=== PATIENT | female | born 1955 ===

== ENCOUNTER 2019-12-26 11:03 | Outpatient (REF) | payer MEDICARE, MEDICAID, SELFPAY ==
[2019-12-26 12:00] LABS: MANUAL DIFF FLAG NO
[2019-12-26 12:04] LABS: Basophils Percent Auto 0.6 % (0-2); Eosinophils Absolute Auto 0.2 X10*3/uL (0.0-0.4); Eosinophils Percent Auto 5.4 % (0-4); Hematocrit 38.1 % (37-47); Hemoglobin 12.1 g/dl (12.0-16.0); Lymphocytes Absolute Auto 1.4 X10*3/uL (1.2-4.9); Lymphocytes Percent Auto 43.2 % (20-40); Mean Corpuscular HGB Conc 31.8 g/dl (31.0-35.0); Mean Corpuscular Hemoglobin 30.9 pg (27.0-33.0); Mean Corpuscular Volume 97.4 fL (80-98); Mean Platelet Volume 9.9 fL (9.4-12.3); Monocytes Absolute Auto 0.2 X10*3/uL (0.1-1.2); Monocytes Percent Auto 7.6 % (2-11); Neutrophils Absolute Auto 1.4 X10*3/uL (2.0-8.3); Neutrophils Percent Auto 43.2 % (45-73); Platelet Count 207 X10*3/uL (160-400); Red Blood Count 3.91 X10*6/uL (4.20-5.50); Red Cell Distribution Width 14.7 % (11.0-16.0); White Blood Count 3.2 X10*3/uL (4.8-10.8)
[2019-12-26 12:38] LABS: Alanine Aminotransferase 24 U/L (0-31); Albumin Level 4.2 g/dL (3.5-5.0); Alkaline Phosphatase 143 U/L (39-117); Aspartate Amino Transferase 23 U/L (5-31); Bilirubin Direct 0.2 mg/dL (0.0-0.5); Bilirubin Total 0.3 mg/dL (0.0-1.0); Total Protein 7.1 g/dL (6.5-8.0)
[2019-12-26 12:44] LABS: Phenytoin Dilantin 12.4 ug/mL (10.0-20.0)
== END 2019-12-26 11:04 | disposition home or self-care (01) ==
LOC: HO.LAB 11:03
PROVIDERS: PCP Family Medicine; Visit Provider Psychiatry & Neurology Neurology
DX: G40.802 Other epilepsy, not intractable, without status epilepticus (principal)
CPT/HCPCS: 36415; 80076; 80185; 85025

== ENCOUNTER 2020-02-26 14:39 | Outpatient (REF) | payer MEDICARE, MEDICAID, SELFPAY ==
--- NOTE | 2020-02-26 14:49 | MM_ITS ---
EXAMINATION: MM SCREENING DIGITAL BREAST TOMOSYNTHESIS, BILATERAL CLINICAL INFORMATION: Screening. Asymptomatic. The lifetime risk of breast cancer based on the Tyrer-Cuzick Model is 5%. COMPARISON: Mammography: 08/31/2018, 08/14/2017, 10/21/2010 TECHNIQUE: Digital breast tomosynthesis is performed in both the craniocaudal and mediolateral oblique views along with computer-aided detection (CAD). Synthesized 2D images are generated from the tomosynthesis. FINDINGS: There are scattered areas of fibroglandular density (ACR BI-RADS breast composition Category b). There are no significant masses, abnormal calcifications, or other abnormalities. No significant changes from prior exams. There is a pacemaker generator partially overlying the posterior upper left breast again seen. MM/MM tomosynthesis screening BI IMPRESSION: No mammographic evidence of malignancy. ASSESSMENT: BI-RADS 1: Negative RECOMMENDATION: Routine annual mammography screening. This patient's information was entered into a reminder system with a target due date for their next mammogram.
== END 2020-02-26 14:40 | disposition home or self-care (01) ==
LOC: HO.MAMMO 14:39
PROVIDERS: PCP Family Medicine; Visit Provider Family Medicine
DX: Z12.31 Encounter for screening mammogram for malignant neoplasm of breast (principal)
CPT/HCPCS: 77063; 77067

== ENCOUNTER → 2020-04-15 13:28 | Outpatient (BNVA) | payer MEDICARE, MEDICAID, SELFPAY | PROVIDERS: PCP Family Medicine; Visit Provider Internal Medicine Cardiovascular Disease | DX: I10 Essential (primary) hypertension (principal) | CPT/HCPCS: 93005; 99212 ==

== ENCOUNTER 2020-09-21 12:02 | Outpatient (REF) | payer MEDICARE, MEDICAID, SELFPAY ==
[2020-09-21 14:02] LABS: MANUAL DIFF FLAG NO
[2020-09-21 14:05] LABS: Basophils Percent Auto 0.6 % (0-2); Eosinophils Absolute Auto 0.1 X10*3/uL (0.0-0.4); Hematocrit 37.3 % (37-47); Hemoglobin 11.9 g/dl (12.0-16.0); Lymphocytes Absolute Auto 1.6 X10*3/uL (1.2-4.9); Lymphocytes Percent Auto 47.2 % (20-40); Mean Corpuscular HGB Conc 31.9 g/dl (31.0-35.0); Mean Corpuscular Hemoglobin 30.7 pg (27.0-33.0); Mean Corpuscular Volume 96.4 fL (80-98); Mean Platelet Volume 10.4 fL (9.4-12.3); Monocytes Absolute Auto 0.3 X10*3/uL (0.1-1.2); Neutrophils Absolute Auto 1.4 X10*3/uL (2.0-8.3); Neutrophils Percent Auto 41.2 % (45-73); Platelet Count 250 X10*3/uL (160-400); Red Blood Count 3.87 X10*6/uL (4.20-5.50); Red Cell Distribution Width 14.4 % (11.0-16.0); White Blood Count 3.4 X10*3/uL (4.8-10.8)
[2020-09-21 14:37] LABS: Alanine Aminotransferase 17 U/L (0-31); Albumin Level 4.3 g/dL (3.5-5.0); Alkaline Phosphatase 144 U/L (39-117); Aspartate Amino Transferase 22 U/L (5-31); Total Protein 7.3 g/dL (6.5-8.0)
[2020-09-21 14:49] LABS: Bilirubin Direct 0.2 mg/dL (0.0-0.5); Bilirubin Total 0.4 mg/dL (0.0-1.0)
== END 2020-09-21 12:03 | disposition home or self-care (01) ==
LOC: HO.LAB 12:02
PROVIDERS: PCP Family Medicine; Visit Provider Psychiatry & Neurology Neurology
DX: G40.209 Localization-related (focal) (partial) symptomatic epilepsy and epileptic syndromes with complex partial seizures, not intractable, without status epilepticus (principal)
CPT/HCPCS: 36415; 80076; 85025

== ENCOUNTER 2021-03-03 10:05 | Outpatient (REF) | payer MEDICARE, MEDICAID, SELFPAY ==
--- NOTE | ~2021-03-03 | MM_ITS ---
EXAMINATION: MM SCREENING DIGITAL BREAST TOMOSYNTHESIS, BILATERAL CLINICAL INFORMATION: Screening. Asymptomatic. The lifetime risk of breast cancer based on the Tyrer-Cuzick Model is 4.5%. COMPARISON: Mammography: 02/26/2020 and studies dating back to 10/21/2010. TECHNIQUE: Digital breast tomosynthesis is performed in both the craniocaudal and mediolateral oblique views along with computer-aided detection (CAD). Synthesized 2-D images are generated from the tomosynthesis. FINDINGS: There are scattered areas of fibroglandular density (ACR BI-RADS breast composition Category b). There is a stable parenchymal pattern within the left breast with no new abnormal dominant mass or suspicious grouping of microcalcifications. Within the superior anterior aspect of the right breast approximately 4 cm from nipple, there is a 5 mm poorly marginated density with question of a few calcifications within it not definitely seen previously. I do not see corresponding density on craniocaudal view and this may represent superimposition of fibroglandular tissue, however, tomosynthesis views do not demonstrate this. MM/MM tomosynthesis screening BI IMPRESSION: Right breast density for further evaluation with spot magnification views anteriorly. ASSESSMENT: BI-RADS 0: Incomplete - Need Additional Imaging Evaluation. RECOMMENDATION: 1. Additional views of the right breast. 2. Targeted ultrasound if warranted after review of the additional views. 3. Radiology department staff will contact the patient for additional imaging. This patient's information was entered into a reminder system with a target due date for their next mammogram.
== END 2021-03-03 10:06 | disposition home or self-care (01) ==
LOC: HO.MAMMO 10:05
PROVIDERS: PCP Internal Medicine; Visit Provider Family Medicine
DX: Z12.31 Encounter for screening mammogram for malignant neoplasm of breast (principal)
CPT/HCPCS: 77063; 77067

== ENCOUNTER 2021-03-11 09:52 | Outpatient (REF) | payer MEDICARE, MEDICAID, SELFPAY ==
--- NOTE | ~2021-03-11 | MM_ITS ---
EXAMINATION: MM DIAGNOSTIC DIGITAL MAMMOGRAPHY, RIGHT CLINICAL INFORMATION: Recall from screening for question of asymmetric density on MLO view with some punctate calcifications. No CC correlate. TC score 5%. COMPARISON: Mammography: 03/03/2021, 02/26/2020, 08/31/2018 TECHNIQUE: Digital mammography is performed in the following views: Magnification CC x2, magnification ML FINDINGS: There are scattered areas of fibroglandular density (ACR BI-RADS breast composition Category b). Additional views show no persistent asymmetric density and no grouped calcifications. No developing density. No significant changes from prior studies. Results are discussed with the patient at time of visit, using an international recruiter. MM/MM added views RT IMPRESSION: Additional views show no persistent asymmetric density or calcifications. ASSESSMENT: BI-RADS 1: Negative RECOMMENDATION: Routine annual mammography screening. This patient's information was entered into a reminder system with a target due date for their next mammogram.
== END 2021-03-11 09:53 | disposition home or self-care (01) ==
LOC: HO.MAMMO 09:52
PROVIDERS: PCP Family Medicine; Visit Provider Family Medicine
DX: R92.2 Inconclusive mammogram (principal)
CPT/HCPCS: 77065

== ENCOUNTER 2021-04-09 10:56 | Emergency (ER) | payer MEDICARE, MEDICAID, SELFPAY ==
--- NOTE | ~2021-04-09 | XR_ITS ---
EXAMINATION: XR ANKLE, LEFT CLINICAL INFORMATION: Seizure and pain. COMPARISON: None TECHNIQUE: AP, lateral, and mortise views of the left ankle. FINDINGS: The ankle mortise and subtalar joints are normal. There is moderate size calcaneal heel spur. No visible acute fracture, dislocation. No lytic process. XR/XR ankle LT 2V IMPRESSION: Mild medial malleolar soft tissue swelling. No visible acute fracture, dislocation or subluxation seen.
[2021-04-09 11:17] VITALS: BP 110/60; BP 172/85; PULSE 81; PULSE 92; RESP 18; TEMP 37.2; O2SAT 97; O2SAT 99; BMI 30.9
--- NOTE | 2021-04-09 12:18 | ED_ITS ---
HPI - Seizure General Chief Complaint: Seizure Stated Complaint: seizure Time Seen by Provider: 04/09/21 11:51 Source: EMS and business banking officer Mode of arrival: EMS Limitations: no limitations and language barrier History of Present Illness HPI Narrative: 66-year-old female with a history of hypertension, hyperlipidemia, seizure disorder on multiple antiepileptics, TIA, Takotsubo cardiomyopathy with an EF of 20% here after witnessed seizure. Per EMS report the patient had 2 witnessed tonic clonic seizures approximately 2-3 minutes in length which were witnessed by a IMPLEMENTATION SPECIALIST and stops spontaneously. The IMPLEMENTATION SPECIALIST is not available to speak to in the patient has no memory of the event. The patient does tell me that she seems to have seizures monthly around the time of her menses. This is not abnormal for her. She denies any recent illnesses or any symptoms of cough or cold or fever. She tells me that she is feeling well with the exception of some left ankle pain which she believe she may have injured during the seizure. Patient is on multiple antiepileptics including Vimpat, Dilantin, fycompa, phenobarbital, clonazepam and is managed by Dr. Reilly from Neurology. She denies missing any doses of her seizure medication. No recent changes in her medication dosages Seizure History: Yes Place: Home Related Data Home Medications Medication Instructions Recorded Confirmed bisacodyl 5 mg tablet,delayed 5 mg PO BEDTIME 04/15/20 04/15/20 release (Dulcolax (bisacodyl)) clonazepam 2 mg tablet 2 mg PO BEDTIME 04/15/20 04/15/20 folic acid 1 mg tablet 1 mg PO DAILY 04/15/20 04/15/20 lacosamide 150 mg tablet (Vimpat) 150 mg PO BID 04/15/20 04/15/20 perampanel 4 mg tablet 4 mg PO BEDTIME 04/15/20 04/15/20 phenobarbital 32.4 mg tablet 32.4 mg PO BID 04/15/20 04/15/20 phenytoin sodium extended 100 mg 200 mg PO BID 04/15/20 04/15/20 capsule Previous Rx's Medication Instructions Recorded aspirin 81 mg tablet,delayed 81 mg PO DAILY #90 tab 08/07/20 release carvedilol 3.125 mg tablet 3.125 mg PO BID #180 tab 08/07/20 lisinopril 10 mg tablet 10 mg PO DAILY #90 tab 08/07/20 atorvastatin 40 mg tablet 40 mg PO DAILY #90 tab 03/08/21 Allergies Allergy/AdvReac Type Severity Reaction Status Date / Time No Known Allergies Allergy Unverified 12/12/19 14:38 [No Known Allergies*] N.K.D.A. Allergy Unknown Uncoded 10/17/19 00:00 Review of Systems Review of Systems: Yes all other systems are reviewed and are negative Constitutional: Constitutional: Reports no additional constitutional complaints, Denies body ache(s), Denies chills, Denies fever(s), Denies headach e(s) and Denies weakness Eyes: Eyes: Reports no additional eye complaints and Denies change in vision ENT: Reports system reviewed and no additional complaints, except as documented, Denies dizziness, Denies headache(s), Denies nasal congestion, Denies nasal discharge and Denies neck pain Cardiovascular: Cardiovascular: Reports no additional cardiovascular com plaints, Denies chest pain, Denies leg edema and Denies dyspnea Respiratory: Respiratory: Reports no additional respiratory complaints, Denies cough and Denies dyspnea Gastrointestinal: Gastrointestinal: Reports no additional gastrointestinal complaints, Denies abdominal pain, Denies diarrhea, Denies nausea and Denies vomiting Genitourinary: Genitourinary: Reports no additional female genitourinary complaints and Denies urinary incontinence Musculoskeletal: Musculoskeletal: Reports no additional musculoskeletal complaints, Denies back pain, Reports arthralgias, Denies joint swelling, Denies neck pain, Denies numbness and Denies tingling Integumentary/Breasts: Skin/Breast: Reports system reviewed and no additional complaints, except as docu and Denies rash Neurologic: Reports system reviewed and no additional complaints, except as documented, Denies Abnormal speech present, Denies dizziness, Denies headache(s), Denies numbness, Reports seizure-like activity, Denies tingling and Denies weakness [facility] Past Medical History Attestation statement: The following information was validated with the patient. Source: old records reviewed and nursing notes reviewed Medical History Hyperlipemia Hypertension Takotsubo cardiomyopathy Surgical History History of cholecystectomy Family History Family History Mother No problems noted. Father No problems noted. Social History Social History Advance Directives: Yes Advance Directives Information Provided: Yes Advance Directives on File: No Patient : No Physical Exam Vital Signs: Vital Signs: Last Vital Signs Temp 99 F 04/09/21 11:17 Pulse 81 04/09/21 11:17 Resp 18 04/09/21 11:17 BP 172/85 H 04/09/21 11:17 Pulse Ox 97 04/09/21 11:17 BMI result Body Mass Index 30.9 Const: General: cooperative, healthy appearing, comfortable and no acute distress Orientation/consciousness: patient oriented x3 Limitations: no limitations HENMT: Head: Yes normal to inspection Ears: hearing grossly normal bilaterally and TM's normal bilaterally General nose exam: Normal external nose present Face and sinus: Yes normal facial exam Mouth: Normal oral and palatal mucosa present Throat: Yes posterior oropharynx normal, Yes tonsils normal and Yes uvula midline Eyes: General: appearance normal, both eyes and all related structures Pupils: Equal, round and reactive pupils present Neck: Neck: Yes normal visual inspection, Yes full ROM, Yes no lymphadenopathy and Yes no meningeal signs Chest: Chest palpation & inspection: normal inspection of the chest Resp: Effort & Inspection: normal respiratory effort Auscultation: clear to auscultation bilaterally Cardio: Rate: regular rate Rhythm: regular rhythm Peripheral pulses: Peripheral pulses 2+ throughout GI: Inspection: Yes normal to inspection Palpation (GI): Soft to palpation and nontender Auscultation: normal bowel sounds Back/Spine/Pelvis: Thoracic/Lumbar Spine: thoracic and lumbar spine normal to inspection Skin: General skin exam: no rashes or lesions noted Neuro: General: patient oriented x3, no meningeal signs, no focal motor deficits and normal sensation to monofilament Cranial nerves: Yes CN's II-XII intact bilaterally, Yes Equal, round and reactive pupils present, Yes Bilaterally intact EOM present, Yes Nystagmus not present, Yes Normal facial strength present and Yes Midline tongue present Cognition (Neuro): normal cognition Speech: No Abnormal speech present Motor exam (neuro): 5/5 motor strength present throughout Sensory Exam: Normal double simultaneous stimulation for sensation Coordination: [id number] test normal Extrem: Other: Mild tenderness and swelling to the medial left ankle.FROM General: Yes normal to inspection Course Course Course Narrative: 66-year-old female with a history of epilepsy on multiple antiepileptic with breakthrough seizures here with reports of 2 witnessed seizures which occurred this morning at home. No missed dosages or change in dosage of seizure medications. No recent illness. On arrival the patient is alert oriented with a normal neurological exam. Will place patient on seizure precautions. She is complaining of left ankle pain which may be secondary to an injury so will check x-rays, labs and POC 1350-blood sugars normal. Labs are unremarkable. X-ray shows no acute bony abnormality. Patient was monitored in the emergency department for 3 hours with no additional seizure episodes. She is alert and oriented and neurologically intact. I called and spoke to her brother who is her caregiver. He tells me that the patient has been complaining of ankle pain for several days and reports that she had an injury to it about a week ago. I reassured him that her x-ray show no bony abnormality and it is likely a sprain. Recommend that she continue her seizure medications and follow-up outpatient with her neurologist. Reviewed worrisome signs and symptoms of when to return to the emergency department. Comfortable discharge home. MDM - Seizure Medical Records Attestation: I reviewed the patient's medical records. Lab Data Attestation: I reviewed the patient's lab results. Result diagrams: 04/09/21 12:48 04/09/21 12:48 Labs: Lab Results 04/09/21 04/09/21 04/09/21 Range/Units 12:24 12:48 12:48 WBC 6.0 (4.8-10.8) X10*3/uL RBC 4.33 (4.20-5.50) X10*6/uL Hgb 13.1 (12.0-16.0) g/dl Hct 40.2 (37.0-47.0) % MCV 92.8 (80.0-98.0) fL MCH 30.3 (27.0-33.0) pg MCHC 32.6 (31.0-35.0) g/dl RDW 14.2 (11.0-16.0) % Plt Count 254 (160-400) X10*3/uL MPV 9.9 (9.4-12.3) fL Immature Gran % (Auto) 0.2 (0.0-0.4) % Neut % (Auto) 76.0 H (45-73) % Lymph % (Auto) 15.3 L (20-40) % [place] % (Auto) 7.2 (2-11) % Eos % (Auto) 1.0 (0-4) % Baso % (Auto) 0.3 (0-2) % Lymph # (Auto) 0.9 L (1.2-4.9) X10*3/uL [place] # (Auto) 0.4 (0.1-1.2) X10*3/uL Eos # (Auto) 0.1 (0.0-0.4) X10*3/uL Baso # (Auto) 0.0 (0.0-0.2) X10*3/uL Abs Immat Gran (auto) 0.01 (0.00-0.03) X10*3/uL Absolute Neuts (auto) 4.5 (2.0-8.3) x10*3/uL Absolute Nucleated RBC 0.000 (0.0-0.012) X10*3/uL Nucleated RBC % (auto) 0.0 (0.0-0.2) /100WBC Sodium 139 (135-145) mmol/L Potassium 4.0 (3.3-5.1) mmol/L Chloride 107 (96-108) mmol/L Carbon Dioxide 24 (22-29) mmol/L Anion Gap 12 (12-20) BUN 8 L (9-16) mg/dL Creatinine 0.66 (0.5-1.4) mg/dL Estim Creat Clear Calc 89.0 Estimated GFR > 60 POC Glucose 118 H (60-115) mg/dL Random Glucose 118 H (60-115) mg/dL Lactic Acid (0.5-2.0) mmol/L Calcium 9.2 (8.4-10.2) mg/dL Total Bilirubin 0.4 (0.0-1.0) mg/dL Direct Bilirubin 0.2 (0.0-0.5) mg/dL AST 18 (5-31) U/L ALT 20 (0-31) U/L Alkaline Phosphatase 147 H (39-117) U/L Total Protein 7.8 (6.5-8.0) g/dL Albumin 4.1 (3.5-5.0) g/dL 04/09/21 Range/Units 12:48 WBC (4.8-10.8) X10*3/uL RBC (4.20-5.50) X10*6/uL Hgb (12.0-16.0) g/dl Hct (37.0-47.0) % MCV (80.0-98.0) fL MCH (27.0-33.0) pg MCHC (31.0-35.0) g/dl RDW (11.0-16.0) % Plt Count (160-400) X10*3/uL MPV (9.4-12.3) fL Immature Gran % (Auto) (0.0-0.4) % Neut % (Auto) (45-73) % Lymph % (Auto) (20-40) % [place] % (Auto) (2-11) % Eos % (Auto) (0-4) % Baso % (Auto) (0-2) % Lymph # (Auto) (1.2-4.9) X10*3/uL [place] # (Auto) (0.1-1.2) X10*3/uL Eos # (Auto) (0.0-0.4) X10*3/uL Baso # (Auto) (0.0-0.2) X10*3/uL Abs Immat Gran (auto) (0.00-0.03) X10*3/uL Absolute Neuts (auto) (2.0-8.3) x10*3/uL Absolute Nucleated RBC (0.0-0.012) X10*3/uL Nucleated RBC % (auto) (0.0-0.2) /100WBC Sodium (135-145) mmol/L Potassium (3.3-5.1) mmol/L Chloride (96-108) mmol/L Carbon Dioxide (22-29) mmol/L Anion Gap (12-20) BUN (9-16) mg/dL Creatinine (0.5-1.4) mg/dL Estim Creat Clear Calc Estimated GFR POC Glucose (60-115) mg/dL Random Glucose (60-115) mg/dL Lactic Acid 1.0 (0.5-2.0) mmol/L Calcium (8.4-10.2) mg/dL Total Bilirubin (0.0-1.0) mg/dL Direct Bilirubin (0.0-0.5) mg/dL AST (5-31) U/L ALT (0-31) U/L Alkaline Phosphatase (39-117) U/L Total Protein (6.5-8.0) g/dL Albumin (3.5-5.0) g/dL Imaging Data ankle x-ray left: Attestation: I personally reviewed and interpreted this imaging study as follows: Radiologist's impression: EXAMINATION: XR ANKLE, LEFT CLINICAL INFORMATION: Seizure and pain.? COMPARISON: None? TECHNIQUE: AP, lateral, and mortise views of the left ankle. FINDINGS: The ankle mortise and subtalar joints are normal. There is moderate size calcaneal heel spur. No visible acute fracture, dislocation. No lytic process. XR/XR ankle LT 2V IMPRESSION: Mild medial malleolar soft tissue swelling. No visible acute fracture, dislocation or subluxation seen. Discharge Plan Discharge Clinical Impression: Epileptic seizure, Sprain and strain of left ankle Patient Disposition: Home, Self-Care Instructions: Ankle Sprain (ED), Recurrent Seizures in Adults (ED) Additional Instructions: Tus radiograf?as no muestran fractura. Contin?e tomando chemo medicamentos anticonvulsivos. Seguimiento con ortiz neur?logo seg?n lo programado. Prescriptions: No Action aspirin 81 mg tablet,delayed release (DR/EC) 81 mg PO DAILY Qty: 90 RF: 3 lisinopril 10 mg tablet 10 mg PO DAILY Qty: 90 RF: 2 carvedilol 3.125 mg tablet 3.125 mg PO BID Qty: 180 RF: 3 atorvastatin 40 mg tablet 40 mg PO DAILY Qty: 90 RF: 3 folic acid 1 mg tablet 1 mg PO DAILY RF: 0 phenobarbital 32.4 mg tablet 32.4 mg PO BID RF: 0 clonazepam 2 mg tablet 2 mg PO BEDTIME RF: 0 Fycompa 4 mg tablet 4 mg PO BEDTIME RF: 0 phenytoin sodium extended 100 mg capsule 200 mg PO BID RF: 0 bisacodyl [Dulcolax (bisacodyl)] 5 mg tablet,delayed release (DR/EC) 5 mg PO BEDTIME RF: 0 Vimpat 150 mg tablet 150 mg PO BID RF: 0 Referrals: Physician,Unknown J [Primary Care Provider] - 2 days Interventions: ED Discharge Assessment Last Done: 04/09/21 14:12 Discharge Date/Time: 04/09/21 14:12 Print Language: Tajik
[2021-04-09 12:29] LABS: Glucose, Whole Blood 118 mg/dL (60-115)
[2021-04-09 12:52] LABS: MANUAL DIFF FLAG NO
[2021-04-09 12:54] LABS: Basophils Percent Auto 0.3 % (0-2); Eosinophils Absolute Auto 0.1 X10*3/uL (0.0-0.4); Hematocrit 40.2 % (37.0-47.0); Hemoglobin 13.1 g/dl (12.0-16.0); Imm Gran Abs Auto 0.01 X10*3/uL (0.00-0.03); Imm Gran Pct Auto 0.2 % (0.0-0.4); Lymphocytes Absolute Auto 0.9 X10*3/uL (1.2-4.9); Lymphocytes Percent Auto 15.3 % (20-40); Mean Corpuscular HGB Conc 32.6 g/dl (31.0-35.0); Mean Corpuscular Hemoglobin 30.3 pg (27.0-33.0); Mean Corpuscular Volume 92.8 fL (80.0-98.0); Mean Platelet Volume 9.9 fL (9.4-12.3); Monocytes Absolute Auto 0.4 X10*3/uL (0.1-1.2); Monocytes Percent Auto 7.2 % (2-11); Neutrophils Absolute Auto 4.5 x10*3/uL (2.0-8.3); Platelet Count 254 X10*3/uL (160-400); Red Blood Count 4.33 X10*6/uL (4.20-5.50); Red Cell Distribution Width 14.2 % (11.0-16.0)
[2021-04-09 13:13] LABS: Alanine Aminotransferase 20 U/L (0-31); Albumin Level 4.1 g/dL (3.5-5.0); Alkaline Phosphatase 147 U/L (39-117); Anion Gap 12 (12-20); Aspartate Amino Transferase 18 U/L (5-31); Bilirubin Direct 0.2 mg/dL (0.0-0.5); Bilirubin Total 0.4 mg/dL (0.0-1.0); Blood Urea Nitrogen 8 mg/dL (9-16); Calcium 9.2 mg/dL (8.4-10.2); Carbon Dioxide 24 mmol/L (22-29); Chloride 107 mmol/L (96-108); Estimated Glomerular Filt Rate > 60; Glucose Random 118 mg/dL (60-115); Sodium 139 mmol/L (135-145); Total Protein 7.8 g/dL (6.5-8.0)
== END 2021-04-09 14:12 | disposition home or self-care (01) ==
PROVIDERS: Nurse Practitioner Family; Emergency Provider Emergency Medicine
DX: S93.402A Sprain of unspecified ligament of left ankle, initial encounter (principal); R56.9 Unspecified convulsions; X58.XXXA Exposure to other specified factors, initial encounter; Y93.9 Activity, unspecified; Y92.9 Unspecified place or not applicable; Y99.9 Unspecified external cause status; Z79.899 Other long term (current) drug therapy
CPT/HCPCS: 36415; 73600; 80048; 80076; 82947; 83605; 85025; 99283; 99284

== ENCOUNTER 2021-08-24 11:44 | Emergency (ER) | payer MEDICARE, MEDICAID, SELFPAY ==
--- NOTE | ~2021-08-24 | XR_ITS ---
EXAMINATION: XR ANKLE, RIGHT CLINICAL INFORMATION: Fall with right ankle injury COMPARISON: None TECHNIQUE: AP, lateral, and mortise views of the right ankle. FINDINGS: The malleolus structures appear to be intact. Dome of talus unremarkable. Posterior distal tibia appears to be within normal limits. No osteochondral lesions. Minimal spurring in the foot and plantar calcaneus. XR/XR ankle RT 2V IMPRESSION: No evidence for acute process.
[2021-08-24 11:50] VITALS: BP 135/111; BP 138/82; PULSE 66; PULSE 76; RESP 18; TEMP 36.5; O2SAT 96; O2SAT 98; BMI 33.3
--- NOTE | 2021-08-24 12:15 | ED_ITS ---
HPI - General Adult General Chief complaint: Fall Stated complaint: R & L ANKLE PAIN S/P FALL MONDAY Time Seen by Provider: 08/24/21 12:14 Source: patient, EMS and per diem interpreter Mode of arrival: EMS Limitations: no limitations History of Present Illness HPI narrative: 66 years old female came in for evaluation of right ankle pain. Patient fell by twisting her right ankle 2 days ago, complaining of right ankle pain with ambulation. Patient declined any head injury, no LOC, no other injuries. Related Data Home Medications Medication Instructions Recorded Confirmed bisacodyl 5 mg tablet,delayed 5 mg PO BEDTIME 04/15/20 04/15/20 release (Dulcolax (bisacodyl)) clonazepam 2 mg tablet 2 mg PO BEDTIME 04/15/20 04/15/20 folic acid 1 mg tablet 1 mg PO DAILY 04/15/20 04/15/20 lacosamide 150 mg tablet (Vimpat) 150 mg PO BID 04/15/20 04/15/20 perampanel 4 mg tablet 4 mg PO BEDTIME 04/15/20 04/15/20 phenobarbital 32.4 mg tablet 32.4 mg PO BID 04/15/20 04/15/20 phenytoin sodium extended 100 mg 200 mg PO BID 04/15/20 04/15/20 capsule Previous Rx's Medication Instructions Recorded aspirin 81 mg tablet,delayed 81 mg PO DAILY #90 tab 08/07/20 release carvedilol 3.125 mg tablet 3.125 mg PO BID #180 tab 08/07/20 lisinopril 10 mg tablet 10 mg PO DAILY #90 tab 08/07/20 atorvastatin 40 mg tablet 40 mg PO DAILY #90 tab 03/08/21 Allergies Allergy/AdvReac Type Severity Reaction Status Date / Time No Known Allergies Allergy Unverified 12/12/19 14:38 [No Known Allergies*] N.K.D.A. Allergy Unknown Uncoded 10/17/19 00:00 Review of Systems Review of Systems: All other systems are reviewed and are negative Constitutional: Reports as per HPI and Reports no additional constitutional complaints Eyes: Reports as per HPI and Reports no additional eye complaints Reports system reviewed and no additional complaints, except as documented Cardiovascular: Reports as per HPI and Reports no additional cardiovascular complaints Respiratory: Reports as per HPI and Reports no additional respiratory complaints Gastrointestinal: Reports as per HPI and Reports no additional gastrointestinal complaints Genitourinary: Reports no additional female genitourinary complaints Musculoskeletal: Reports no additional musculoskeletal complaints Skin/Breast: Reports system reviewed and no additional complaints, except as docu Psychiatric: Reports no additional psychiatric complaints Endocrine: Reports no additional endocrine complaints Hematologic/Lymphatic: Reports no additional hematologic/lymphatic complaints Allergic/Immunologic: Reports no additional allergic/immunologic complaints Reports system reviewed and no additional complaints, except as documented and Reports Abnormal speech present [facility] Past Medical History Medical History Hyperlipemia Hypertension Takotsubo cardiomyopathy Surgical History History of cholecystectomy Family History Family History Mother No problems noted. Father No problems noted. Social History Social History Patient Tobacco Use Status: Current someday Tobacco user Smoked in Last 30 Days: Yes Use of substances other than those prescribed or required for medical reasons: No Advance Directives: No Advance Directives Information Provided: No Physical Exam ED Vital Signs: Vital Signs - 24 hr 08/24/21 11:50 Temperature 97.7 F Pulse Rate 66 Respiratory Rate 18 Blood Pressure 135/111 H Pulse Oximetry 96 BMI result Body Mass Index 33.3 Vital signs have been reviewed as appeared to be correct. Blood pressure elevated. Heart rate normal. Respiration rate normal. Temperature normal. Oxygen saturation normal. Appearance: Alert. Oriented X3. No acute distress. Head: Normal external exam. Normocephalic. Atraumatic. No Matias signs noted. No raccoon eyes noted Eyes: PERRLA. EOMI. Conjunctiva and sclera normal. Eyelids normal. ENT: TM's Normal. Pharynx normal. Uvula midline. Moist mucous membranes. No trismus noted. No drooling noted. No muffled voice noted. Neck: Normal inspection. Neck supple. FROM. No adenopathy. Thyroid Normal. No meningeal signs. No neck mass noted. CVS: Normal heart rate and rhythm. Heart sound normal. No murmurs noted. Pulses normal throughout. Respiratory: No respiratory distress. Painless inspiration. Breath sounds normal. No wheezes/rales/rhonchi noted. Chest nontender. No accessory muscle usage noted or decreased air movement noted. Abdomen: Soft and nontender. Bowel sounds normal in all 4 quadrants. No distention noted. No organomegaly noted. No visible injury noted. Back: No CVA tenderness. Full range of motion noted. Skin: Skin warm and dry. Normal skin color. Normal skin turgor. No rashes/lesions/lacerations noted. Extremities: No lower extremity edema. Right ankle tenderness more on the medial malleolus, no deformity, no swelling. Neuro: Oriented X 3. Cranial nerve exam: II-XII are grossly intact No motor deficit. No sensory deficit. Reflexes normal. Course Course Course Narrative: Fall and right ankle pain. With no fracture or dislocation. Able to ambulate, instructed to apply ice and use NSAIDs if needed for pain. Instructed to follow-up with PCP for managing blood pressure. Medical Decision Making Imaging Data Right ankle x-ray: Attestation: I personally reviewed and interpreted this imaging study as follows: Radiologist's impression: No acute fracture dislocation. Discharge Plan Discharge Clinical Impression: Contusion of ankle, right, Hypertension Patient Disposition: Home, Self-Care Instructions: Contusion in Adults (ED) Prescriptions: No Action aspirin 81 mg tablet,delayed release (DR/EC) 81 mg PO DAILY Qty: 90 3RF lisinopril 10 mg tablet 10 mg PO DAILY Qty: 90 2RF carvedilol 3.125 mg tablet 3.125 mg PO BID Qty: 180 3RF atorvastatin 40 mg tablet 40 mg PO DAILY Qty: 90 3RF folic acid 1 mg tablet 1 mg PO DAILY 0RF phenobarbital 32.4 mg tablet 32.4 mg PO BID 0RF clonazepam 2 mg tablet 2 mg PO BEDTIME 0RF Fycompa 4 mg tablet 4 mg PO BEDTIME 0RF phenytoin sodium extended 100 mg capsule 200 mg PO BID 0RF bisacodyl [Dulcolax (bisacodyl)] 5 mg tablet,delayed release (DR/EC) 5 mg PO BEDTIME 0RF Vimpat 150 mg tablet 150 mg PO BID 0RF Referrals: Physician,None [Primary Care Provider] -
[2021-08-24] MEDS: Ibuprofen 600 MG TABLET PO (12:20)
== END 2021-08-24 14:04 | disposition home or self-care (01) ==
PROVIDERS: Emergency Provider Emergency Medicine
DX: S90.01XA Contusion of right ankle, initial encounter (principal); X50.1XXA Overexertion from prolonged static or awkward postures, initial encounter; I10 Essential (primary) hypertension; E78.5 Hyperlipidemia, unspecified; F17.200 Nicotine dependence, unspecified, uncomplicated; Z79.82 Long term (current) use of aspirin; Z79.02 Long term (current) use of antithrombotics/antiplatelets; Z79.899 Other long term (current) drug therapy; Y93.9 Activity, unspecified; Y92.9 Unspecified place or not applicable; Y99.9 Unspecified external cause status
CPT/HCPCS: 73600; 99283

== ENCOUNTER 2021-09-07 09:51 | Inpatient (IN) | payer MEDICARE, MEDICAID, SELFPAY ==
[2021-09-07] VITALS (11 sets, daily range): BP systolic 124–167; BP diastolic 67–103; PULSE 79–113; RESP 14–20; TEMP 37–37.7; O2SAT 96–100; BMI 27.9; BMI 27.8
--- NOTE | ~2021-09-07 | CT_ITS ---
EXAMINATION: CT LEFT FOOT CLINICAL INFORMATION: Ankle fracture. COMPARISON: None TECHNIQUE: 2 mm thin axial and reformatted 2 mm thin sagittal and coronal images of left ankle and left foot were obtained without contrast. DLP: 181 mGy-cm. FINDINGS: There is a comminuted fracture involving posterior malleolar, which is displaced posteriorly and ankle dislocated. Also visualized, is a fracture involving the anteromedial malleolus distal tibia and lateral malleolus distal fibula. The ankle mortise is dislocated. The subtalar joint is normal. A small calcaneal heel enthesophyte is seen. There is normal alignment of the talonavicular talocalcaneal and intertarsal joint space. There is a small calcaneal heel enthesophyte. There is moderate soft tissue edema seen throughout the entire left ankle, most prominent along the lateral ankle. CT/CT foot LT wo con IMPRESSION: Trimalleolar fracture with anterior dislocation of the ankle joint. There is moderate ankle edema most prominent along the lateral ankle. No additional fracture seen.
--- NOTE | ~2021-09-07 | XR_ITS ---
EXAMINATION: XR ANKLE, LEFT CLINICAL INFORMATION: Post reduction trimalleolar fracture with dislocation. COMPARISON: Radiographs left ankle 09/07/2021 1242 hours. TECHNIQUE: Single crosstable lateral view of the left ankle is performed at 1359 hours. Preliminary interpretation provided at time of exam during PACS downtime. XR/XR ankle LT min 3V FINDINGS/IMPRESSION: There is known trimalleolar fracture. The posterior talar dislocation is without change. Posterior malleoli fracture fragment is displaced posteriorly along with the talus similar to prior exam.
--- NOTE | ~2021-09-07 | XR_ITS ---
EXAMINATION: XR ANKLE, LEFT CLINICAL INFORMATION: Trimalleolar fracture with posterior dislocation. Follow-up. COMPARISON: Lateral left ankle radiograph 09/07/2021 1359 hours, radiographs left ankle 1242 hours. TECHNIQUE: 6 views of the left ankle are obtained between 1454 and 1516 hours. Preliminary interpretation provided at time of exam during PACS downtime. XR/XR ankle LT min 3V FINDINGS/IMPRESSION: There is known trimalleolar fracture with posterior dislocation talus. The medial and lateral malleoli are displaced laterally along with the talar dome. The final lateral radiograph shows improved displacement posterior malleolus and decreased dislocation of the talus.
--- NOTE | ~2021-09-07 | XR_ITS ---
EXAMINATION: XR ANKLE, LEFT CLINICAL INFORMATION: Injury. Pain. COMPARISON: None TECHNIQUE: 3 views of the left ankle. FINDINGS: There is a trimalleolar fracture involving the left ankle. Moderate bimalleolar soft tissue swelling slightly greater on the left. There is anterior dislocation of distal tibia and fibula. There is a small calcaneal spur.. XR/XR ankle LT min 3V IMPRESSION: Trimalleolar fracture with anterior dislocation of the ankle joint. There is moderate bimalleolar soft tissue swelling slightly greater on the lateral side. Small calcaneal heel enthesophyte.
--- NOTE | ~2021-09-07 | FL_ITS ---
EXAMINATION: XR FLUOROSCOPY WITH IMAGES CLINICAL INFORMATION: Closed reduction left ankle COMPARISON: Previous x-rays of the left ankle and CT of the left foot from yesterday TECHNIQUE: Fluoroscopy performed by Dr. Edinson Matthews. Fluoroscopy time: 15 seconds DAP: 0.04 mGycm2 Images: 2 FINDINGS: There is normal ankle mortise alignment. Known trimalleolar fractures are not well visualized. FL/FL guidance in OR IMPRESSION: Fluoroscopy guidance for reduction of left ankle.
--- NOTE | 2021-09-07 10:01 | ED.GENADULT ---
HPI - General Adult General Chief complaint: Extremity Injury, Lower Stated complaint: L FOOT PAIN/DEFORMITY S/P FALL LAST NIGHT PER EMS Time Seen by Provider: 09/07/21 10:00 Source: patient and full time staff interpreter Mode of arrival: EMS Limitations: language barrier History of Present Illness HPI narrative: Patient is a 66 year old female presenting to the emergency department today with a left ankle injury. Patient states that she has a seizure disorder and sometimes has breakthrough seizures. Patient states that she had a seizure, woke up, and noticed that her left ankle looked like this and hurt to stand on. Patient states that she gets home help with nursing and someone to clean her house. Patient states that she does not ambulate well normally and is supposed to be using a wheelchair. Patient denies any dizziness, lightheadedness, abdominal pain, nausea, vomiting, fever, chills, blurry vision, double vision, loss of vision, chest pain, difficulty breathing, shortness of breath, back pain, night sweats, pain with urination, increased urinary frequency, increased urinary urgency, blood in her urine or stool, syncope or a near syncopal episode, bowel incontinence, bladder incontinence, bowel retention, bladder retention, or any other complaints at this time. Onset (ago): hour(s) Location: left and lower extremity Radiation: non-radiation Severity: moderate Severity scale (1-10): 4 Quality: aching and dull Pain Consistency: constant Relieving factors: none Exacerbating factors: movement Associated symptoms: denies other symptoms Related Data Home Medications Medication Instructions Recorded Confirmed bisacodyl 5 mg tablet,delayed 5 mg PO BEDTIME 04/15/20 04/15/20 release (Dulcolax (bisacodyl)) clonazepam 2 mg tablet 2 mg PO BEDTIME 04/15/20 04/15/20 folic acid 1 mg tablet 1 mg PO DAILY 04/15/20 04/15/20 lacosamide 150 mg tablet (Vimpat) 150 mg PO BID 04/15/20 04/15/20 perampanel 4 mg tablet 4 mg PO BEDTIME 04/15/20 04/15/20 phenobarbital 32.4 mg tablet 32.4 mg PO BID 04/15/20 04/15/20 phenytoin sodium extended 100 mg 200 mg PO BID 04/15/20 04/15/20 capsule Previous Rx's Medication Instructions Recorded aspirin 81 mg tablet,delayed 81 mg PO DAILY #90 tabs 08/07/20 release carvedilol 3.125 mg tablet 3.125 mg PO BID #180 tabs 08/07/20 lisinopril 10 mg tablet 10 mg PO DAILY #90 tabs 08/07/20 atorvastatin 40 mg tablet 40 mg PO DAILY #90 tabs 03/08/21 Allergies Allergy/AdvReac Type Severity Reaction Status Date / Time No Known Allergies Allergy Verified 09/07/21 10:03 [No Known Allergies*] Review of Systems Constitutional: Constitutional: Reports no additional constitutional complaints, Denies chills, Denies fever(s) and Denies night sweats Eyes: Eyes: Reports no additional eye complaints, Denies blurry vision, Denies change in vision, Denies diplopia, Denies eye discharge, Denies loss of vision and Denies eye pain ENT: Denies dizziness Cardiovascular: Cardiovascular: Reports no additional cardiovascular complaints, Denies chest pain, Denies lightheadedness, Denies Loss of Consciousness and Denies dyspnea Respiratory: Respiratory: Reports no additional respiratory complaints and Denies dyspnea Gastrointestinal: Gastrointestinal: Reports no additional gastrointestinal complaints, Denies abdominal pain, Denies melena, Denies hematochezia, Denies change in bowel habits and Denies change in stool character Genitourinary: Genitourinary: Denies hematuria, Denies urinary frequency, Denies dysuria, Denies urinary incontinence, Denies urinary hesitancy and Denies urinary urgency Musculoskeletal: Musculoskeletal: Reports no additional musculoskeletal complaints, Denies numbness and Denies tingling Comments: left ankle pain, left ankle swelling Neurologic: Denies dizziness, Denies loss of vision, Denies numbness and Denies tingling Psychiatric: Psychiatric: Reports no additional psychiatric complaints Endocrine: Endocrine: Reports no additional endocrine complaints Hematologic/Lymphatic: Hematologic/Lymphatic: Reports no additional hematologic/lymphatic complaints Allergic/Immunologic: Allergic/Immunologic: Reports no additional allergic/immunologic complaints PMFSH Past Medical History Attestation statement: The following information was validated with the patient. Source: old records reviewed Medical History Takotsubo cardiomyopathy Surgical History History of cholecystectomy Family History Family History Mother No problems noted. Father No problems noted. Social History Social History Patient Tobacco Use Status: Current someday Tobacco user Advance Directives Date on File: 09/07/21 Physical Exam ED Vital Signs: Vital Signs - 24 hr 09/07/21 09:59 09/07/21 10:32 09/07/21 14:11 Temperature 99.9 F Pulse Rate 88 79 79 Respiratory Rate 18 18 15 Blood Pressure 152/78 H 147/80 H 150/88 H Pulse Oximetry 97 97 96 Oxygen Delivery Method Room Air 09/07/21 14:20 09/07/21 14:27 09/07/21 14:29 Temperature Pulse Rate 89 113 H 110 H Respiratory Rate 14 20 16 Blood Pressure 124/93 H 156/69 H 167/103 H Pulse Oximetry 100 99 Oxygen Delivery Method Room Air 09/07/21 14:32 09/07/21 14:47 Temperature Pulse Rate 104 H 89 Respiratory Rate 20 19 Blood Pressure 166/92 H 154/78 H Pulse Oximetry 96 96 Oxygen Delivery Method Room Air BMI result Body Mass Index 27.9 Const General: cooperative, no acute distress, alert and awake Nutritional Appearance: well nourished Orientation/consciousness: patient oriented x3 Limitations: no limitations HENMT Head: Yes normal to inspection and Yes atraumatic Ears: hearing grossly normal bilaterally and external ears normal General nose exam: Normal external nose present, no nasal discharge noted and no epistaxis Face and sinus: Yes normal facial exam, No abrasion and No laceration Mouth: Normal oral and palatal mucosa present, no drooling and no muffled voice Eyes General: appearance normal, both eyes and all related structures Periorbital: periorbital findings normal Eyelids: Yes eyelids normal Conjunctivae: conjunctivae normal Pupils: Equal, round and reactive pupils present EOM: EOMs intact bilaterally Neck Neck: Yes normal visual inspection, Yes full ROM and Yes no lymphadenopathy Chest Chest palpation & inspection: normal inspection of the chest Resp Effort & Inspection: normal respiratory effort and able to speak in complete sentences Auscultation: clear to auscultation bilaterally Cardio Rate: regular rate Rhythm: regular rhythm GI Inspection: Yes normal to inspection Neuro General: patient oriented x3 and moves all extremities Cranial nerves: Yes Equal, round and reactive pupils present Cognition (Neuro): normal cognition Motor exam (neuro): 5/5 motor strength present throughout Sensory Exam: Normal double simultaneous stimulation for sensation Coordination: [id number] test normal Extrem Other: General: Yes capillary refill normal Psych Appearance: grossly normal Mental Status: mental status grossly normal Affect: normal affect Attitude: cooperative Thought process: Normal thought process present Thought content: Normal thought content present Insight: Good insight present (Psych) Procedures Orthopedic Joint Reduction Joint #1: Time Out Performed: Yes Side: left Joint Reduction Location: ankle Analgesia: procedural sedation Technique used: traction/counter-traction and direct manipulation Post-reduction neuro exam: intact Post-reduction vascular: intact Post Reduction X-Ray Obtained: Yes Post Reduction X-Ray Results: not reduced Splint Applied: Yes Patient Tolerated Procedure: well Orthopedic Splinting/Casting Injury #1: Side: left Lower Extremity Injury Location: ankle Lower Extremity Immobilizer: posterior splint Procedural Sedation Indication: fracture/dislocation reduction ASA Class: II Mallampati Class: II Time of Last PO Intake: 00:00 Preparation: manager cardiac cath applied, pulse oximeter, suction/airway equipment at bedside and IV secured Patient Tolerated Procedure: well Complications: none Medical Decision Making MDM Narrative Medical decision making narrative: Patient is a 66 year old female presenting to the emergency department today with a left ankle injury. Patient's physical exam was as written earlier in this chart. Patient's blood work was unremarkable. Patient's left ankle x-ray showed a tri malleolar fracture with posterior talar dislocation. Patient's left leg CT showed posterior tibial fracture. I explained my physical exam findings as well as all test results to the patient. I answered all questions asked by the patient. Initially, Dr. Pierce and I attempted to reduce the patient's ankle and were unsuccessful. Dr. Matthews, the orthopedist, then came down and attempted to reduce the ankle. Patient's ankle remained not reduced on post-reduction films. Dr. Matthews recommended the patient be admitted for surgical procedure tomorrow. Patient verbalized agreement and understanding with this treatment plan and admission. Medicine declined admission and stated ortho should be the admitting service. Patient admitted to orthopedics. Differential Diagnosis Differential Diagnosis: unstable ankle fracture, ankle dislocation Medical Records Medical records reviewed: Yes I reviewed the patient's medical records. Lab Data Lab results reviewed: Yes I reviewed the patient's lab results. Result diagrams: 06/14/22 11:39 09/07/21 11:39 Labs: Lab Results 09/07/21 09/07/21 09/07/21 Range/Units 11:39 11:39 11:39 WBC 5.9 (4.8-10.8) X10*3/uL RBC 3.88 L (4.20-5.50) X10*6/uL Hgb 11.3 L (12.0-16.0) g/dl Hct 34.5 L (37.0-47.0) % MCV 88.9 (80.0-98.0) fL MCH 29.1 (27.0-33.0) pg MCHC 32.8 (31.0-35.0) g/dl RDW 13.3 (11.0-16.0) % Plt Count 268 (160-400) X10*3/uL MPV 10.1 (9.4-12.3) fL Immature Gran % (Auto) 0.3 (0.0-0.4) % Neut % (Auto) 73.2 H (45-73) % Lymph % (Auto) 14.3 L (20-40) % [place] % (Auto) 11.8 H (2-11) % Eos % (Auto) 0.2 (0-4) % Baso % (Auto) 0.2 (0-2) % Lymph # (Auto) 0.8 L (1.2-4.9) X10*3/uL [place] # (Auto) 0.7 (0.1-1.2) X10*3/uL Eos # (Auto) 0.0 (0.0-0.4) X10*3/uL Baso # (Auto) 0.0 (0.0-0.2) X10*3/uL Abs Immat Gran (auto) 0.02 (0.00-0.03) X10*3/uL Absolute Neuts (auto) 4.3 (2.0-8.3) x10*3/uL Absolute Nucleated RBC 0.000 (0.0-0.012) X10*3/uL Nucleated RBC % (auto) 0.0 (0.0-0.2) /100WBC ESR (0-20) MM/HR Sodium 138 (135-145) mmol/L Potassium 3.8 (3.3-5.1) mmol/L Chloride 103 (96-108) mmol/L Carbon Dioxide 24 (22-29) mmol/L Anion Gap 15 (12-20) BUN 13 D (9-16) mg/dL Creatinine 0.67 (0.5-1.4) mg/dL Estim Creat Clear Calc 102.3 Estimated GFR > 60 Random Glucose 115 (60-115) mg/dL Lactic Acid (0.5-2.0) mmol/L Calcium 8.9 (8.4-10.2) mg/dL Total Bilirubin 0.7 (0.0-1.0) mg/dL AST 23 (5-31) U/L ALT 22 (0-31) U/L Alkaline Phosphatase 155 H (39-117) U/L C-Reactive Protein 4.12 H (< or = 0.50) mg/dL B-Natriuretic Peptide 58 (<100) pg/mL Total Protein 7.5 (6.5-8.0) g/dL Albumin 4.3 (3.5-5.0) g/dL Influenza Type A (PCR) (Negative) Influenza Type B (PCR) (Negative) RSV RNA Qual (PCR) (Negative) SARS-CoV-2 RNA (RT-PCR) (Negative) 09/07/21 09/07/21 09/07/21 Range/Units 12:20 12:20 12:27 WBC (4.8-10.8) X10*3/uL RBC (4.20-5.50) X10*6/uL Hgb (12.0-16.0) g/dl Hct (37.0-47.0) % MCV (80.0-98.0) fL MCH (27.0-33.0) pg MCHC (31.0-35.0) g/dl RDW (11.0-16.0) % Plt Count (160-400) X10*3/uL MPV (9.4-12.3) fL Immature Gran % (Auto) (0.0-0.4) % Neut % (Auto) (45-73) % Lymph % (Auto) (20-40) % [place] % (Auto) (2-11) % Eos % (Auto) (0-4) % Baso % (Auto) (0-2) % Lymph # (Auto) (1.2-4.9) X10*3/uL [place] # (Auto) (0.1-1.2) X10*3/uL Eos # (Auto) (0.0-0.4) X10*3/uL Baso # (Auto) (0.0-0.2) X10*3/uL Abs Immat Gran (auto) (0.00-0.03) X10*3/uL Absolute Neuts (auto) (2.0-8.3) x10*3/uL Absolute Nucleated RBC (0.0-0.012) X10*3/uL Nucleated RBC % (auto) (0.0-0.2) /100WBC ESR 44 H (0-20) MM/HR Sodium (135-145) mmol/L Potassium (3.3-5.1) mmol/L Chloride (96-108) mmol/L Carbon Dioxide (22-29) mmol/L Anion Gap (12-20) BUN (9-16) mg/dL Creatinine (0.5-1.4) mg/dL Estim Creat Clear Calc Estimated GFR Random Glucose (60-115) mg/dL Lactic Acid 1.8 (0.5-2.0) mmol/L Calcium (8.4-10.2) mg/dL Total Bilirubin (0.0-1.0) mg/dL AST (5-31) U/L ALT (0-31) U/L Alkaline Phosphatase (39-117) U/L C-Reactive Protein (< or = 0.50) mg/dL B-Natriuretic Peptide (<100) pg/mL Total Protein (6.5-8.0) g/dL Albumin (3.5-5.0) g/dL Influenza Type A (PCR) NEGATIVE (Negative) Influenza Type B (PCR) NEGATIVE (Negative) RSV RNA Qual (PCR) NEGATIVE (Negative) SARS-CoV-2 RNA (RT-PCR) NEGATIVE (Negative) Imaging Data Left leg CT: Attestation: I personally reviewed and interpreted this imaging study as follows: My impression: Posterior tibia fracture and distal fibula fractures Radiologist's impression: This imaging was obtained during [facility] down time. Hand written report reads tibia posterior malliolar and distal fibular fractures with mod soft tissue edema. Left ankle X-ray: Attestation: I personally reviewed and interpreted this imaging study as follows: My impression: Tri malleolar fracture Radiologist's impression: This imaging was performed during [facility] down time. The hand written report reads Trimalleolar fracture, STS with anterior displacement Left ankle x-ray (post reduction): Attestation: I personally reviewed and interpreted this imaging study as follows: My impression: Talar dislocation and trimalleloar fracture Left ankle x-ray (post second reduction): Attestation: I personally reviewed and interpreted this imaging study as follows: My impression: posterior talar dislocation with trimmalor fracture Critical Care Time Critical Care Time Critical Care Time: Yes Total Critical Care Time: 45 Attestation: I spent 45 minutes of Critical Care Time with this patient. This does not include time spent on separately reported billable procedures. Discharge Plan Discharge Clinical Impression: Trimalleolar fracture, Dislocation of left talus, Seizure disorder Patient Disposition: Admitted As Inpatient Print Language: Hungarian
[2021-09-07] MEDS: PHENobarbitaL 30 MG TABLET PO ×2 (10:32→23:24)
[2021-09-07 11:47] LABS: MANUAL DIFF FLAG NO
[2021-09-07 11:48] LABS: Basophils Percent Auto 0.2 % (0-2); Eosinophils Percent Auto 0.2 % (0-4); Hematocrit 34.5 % (37.0-47.0); Hemoglobin 11.3 g/dl (12.0-16.0); Imm Gran Abs Auto 0.02 X10*3/uL (0.00-0.03); Imm Gran Pct Auto 0.3 % (0.0-0.4); Lymphocytes Absolute Auto 0.8 X10*3/uL (1.2-4.9); Lymphocytes Percent Auto 14.3 % (20-40); Mean Corpuscular HGB Conc 32.8 g/dl (31.0-35.0); Mean Corpuscular Hemoglobin 29.1 pg (27.0-33.0); Mean Corpuscular Volume 88.9 fL (80.0-98.0); Mean Platelet Volume 10.1 fL (9.4-12.3); Monocytes Absolute Auto 0.7 X10*3/uL (0.1-1.2); Monocytes Percent Auto 11.8 % (2-11); Neutrophils Absolute Auto 4.3 x10*3/uL (2.0-8.3); Neutrophils Percent Auto 73.2 % (45-73); Platelet Count 268 X10*3/uL (160-400); Red Blood Count 3.88 X10*6/uL (4.20-5.50); Red Cell Distribution Width 13.3 % (11.0-16.0); White Blood Count 5.9 X10*3/uL (4.8-10.8)
[2021-09-07 12:19] LABS: B Type Natriuretic Peptide 58 pg/mL (<100)
[2021-09-07 12:34] LABS: Alanine Aminotransferase 22 U/L (0-31); Albumin Level 4.3 g/dL (3.5-5.0); Alkaline Phosphatase 155 U/L (39-117); Anion Gap 15 (12-20); Aspartate Amino Transferase 23 U/L (5-31); Bilirubin Total 0.7 mg/dL (0.0-1.0); Blood Urea Nitrogen 13 mg/dL (9-16); C Reactive Protein 4.12 mg/dL (< or = 0.50); Calcium 8.9 mg/dL (8.4-10.2); Carbon Dioxide 24 mmol/L (22-29); Chloride 103 mmol/L (96-108); Creatinine Clr Calc Pharmacy 102.3; Estimated Glomerular Filt Rate > 60; Glucose Random 115 mg/dL (60-115); Potassium 3.8 mmol/L (3.3-5.1); Sodium 138 mmol/L (135-145); Total Protein 7.5 g/dL (6.5-8.0)
[2021-09-07 12:54] LABS: Lactic Acid 1.8 mmol/L (0.5-2.0)
[2021-09-07 13:14] LABS: Erythrocyte Sedimentation Rate 44 MM/HR (0-20)
[2021-09-07 13:14] LABS: Influenza A PCR NEGATIVE (Negative); Influenza B PCR NEGATIVE (Negative); Resp Syncy Virus RNA Qual PCR NEGATIVE (Negative); SARS COV2 PCR INHOUSE NEGATIVE (Negative)
[2021-09-07] MEDS: ondansetron HCL 4 MG/2 ML VIAL IVPUSH (13:41)
[2021-09-07] MEDS: HYDROmorphone HCl 1 MG/ML SYRINGE IVPUSH (13:42)
[2021-09-07] MEDS: propofoL 200 MG/20 ML VIAL 100 MG IVPUSH (14:32)
--- NOTE | 2021-09-07 14:35 | MHC.CM.ED ---
Received case management consult from [facility]. Patient is from home with [facility]. Patient has a history of breakthrough seizures. Patient's RN, Cali, comes to patient's home every 2 weeks to fill her medi-kath. He was scheduled to come to patient's home today. Patient currently has a left ankle fracture that the provider is trying to reduce. PT eval is pending. Copy of HCP verified to be on file. Copy of home med list obtained from [facility]. Patient received [employer] vaccines on 08/31/20, 09/21/20 and 04/15/21. Will attempt to meet with patient. Continue to monitor for d/c needs.
--- NOTE | 2021-09-07 17:08 | PM.IMCN ---
History of Present Illness Data of Consult Service Date: 09/07/21 Primary Care Provider: Timmy Manuel MD HPI Reason for consult: history of seizure, cardiomyoipathy, htn 66F presented with left ankle pain. 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 she is unsure, but believes she had a breakthrough seizure on day prior to presentation due to not having her antiepileptics. she had severe left ankle pain, unable to bear weight, in ED found to have trimalleor fracture, was unable to be reduced in ED. patient denies fever, chills, chest pain, sob. Review of Systems Review of Systems: Constitutional: Denies fever, denies Chills Eyes: denies blurry vision ENT: denies sore throat CVS: denies chest pain Respiratory: Denies dyspnea GI: no abdominal pain : denies dysuria MSK: denies neck pain Skin: denies rash Neuro: denies specific motor weakness Psych: denies suicidal ideation Endocrine: denies heat/cold intolerance Hematologic: denies easy bleeding Allergy: denies hives [facility] Medical History Takotsubo cardiomyopathy Family History Mother No problems noted. Father No problems noted. Surgical History History of cholecystectomy S/P placement of nerve stimulator Social History Patient Tobacco Use Status: Current someday Tobacco user Advance Directives Date on File: 09/07/21 Meds Allergies Allergy/AdvReac Type Severity Reaction Status Date / Time No Known Allergies Allergy Verified 09/07/21 10:03 [No Known Allergies*] Active Medications: Current Medications Pharmacy Consult (Consult Rx Perform Med Rec) 1 each MISCELLANE ONCE PRN PRN Reason: Consult order Home Medications Medication Instructions Recorded Confirmed Last Taken Type bisacodyl 5 mg tablet,delayed 5 mg PO BEDTIME 04/15/20 04/15/20 Unknown History release (Dulcolax (bisacodyl)) clonazepam 2 mg tablet 2 mg PO BEDTIME 04/15/20 04/15/20 Unknown History folic acid 1 mg tablet 1 mg PO DAILY 04/15/20 04/15/20 Unknown History lacosamide 150 mg tablet (Vimpat) 150 mg PO BID 04/15/20 04/15/20 Unknown History perampanel 4 mg tablet 4 mg PO BEDTIME 04/15/20 04/15/20 Unknown History phenobarbital 32.4 mg tablet 32.4 mg PO BID 04/15/20 04/15/20 Unknown History phenytoin sodium extended 100 mg 200 mg PO BID 04/15/20 04/15/20 Unknown History capsule Physical Exam Vital Signs and Narrative: Vital Signs: Last Vital Signs Temp 99.9 F 09/07/21 09:59 Pulse 89 09/07/21 14:47 Resp 19 09/07/21 14:47 BP 154/78 H 09/07/21 14:47 Pulse Ox 96 09/07/21 14:47 O2 Del Method 09/07/21 14:47 Oxygen Flow Rate 99 09/07/21 14:27 BMI result Body Mass Index 27.9 General: no acute distress HEENT: atraumatic Neck: normal to visual inspection CVS: S1, S2, RRR Resp: CTA bilateral Chest: non tender GI: soft, non tender, non distended : no CVA tenderness Skin: no rashes Extremities: left ankle swelling, blistered Neuro: Oriented X3, grossly intact Psych: cooperative Results Labs CBC and Chem 7: 09/07/21 11:39 09/07/21 11:39 Labs: Laboratory Results - last 24 hr 09/07/21 09/07/21 09/07/21 11:39 11:39 11:39 MCV 88.9 MCH 29.1 MCHC 32.8 RDW 13.3 Plt Count 268 MPV 10.1 Immature Gran % (Auto) 0.3 Neut % (Auto) 73.2 H Lymph % (Auto) 14.3 L [place] % (Auto) 11.8 H Eos % (Auto) 0.2 Baso % (Auto) 0.2 Lymph # (Auto) 0.8 L [place] # (Auto) 0.7 Eos # (Auto) 0.0 Baso # (Auto) 0.0 Abs Immat Gran (auto) 0.02 Absolute Neuts (auto) 4.3 Absolute Nucleated RBC 0.000 Nucleated RBC % (auto) 0.0 ESR Anion Gap 15 Estim Creat Clear Calc 102.3 Estimated GFR > 60 Random Glucose 115 Lactic Acid Calcium 8.9 Total Bilirubin 0.7 AST 23 ALT 22 Alkaline Phosphatase 155 H C-Reactive Protein 4.12 H B-Natriuretic Peptide 58 Total Protein 7.5 Albumin 4.3 Influenza Type A (PCR) Influenza Type B (PCR) RSV RNA Qual (PCR) SARS-CoV-2 RNA (RT-PCR) 09/07/21 09/07/21 09/07/21 12:20 12:20 12:27 MCV MCH MCHC RDW Plt Count MPV Immature Gran % (Auto) Neut % (Auto) Lymph % (Auto) [place] % (Auto) Eos % (Auto) Baso % (Auto) Lymph # (Auto) [place] # (Auto) Eos # (Auto) Baso # (Auto) Abs Immat Gran (auto) Absolute Neuts (auto) Absolute Nucleated RBC Nucleated RBC % (auto) ESR 44 H Anion Gap Estim Creat Clear Calc Estimated GFR Random Glucose Lactic Acid 1.8 Calcium Total Bilirubin AST ALT Alkaline Phosphatase C-Reactive Protein B-Natriuretic Peptide Total Protein Albumin Influenza Type A (PCR) NEGATIVE Influenza Type B (PCR) NEGATIVE RSV RNA Qual (PCR) NEGATIVE SARS-CoV-2 RNA (RT-PCR) NEGATIVE Assessment and Plan (1) Seizure disorder: Status: Acute (2) Trimalleolar fracture: Status: Acute Plan 66F presented with left ankle pain left trimalleolar fracture management per orthopedics, patient moderate risk for moderate risk procedure, benefits outweigh risks. history of temporal epilepsy with frequent breakthrough seizures restart home AEDs history of takatzubo cardiomyopathy repeat echo had recovered EF, cardiac cath was negative continue neurohormonals htn continue coreg, lisinopril
--- NOTE | 2021-09-07 17:42 | PHA.MEDREC ---
Pharmacy Consult ? Medication Reconciliation Pharmacy has completed the medication reconciliation. [employer] services used
[2021-09-07] MEDS: Dextrose 5 % and 0.45 % NaCl 1,000 ML 80 ML IVCONT (17:57)
[2021-09-07] MEDS: HYDROmorphone HCl 0.5 MG/0.5 ML SYRINGE 0.25 MG IVPUSH (18:22)
--- NOTE | 2021-09-07 19:46 | PC.NURSE ---
Med that is flagging from 1743 is pre op medication as patient is having surgery in the morning.
[2021-09-07] MEDS: clonazePAM 1 MG TABLET 2 MG PO (23:24)
[2021-09-07] MEDS: carvediloL 3.125 MG TABLET PO (23:24)
[2021-09-07] MEDS: Docusate Sodium 100 MG CAPSULE PO (23:24)
[2021-09-07] MEDS: Phenytoin Sodium Extended 100 MG CAPSULE 200 MG PO (23:24)
[2021-09-07] MEDS: oxyCODONE HCl Immed Release 5 MG TABLET PO (23:30)
[2021-09-08] VITALS (13 sets, daily range): BP systolic 97–132; BP diastolic 51–92; PULSE 64–103; RESP 16–20; TEMP 36.1–37.2; O2SAT 98–100
[2021-09-08] MEDS: Dextrose 5 % and 0.45 % NaCl 1,000 ML 80 ML IVCONT ×2 (05:04→19:27)
[2021-09-08 06:28] LABS: Anion Gap 10 (12-20); Blood Urea Nitrogen 9 mg/dL (9-16); Calcium 8.5 mg/dL (8.4-10.2); Carbon Dioxide 25 mmol/L (22-29); Chloride 105 mmol/L (96-108); Creatinine Clr Calc Pharmacy 122.2; Estimated Glomerular Filt Rate > 60; Glucose Fasting 120 mg/dL (60-99); Potassium 3.5 mmol/L (3.3-5.1); Sodium 136 mmol/L (135-145)
[2021-09-08] MEDS: oxyCODONE HCl Immed Release 5 MG TABLET PO ×2 (08:41→14:43)
[2021-09-08] MEDS: lisinopriL 10 MG TABLET PO (08:41)
[2021-09-08] MEDS: Phenytoin Sodium Extended 100 MG CAPSULE 200 MG PO ×2 (08:42→19:26)
[2021-09-08] MEDS: carvediloL 3.125 MG TABLET PO ×2 (08:42→19:26)
[2021-09-08] MEDS: PHENobarbitaL 30 MG TABLET PO ×2 (08:43→19:26)
--- NOTE | 2021-09-08 12:32 | P.CONAN_ITS ---
HPI - Anesthesia Eval Consult details Narrative: 66 F for closed reduction of Left ankle fracture PMFSH Active Problems Active Problems: All Active Problems (Updated 09/07/21 @ 16:38 by CHUCK Perdomo) Trimalleolar fracture (Acute) Dislocation of left talus (Acute) Seizure disorder (Acute) Hypertension (Acute) Hyperlipemia (Acute) Past Medical History Medical History Takotsubo cardiomyopathy Family History Family History Mother No problems noted. Father No problems noted. Family history of problems with anesthesia: No Surgical History Surgical History History of cholecystectomy S/P placement of nerve stimulator History of Problems with Anesthesia: No Social History Social History Household Members: Family Housing: Apartment Do you presently have visiting nurse or other home services: No Patient Tobacco Use Status: Former Tobacco user Quit Date: 2020 Smoked in Last 30 Days: No Use of substances other than those prescribed or required for medical reasons: No Currently Displaying Signs/Symptoms of Drug Intoxication Withdrawal: No Have you been hit, kicked, punched, or otherwise hurt by someone within the past year? If so, by whom?: No Do you feel safe in your current relationship?: No Is there a partner from a previous relationship who is making you feel unsafe now?: No Are you made to feel afraid or neglected: No Are you DNR?: No Advance Directives: Yes Advance Directives on File: Yes Advance Directives Date on File: 09/07/21 Do you have thoughts of harming others: None Do you have a plan to hurt others: No Plan Recently lost weight without trying: No Eating poorly because of decreased appetite: No Nutrition Risks: No Nutritional Risk Meds Allergies Allergy/AdvReac Type Severity Reaction Status Date / Time No Known Allergies Allergy Verified 09/07/21 10:03 [No Known Allergies*] Active Medications: Current Medications Acetaminophen (Acetaminophen 325 Mg Tablet) 650 mg PO Q6H PRN PRN Reason: Pain, Mild (Pain Scale 1-3) Atorvastatin Calcium (Atorvastatin Calcium 40 Mg Tablet) 40 mg PO DAILY ANA Last Admin: 09/08/21 08:42 Dose: Not Given Carvedilol (Carvedilol 3.125 Mg Tablet) 3.125 mg PO BID [facility]; Protocol Last Admin: 09/08/21 08:42 Dose: 3.125 mg Clonazepam (Clonazepam 1 Mg Tablet) 2 mg PO BEDTIME [facility] Last Admin: 09/07/21 23:24 Dose: 2 mg Docusate Sodium (Docusate Sodium 100 Mg Capsule) 100 mg PO BID [facility] Last Admin: 09/08/21 08:42 Dose: Not Given Folic Acid (Folic Acid 1 Mg Tablet) 1 mg PO DAILY [facility] Last Admin: 09/08/21 08:43 Dose: Not Given Hydromorphone HCl (Hydromorphone Hcl 0.5 Mg/0.5 Ml Syringe) 0.25 mg IVPUSH Q4H PRN; Protocol PRN Reason: Pain, Severe (Pain Scale 7-10) Last Admin: 09/07/21 18:22 Dose: 0.25 mg Dextrose/Sodium Chloride (D51/2ns) 1,000 mls @ 80 mls/hr IVCONT .[id number] [facility] Last Admin: 09/08/21 05:04 Dose: 80 mls/hr Lacosamide (Lacosamide 100 Mg Tablet) 150 mg PO BID [facility] Lisinopril (Lisinopril 10 Mg Tablet) 10 mg PO DAILY [facility]; Protocol Last Admin: 09/08/21 08:41 Dose: 10 mg Naloxone HCl (Naloxone Hcl 0.4 Mg/Ml Vial) 0.2 mg IVPUSH Q2M PRN PRN Reason: Excessive sedation or RR < 8 Non-Formulary Medication (Perampanel [Fycompa]) 1 tab PO BEDTIME [facility] Ondansetron HCl (Ondansetron Hcl 4 Mg/2 Ml Vial) 4 mg IVPUSH Q8H PRN PRN Reason: Nausea Oxycodone HCl (Oxycodone Hcl Immed Release 5 Mg Tablet) 5 mg PO Q4H PRN PRN Reason: Pain, Moderate (Pain Scale 4-6 Last Admin: 09/08/21 08:41 Dose: 5 mg Oxycodone HCl (Oxycodone Hcl Er 10 Mg Tab.Er.12h) 10 mg PO BID PRN PRN Reason: Pain, Severe (Pain Scale 7-10) Pharmacy Consult (Consult Rx Perform Med Rec) 1 each MISCELLANE ONCE PRN PRN Reason: Consult order Phenobarbital (Phenobarbital 30 Mg Tablet) 30 mg PO BID [facility] Last Admin: 09/08/21 08:43 Dose: 30 mg Phenytoin Sodium (Phenytoin Sodium Extended 100 Mg Capsule) 200 mg PO BID [facility] Last Admin: 09/08/21 08:42 Dose: 200 mg Sodium Chloride (0.9 % Sodium Chloride Flush 3 Ml Syringe) 3 ml IVFLUSH QSHIFT [facility] Last Admin: 09/08/21 08:42 Dose: Not Given Home Medications Medication Instructions Recorded Confirmed Last Taken Type clonazepam 2 mg tablet 2 mg PO BEDTIME 04/15/20 09/07/21 08/30/21 History folic acid 1 mg tablet 1 mg PO DAILY 04/15/20 09/07/21 09/07/21 History lacosamide 150 mg tablet (Vimpat) 150 mg PO BID 04/15/20 09/07/21 09/07/21 History phenobarbital 32.4 mg tablet 32.4 mg PO BID 04/15/20 09/07/21 09/06/21 History phenytoin sodium extended 100 mg 200 mg PO BID 04/15/20 09/07/21 09/06/21 History capsule perampanel 6 mg tablet (Fycompa) 1 tab PO BEDTIME 09/07/21 09/07/21 09/06/21 History Exam Exam Date and Time: September 08, 2021 1232 Height,Weight and Vital Signs: Height 5 ft 10 in Weight 88.1 kg Last Vital Signs Temp 98.9 F 09/08/21 11:46 Pulse 65 09/08/21 11:46 Resp 18 09/08/21 11:46 BP 97/54 L 09/08/21 11:46 Pulse Ox 99 09/08/21 11:46 O2 Del Method 09/08/21 11:46 Oxygen Flow Rate 99 09/07/21 14:27 Pertinent Lab Results Pertinent Lab Results: Laboratory Tests 09/07/21 09/07/21 09/07/21 11:39 11:39 11:39 WBC 5.9 RBC 3.88 L Hgb 11.3 L Hct 34.5 L MCV 88.9 MCH 29.1 MCHC 32.8 RDW 13.3 Plt Count 268 MPV 10.1 Immature Gran % (Auto) 0.3 Neut % (Auto) 73.2 H Lymph % (Auto) 14.3 L Dixon % (Auto) 11.8 H Eos % (Auto) 0.2 Baso % (Auto) 0.2 Lymph # (Auto) 0.8 L Dixon # (Auto) 0.7 Eos # (Auto) 0.0 Baso # (Auto) 0.0 Abs Immat Gran (auto) 0.02 Absolute Neuts (auto) 4.3 Absolute Nucleated RBC 0.000 Nucleated RBC % (auto) 0.0 ESR Sodium 138 Potassium 3.8 Chloride 103 Carbon Dioxide 24 Anion Gap 15 BUN 13 D Creatinine 0.67 Estim Creat Clear Calc 102.3 Estimated GFR > 60 Random Glucose 115 Fasting Glucose Lactic Acid Calcium 8.9 Total Bilirubin 0.7 AST 23 ALT 22 Alkaline Phosphatase 155 H C-Reactive Protein 4.12 H B-Natriuretic Peptide 58 Total Protein 7.5 Albumin 4.3 Influenza Type A (PCR) Influenza Type B (PCR) RSV RNA Qual (PCR) SARS-CoV-2 RNA (RT-PCR) 09/07/21 09/07/21 09/07/21 12:20 12:20 12:27 WBC RBC Hgb Hct MCV MCH MCHC RDW Plt Count MPV Immature Gran % (Auto) Neut % (Auto) Lymph % (Auto) Dixon % (Auto) Eos % (Auto) Baso % (Auto) Lymph # (Auto) Dixon # (Auto) Eos # (Auto) Baso # (Auto) Abs Immat Gran (auto) Absolute Neuts (auto) Absolute Nucleated RBC Nucleated RBC % (auto) ESR 44 H Sodium Potassium Chloride Carbon Dioxide Anion Gap BUN Creatinine Estim Creat Clear Calc Estimated GFR Random Glucose Fasting Glucose Lactic Acid 1.8 Calcium Total Bilirubin AST ALT Alkaline Phosphatase C-Reactive Protein B-Natriuretic Peptide Total Protein Albumin Influenza Type A (PCR) NEGATIVE Influenza Type B (PCR) NEGATIVE RSV RNA Qual (PCR) NEGATIVE SARS-CoV-2 RNA (RT-PCR) NEGATIVE 09/08/21 05:51 WBC RBC Hgb Hct MCV MCH MCHC RDW Plt Count MPV Immature Gran % (Auto) Neut % (Auto) Lymph % (Auto) Dixon % (Auto) Eos % (Auto) Baso % (Auto) Lymph # (Auto) Dixon # (Auto) Eos # (Auto) Baso # (Auto) Abs Immat Gran (auto) Absolute Neuts (auto) Absolute Nucleated RBC Nucleated RBC % (auto) ESR Sodium 136 Potassium 3.5 Chloride 105 Carbon Dioxide 25 Anion Gap 10 L BUN 9 Creatinine 0.56 Estim Creat Clear Calc 122.2 Estimated GFR > 60 Random Glucose Fasting Glucose 120 H Lactic Acid Calcium 8.5 Total Bilirubin AST ALT Alkaline Phosphatase C-Reactive Protein B-Natriuretic Peptide Total Protein Albumin Influenza Type A (PCR) Influenza Type B (PCR) RSV RNA Qual (PCR) SARS-CoV-2 RNA (RT-PCR) Airway Mallampati Class: III TM Dist: >3cm Neck ROM: Full Loose/Missing/Broken Teeth: Yes Heart: S1 , S2 Lungs: b/l breath sounds Assessment and Plan Assessment Anesthesia Assessment: Anesthesia Plan Discussed and Chart Reviewed Final Anesthetic Review Family History of Problems with Anesthesia: No History of Problems with Anesthesia: No NPO: Yes ASA Class: III (urgent ) Final Preanesthetic Review: Meds/Allgs Chart Reviewed, Consent Obtained/Reviewed and Anes Risks/Benef Reviewed Patient Risk: High Procedure Risk: Intermediate Anesthetic Plan Anesthetic Plan: MAC: Disposition: Inp. Admit - Standard Bed
--- NOTE | 2021-09-08 13:10 | PM.HPOR ---
History of Present Illness History of Present Illness Date of Service: 09/08/21 <Tiera Hearn PA-C - Last Filed: 09/08/21 13:15> 09/09/21 <Edinson Matthews MD - Last Filed: 09/09/21 07:19> Chief complaint: ankle fx dislocation <Tiera Hearn PA-C - Last Filed: 09/08/21 13:15> Narrative: Justino Craft is a 66 year old female who presented to the ED with left ankle pain. 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 She reports use of wheelchair to prevent injury with breakthrough seizures and her nuropathy which has lead to decreased sensation bilateral lower extremities. She believes that she sustained a seizure on day prior to presentation due to not having her antiepileptics which lead to the mechanical fall causing her left ankle injury. She had severe left ankle pain, unable to bear weight, in ED found to have trimalleor fracture, was unable to be reduced in ED by the ED providers and Dr. Matthews. She was admitted to the orthopedic service for further evaluation and treatment. <Tiera Hearn PA-C - Last Filed: 09/08/21 13:15> Review of Systems Review of Systems: Yes all other systems are reviewed and are negative <Tiera Hearn PA-C - Last Filed: 09/08/21 13:15> [facility] Past Medical History Medical History: Medical History Takotsubo cardiomyopathy <Tiera Hearn PA-C - Last Filed: 09/08/21 13:15> Family History Family History: Family History Mother No problems noted. Father No problems noted. <Tiera Hearn PA-C - Last Filed: 09/08/21 13:15> Surgical History Surgical History: Surgical History History of cholecystectomy S/P placement of nerve stimulator <Tiera Hearn PA-C - Last Filed: 09/08/21 13:15> Social History Social History: Social History Household Members: Family Housing: Apartment Do you presently have visiting nurse or other home services: No Patient Tobacco Use Status: Former Tobacco user Quit Date: 2020 Smoked in Last 30 Days: No Use of substances other than those prescribed or required for medical reasons: No Currently Displaying Signs/Symptoms of Drug Intoxication Withdrawal: No Have you been hit, kicked, punched, or otherwise hurt by someone within the past year? If so, by whom?: No Do you feel safe in your current relationship?: No Is there a partner from a previous relationship who is making you feel unsafe now?: No Are you made to feel afraid or neglected: No Are you DNR?: No Advance Directives: Yes Advance Directives on File: Yes Advance Directives Date on File: 09/07/21 Do you have thoughts of harming others: None Do you have a plan to hurt others: No Plan Recently lost weight without trying: No Eating poorly because of decreased appetite: No Nutrition Risks: No Nutritional Risk <Tiera Hearn PA-C - Last Filed: 09/08/21 13:15> Meds Allergies/Adverse reactions: Allergies Allergy/AdvReac Type Severity Reaction Status Date / Time No Known Allergies Allergy Verified 09/07/21 10:03 [No Known Allergies*] <Tiera Hearn PA-C - Last Filed: 09/08/21 13:15> Active Medications: Current Medications Acetaminophen (Acetaminophen 325 Mg Tablet) 650 mg PO Q6H PRN PRN Reason: Pain, Mild (Pain Scale 1-3) Atorvastatin Calcium (Atorvastatin Calcium 40 Mg Tablet) 40 mg PO DAILY [facility] Last Admin: 09/08/21 08:42 Dose: Not Given Carvedilol (Carvedilol 3.125 Mg Tablet) 3.125 mg PO BID [facility]; Protocol Last Admin: 09/08/21 08:42 Dose: 3.125 mg Clonazepam (Clonazepam 1 Mg Tablet) 2 mg PO BEDTIME [facility] Last Admin: 09/07/21 23:24 Dose: 2 mg Docusate Sodium (Docusate Sodium 100 Mg Capsule) 100 mg PO BID [facility] Last Admin: 06/15/22 08:42 Dose: Not Given Folic Acid (Folic Acid 1 Mg Tablet) 1 mg PO DAILY [facility] Last Admin: 09/08/21 08:43 Dose: Not Given Hydromorphone HCl (Hydromorphone Hcl 0.5 Mg/0.5 Ml Syringe) 0.25 mg IVPUSH Q4H PRN; Protocol PRN Reason: Pain, Severe (Pain Scale 7-10) Last Admin: 09/07/21 18:22 Dose: 0.25 mg Dextrose/Sodium Chloride (D51/2ns) 1,000 mls @ 80 mls/hr IVCONT .[id number] [facility] Last Admin: 09/08/21 05:04 Dose: 80 mls/hr Lacosamide (Lacosamide 100 Mg Tablet) 150 mg PO BID [facility] Lisinopril (Lisinopril 10 Mg Tablet) 10 mg PO DAILY [facility]; Protocol Last Admin: 09/08/21 08:41 Dose: 10 mg Naloxone HCl (Naloxone Hcl 0.4 Mg/Ml Vial) 0.2 mg IVPUSH Q2M PRN PRN Reason: Excessive sedation or RR < 8 Non-Formulary Medication (Perampanel [Fycompa]) 1 tab PO BEDTIME [facility] Ondansetron HCl (Ondansetron Hcl 4 Mg/2 Ml Vial) 4 mg IVPUSH Q8H PRN PRN Reason: Nausea Oxycodone HCl (Oxycodone Hcl Immed Release 5 Mg Tablet) 5 mg PO Q4H PRN PRN Reason: Pain, Moderate (Pain Scale 4-6 Last Admin: 09/08/21 08:41 Dose: 5 mg Oxycodone HCl (Oxycodone Hcl Er 10 Mg Tab.Er.12h) 10 mg PO BID PRN PRN Reason: Pain, Severe (Pain Scale 7-10) Pharmacy Consult (Consult Rx Perform Med Rec) 1 each MISCELLANE ONCE PRN PRN Reason: Consult order Phenobarbital (Phenobarbital 30 Mg Tablet) 30 mg PO BID [facility] Last Admin: 09/08/21 08:43 Dose: 30 mg Phenytoin Sodium (Phenytoin Sodium Extended 100 Mg Capsule) 200 mg PO BID [facility] Last Admin: 09/08/21 08:42 Dose: 200 mg Sodium Chloride (0.9 % Sodium Chloride Flush 3 Ml Syringe) [address] [facility] Last Admin: 09/08/21 08:42 Dose: Not Given <Tiera Hearn PA-C - Last Filed: 09/08/21 13:15> Home medications: Home Medications Medication Instructions Recorded Confirmed Last Taken Type clonazepam 2 mg tablet 2 mg PO BEDTIME 04/15/20 09/07/21 08/30/21 History folic acid 1 mg tablet 1 mg PO DAILY 04/15/20 09/07/21 09/07/21 History lacosamide 150 mg tablet (Vimpat) 150 mg PO BID 04/15/20 09/07/21 09/07/21 History phenobarbital 32.4 mg tablet 32.4 mg PO BID 04/15/20 09/07/21 09/06/21 History phenytoin sodium extended 100 mg 200 mg PO BID 04/15/20 09/07/21 09/06/21 History capsule perampanel 6 mg tablet (Fycompa) 1 tab PO BEDTIME 09/07/21 09/07/21 09/06/21 History <Tiera Hearn PA-C - Last Filed: 09/08/21 13:15> Physical Exam Vital Signs: Vital Signs: Last Vital Signs Temp 97.5 F 09/08/21 12:33 Pulse 65 09/08/21 11:46 Resp 18 09/08/21 11:46 BP 97/54 L 09/08/21 11:46 Pulse Ox 99 09/08/21 11:46 O2 Del Method 09/08/21 11:46 Oxygen Flow Rate 99 09/07/21 14:27 BMI result Body Mass Index 27.8 <Tiera Hearn PA-C - Last Filed: 09/08/21 13:15> Const: General: cooperative, healthy appearing, comfortable, no acute distress, well developed, alert and awake <DAGO Zhao Last Filed: 09/08/21 13:15> Orientation/consciousness: patient oriented x3 <Tiera Hearn PA-C - Last Filed: 09/08/21 13:15> HEENT: Head: Yes normal to inspection, Yes normocephalic and Yes atraumatic <Tiera Hearn PA-C - Last Filed: 09/08/21 13:15> Eyes: General: appearance normal, both eyes and all related structures <Tiera Hearn MELONIEC - Last Filed: 09/08/21 13:15> Neck: Neck: Yes normal visual inspection and Yes no lymphadenopathy <Tiera Hearn CHUCK-C - Last Filed: 09/08/21 13:15> Resp: Effort & Inspection: normal respiratory effort and able to speak in complete sentences <Tiera Bowlingtimo MELONIEC - Last Filed: 09/08/21 13:15> Cardio: Rate: regular rate <Tiera Hearn CHUCK-C - Last Filed: 09/08/21 13:15> Peripheral pulses: Peripheral pulses 2+ throughout <Tiera Hearn CHUCK-C - Last Filed: 09/08/21 13:15> GI: Inspection: Yes normal to inspection <Tiera Hearn MELONIEC - Last Filed: 09/08/21 13:15> Palpation (GI): Soft to palpation <Tiera Hearn MELONIEC - Last Filed: 09/08/21 13:15> Skin: General skin exam: no rashes or lesions noted <Tiera Marrerocollin MELONIEC - Last Filed: 09/08/21 13:15> Neuro: General: patient oriented x3 <Tiera Marrerocollin MELONIEC - Last Filed: 09/08/21 13:15> Extrem: Other: left ankle fracture blisters present. Sensation decreased bilateral lower extremities at baseline due to neuropathy. Able to move toes. Pedal pulse intact. <Tiera Marrerocollin MELONIEC - Last Filed: 09/08/21 13:15> Psych: Mental Status: mental status grossly normal <Tiera Marrerocollin MELONIEC - Last Filed: 09/08/21 13:15> Results Labs Result Diagrams: : 09/07/21 11:39 09/09/21 06:05 <Tiera Marrerocollin CHUCK-C - Last Filed: 09/08/21 13:15> Labs: Abnormal lab results 09/07/21 09/08/21 Range/Units 12:20 05:51 ESR 44 H (0-20) MM/HR Anion Gap 10 L (12-20) Fasting Glucose 120 H (60-99) mg/dL H & H 09/07/21 Range/Units 11:39 Hgb 11.3 L (12.0-16.0) g/dl Hct 34.5 L (37.0-47.0) % All other labs normal. <Tiera Hearn PA-C - Last Filed: 09/08/21 13:15> Assessment and Plan (1) Trimalleolar fracture: Status: Acute <CHUCK Zhao-C - Last Filed: 09/08/21 13:15> Plan is to bring the patient to the operating room today for closed reduction of the left ankle. I discussed the case with Dr. Matthews and explained the extent of the injury to the patient and options available which include surgical intervention. I explained the procedure in detail along with the length of recovery and rehab course. I explained the risk, benefits and alternatives. The patient will remain NPO for closed reduction under anesthesia. <MELONIE ZhaoC - Last Filed: 09/08/21 13:15> (2) Dislocation of left talus: Status: Acute <MELONIE ZhaoC - Last Filed: 09/08/21 13:15> (3) Seizure disorder: Status: Acute <CHUCK Zhao-C - Last Filed: 09/08/21 13:15> (4) Hypertension: Status: Acute <MELONIE ZhaoC - Last Filed: 09/08/21 13:15> (5) Hyperlipemia: Status: Acute <CHUCK Zhao-C - Last Filed: 09/08/21 13:15> Quality Stroke Does the patient have a stroke diagnosis?: No <CHUCK Zhao-C - Last Filed: 09/08/21 13:15> VTE Prior VTE?: No <CHUCK Zhao-C - Last Filed: 09/08/21 13:15> VTE Risk Level:: Medical - moderate - high <Tiera Hearn PA-C - Last Filed: 09/08/21 13:15> VTE Device Contraindication: N/A - Device Ordered <Tiera Hearn PA-C - Last Filed: 09/08/21 13:15> VTE Drug Contraindication: N/A - Med Ordered <Tiera Hearn PA-C - Last Filed: 09/08/21 13:15> Procedures Date of Service Date of Service: 09/08/21 <Tiera Hearn PA-C - Last Filed: 09/08/21 13:15>
[2021-09-08] MEDS: Docusate Sodium 100 MG CAPSULE PO (19:26)
[2021-09-08] MEDS: clonazePAM 1 MG TABLET 2 MG PO (19:26)
[2021-09-08] MEDS: 0.9 % Sodium Chloride Flush 3 ML SYRINGE IVFLUSH (19:26)
[2021-09-08] MEDS: oxyCODONE HCl ER 10 MG TAB.ER.12H PO (19:30)
[2021-09-09] VITALS (7 sets, daily range): BP systolic 93–125; BP diastolic 50–60; PULSE 71–82; RESP 16–20; TEMP 36.6–37; O2SAT 94–99
[2021-09-09] MEDS: Dextrose 5 % and 0.45 % NaCl 1,000 ML 80 ML IVCONT (05:45)
[2021-09-09 07:05] LABS: Anion Gap 12 (12-20); Blood Urea Nitrogen 10 mg/dL (9-16); Calcium 8.2 mg/dL (8.4-10.2); Carbon Dioxide 24 mmol/L (22-29); Chloride 106 mmol/L (96-108); Creatinine Clr Calc Pharmacy 124.5; Estimated Glomerular Filt Rate > 60; Glucose Fasting 104 mg/dL (60-99); Potassium 3.8 mmol/L (3.3-5.1); Sodium 138 mmol/L (135-145)
--- NOTE | 2021-09-09 07:24 | PM.OP ---
Brief Operative Note Date of Service: 09/08/21 Pre-op diagnosis: left ankle trimalleolar fracture Post-op diagnosis: same Procedure: Closed reduction left ankle Surgeon: Edinson Matthews MD Anesthesia: MAC Was an Typewriter Mechanic used for this Procedure?: Yes Typewriter Mechanic: Tiera Hearn Estimated blood loss (mL): 0 IV fluids (mL): 300 Pathology: none sent Condition: stable Disposition: PACU
--- NOTE | 2021-09-09 07:55 | PM.PNORT ---
Subjective Subjective Date of Service: 09/09/21 Interval history: s/p closed reduction in the operative room of the left ankle yesterday. Patient is resting in bed comfortably. No overnight events. Pain is managed. No additional complaints. Physical Exam Vital Signs: Vital Signs: Last Vital Signs Temp 97.8 F 09/09/21 03:27 Pulse 76 09/09/21 03:27 Resp 18 09/09/21 03:27 BP 93/50 L 09/09/21 03:27 Pulse Ox 99 09/09/21 03:27 O2 Del Method 09/09/21 03:27 Oxygen Flow Rate 99 09/07/21 14:27 BMI result Body Mass Index 27.8 Const: General: cooperative, healthy appearing and no acute distress Resp: Effort & Inspection: normal respiratory effort and able to speak in complete sentences Cardio: Rate: regular rate Peripheral pulses: Peripheral pulses 2+ throughout GI: Palpation (GI): Soft to palpation Skin: Lesions: no lesions Rashes: no rashes Extrem: Other: Left ankle splint is clean, dry, and intact. Able to move all digits. Procedures Date of Service Date of Service: 09/09/21 Progress Note: A&P Assessment and plan (1) Trimalleolar fracture: Status: Acute (2) Dislocation of left talus: Status: Acute (3) Seizure disorder: Status: Acute (4) Hypertension: Status: Acute (5) Hyperlipemia: Status: Acute Plan Continue pain mgmnt begin PT for lt ankle s/p closed reduction - NWB Dispo planning-Pending PT eval, pain mangeent, recommend STR and will reach out to case management Time Spent With Patient Time: Total time spent is greater than 50% in coordination of care (as documented) at patient's floor/unit and/or counseling patient: Quality Stroke Does the patient have a stroke diagnosis?: No VTE Prior VTE?: No VTE Risk Level:: Medical - moderate - high VTE Device Contraindication: N/A - Device Ordered VTE Drug Contraindication: N/A - Med Ordered
--- NOTE | 2021-09-09 08:09 | HO.POSTANES ---
Post Anesthesia Evaluation Post Anesthesia Evaluation Vital Signs: Vital Signs Temp Pulse Resp BP Pulse Ox O2 Del Method 09/09/21 08:00 98.6 F 71 16 111/57 L 94 Room Air 09/09/21 03:27 97.8 F 76 18 93/50 L 99 Room Air 09/08/21 23:20 96.9 F 83 18 111/51 L 98 Room Air Anesthesia: Monitored Mental Status: Sedated (Asleep) Nausea/Vomiting: None Hydration: Adequate Anesthesia-Related Issues: No Anes. Related Issues
[2021-09-09] MEDS: oxyCODONE HCl Immed Release 5 MG TABLET PO ×3 (09:02→20:12)
[2021-09-09] MEDS: Atorvastatin Calcium 40 MG TABLET PO (09:03)
[2021-09-09] MEDS: Aspirin Enteric Coated 81 MG TABLET.DR PO (09:03)
[2021-09-09] MEDS: Phenytoin Sodium Extended 100 MG CAPSULE 200 MG PO ×2 (09:03→20:10)
[2021-09-09] MEDS: Folic Acid 1 MG TABLET PO (09:03)
[2021-09-09] MEDS: carvediloL 3.125 MG TABLET PO ×2 (09:03→20:10)
[2021-09-09] MEDS: PHENobarbitaL 30 MG TABLET PO ×2 (09:03→20:10)
[2021-09-09] MEDS: Docusate Sodium 100 MG CAPSULE PO ×2 (09:03→20:10)
--- NOTE | 2021-09-09 12:27 | HO.PM.IMPN ---
Subjective Subjective Date of Service: 09/09/21 Interval History: the patient was seen and evaluated this morning Laying in bed, feels comfortable Denies any fever, chills or shortness of breath No reported other overnight events. Systemic review: No fever, chills or weakness No chest pain, palpitation No shortness of breath or coughing No abdominal pain, nausea or vomiting No urinary symptoms No any rash or wounds Physical Exam Vital Signs: Vital Signs: Last Vital Signs Temp 98.0 F 09/09/21 12:00 Pulse 74 09/09/21 12:00 Resp 18 09/09/21 12:00 BP 113/58 L 09/09/21 12:00 Pulse Ox 98 09/09/21 12:00 O2 Del Method 09/09/21 12:00 Oxygen Flow Rate 99 09/07/21 14:27 BMI result Body Mass Index 27.8 Const: Other: Constitutional : Alert, oriented, not in distress Neck : Normal inspection, Supple Cardiovascular : RRR, no JVP, no lower extremity edema Respiratory : fair bilateral air entry, no crackles, wheezes or rhonchi Gastrointestinal: soft, lax, Normal bowel sounds, Non tender Skin : Warm, Dry Neurological : Alert & oriented x3, No focal deficit , CN 2-12 within normal Objective Data Active Medications Acetaminophen (Acetaminophen 325 Mg Tablet) 650 mg PO Q6H PRN PRN Reason: Pain, Mild (Pain Scale 1-3) Aspirin (Aspirin Enteric Coated 81 Mg Tablet.) 81 mg PO DAILY [facility] Last Admin: 09/09/21 09:03 Dose: 81 mg Documented By: PRAVEEN Atorvastatin Calcium (Atorvastatin Calcium 40 Mg Tablet) 40 mg PO DAILY [facility] Last Admin: 09/09/21 09:03 Dose: 40 mg Documented By: PRAVEEN Carvedilol (Carvedilol 3.125 Mg Tablet) 3.125 mg PO BID [facility]; Protocol Last Admin: 09/09/21 09:03 Dose: 3.125 mg Documented By: PRAVEEN Clonazepam (Clonazepam 1 Mg Tablet) 2 mg PO BEDTIME [facility] Last Admin: 09/08/21 19:26 Dose: 2 mg Documented By: DONTAE Docusate Sodium (Docusate Sodium 100 Mg Capsule) 100 mg PO BID [facility] Last Admin: 09/09/21 09:03 Dose: 100 mg Documented By: PRAVEEN Folic Acid (Folic Acid 1 Mg Tablet) 1 mg PO DAILY [facility] Last Admin: 09/09/21 09:03 Dose: 1 mg Documented By: PRAVEEN Hydromorphone HCl (Hydromorphone Hcl 0.5 Mg/0.5 Ml Syringe) 0.25 mg IVPUSH Q4H PRN; Protocol PRN Reason: Pain, Severe (Pain Scale 7-10) Last Admin: 09/07/21 18:22 Dose: 0.25 mg Documented By: ANITHA Dextrose/Sodium Chloride (D51/2ns) 1,000 mls @ 80 mls/hr IVCONT .[id number] [facility] Last Admin: 09/09/21 05:45 Dose: 80 mls/hr Documented By: DONTAE Lisinopril (Lisinopril 10 Mg Tablet) 10 mg PO DAILY [facility]; Protocol Last Admin: 09/08/21 08:41 Dose: 10 mg Documented By: PRAVEEN Naloxone HCl (Naloxone Hcl 0.4 Mg/Ml Vial) 0.2 mg IVPUSH Q2M PRN PRN Reason: Excessive sedation or RR < 8 Pt Own (Perampanel [ Fycompa] 4 Mg Tablet ) 1.5 tab PO BEDTIME [facility] Last Admin: 09/09/21 11:16 Dose: Not Given Documented By: PRAVEEN Non-Admin Reason: med was unavailable Pt Own (Lacosamide (150 Mg Tablet)) 150 mg PO BID [facility] Ondansetron HCl (Ondansetron Hcl 4 Mg/2 Ml Vial) 4 mg IVPUSH Q8H PRN PRN Reason: Nausea Oxycodone HCl (Oxycodone Hcl Immed Release 5 Mg Tablet) 5 mg PO Q4H PRN PRN Reason: Pain, Moderate (Pain Scale 4-6 Last Admin: 09/09/21 09:02 Dose: 5 mg Documented By: PRAVEEN Oxycodone HCl (Oxycodone Hcl Er 10 Mg Tab.Er.12h) 10 mg PO BID PRN PRN Reason: Pain, Severe (Pain Scale 7-10) Last Admin: 09/08/21 19:30 Dose: 10 mg Documented By: DONTAE Pharmacy Consult (Consult Rx Perform Med Rec) 1 each MISCELLANE ONCE PRN PRN Reason: Consult order Phenobarbital (Phenobarbital 30 Mg Tablet) 30 mg PO BID [facility] Last Admin: 09/09/21 09:03 Dose: 30 mg Documented By: PRAVEEN Phenytoin Sodium (Phenytoin Sodium Extended 100 Mg Capsule) 200 mg PO BID [facility] Last Admin: 09/09/21 09:03 Dose: 200 mg Documented By: PRAVEEN Sodium Chloride (0.9 % Sodium Chloride Flush 3 Ml Syringe) 3 ml IVFLUSH QSHIFT [facility] Last Admin: 09/09/21 09:03 Dose: Not Given Documented By: PRAVEEN Non-Admin Reason: IV Running Labs CBC & Chem 7: 09/07/21 11:39 09/09/21 06:05 Labs: Laboratory Results - last 24 hr 09/08/21 09/09/21 13:11 06:05 Anion Gap 12 Estim Creat Clear Calc 124.5 Estimated GFR > 60 Fasting Glucose 104 H Calcium 8.2 L Blood Type Cancelled Rho(D) Type Cancelled Antibody Screen Cancelled Microbiology Microbiology Results: Microbiology 09/07/21 12:20 Blood Culture - Preliminary Blood - Venous No growth after 24 hours. 09/07/21 11:39 Blood Culture - Preliminary Blood - Venous No growth after 24 hours. Assessment and Plan (1) Trimalleolar fracture: Status: Acute (2) Hypertension: Status: Acute Plan 66F presented with left ankle pain left trimalleolar fracture D2 POD management per orthopedics started PT Hypotension Asymptomatic Hold Lisnipril, continue coreg history of temporal epilepsy with frequent breakthrough seizures restart home AEDs history of takatzubo cardiomyopathy repeat echo had recovered EF, cardiac cath was negative continue neurohormonals Thanks for the consult will continue to monitor with you. Quality Stroke Does the patient have a stroke diagnosis?: No VTE Prior VTE?: No VTE Risk Level:: Medical - moderate - high VTE Device Contraindication: N/A - Device Ordered VTE Drug Contraindication: N/A - Med Ordered
[2021-09-09] MEDS: clonazePAM 1 MG TABLET 2 MG PO (20:10)
[2021-09-09] MEDS: 0.9 % Sodium Chloride Flush 3 ML SYRINGE IVFLUSH (20:14)
[2021-09-10] VITALS: BP 104/60; PULSE 80; RESP 18; TEMP 36.8; O2SAT 98
[2021-09-10 04:00] VITALS: BP 100/58; PULSE 76; RESP 18; TEMP 36.8; O2SAT 98
[2021-09-10 06:41] LABS: Hematocrit 26.2 % (37.0-47.0); Hemoglobin 8.4 g/dl (12.0-16.0); Mean Corpuscular HGB Conc 32.1 g/dl (31.0-35.0); Mean Corpuscular Hemoglobin 29.1 pg (27.0-33.0); Mean Corpuscular Volume 90.7 fL (80.0-98.0); Mean Platelet Volume 10.9 fL (9.4-12.3); Platelet Count 192 X10*3/uL (160-400); Red Blood Count 2.89 X10*6/uL (4.20-5.50); Red Cell Distribution Width 13.6 % (11.0-16.0); White Blood Count 5.4 X10*3/uL (4.8-10.8)
[2021-09-10 07:08] LABS: Anion Gap 11 (12-20); Blood Urea Nitrogen 8 mg/dL (9-16); Calcium 7.9 mg/dL (8.4-10.2); Carbon Dioxide 26 mmol/L (22-29); Chloride 105 mmol/L (96-108); Creatinine Clr Calc Pharmacy 131.7; Estimated Glomerular Filt Rate > 60; Glucose Fasting 112 mg/dL (60-99); Potassium 3.5 mmol/L (3.3-5.1); Sodium 138 mmol/L (135-145)
[2021-09-10 07:36] VITALS: BP 114/57; PULSE 73; RESP 16; TEMP 36.1; O2SAT 97
--- NOTE | 2021-09-10 08:26 | MHC.CM.PN ---
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 D/C PLAN: STR SNF TBD W/ACTION FOR BLS TRANSPORT.
[2021-09-10 08:56] VITALS: BP 114/57; PULSE 73; O2SAT 97
[2021-09-10] MEDS: Phenytoin Sodium Extended 100 MG CAPSULE 200 MG PO (09:07)
[2021-09-10] MEDS: Docusate Sodium 100 MG CAPSULE PO (09:07)
[2021-09-10] MEDS: PHENobarbitaL 30 MG TABLET PO (09:07)
[2021-09-10] MEDS: oxyCODONE HCl Immed Release 5 MG TABLET PO (09:07)
[2021-09-10] MEDS: Aspirin Enteric Coated 81 MG TABLET.DR PO (09:07)
[2021-09-10] MEDS: Folic Acid 1 MG TABLET PO (09:08)
[2021-09-10] MEDS: 0.9 % Sodium Chloride Flush 3 ML SYRINGE IVFLUSH (09:08)
[2021-09-10] MEDS: carvediloL 3.125 MG TABLET PO (09:08)
[2021-09-10] MEDS: Atorvastatin Calcium 40 MG TABLET PO (09:08)
--- NOTE | 2021-09-10 11:38 | MHC.CM.PN ---
Addendum entered by Elysia Hernandez RN 09/10/21 15:22: CM CONTACTED PT'S HCP [facility] [phone] AND [facility] IS AGREEABLE OF PLAN AND AHS BEEN PROVIDED W/[facility] CONTACT NUMBER AND ADDRESS. Original Note: PT MEDICALLY CLEARED FOR D/C TO [facility] FOR STR, ACTION FOR BLS TRANSPORT.
--- NOTE | 2021-09-10 11:56 | P.PNIM_ITS ---
Subjective Subjective Date of Service: 09/10/21 Interval History: the patient was seen and evaluated this morning Laying in bed, feels comfortable Hemoglobin dropped to 8.4, no active bleeding noticed Denies any fever, chills or shortness of breath No reported other overnight events. Systemic review: No fever, chills or weakness No chest pain, palpitation No shortness of breath or coughing No abdominal pain, nausea or vomiting No urinary symptoms No any rash or wounds Physical Exam Vital Signs: Vital Signs: Last Vital Signs Temp 97.0 F 09/10/21 07:36 Pulse 73 09/10/21 08:56 Resp 16 09/10/21 07:36 BP 114/57 L 09/10/21 08:56 Pulse Ox 97 09/10/21 08:56 O2 Del Method 09/10/21 07:36 Oxygen Flow Rate 99 09/07/21 14:27 BMI result Body Mass Index 27.8 Const: Other: Constitutional : Alert, oriented, not in distress Neck : Normal inspection, Supple Cardiovascular : RRR, no JVP, no lower extremity edema Respiratory : fair bilateral air entry, no crackles, wheezes or rhonchi Gastrointestinal: soft, lax, Normal bowel sounds, Non tender Skin : Warm, Dry Neurological : Alert & oriented x3, No focal deficit , CN 2-12 within normal Objective Data Active Medications Acetaminophen (Acetaminophen 325 Mg Tablet) 650 mg PO Q6H PRN PRN Reason: Pain, Mild (Pain Scale 1-3) Aspirin (Aspirin Enteric Coated 81 Mg Tablet.) 81 mg PO DAILY [facility] Last Admin: 09/10/21 09:07 Dose: 81 mg Documented By: PRAVEEN Atorvastatin Calcium (Atorvastatin Calcium 40 Mg Tablet) 40 mg PO DAILY [facility] Last Admin: 09/10/21 09:08 Dose: 40 mg Documented By: PRAVEEN Carvedilol (Carvedilol 3.125 Mg Tablet) 3.125 mg PO BID [facility]; Protocol Last Admin: 09/10/21 09:08 Dose: 3.125 mg Documented By: PRAVEEN Clonazepam (Clonazepam 1 Mg Tablet) 2 mg PO BEDTIME [facility] Last Admin: 09/09/21 20:10 Dose: 2 mg Documented By: MARKY Docusate Sodium (Docusate Sodium 100 Mg Capsule) 100 mg PO BID [facility] Last Admin: 09/10/21 09:07 Dose: 100 mg Documented By: PRAVEEN Folic Acid (Folic Acid 1 Mg Tablet) 1 mg PO DAILY [facility] Last Admin: 09/10/21 09:08 Dose: 1 mg Documented By: PRAVEEN Hydromorphone HCl (Hydromorphone Hcl 0.5 Mg/0.5 Ml Syringe) 0.25 mg IVPUSH Q4H PRN; Protocol PRN Reason: Pain, Severe (Pain Scale 7-10) Last Admin: 09/07/21 18:22 Dose: 0.25 mg Documented By: ANITHA Lisinopril (Lisinopril 10 Mg Tablet) 10 mg PO DAILY [facility]; Protocol Last Admin: 09/08/21 08:41 Dose: 10 mg Documented By: PRAVEEN Naloxone HCl (Naloxone Hcl 0.4 Mg/Ml Vial) 0.2 mg IVPUSH Q2M PRN PRN Reason: Excessive sedation or RR < 8 Pt Own (Perampanel [ Fycompa] 4 Mg Tablet ) 1.5 tab PO BEDTIME [facility] Last Admin: 09/09/21 20:10 Dose: 1.5 tab Documented By: MARKY Pt Own (Lacosamide (150 Mg Tablet)) 150 mg PO BID [facility] Last Admin: 09/10/21 09:08 Dose: Not Given Documented By: PRAVEEN Non-Admin Reason: not available Ondansetron HCl (Ondansetron Hcl 4 Mg/2 Ml Vial) 4 mg IVPUSH Q8H PRN PRN Reason: Nausea Oxycodone HCl (Oxycodone Hcl Immed Release 5 Mg Tablet) 5 mg PO Q4H PRN PRN Reason: Pain, Moderate (Pain Scale 4-6 Last Admin: 09/10/21 09:07 Dose: 5 mg Documented By: PRAVEEN Oxycodone HCl (Oxycodone Hcl Er 10 Mg Tab.Er.12h) 10 mg PO BID PRN PRN Reason: Pain, Severe (Pain Scale 7-10) Last Admin: 09/08/21 19:30 Dose: 10 mg Documented By: DONTAE Pharmacy Consult (Consult Rx Perform Med Rec) 1 each MISCELLANE ONCE PRN PRN Reason: Consult order Phenobarbital (Phenobarbital 30 Mg Tablet) 30 mg PO BID [facility] Last Admin: 09/10/21 09:07 Dose: 30 mg Documented By: PRAVEEN Phenytoin Sodium (Phenytoin Sodium Extended 100 Mg Capsule) 200 mg PO BID [facility] Last Admin: 09/10/21 09:07 Dose: 200 mg Documented By: PRAVEEN Sodium Chloride (0.9 % Sodium Chloride Flush 3 Ml Syringe) 3 ml IVFLUSH QSHIFT [facility] Last Admin: 09/10/21 09:08 Dose: 3 ml Documented By: PRAVEEN Labs CBC & Chem 7: 09/10/21 06:01 09/10/21 06:01 Labs: Laboratory Results - last 24 hr 09/10/21 09/10/21 09/10/21 06:01 06:01 06:01 MCV 90.7 MCH 29.1 MCHC 32.1 RDW 13.6 Plt Count 192 D MPV 10.9 Absolute Nucleated RBC 0.000 Nucleated RBC % (auto) 0.0 Anion Gap 11 L Cancelled Estim Creat Clear Calc 131.7 Cancelled Estimated GFR > 60 Cancelled Random Glucose Cancelled Fasting Glucose 112 H Calcium 7.9 L Cancelled Microbiology Microbiology Results: Microbiology 09/07/21 12:20 Blood Culture - Preliminary Blood - Venous No growth after 48 hours. 09/07/21 11:39 Blood Culture - Preliminary Blood - Venous No growth after 48 hours. Assessment and Plan (1) Hypertension: Status: Acute Plan 66F presented with left ankle pain Anemia No clear source of bleeding, asymptomatic Could be secondary to dilution from IV fluids, GIB Check occult blood Discussed with primary orthopedic team Monitor CBC left trimalleolar fracture D3 POD management per orthopedics started PT Hypotension Resolved Continue to Hold Lisnipril, continue coreg history of temporal epilepsy with frequent breakthrough seizures restart home AEDs history of takatzubo cardiomyopathy repeat echo had recovered EF, cardiac cath was negative continue neurohormonals Thanks for the consult will continue to monitor with you. Quality Stroke Does the patient have a stroke diagnosis?: No VTE Prior VTE?: No VTE Risk Level:: Medical - moderate - high VTE Device Contraindication: N/A - Device Ordered VTE Drug Contraindication: N/A - Med Ordered
[2021-09-10 12:00] VITALS: BP 128/66; PULSE 83; RESP 18; TEMP 36.5; O2SAT 98
[2021-09-10 12:09] LABS: COVID-19 Test Negative (Negative); IDNOW Serial# 9DB6401D
--- NOTE | 2021-09-10 14:00 | PM.DS ---
DS: Providers Provider Date of Service: 09/10/21 Date of admission: 09/07/21 17:12 Primary care physician: Timmy Manuel MD Consults: 09/07/21 17:44 Consult to Hospitalist Routine Consulting Provider: Hospitalist Reason For Exam: PMH: Seizures andTIA DS: Diagnosis Discharge Diagnosis (1) Trimalleolar fracture: Status: Acute DS: Summary Hospital Course Hospital Course: The patient underwent a successful cold reduction under anesthesia. She was transferred to PACU and then to the floor to recover. During their stay, their vitals were stable afebrile at 97.7. Labs were unremarkable, H/H 8.4/26.2 . POD 1, she did have a PT eval, NWB and was recommened d/c to STR. Time Spent with Patient Time attestation: Total time spent providing and/or coordinating discharge services: Discharge coordination time: Less than 30 minutes Quality: Safe Use of Opioids Does Pt have an Active Cancer Diagnosis on the Problem List?: No Quality: Stroke Does the patient have a stroke diagnosis?: No Physical Exam Vital Signs: Vital Signs: Last Vital Signs Temp 97.7 F 09/10/21 12:00 Pulse 83 09/10/21 12:00 Resp 18 09/10/21 12:00 BP 128/66 09/10/21 12:00 Pulse Ox 98 09/10/21 12:00 O2 Del Method 09/10/21 12:00 Oxygen Flow Rate 99 09/07/21 14:27 BMI result Body Mass Index 27.8 Const: General: cooperative, healthy appearing and no acute distress Resp: Effort & Inspection: normal respiratory effort and able to speak in complete sentences Cardio: Rate: regular rate Peripheral pulses: Peripheral pulses 2+ throughout GI: Palpation (GI): Soft to palpation Skin: Lesions: no lesions Rashes: no rashes Extrem: Other: Left ankle splint is clean, dry, and intact. Able to move all digits. DS: Data Data Completed and Pending Labs on day of discharge: Laboratory Results - last 24 hr 09/10/21 09/10/21 09/10/21 06:01 06:01 06:01 WBC 5.4 RBC 2.89 L D Hgb 8.4 L D Hct 26.2 L D MCV 90.7 MCH 29.1 MCHC 32.1 RDW 13.6 Plt Count 192 D MPV 10.9 Absolute Nucleated RBC 0.000 Nucleated RBC % (auto) 0.0 Sodium 138 Cancelled Potassium 3.5 Cancelled Chloride 105 Cancelled Carbon Dioxide 26 Cancelled Anion Gap 11 L Cancelled BUN 8 L Cancelled Creatinine 0.52 Cancelled Estim Creat Clear Calc 131.7 Cancelled Estimated GFR > 60 Cancelled Random Glucose Cancelled Fasting Glucose 112 H Calcium 7.9 L Cancelled COVID-19 ([facility]) COVID-19 Clin Com 09/10/21 11:41 WBC RBC Hgb Hct MCV MCH MCHC RDW Plt Count MPV Absolute Nucleated RBC Nucleated RBC % (auto) Sodium Potassium Chloride Carbon Dioxide Anion Gap BUN Creatinine Estim Creat Clear Calc Estimated GFR Random Glucose Fasting Glucose Calcium COVID-19 ([facility]) Negative COVID-19 Clin Com See Note Preliminary micro results at discharge 09/07/21 12:20 Blood Culture - Preliminary Blood - Venous No growth after 48 hours. 09/07/21 11:39 Blood Culture - Preliminary Blood - Venous No growth after 48 hours. Discharge Plan Discharge Patient Disposition: [facility] Discharge Diagnosis: Left ankle fracture Referrals: Mary Galvan [Outside] - 1 Day (SHORT TERM REHAB) Michael Remy PA-C [Physician Retention Representative] - 1 Week Discharge Medications: New acetaminophen 325 mg Tablet 650 mg PO Q6H PRN (Reason: Pain, Mild (Pain Scale 1-3)) 30 Days Qty: 240 0RF oxycodone 5 mg Tablet 5 mg PO Q4H PRN (Reason: Pain, Moderate (Pain Scale 4-6) 7 Days Qty: 42 0RF Rx Instructions: Partial Fill upon patient request. Continued aspirin 81 mg tablet,delayed release (DR/EC) 81 mg PO DAILY Qty: 90 3RF lisinopril 10 mg tablet 10 mg PO DAILY Qty: 90 2RF carvedilol 3.125 mg tablet 3.125 mg PO BID Qty: 180 3RF atorvastatin 40 mg tablet 40 mg PO DAILY Qty: 90 3RF Fycompa 6 mg tablet 1 tab PO BEDTIME lacosamide 150 mg tablet 150 mg PO BID folic acid 1 mg tablet 1 mg PO DAILY phenobarbital 32.4 mg tablet 32.4 mg PO BID clonazepam 2 mg tablet 2 mg PO BEDTIME phenytoin sodium extended 100 mg capsule 200 mg PO BID Discharge Orders: Discharge Order (Routine); Ordered 09/10/21 Ordered By: Michael Remy Diet: regular diet Activity on Discharge: Use cane or walker Stand Alone Forms: Patient Portal Discharge page Print Language: [place] Care Plan Goals: Restore function of joint Health Concerns: none Plan of Treatment: Nonweightbearing left lower extremity Keep splint clean dry and intact Elevated on 3 pillows above heart level Assessment: As above
--- NOTE | 2021-10-25 16:08 | W.PM.OPN ---
Operative Note Operative Note Date of Service: 10/25/21 Narrative: Date of Service: 09/08/21 Pre-op diagnosis: left ankle trimalleolar fracture Post-op diagnosis: same Procedure: Closed reduction left ankle Surgeon: Edinson Matthews MD Anesthesia: MAC Was an Director Of Database Marketing used for this Procedure?: Yes Director Of Database Marketing: Tiera Hearn Estimated blood loss (mL): 0 IV fluids (mL): 300 Pathology: none sent Condition: stable Disposition: PACU Procedure in detail: Patient was brought to the operating room placed supine on the operative table and prepped and draped in standard fashion. A time-out was called to identify proper site proper procedure and proper surgeon. I began by examining her soft tissues. She had tenting and eschar over the medial malleolus that was the obvious contraindication to a large incision. The ankle was unstable and dislocated therefore I gently reduced the ankle so that the talus was underneath to tibia and splinted her with a well-padded splint. Biplanar fluoroscopy was used to confirm the reduction. I was satisfied with the reduction. The injured skin was covered with Xeroform prior to placement of the splint and the splint was extremely well padded. Patient was brought to the recovery room in stable condition. There were no known complications. Breast [place] Node Biopsy Substrate(s) used for sentinel node biopsy in the non-neoadjuvant setting: Dye, Radiotracer, Clips, Dye and Radiotracer, Dye and Clips, Radiotracer and Clips, Dye, Radiotracer, & Clips, None and N/A General Surg. - Synoptic Notes Breast [place] Node Biopsy Substrate(s) used for sentinel node biopsy in the non-neoadjuvant setting: Dye, Radiotracer, Clips, Dye and Radiotracer, Dye and Clips, Radiotracer and Clips, Dye, Radiotracer, & Clips, None and N/A
== END 2021-09-10 16:09 | disposition skilled nursing facility (03) | DRG 563 ==
LOC: HO.ED 16:38 → HO.EDOVER 17:43 → HO.S3 18:53
PROVIDERS: Physician Assistant; Physician Assistant Medical; Student in an Organized Health Care Education/Training Program; Admitting Provider Orthopaedic Surgery; Emergency Provider Emergency Medicine; PCP Family Medicine; Visit Provider Orthopaedic Surgery
PROC: 0QSHXZZ Reposition Left Tibia, External Approach (ICD-10-PCS; CPT 27816; principal; 2021-09-08 13:40)
DX: S82.852A Displaced trimalleolar fracture of left lower leg, initial encounter for closed fracture (principal); W19.XXXA Unspecified fall, initial encounter; G40.909 Epilepsy, unspecified, not intractable, without status epilepticus; Z20.822 Contact with and (suspected) exposure to COVID-19; E78.5 Hyperlipidemia, unspecified; I10 Essential (primary) hypertension; Z91.19 Patient's noncompliance with other medical treatment and regimen; Z96.82 Presence of neurostimulator; Z79.899 Other long term (current) drug therapy
CPT/HCPCS: 27816; 0241U; 36415; 73610; 73700; 80048; 80053; 83605; 83880; 85025; 85027; 85652; 86140; 87040; 87635; 96361; 96374; 97110; 97162; 97166; 97530; 99285; J0690; J1170; J2250; J2405

== ENCOUNTER 2021-09-17 14:23 | Outpatient (REF) | payer MEDICARE, MEDICAID, SELFPAY ==
--- NOTE | ~2021-09-17 | XR_ITS ---
EXAMINATION: XR ANKLE, LEFT CLINICAL INFORMATION: Pain in unspecified ankle and joints of unspecified foot. COMPARISON: 09/07/2021 TECHNIQUE: AP, lateral, and mortise views of the left ankle. FINDINGS: Trimalleolar ankle fracture again seen. There is improved alignment of the tibial plafond with respect to the ankle mortise although the mortise remains laterally displaced by approximately 1 cm. There is improved/decreased displacement of the medial malleolar fracture. Oblique distal fibular fracture is similar in appearance. Significantly improved displacement of the posterior malleolar fracture. XR/XR ankle LT min 3V IMPRESSION: Trimalleolar ankle fracture again seen, with generally improved displacement as described above.
== END 2021-09-17 14:24 | disposition home or self-care (01) ==
LOC: HO.HOSX 14:23
PROVIDERS: Visit Provider Physician Assistant
DX: M25.572 Pain in left ankle and joints of left foot (principal)
CPT/HCPCS: 73610

== ENCOUNTER 2021-09-20 15:59 | Inpatient (IN) | payer MEDICARE, MEDICAID, SELFPAY ==
--- NOTE | ~2021-09-20 | FL_ITS ---
EXAMINATION: XR FL WITH IMAGES CLINICAL INFORMATION: Ankle fracture. COMPARISON: 09/22/2021 TECHNIQUE: Fluoroscopy performed by Dr. Edinson Matthews. Fluoroscopy Time: 0.7 minutes. DAP: 0.0554 mGycm2. Images: 2. FINDINGS: Spot films and fluoroscopy were provided during open reduction internal fixation of trimalleolar ankle fracture. FL/FL guidance in OR IMPRESSION: Fluoroscopy and spot films provided as described above. Please see Dr. Edinson Matthews's procedure note for full details.
--- NOTE | ~2021-09-20 | XR_ITS ---
EXAMINATION: XR ANKLE, LEFT CLINICAL INFORMATION: Pain. COMPARISON: 09/17/2021 and 09/07/2021 TECHNIQUE: AP, lateral, and mortise views of the left ankle. FINDINGS: Compared to previous study of 09/17/2021, there has been no significant change. There remains approximately 1 cm lateral displacement of the distal fibular fracture. There remains approximately 1 cm of displacement of the talar dome laterally by 1 cm in relationship to the tibial plafond. There remains approximately 8 mm of distraction of the medial malleolar fracture fragment. There is no change in appearance of the posterior malleolar fracture. There remains approximately 20-degree angulation at the tibial talar joint. Soft tissue swelling is evident. XR/XR ankle LT min 3V IMPRESSION: Stable appearance of left ankle trimalleolar fractures.
[2021-09-20] MEDS: oxyCODONE HCl Immed Release 5 MG TABLET PO (16:52)
[2021-09-20 17:12] LABS: COVID-19 Test Negative (Negative)
[2021-09-20 17:19] VITALS: BP 99/58; PULSE 63; RESP 18; TEMP 36.4; O2SAT 100
[2021-09-20] MEDS: 0.9 % Sodium Chloride Flush 3 ML SYRINGE IVFLUSH (18:32)
[2021-09-20] MEDS: Lactated Ringers 1,000 ML 100 ML IVCONT (18:32)
[2021-09-20 20:00] VITALS: BP 120/58; PULSE 58; RESP 18; TEMP 36.6; O2SAT 99
[2021-09-20] MEDS: Docusate Sodium 100 MG CAPSULE PO (20:19)
[2021-09-20] MEDS: Celecoxib 200 MG CAPSULE PO (20:19)
[2021-09-20] MEDS: Acetaminophen 325 MG TABLET 650 MG PO (20:19)
[2021-09-20 23:38] VITALS: BP 106/57; PULSE 57; RESP 18; TEMP 36.2; O2SAT 98
[2021-09-21] VITALS (7 sets, daily range): BP systolic 105–158; BP diastolic 51–74; PULSE 55–75; RESP 18–20; TEMP 35.9–36.6; O2SAT 93–100
[2021-09-21] MEDS: Lactated Ringers 1,000 ML 100 ML IVCONT (03:46)
[2021-09-21 07:03] LABS: MANUAL DIFF FLAG NO
[2021-09-21 07:10] LABS: Basophils Percent Auto 0.3 % (0-2); Eosinophils Absolute Auto 0.1 X10*3/uL (0.0-0.4); Eosinophils Percent Auto 3.8 % (0-4); Hematocrit 31.4 % (37.0-47.0); Hemoglobin 9.8 g/dl (12.0-16.0); Imm Gran Abs Auto 0.01 X10*3/uL (0.00-0.03); Imm Gran Pct Auto 0.3 % (0.0-0.4); Lymphocytes Percent Auto 31.7 % (20-40); Mean Corpuscular HGB Conc 31.2 g/dl (31.0-35.0); Mean Corpuscular Hemoglobin 28.7 pg (27.0-33.0); Mean Corpuscular Volume 92.1 fL (80.0-98.0); Mean Platelet Volume 9.5 fL (9.4-12.3); Monocytes Absolute Auto 0.3 X10*3/uL (0.1-1.2); Neutrophils Absolute Auto 1.7 x10*3/uL (2.0-8.3); Neutrophils Percent Auto 54.9 % (45-73); Platelet Count 353 X10*3/uL (160-400); Red Blood Count 3.41 X10*6/uL (4.20-5.50); Red Cell Distribution Width 14.2 % (11.0-16.0); White Blood Count 3.1 X10*3/uL (4.8-10.8)
[2021-09-21 07:18] LABS: Anion Gap 14 (12-20); Blood Urea Nitrogen 8 mg/dL (9-16); Calcium 8.7 mg/dL (8.4-10.2); Carbon Dioxide 25 mmol/L (22-29); Chloride 105 mmol/L (96-108); Estimated Glomerular Filt Rate > 60; Glucose Fasting 88 mg/dL (60-99); Potassium 4.8 mmol/L (3.3-5.1); Sodium 139 mmol/L (135-145)
--- NOTE | 2021-09-21 08:38 | HO.PM.IMCN ---
History of Present Illness Data of Consult Service Date: 09/21/21 HPI Reason for consult: routine medical mgmt This is a 66 yo F with a PMH as outlined below who is admitted under the orthopedic services. Medical consult requested for routine medical management. Patient is seen and examined in her room. She denies any ankle pain. No chest pain, sob, cough. It appears that the patient presented to [facility] ED on 09/07 with ankle pain and was diagnosed with trimalleolar fracture which was reduced in the OR. She is now admitted under ortho for surgical repair. Review of Systems Review of Systems: negative except HPI [facility] Medical History Dislocation of left talus Hyperlipemia Hypertension Seizure disorder Takotsubo cardiomyopathy Family History Mother No problems noted. Father No problems noted. Surgical History History of cholecystectomy S/P placement of nerve stimulator Social History Household Members: Family Housing: Apartment Do you presently have visiting nurse or other home services: Yes Patient Tobacco Use Status: Former Tobacco user Quit Date: 2020 Use of substances other than those prescribed or required for medical reasons: No Currently Displaying Signs/Symptoms of Drug Intoxication Withdrawal: No Have you been hit, kicked, punched, or otherwise hurt by someone within the past year? If so, by whom?: No Do you feel safe in your current relationship?: No Current Relationship Is there a partner from a previous relationship who is making you feel unsafe now?: No Are you made to feel afraid or neglected: No Judaism Healthcare Practices: Jain Advance Directives Date on File: 09/07/21 Do you have thoughts of harming others: None Do you have a plan to hurt others: No Plan Recently lost weight without trying: No Patient : No : No Poor oral hygiene: No Meds Allergies Allergy/AdvReac Type Severity Reaction Status Date / Time No Known Allergies Allergy Verified 09/07/21 10:03 [No Known Allergies*] Active Medications: Current Medications Acetaminophen (Acetaminophen 325 Mg Tablet) 650 mg PO Q6H PRN PRN Reason: Pain, Mild (Pain Scale 1-3) Last Admin: 09/20/21 20:19 Dose: 650 mg Celecoxib (Celecoxib 200 Mg Capsule) 200 mg PO BID [facility] Last Admin: 09/20/21 20:19 Dose: 200 mg Docusate Sodium (Docusate Sodium 100 Mg Capsule) 100 mg PO BID [facility] Last Admin: 09/20/21 20:19 Dose: 100 mg Lactated Ringer's (Lr) 1,000 mls @ 100 mls/hr IVCONT .Q10H [facility] Last Admin: 09/21/21 03:46 Dose: 100 mls/hr Cefazolin Sodium/Dextrose (Ancef) 2 gm in 50 mls @ 100 mls/hr IV PREOP@0900 [facility] Stop: 09/22/21 09:29 Ondansetron HCl (Ondansetron Hcl 4 Mg/2 Ml Vial) 4 mg IVPUSH Q8H PRN PRN Reason: Nausea and Vomiting Oxycodone HCl (Oxycodone Hcl Immed Release 5 Mg Tablet) 5 mg PO Q4H PRN PRN Reason: Pain, Moderate (Pain Scale 4-6 Last Admin: 09/20/21 16:52 Dose: 5 mg Pharmacy Consult (Consult Rx Perform Med Rec) 1 each MISCELLANE ONCE PRN PRN Reason: Consult order Sodium Chloride (0.9 % Sodium Chloride Flush 3 Ml Syringe) 3 ml IVFLUSH QSHIFT [facility] Last Admin: 09/21/21 00:02 Dose: Not Given Home Medications Medication Instructions Recorded Confirmed Last Taken Type clonazepam 2 mg tablet 2 mg PO BEDTIME 04/15/20 09/21/21 08/30/21 History folic acid 1 mg tablet 1 mg PO DAILY 04/15/20 09/21/21 09/07/21 History phenobarbital 32.4 mg tablet 32.4 mg PO BID 04/15/20 09/21/21 09/06/21 History phenytoin sodium extended 100 mg 200 mg PO BID 04/15/20 09/21/21 09/06/21 History capsule perampanel 6 mg tablet (Fycompa) 1 tab PO BEDTIME 09/07/21 09/21/21 09/06/21 History lacosamide 150 mg tablet 150 mg PO BID 09/09/21 09/21/21 09/07/21 History Physical Exam Vital Signs and Narrative: Vital Signs: Last Vital Signs Temp 97.5 F 09/21/21 07:14 Pulse 62 09/21/21 07:14 Resp 18 09/21/21 07:14 BP 111/59 L 09/21/21 07:14 Pulse Ox 97 09/21/21 07:14 O2 Del Method 09/21/21 07:14 Const: Other: General - no acute distress, appears comfortable Cardiovascular - regular rate and rhythm, S1-S2 Lungs - normal respiratory effort, clear to auscultation bilaterally, no wheezing Abdomen - soft, nontender, no rebound or guarding Extremities - L ankle in brace Neuro - awake and alert, no focal deficits Results Labs CBC and Chem 7: 09/21/21 06:52 09/21/21 06:52 Labs: Laboratory Results - last 24 hr 09/20/21 09/20/21 09/21/21 16:45 17:29 06:52 MCV 92.1 MCH 28.7 MCHC 31.2 RDW 14.2 Plt Count 353 D MPV 9.5 Immature Gran % (Auto) 0.3 Neut % (Auto) 54.9 Lymph % (Auto) 31.7 [place] % (Auto) 9.0 Eos % (Auto) 3.8 Baso % (Auto) 0.3 Lymph # (Auto) 1.0 L [place] # (Auto) 0.3 Eos # (Auto) 0.1 Baso # (Auto) 0.0 Abs Immat Gran (auto) 0.01 Absolute Neuts (auto) 1.7 L Absolute Nucleated RBC 0.000 Nucleated RBC % (auto) 0.0 Anion Gap Estim Creat Clear Calc Estimated GFR Fasting Glucose Calcium COVID-19 ([facility]) Negative COVID-19 Clin Com See Note Blood Type B Positive Antibody Screen NEGATIVE 09/21/21 06:52 MCV MCH MCHC RDW Plt Count MPV Immature Gran % (Auto) Neut % (Auto) Lymph % (Auto) [place] % (Auto) Eos % (Auto) Baso % (Auto) Lymph # (Auto) [place] # (Auto) Eos # (Auto) Baso # (Auto) Abs Immat Gran (auto) Absolute Neuts (auto) Absolute Nucleated RBC Nucleated RBC % (auto) Anion Gap 14 Estim Creat Clear Calc TNP Estimated GFR > 60 Fasting Glucose 88 Calcium 8.7 D COVID-19 ([facility]) COVID-19 Clin Com Blood Type Antibody Screen Assessment and Plan (1) Trimalleolar fracture: Status: Acute Plan 66 yo F with history of CMP, seizures on multiple meds who sustained a L ankle fracture requiring reduction in the OR. She now is admitted for operative repair. Medical services consulted for mgmt. 1. temporal epilepsy with frequent breakthrough seizures restart home AEDs (vimpat / fyncompa will need to be brought in as they are NF -- pt to be informed by case mgmt) 2. takatzubo cmp continue neurohormonals 3. htn continue baseline meds 4. tri-malleolar fx mgmt per ortho Will sign off. Please reconsult as needed
[2021-09-21] MEDS: 0.9 % Sodium Chloride Flush 3 ML SYRINGE IVFLUSH (09:03)
[2021-09-21] MEDS: Docusate Sodium 100 MG CAPSULE PO ×2 (09:03→19:48)
[2021-09-21] MEDS: Atorvastatin Calcium 40 MG TABLET PO (09:03)
[2021-09-21] MEDS: oxyCODONE HCl Immed Release 5 MG TABLET PO (09:03)
[2021-09-21] MEDS: Celecoxib 200 MG CAPSULE PO ×2 (09:03→19:47)
[2021-09-21] MEDS: Acetaminophen 325 MG TABLET 650 MG PO (09:03)
[2021-09-21] MEDS: carvediloL 3.125 MG TABLET PO ×2 (09:03→19:49)
--- NOTE | 2021-09-21 10:29 | PHA.MEDREC ---
Pharmacy Consult ? Medication Reconciliation Pharmacy has completed the medication reconciliation. Used an dispatcher maintenance to communicate. Patient had a bag of all her meds, I confirmed my list using her bottles. Only one missing was the patients Vimpat, she has a recent history of picking it up, however, it was not in the bag. Patient was not very well at recalling her medications or last time taken. She admits to taking Ibuprofen 800mg as needed for pain that belongs to her sister.
--- NOTE | 2021-09-21 13:43 | MHC.CM.PN ---
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 . I WENT BACK AND SPOEK TO HER ABBOUT THIS AND SHE SAID SHE WAS NOT SURE IF SHE NEEDED TO GO [facility] AND IF SHE COULD SHE WANTED TO GO HOME, MEDICARE IMM REVIEWED ' I CALLED TO [facility] AND [facility] CONFIRMED THAT SHE WAS A PATIENT THERE AND YETERDAY WENT TO THE PHYSICIANS OFFICE AND THEN HER BROTHER CALLED THE FACILITY TO TELL THEM SHE WAS BACK IN THE HOSPITLA , I REUESTED THEY SEND ME PAPERWORK , HCP AND MOLAT IF DOEN WELL COVID VACINATION RECORD WHICH THEY DID BUT NO COVID DISCHARGE PLAN RETURN BACK TOT HE [facility]FA[facility] VS RETURN HOME WITH COMPASIONATE VNA FOR NSG QD FOR MEDICATION MANAGEMEN 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
--- NOTE | 2021-09-21 13:59 | P.HPOP_ITS ---
History of Present Illness History of Present Illness Date of Service: 09/21/21 Chief complaint: ankle fx Narrative: Justino Craft is a 66 year old female who sustained a left ankle fracture dislocation on 09/07/21. The patient underwent a closed reduction on 09/08/21. She was residing at [facility] and was seen in the outpatient office yesterday. She had continued poor skin with breakdown and therefor was directly admitted to the hospital for further evaluation and treatment. X-rays obtained in the outpatient clinic revealed worsening displacement of the fracture. the wounds were dressed and she was placed in a posterior splint and admitted to the orthopedic service. Review of Systems Review of Systems: Yes all other systems are reviewed and are negative PMFSH Past Medical History Medical History Dislocation of left talus Hyperlipemia Hypertension Seizure disorder Takotsubo cardiomyopathy Family History Family History Mother No problems noted. Father No problems noted. Surgical History Surgical History History of cholecystectomy S/P placement of nerve stimulator Social History Social History Household Members: Family Housing: Apartment Do you presently have visiting nurse or other home services: Yes Patient Tobacco Use Status: Former Tobacco user Quit Date: 2020 Use of substances other than those prescribed or required for medical reasons: No Currently Displaying Signs/Symptoms of Drug Intoxication Withdrawal: No Have you been hit, kicked, punched, or otherwise hurt by someone within the past year? If so, by whom?: No Do you feel safe in your current relationship?: No Current Relationship Is there a partner from a previous relationship who is making you feel unsafe now?: No Are you made to feel afraid or neglected: No Nondenominational Healthcare Practices: Worship Advance Directives Date on File: 09/07/21 Do you have thoughts of harming others: None Do you have a plan to hurt others: No Plan Recently lost weight without trying: No Patient : No : No Poor oral hygiene: No service: No Current occupational status: disabled Meds Allergies Allergy/AdvReac Type Severity Reaction Status Date / Time No Known Allergies Allergy Verified 09/07/21 10:03 [No Known Allergies*] Active Medications: Current Medications Acetaminophen (Acetaminophen 325 Mg Tablet) 650 mg PO Q6H PRN PRN Reason: Pain, Mild (Pain Scale 1-3) Last Admin: 09/21/21 09:03 Dose: 650 mg Atorvastatin Calcium (Atorvastatin Calcium 40 Mg Tablet) 40 mg PO DAILY [facility] Last Admin: 09/21/21 09:03 Dose: 40 mg Carvedilol (Carvedilol 3.125 Mg Tablet) 3.125 mg PO BID [facility]; Protocol Last Admin: 09/21/21 09:03 Dose: 3.125 mg Celecoxib (Celecoxib 200 Mg Capsule) 200 mg PO BID [facility] Last Admin: 09/21/21 09:03 Dose: 200 mg Clonazepam (Clonazepam 1 Mg Tablet) 2 mg PO BEDTIME [facility] Docusate Sodium (Docusate Sodium 100 Mg Capsule) 100 mg PO BID [facility] Last Admin: 09/21/21 09:03 Dose: 100 mg Folic Acid (Folic Acid 1 Mg Tablet) 1 mg PO DAILY [facility] Last Admin: 09/21/21 13:56 Dose: Not Given Lactated Ringer's (Lr) 1,000 mls @ 100 mls/hr IVCONT .Q10H [facility] Last Admin: 09/21/21 03:46 Dose: 100 mls/hr Cefazolin Sodium/Dextrose (Ancef) 2 gm in 50 mls @ 100 mls/hr IV PREOP@0900 [facility] Stop: 09/22/21 09:29 Pt Own (Perampanel [ Fycompa] 6 Mg Tablet ) 1 tab PO BEDTIME [facility] Pt Own (Lacosamide (150 Mg Tablet)) 150 mg PO BID [facility] Ondansetron HCl (Ondansetron Hcl 4 Mg/2 Ml Vial) 4 mg IVPUSH Q8H PRN PRN Reason: Nausea and Vomiting Oxycodone HCl (Oxycodone Hcl Immed Release 5 Mg Tablet) 5 mg PO Q4H PRN PRN Reason: Pain, Moderate (Pain Scale 4-6 Last Admin: 09/21/21 09:03 Dose: 5 mg Pharmacy Consult (Consult Rx Perform Med Rec) 1 each MISCELLANE ONCE PRN PRN Reason: Consult order Phenobarbital (Phenobarbital 30 Mg Tablet) 30 mg PO BID [facility] Phenytoin Sodium (Phenytoin Sodium Extended 100 Mg Capsule) 200 mg PO BID [facility] Last Admin: 09/21/21 13:56 Dose: Not Given Sodium Chloride (0.9 % Sodium Chloride Flush 3 Ml Syringe) 3 ml IVFLUSH BEATA [facility] Last Admin: 09/21/21 09:03 Dose: 3 ml Home Medications Medication Instructions Recorded Confirmed Last Taken Type clonazepam 2 mg tablet 2 mg PO BEDTIME 04/15/20 09/21/21 08/30/21 History folic acid 1 mg tablet 1 mg PO DAILY 04/15/20 09/21/21 09/07/21 History phenobarbital 32.4 mg tablet 32.4 mg PO BID 04/15/20 09/21/21 09/06/21 History phenytoin sodium extended 100 mg 200 mg PO BID 04/15/20 09/21/21 09/06/21 History capsule perampanel 6 mg tablet (Fycompa) 1 tab PO BEDTIME 09/07/21 09/21/21 09/06/21 History lacosamide 150 mg tablet 150 mg PO BID 09/09/21 09/21/21 09/07/21 History ibuprofen 800 mg tablet 800 mg PO TID 09/21/21 09/21/21 Unknown History Physical Exam Vital Signs: Vital Signs: Last Vital Signs Temp 96.8 F 09/21/21 11:49 Pulse 55 09/21/21 11:49 Resp 18 09/21/21 11:49 BP 116/72 09/21/21 11:49 Pulse Ox 100 09/21/21 11:49 O2 Del Method 09/21/21 11:49 Const: General: cooperative, healthy appearing and no acute distress Resp: Effort & Inspection: normal respiratory effort and able to speak in complete sentences Cardio: Rate: regular rate Peripheral pulses: Peripheral pulses 2+ throughout GI: Palpation (GI): Soft to palpation Skin: Lesions: no lesions Rashes: no rashes Extrem: Other: Left ankle anterior and anteriomedial ankle has two areas with quarter sized near full thickness ulcers with granulation tissue from prior fracture blisters. Skin is poor. Patient is unable to verbalize if she has pain but winces to palpation over all anatomical landmarks. Pedal pulse intact. Results Labs Result Diagrams: 09/21/21 06:52 09/21/21 06:52 Labs: Abnormal lab results 09/21/21 09/21/21 Range/Units 06:52 06:52 WBC 3.1 L (4.8-10.8) X10*3/uL RBC 3.41 L (4.20-5.50) X10*6/uL Hgb 9.8 L (12.0-16.0) g/dl Hct 31.4 L (37.0-47.0) % Lymph # (Auto) 1.0 L (1.2-4.9) X10*3/uL Absolute Neuts (auto) 1.7 L (2.0-8.3) x10*3/uL BUN 8 L (9-16) mg/dL H & H 09/21/21 Range/Units 06:52 Hgb 9.8 L (12.0-16.0) g/dl Hct 31.4 L (37.0-47.0) % All other labs normal. Assessment and Plan (1) Trimalleolar fracture: Status: Acute Plan I discussed the case with Dr. Matthews and explained the extent of the injury to the patient and options available which include surgical intervention. I explained the procedure in detail along with the length of recovery and rehab course. I explained the risk, benefits and alternatives. Risk including, but not limited to infection, blood clots, bleeding, non union or malunion and nerve/tissue damage to surrounding areas. I answered all their questions and with their understanding they have consented to move forward with Operative Fixation of the left ankle. The patient will be T&S, med clearance obtained and she has remained NPO. Plan to bring her to the OR later today. Quality Stroke Does the patient have a stroke diagnosis?: No VTE Prior VTE?: No VTE Risk Level:: Medical - moderate - high VTE Device Contraindication: N/A - Device Ordered VTE Drug Contraindication: N/A - Med Ordered Procedures Date of Service Date of Service: 09/21/21
--- NOTE | 2021-09-21 18:13 | PC.NURSE ---
[id number] patient noted to have change in mentation, agitated pulling at mask and wires. blank stare. patient safety secured. anam quintero called to bedside. patient not answering questions or responsive. eyes open blank stare 172/75, 87, 20, 96% room air. managing secretions. [address] lee and dr. chandra anesthesia at bedside to evaluate patient. m.d. both made aware patient missing anti-seizure medications on the inpatient unit. Surgical executive vice president of sales made aware patient seizure disorder and missed medications.
[2021-09-21] MEDS: PERAMPANEL 6 MG 1 EACH PO (19:43)
[2021-09-21] MEDS: Phenytoin Sodium Extended 100 MG CAPSULE 200 MG PO (19:47)
[2021-09-21] MEDS: PHENobarbitaL 30 MG TABLET PO (19:48)
[2021-09-21] MEDS: clonazePAM 1 MG TABLET 2 MG PO (19:48)
--- NOTE | 2021-09-21 21:34 | PC.NURSE ---
Found 2 bottles of medication at pt's bedside, acetaminophen and phenytoin. Put meds in an envelope and they are in pt specific bin in the pyxis.
--- NOTE | 2021-09-21 22:45 | PC.NURSE ---
[id number] PT had an active seizure, seizure precautions maintained, PT unable to respond, at 1956 PT able to respond with family support specialist and RN. PT took all medication without issues.
[2021-09-22] VITALS (12 sets, daily range): BP systolic 128–159; BP diastolic 63–80; PULSE 62–83; RESP 15–18; TEMP 36.1–37.1; O2SAT 96–100
[2021-09-22] MEDS: Lactated Ringers 1,000 ML 100 ML IVCONT (02:10)
[2021-09-22 06:30] LABS: Basophils Percent Auto 0.2 % (0-2); Eosinophils Absolute Auto 0.1 X10*3/uL (0.0-0.4); Hematocrit 32.8 % (37.0-47.0); Hemoglobin 10.8 g/dl (12.0-16.0); Imm Gran Abs Auto 0.01 X10*3/uL (0.00-0.03); Imm Gran Pct Auto 0.2 % (0.0-0.4); Lymphocytes Absolute Auto 1.5 X10*3/uL (1.2-4.9); Lymphocytes Percent Auto 34.9 % (20-40); Mean Corpuscular HGB Conc 32.9 g/dl (31.0-35.0); Mean Corpuscular Hemoglobin 29.8 pg (27.0-33.0); Mean Corpuscular Volume 90.4 fL (80.0-98.0); Mean Platelet Volume 10.7 fL (9.4-12.3); Monocytes Absolute Auto 0.3 X10*3/uL (0.1-1.2); Monocytes Percent Auto 6.8 % (2-11); Neutrophils Absolute Auto 2.5 x10*3/uL (2.0-8.3); Neutrophils Percent Auto 55.9 % (45-73); Red Blood Count 3.63 X10*6/uL (4.20-5.50); Red Cell Distribution Width 14.2 % (11.0-16.0)
[2021-09-22 06:31] LABS: White Blood Count 4.4 X10*3/uL (4.8-10.8)
[2021-09-22 06:32] LABS: Platelet Count 308 X10*3/uL (160-400)
[2021-09-22 07:06] LABS: Anion Gap 14 (12-20); Blood Urea Nitrogen 8 mg/dL (9-16); Calcium 9.3 mg/dL (8.4-10.2); Carbon Dioxide 26 mmol/L (22-29); Chloride 104 mmol/L (96-108); Estimated Glomerular Filt Rate > 60; Glucose Fasting 77 mg/dL (60-99); Potassium 4.8 mmol/L (3.3-5.1); Sodium 139 mmol/L (135-145)
[2021-09-22] MEDS: carvediloL 3.125 MG TABLET PO ×2 (08:12→19:17)
[2021-09-22] MEDS: PHENobarbitaL 30 MG TABLET PO ×2 (08:12→19:17)
[2021-09-22] MEDS: Phenytoin Sodium Extended 100 MG CAPSULE 200 MG PO ×2 (08:12→19:17)
--- NOTE | 2021-09-22 10:55 | HO.ANESPROP2 ---
HPI - Anesthesia Eval Consult details Narrative: 66 F for ankle ORIF Patient with h/o seizures . Case discussed with the surgeon . [facility] Active Problems Active Problems: All Active Problems (Updated 09/18/21 @ 00:04 by Dayana Gilliland) Trimalleolar fracture (Acute) Past Medical History Medical History Dislocation of left talus Hyperlipemia Hypertension Seizure disorder Takotsubo cardiomyopathy Family History Family History Mother No problems noted. Father No problems noted. Family history of problems with anesthesia: No Surgical History Surgical History History of cholecystectomy S/P placement of nerve stimulator History of Problems with Anesthesia: No Social History Social History Household Members: Family Housing: Apartment Do you presently have visiting nurse or other home services: Yes Patient Tobacco Use Status: Former Tobacco user Quit Date: 1 year ago Tobacco use type: Cigarette Use of substances other than those prescribed or required for medical reasons: No Currently Displaying Signs/Symptoms of Drug Intoxication Withdrawal: No Have you been hit, kicked, punched, or otherwise hurt by someone within the past year? If so, by whom?: No Do you feel safe in your current relationship?: No Current Relationship Is there a partner from a previous relationship who is making you feel unsafe now?: No Are you made to feel afraid or neglected: No Christianity Healthcare Practices: Faith Are you DNR?: No Advance Directives: Yes Advance Directives on File: Yes Advance Directives Date on File: 09/07/21 Do you have thoughts of harming others: None Do you have a plan to hurt others: No Plan Recently lost weight without trying: No Patient : No : No Poor oral hygiene: No service: No Current occupational status: disabled Meds Allergies Allergy/AdvReac Type Severity Reaction Status Date / Time No Known Allergies Allergy Verified 09/07/21 10:03 [No Known Allergies*] Active Medications: Current Medications Acetaminophen (Acetaminophen 325 Mg Tablet) 650 mg PO Q6H PRN PRN Reason: Pain, Mild (Pain Scale 1-3) Last Admin: 09/21/21 09:03 Dose: 650 mg Atorvastatin Calcium (Atorvastatin Calcium 40 Mg Tablet) 40 mg PO DAILY [facility] Last Admin: 09/22/21 08:13 Dose: Not Given Carvedilol (Carvedilol 3.125 Mg Tablet) 3.125 mg PO BID [facility]; Protocol Last Admin: 09/22/21 08:12 Dose: 3.125 mg Celecoxib (Celecoxib 200 Mg Capsule) 200 mg PO BID [facility] Last Admin: 09/22/21 08:13 Dose: Not Given Clonazepam (Clonazepam 1 Mg Tablet) 2 mg PO BEDTIME [facility] Last Admin: 09/21/21 19:48 Dose: 2 mg Docusate Sodium (Docusate Sodium 100 Mg Capsule) 100 mg PO BID [facility] Last Admin: 09/22/21 08:13 Dose: Not Given Folic Acid (Folic Acid 1 Mg Tablet) 1 mg PO DAILY [facility] Last Admin: 09/22/21 08:13 Dose: Not Given Lactated Ringer's (Lr) 1,000 mls @ 100 mls/hr IVCONT .Q10H [facility] Last Admin: 09/22/21 08:13 Dose: Not Given Pt Own (Perampanel [ Fycompa] 6 Mg Tablet ) 1 tab PO BEDTIME [facility] Last Admin: 09/21/21 19:43 Dose: 1 tab Pt Own (Lacosamide (150 Mg Tablet)) 150 mg PO BID [facility] Last Admin: 09/22/21 08:12 Dose: 150 mg Ondansetron HCl (Ondansetron Hcl 4 Mg/2 Ml Vial) 4 mg IVPUSH Q8H PRN PRN Reason: Nausea and Vomiting Oxycodone HCl (Oxycodone Hcl Immed Release 5 Mg Tablet) 5 mg PO Q4H PRN PRN Reason: Pain, Moderate (Pain Scale 4-6 Last Admin: 09/21/21 09:03 Dose: 5 mg Pharmacy Consult (Consult Rx Perform Med Rec) 1 each MISCELLANE ONCE PRN PRN Reason: Consult order Phenobarbital (Phenobarbital 30 Mg Tablet) 30 mg PO BID [facility] Last Admin: 09/22/21 08:12 Dose: 30 mg Phenytoin Sodium (Phenytoin Sodium Extended 100 Mg Capsule) 200 mg PO BID [facility] Last Admin: 09/22/21 08:12 Dose: 200 mg Sodium Chloride (0.9 % Sodium Chloride Flush 3 Ml Syringe) 3 ml IVFLUSH QSHIFT [facility] Last Admin: 09/22/21 08:13 Dose: Not Given Home Medications Medication Instructions Recorded Confirmed Last Taken Type clonazepam 2 mg tablet 2 mg PO BEDTIME 04/15/20 09/21/21 08/30/21 History folic acid 1 mg tablet 1 mg PO DAILY 04/15/20 09/21/21 09/07/21 History phenobarbital 32.4 mg tablet 32.4 mg PO BID 04/15/20 09/21/21 09/06/21 History phenytoin sodium extended 100 mg 200 mg PO BID 04/15/20 09/21/21 09/06/21 History capsule perampanel 6 mg tablet (Fycompa) 1 tab PO BEDTIME 09/07/21 09/21/21 09/06/21 History lacosamide 150 mg tablet 150 mg PO BID 09/09/21 09/21/21 09/07/21 History ibuprofen 800 mg tablet 800 mg PO TID 09/21/21 09/21/21 Unknown History Exam Exam Date and Time: September 22, 2021 1055 Height,Weight and Vital Signs: Weight 87.77 kg Last Vital Signs Temp 97.0 F 09/22/21 08:00 Pulse 75 09/22/21 08:00 Resp 18 09/22/21 08:00 BP 129/70 09/22/21 08:00 Pulse Ox 100 09/22/21 08:00 O2 Del Method 09/22/21 08:00 Pertinent Lab Results Pertinent Lab Results: Laboratory Tests 09/20/21 09/20/21 09/21/21 16:45 17:29 06:52 WBC 3.1 L RBC 3.41 L Hgb 9.8 L Hct 31.4 L MCV 92.1 MCH 28.7 MCHC 31.2 RDW 14.2 Plt Count 353 D MPV 9.5 Immature Gran % (Auto) 0.3 Neut % (Auto) 54.9 Lymph % (Auto) 31.7 [place] % (Auto) 9.0 Eos % (Auto) 3.8 Baso % (Auto) 0.3 Lymph # (Auto) 1.0 L [place] # (Auto) 0.3 Eos # (Auto) 0.1 Baso # (Auto) 0.0 Abs Immat Gran (auto) 0.01 Absolute Neuts (auto) 1.7 L Absolute Nucleated RBC 0.000 Nucleated RBC % (auto) 0.0 Sodium Potassium Chloride Carbon Dioxide Anion Gap BUN Creatinine Estim Creat Clear Calc Estimated GFR Fasting Glucose Calcium COVID-19 ([facility]) Negative COVID-19 [facility] Com See Note Blood Type B Positive Antibody Screen NEGATIVE 09/21/21 09/22/21 09/22/21 06:52 05:17 05:17 WBC 4.4 L RBC 3.63 L Hgb 10.8 L Hct 32.8 L MCV 90.4 MCH 29.8 MCHC 32.9 RDW 14.2 Plt Count 308 MPV 10.7 Immature Gran % (Auto) 0.2 Neut % (Auto) 55.9 Lymph % (Auto) 34.9 [place] % (Auto) 6.8 Eos % (Auto) 2.0 Baso % (Auto) 0.2 Lymph # (Auto) 1.5 [place] # (Auto) 0.3 Eos # (Auto) 0.1 Baso # (Auto) 0.0 Abs Immat Gran (auto) 0.01 Absolute Neuts (auto) 2.5 Absolute Nucleated RBC 0.000 Nucleated RBC % (auto) 0.0 Sodium 139 139 Potassium 4.8 D 4.8 Chloride 105 104 Carbon Dioxide 25 26 Anion Gap 14 14 BUN 8 L 8 L Creatinine 0.54 0.58 Estim Creat Clear Calc TNP TNP Estimated GFR > 60 > 60 Fasting Glucose 88 77 Calcium 8.7 D 9.3 D COVID-19 ([facility]) COVID-19 [facility] Com Blood Type Antibody Screen Airway Mallampati Class: III TM Dist: >3cm Neck ROM: Full Loose/Missing/Broken Teeth: Yes Heart: S1,S2 Lungs: b/l breath sounds Assessment and Plan Assessment Anesthesia Assessment: Anesthesia Plan Discussed and Chart Reviewed Final Anesthetic Review Family History of Problems with Anesthesia: No History of Problems with Anesthesia: No NPO: Yes ASA Class: III and Emergency Final Preanesthetic Review: Meds/Allgs Chart Reviewed, Consent Obtained/Reviewed and Anes Risks/Benef Reviewed Patient Risk: High Procedure Risk: Intermediate Anesthetic Plan Anesthetic Plan: GA Disposition: Standard PACU
--- NOTE | 2021-09-22 17:39 | P.BOP_ITS ---
Brief Operative Note Date of Service: 09/22/21 Pre-op diagnosis: Left ankle bimalleolar fracture/dislocation Post-op diagnosis: same Procedure: ORIF left ankle Implants: [place] Surgeon: Edinson Matthews MD Anesthesia: GLMA and local Was an Administrative Services Director used for this Procedure?: Yes Administrative Services Director: Tiera Hearn Estimated blood loss (mL): 20 IV fluids (mL): 1,100 Pathology: none sent Condition: stable Disposition: PACU
[2021-09-22] MEDS: clonazePAM 1 MG TABLET 2 MG PO (19:17)
[2021-09-22] MEDS: Docusate Sodium 100 MG CAPSULE PO (19:17)
[2021-09-22] MEDS: Celecoxib 200 MG CAPSULE PO (19:18)
[2021-09-22] MEDS: 0.9 % Sodium Chloride Flush 3 ML SYRINGE IVFLUSH (19:18)
[2021-09-22] MEDS: PERAMPANEL 6 MG 1 EACH PO (19:18)
[2021-09-23 03:46] VITALS: BP 121/58; PULSE 85; RESP 18; TEMP 36.7; O2SAT 98
[2021-09-23] MEDS: oxyCODONE HCl Immed Release 5 MG TABLET PO ×2 (05:24→19:28)
[2021-09-23 06:19] LABS: MANUAL DIFF FLAG NO
[2021-09-23 06:26] LABS: Basophils Percent Auto 0.1 % (0-2); Eosinophils Absolute Auto 0.1 X10*3/uL (0.0-0.4); Eosinophils Percent Auto 0.9 % (0-4); Hemoglobin 9.7 g/dl (12.0-16.0); Imm Gran Abs Auto 0.02 X10*3/uL (0.00-0.03); Imm Gran Pct Auto 0.3 % (0.0-0.4); Lymphocytes Absolute Auto 1.1 X10*3/uL (1.2-4.9); Lymphocytes Percent Auto 14.2 % (20-40); Mean Corpuscular HGB Conc 32.3 g/dl (31.0-35.0); Mean Corpuscular Hemoglobin 28.9 pg (27.0-33.0); Mean Corpuscular Volume 89.3 fL (80.0-98.0); Mean Platelet Volume 9.7 fL (9.4-12.3); Monocytes Absolute Auto 0.6 X10*3/uL (0.1-1.2); Monocytes Percent Auto 8.2 % (2-11); Neutrophils Absolute Auto 5.9 x10*3/uL (2.0-8.3); Neutrophils Percent Auto 76.3 % (45-73); Platelet Count 374 X10*3/uL (160-400); Red Blood Count 3.36 X10*6/uL (4.20-5.50); Red Cell Distribution Width 14.3 % (11.0-16.0); White Blood Count 7.8 X10*3/uL (4.8-10.8)
[2021-09-23 07:25] LABS: Blood Urea Nitrogen 10 mg/dL (9-16); Creatinine Clr Calc Pharmacy 101.9; Estimated Glomerular Filt Rate > 60; Glucose Fasting 122 mg/dL (60-99)
[2021-09-23 07:39] LABS: Anion Gap 12 (12-20); Calcium 8.7 mg/dL (8.4-10.2); Carbon Dioxide 26 mmol/L (22-29); Chloride 102 mmol/L (96-108); Potassium 3.7 mmol/L (3.3-5.1); Sodium 136 mmol/L (135-145)
[2021-09-23 08:00] VITALS: BP 131/77; PULSE 87; RESP 18; TEMP 36.3; O2SAT 98
--- NOTE | 2021-09-23 08:19 | PM.PNORT ---
Subjective Subjective Date of Service: 09/23/21 Interval history: POD1 status post left ankle ORIF. Pain is resting in bed comfortably. No overnight events. Pain appears to be well managed. Allowed to sleep. Physical Exam Vital Signs: Vital Signs: Last Vital Signs Temp 97.3 F 09/23/21 08:00 Pulse 87 09/23/21 08:00 Resp 18 09/23/21 08:00 BP 131/77 09/23/21 08:00 Pulse Ox 98 09/23/21 08:00 O2 Del Method 09/23/21 08:00 Const: General: cooperative, healthy appearing and no acute distress Resp: Effort & Inspection: normal respiratory effort and able to speak in complete sentences Cardio: Rate: regular rate Peripheral pulses: Peripheral pulses 2+ throughout GI: Palpation (GI): Soft to palpation Skin: Lesions: no lesions Rashes: no rashes Extrem: Other: Left ankle splint is clean dry and intact. Prevena intact. Procedures Date of Service Date of Service: 09/23/21 Progress Note: A&P Assessment and plan (1) Trimalleolar fracture: Status: Acute Plan Continue pain mgmnt begin PT for left ankle ORIF - nonweightbearing left lower extremity Keep splint clean dry and intact Prevena intact Dispo planning-Pending PT eval, pain mgmnt Time Spent With Patient Time: Total time spent is greater than 50% in coordination of care (as documented) at patient's floor/unit and/or counseling patient: Quality Stroke Does the patient have a stroke diagnosis?: No VTE Prior VTE?: No VTE Risk Level:: Medical - moderate - high VTE Device Contraindication: N/A - Device Ordered VTE Drug Contraindication: N/A - Med Ordered
[2021-09-23] MEDS: Atorvastatin Calcium 40 MG TABLET PO (08:23)
[2021-09-23] MEDS: PHENobarbitaL 30 MG TABLET PO ×2 (08:23→20:15)
[2021-09-23] MEDS: Docusate Sodium 100 MG CAPSULE PO ×2 (08:23→20:15)
[2021-09-23] MEDS: Celecoxib 200 MG CAPSULE PO ×2 (08:23→20:15)
[2021-09-23] MEDS: carvediloL 3.125 MG TABLET PO ×2 (08:23→20:15)
[2021-09-23] MEDS: Folic Acid 1 MG TABLET PO (08:23)
[2021-09-23] MEDS: 0.9 % Sodium Chloride Flush 3 ML SYRINGE IVFLUSH (08:23)
[2021-09-23] MEDS: Phenytoin Sodium Extended 100 MG CAPSULE 200 MG PO ×2 (08:23→20:15)
--- NOTE | 2021-09-23 10:59 | P.PNIM_ITS ---
Subjective Subjective Date of Service: 09/23/21 Interval History: the patient was seen and evaluated this morning POD1. feels comfortable with some pain in her ankle Laying in bed, feels comfortable No reported other overnight events. Systemic review: No fever, chills or weakness No chest pain, palpitation No shortness of breath or coughing No abdominal pain, nausea or vomiting No urinary symptoms No any rash or wounds Physical Exam Vital Signs: Vital Signs: Last Vital Signs Temp 97.3 F 09/23/21 08:00 Pulse 87 09/23/21 08:00 Resp 18 09/23/21 08:00 BP 131/77 09/23/21 08:00 Pulse Ox 98 09/23/21 08:00 O2 Del Method 09/23/21 08:00 Const: Other: Constitutional : Alert, oriented, not in distress Neck : Normal inspection, Supple Cardiovascular : RRR, no JVP, no lower extremity edema Respiratory : fair bilateral air entry, no crackles, wheezes or rhonchi Gastrointestinal: soft, lax, Normal bowel sounds, Non tender Skin : Warm, Dry [place]: LLE in cast, no bleeding or drainage noted Neurological : Alert & oriented x3, No focal deficit , CN 2-12 within normal Objective Data Active Medications Acetaminophen (Acetaminophen 325 Mg Tablet) 650 mg PO Q6H PRN PRN Reason: Pain, Mild (Pain Scale 1-3) Last Admin: 09/21/21 09:03 Dose: 650 mg Documented By: RAMIREZ Atorvastatin Calcium (Atorvastatin Calcium 40 Mg Tablet) 40 mg PO DAILY [facility] Last Admin: 09/23/21 08:23 Dose: 40 mg Documented By: DIONISIO Carvedilol (Carvedilol 3.125 Mg Tablet) 3.125 mg PO BID [facility]; Protocol Last Admin: 09/23/21 08:23 Dose: 3.125 mg Documented By: DIONISIO Celecoxib (Celecoxib 200 Mg Capsule) 200 mg PO BID [facility] Last Admin: 09/23/21 08:23 Dose: 200 mg Documented By: DIONISIO Clonazepam (Clonazepam 1 Mg Tablet) 2 mg PO BEDTIME [facility] Last Admin: 09/22/21 19:17 Dose: 2 mg Documented By: IRIS Docusate Sodium (Docusate Sodium 100 Mg Capsule) 100 mg PO BID [facility] Last Admin: 09/23/21 08:23 Dose: 100 mg Documented By: DIONISIO Fentanyl (Fentanyl Citrate/Pf 100 Mcg/2 Ml Vial) 25 mcg IVPUSH Q5M PRN; Protocol PRN Reason: Pain, Moderate (Pain Scale 4-6 Fentanyl (Fentanyl Citrate/Pf 100 Mcg/2 Ml Vial) 50 mcg IVPUSH Q5M PRN; Protocol PRN Reason: Pain, Severe (Pain Scale 7-10) Folic Acid (Folic Acid 1 Mg Tablet) 1 mg PO DAILY [facility] Last Admin: 09/23/21 08:23 Dose: 1 mg Documented By: DIONISIO Hydromorphone HCl (Hydromorphone Hcl 0.5 Mg/0.5 Ml Syringe) 0.25 mg IVPUSH Q5M PRN; Protocol PRN Reason: Pain, Severe (Pain Scale 7-10) Hydromorphone HCl (Hydromorphone Hcl 0.5 Mg/0.5 Ml Syringe) 0.5 mg IVPUSH Q5M PRN; Protocol PRN Reason: Pain, Severe (Pain Scale 7-10) Promethazine HCl 12.5 mg/ (Sodium Chloride) 50.5 mls @ 202 mls/hr IV ONCE PRN PRN Reason: Nausea and Vomiting Pt Own (Perampanel [ Fycompa] 6 Mg Tablet ) 1 tab PO BEDTIME [facility] Last Admin: 09/22/21 19:18 Dose: 1 tab Documented By: IRIS Pt Own (Lacosamide (150 Mg Tablet)) 150 mg PO BID [facility] Last Admin: 09/23/21 08:24 Dose: 150 mg Documented By: DIONISIO Ondansetron HCl (Ondansetron Hcl 4 Mg/2 Ml Vial) 4 mg IVPUSH Q8H PRN PRN Reason: Nausea and Vomiting Oxycodone HCl (Oxycodone Hcl Immed Release 5 Mg Tablet) 5 mg PO Q4H PRN PRN Reason: Pain, Moderate (Pain Scale 4-6 Last Admin: 09/23/21 05:24 Dose: 5 mg Documented By: IRIS Pharmacy Consult (Consult Rx Perform Med Rec) 1 each MISCELLANE ONCE PRN PRN Reason: Consult order Phenobarbital (Phenobarbital 30 Mg Tablet) 30 mg PO BID [facility] Last Admin: 09/23/21 08:23 Dose: 30 mg Documented By: DIONISIO Phenytoin Sodium (Phenytoin Sodium Extended 100 Mg Capsule) 200 mg PO BID [facility] Last Admin: 09/23/21 08:23 Dose: 200 mg Documented By: DIONISIO Sodium Chloride (0.9 % Sodium Chloride Flush 3 Ml Syringe) 3 ml IVFLUSH QSHIFT [facility] Last Admin: 09/23/21 08:23 Dose: 3 ml Documented By: DIONISIO Labs CBC & Chem 7: 09/23/21 05:19 09/23/21 05:19 Labs: Laboratory Results - last 24 hr 09/23/21 09/23/21 05:19 05:19 MCV 89.3 MCH 28.9 MCHC 32.3 RDW 14.3 Plt Count 374 MPV 9.7 Immature Gran % (Auto) 0.3 Neut % (Auto) 76.3 H Lymph % (Auto) 14.2 L [place] % (Auto) 8.2 Eos % (Auto) 0.9 Baso % (Auto) 0.1 Lymph # (Auto) 1.1 L [place] # (Auto) 0.6 Eos # (Auto) 0.1 Baso # (Auto) 0.0 Abs Immat Gran (auto) 0.02 Absolute Neuts (auto) 5.9 Absolute Nucleated RBC 0.000 Nucleated RBC % (auto) 0.0 Anion Gap 12 Estim Creat Clear Calc 101.9 Estimated GFR > 60 Fasting Glucose 122 H Calcium 8.7 D Assessment and Plan (1) Trimalleolar fracture: Status: Acute (2) Seizure disorder: Status: Acute Plan 66 yo F with history of CMP, seizures on multiple meds who sustained a L ankle fracture requiring reduction in the OR. She now is admitted for operative repair. Medical services consulted for mgmt. temporal epilepsy with frequent breakthrough seizures no recurrence of seizure Continue vimpat / fyncompa and Phenobarbitol tak[place]ubo cmp continue neurohormonals htn continue baseline meds tri-malleolar fx mgmt per ortho Will sign off. Please reconsult as needed Quality Stroke Does the patient have a stroke diagnosis?: No VTE Prior VTE?: No VTE Risk Level:: Medical - moderate - high VTE Device Contraindication: N/A - Device Ordered VTE Drug Contraindication: N/A - Med Ordered
--- NOTE | 2021-09-23 11:08 | HO.POSTANES ---
Post Anesthesia Evaluation Post Anesthesia Evaluation Vital Signs: Vital Signs Temp Pulse Resp BP Pulse Ox O2 Del Method 09/23/21 08:00 97.3 F 87 18 131/77 98 Room Air 09/23/21 03:46 98.1 F 85 18 121/58 L 98 Room Air 09/22/21 23:36 97.5 F 83 18 128/63 96 Room Air Anesthesia: General Mental Status: Awake Pain Control: Satisfactory Nausea/Vomiting: None Hydration: Adequate Anesthesia-Related Issues: No Anes. Related Issues
[2021-09-23 11:20] VITALS: BP 133/68; PULSE 90; RESP 18; TEMP 36.6; O2SAT 98
--- NOTE | 2021-09-23 12:14 | P.F2F_ITS ---
Service Date Service Date: 09/23/21 Encounter Date of encounter: 09/23/21 Reasons for Services Signs and symptoms assessed: Pt. is considered homebound due to recent surgery. Unable to drive, poor balance, poor gait mechanics. Reason for correction: medication management Homebound: Leaving the home is medically contraindicated at this time without the asist of a device and/or another person due th the listed conditions above and below. Reason homebound: unsteady gait / fall risk, leg weakness, pain with ambulation, poor balance / fall risk and unable to drive Homebound supporting statement: Pt. is considered homebound due to recent surgery. Unable to drive, poor balance, poor gait mechanics. Certification: Based on the above findings, I certify that this patient is confined to the home and needs intermittent correction care, physical therapy and/or speech therapy, or continues to need occupational therapy. The patient is under my care, and I have initiated the establishment of the plan of care. The patient will be followed by a physician who will periodically review the plan of care.
--- NOTE | 2021-09-23 12:15 | P.DS_ITS ---
DS: Providers Provider Date of Service: 09/23/21 Date of admission: 09/20/21 15:59 Primary care physician: Timmy Manuel MD Consults: 09/20/21 15:29 Consult to Hospitalist Routine Consulting Provider: Hospitalist Reason For Exam: routine medical managment DS: Diagnosis Discharge Diagnosis (1) Trimalleolar fracture: Status: Acute (2) Seizure disorder: Status: Acute DS: Summary Hospital Course Hospital Course: The patient underwent a successful left ankle ORIF, they were transferred to PACU and then to the floor to recover. During their stay, their vitals were stable, afebrile at 97.7. Labs were unremarkable, H/H 9.7/30.0. Prior to discharge, the patient was switched over to the home unit on the Prevena woud vac, incision and splint was clean dry and intact, The plan was to be discharged home with VNA services for medication management that she had prior to presenting to the hospital. Her family did not want her to return to the nursing facility in which she was at prior to admission. Time Spent with Patient Time attestation: Total time spent providing and/or coordinating discharge services: Discharge coordination time: Less than 30 minutes Quality: Safe Use of Opioids Does Pt have an Active Cancer Diagnosis on the Problem List?: No Quality: Stroke Does the patient have a stroke diagnosis?: No Physical Exam Vital Signs: Vital Signs: Last Vital Signs Temp 97.8 F 09/23/21 11:20 Pulse 90 09/23/21 11:20 Resp 18 09/23/21 11:20 BP 133/68 09/23/21 11:20 Pulse Ox 98 09/23/21 11:20 O2 Del Method 09/23/21 11:20 Const: General: cooperative, healthy appearing and no acute distress Resp: Effort & Inspection: normal respiratory effort and able to speak in complete sentences Cardio: Rate: regular rate Peripheral pulses: Peripheral pulses 2+ throughout GI: Palpation (GI): Soft to palpation Skin: Lesions: no lesions Rashes: no rashes Extrem: Other: Left ankle splint is clean dry and intact. Prevena intact. Sensation reportedly intact. Able to move all digits. Pedal pulse intact. DS: Data Data Completed and Pending Labs on day of discharge: Laboratory Results - last 24 hr 09/23/21 09/23/21 05:19 05:19 WBC 7.8 RBC 3.36 L Hgb 9.7 L Hct 30.0 L MCV 89.3 MCH 28.9 MCHC 32.3 RDW 14.3 Plt Count 374 MPV 9.7 Immature Gran % (Auto) 0.3 Neut % (Auto) 76.3 H Lymph % (Auto) 14.2 L [place] % (Auto) 8.2 Eos % (Auto) 0.9 Baso % (Auto) 0.1 Lymph # (Auto) 1.1 L [place] # (Auto) 0.6 Eos # (Auto) 0.1 Baso # (Auto) 0.0 Abs Immat Gran (auto) 0.02 Absolute Neuts (auto) 5.9 Absolute Nucleated RBC 0.000 Nucleated RBC % (auto) 0.0 Sodium 136 Potassium 3.7 D Chloride 102 Carbon Dioxide 26 Anion Gap 12 BUN 10 Creatinine 0.61 Estim Creat Clear Calc 101.9 Estimated GFR > 60 Fasting Glucose 122 H Calcium 8.7 D Discharge Plan Discharge Patient Disposition: Home Health Service Discharge Diagnosis: s/p left ankle fractrue islocation s/p ORIF Referrals: compassionat care vna [Other] - 3-5 Days (RSUMPTION OF YOUR COMPASSIONATE VNA FOR NRUSING FOR MEDICATION MANAGEMENT diagnosis sigh symptom manaement , and supervision of her various exceptionalities teacher [facility] [place] PATIENT INSTRUCTED TO CALL FOR POST HOSPITLA DISCHAGRE APPOINTMNET ORTHOPEDIC SURGICAL FOLLOW UP INDICATED MEDICARE IMM 09/21/21) Timmy Manuel MD [Primary Care Provider] - 1 Week Discharge Medications: New celecoxib 200 mg Capsule 200 mg PO BID 30 Days Qty: 60 0RF docusate sodium 100 mg Capsule 100 mg PO BID 30 Days Qty: 60 0RF oxycodone 5 mg tablet 5 mg PO Q4H PRN (Reason: pain (scale score 4-6)) 7 Days Qty: 42 0RF Rx Instructions: Partial Fill upon patient request. Continued aspirin 81 mg tablet,delayed release (DR/EC) 81 mg PO DAILY Qty: 90 3RF lisinopril 10 mg tablet 10 mg PO DAILY Qty: 90 2RF carvedilol 3.125 mg tablet 3.125 mg PO BID Qty: 180 3RF atorvastatin 40 mg tablet 40 mg PO DAILY Qty: 90 3RF Fycompa 6 mg tablet 1 tab PO BEDTIME lacosamide 150 mg tablet 150 mg PO BID acetaminophen 325 mg Tablet 650 mg PO Q6H PRN (Reason: Pain, Mild (Pain Scale 1-3)) 30 Days Qty: 240 0RF folic acid 1 mg tablet 1 mg PO DAILY phenobarbital 32.4 mg tablet 32.4 mg PO BID clonazepam 2 mg tablet 2 mg PO BEDTIME phenytoin sodium extended 100 mg capsule 200 mg PO BID (DME) Wheelchair with foot rest See Rx Instructions .ROUTE .MEDSUPPLY Qty: 1 0RF Rx Instructions: As directed Discontinued ibuprofen 800 mg Tablet 800 mg PO TID Discharge Orders: Discharge Order (Routine); Ordered 09/23/21 Ordered By: Tiera Hearn Diet: Regular diet Activity on Discharge: Use cane or walker Stand Alone Forms: Patient Portal Discharge page Care Plan Goals: restor fxn to left ankle Health Concerns: none Plan of Treatment: NWB left ankle x 6 weeks Keep splint clean dry and ntact oxycodone 5mg po q4hrs prn pain followup with orthopedics in 1 week Assessment: stable for discharge Discharge Date/Time: 09/23/21 20:28
--- NOTE | 2021-09-23 12:44 | MHC.CM.PN ---
Addendum entered by Soila Munoz 09/23/21 15:23: behavioral health case manager coworker spoke with orthopedic pa and the would vac has not yet been appliced she will come and apply thios before patient is discharged it will be th epro vena wound vac and patient nor the vna will have to do anything with it/ transportation action bls transport but not available until 6pm lydia romano nurse reported talking with patients brother and he has the keys for patients apartement and all her belomgings from the previous str she was in Addendum entered by Soila Munoz 09/23/21 13:25: patient is ready for discharge and noted she has wound vac in place, nothing noted in discharge summRY, INSTRUCTIONS OR FACE TO fce, called to [place]opedic [place] i spoke with orthopeid c nurse cnavigator and she will be in touch with orthopedic surcial pa, before patient is discharged question provena or [facility] woulnd vac Original Note: nurse behavioral health case manager ntoe electronic medical record reviewed along with case discussed with hsoptilaist staff nruse and patient , discharge plan home today per orthopedic surgeo n with re starting her compassionate care vna for nrusing for medication management and meddddddddication reconcilation and disgnosis sign symptom management and overseeing her pccas, pcp dr velasquez transportation family
[2021-09-23 15:49] VITALS: BP 119/70; PULSE 83; RESP 17; TEMP 36.5; O2SAT 98
[2021-09-23] MEDS: clonazePAM 1 MG TABLET 2 MG PO (20:15)
--- NOTE | 2021-09-28 14:17 | P.OP_ITS ---
Operative Note Operative Note Date of Service: 09/22/21 Narrative: Date of Service: 09/22/21 Pre-op diagnosis: Left ankle bimalleolar fracture/dislocation Post-op diagnosis: same Procedure: ORIF left ankle Implants: [place] Surgeon: Edinson Matthews MD Anesthesia: GLMA and local Was an Conduit Worker used for this Procedure?: Yes Conduit Worker: Tiera Hearn Estimated blood loss (mL): 20 IV fluids (mL): 1,100 Pathology: none sent Condition: stable Disposition: PACU Procedure in detail: Patient was brought to the operating room and placed supine on the surgical table. She was prepped and draped in standard sterile fashion and a time out was called to identify proper site, proper procedure and IV antibiotics per weight were administered. I began by making a lateral incision over the fibula. full-thickness flaps were developed. Her skin was intact at this level. Her bone quality Was very poor. I placed the fibular locking plate and using biplanar fluoroscopy and standard a of technique applied this to the lateral fibula. The reduction was difficult given the extreme poor quality of her bone but he did allow for maintenance of the reduction. There was still talar tilt but the ankle was reduced. I irrigated copiously and turned to the medial side. The skin at the level of the medial malleolus was in poor condition. Using percutaneous technique I placed 2 partially-threaded cancellous screws over K- wires from distal to proximal traversing the medial malleolar fracture. Again biplanar fluoroscopy was used to confirm hardware position and fracture reduction. There remained to be some talar tilt and her skin would not tolerate a syndesmosis button nor would her bone. I irrigated the wounds and closed them copiously with a absorbable suture and hernandez. The patient was then placed into a well-padded posterior splint and awakened from anesthesia brought to r ecovery room in stable condition. This is a woman who is minimally ambulatory because of a severe seizure disorder. Her bone quality is very poor and her skin was very poor. Her ankle was unstable however and limited internal fixation allowed for stabilization of the ankle. There remained some talar tilt but the quality of her bone did not allow for an anatomic reduction and I felt that attempts at correcting the talar tilt would lead to further compromise of the soft tissues. She will remain nonweightbearing and will follow accordingly.
== END 2021-09-23 20:28 | disposition home health service (06) | DRG 493 ==
LOC: HO.EDOVER 16:01 → HO.S3 16:24
PROVIDERS: Orthopaedic Surgery; Admitting Provider Physician Assistant; PCP Family Medicine; Visit Provider Physician Assistant
PROC: 0QSK04Z Reposition Left Fibula with Internal Fixation Device, Open Approach (ICD-10-PCS; principal; 2021-09-22 14:20)
DX: S82.852A Displaced trimalleolar fracture of left lower leg, initial encounter for closed fracture (principal); I51.81 Takotsubo syndrome; X58.XXXA Exposure to other specified factors, initial encounter; E78.5 Hyperlipidemia, unspecified; I10 Essential (primary) hypertension; G40.909 Epilepsy, unspecified, not intractable, without status epilepticus; Z20.822 Contact with and (suspected) exposure to COVID-19; Z96.82 Presence of neurostimulator; Z87.891 Personal history of nicotine dependence; Z79.899 Other long term (current) drug therapy
CPT/HCPCS: 36415; 73610; 80048; 85025; 86850; 86900; 86901; 87635; 99212; C1713; J0131; J0690; J1100; J1170; J1885; J2250; J2405; J3010

== ENCOUNTER 2021-10-14 08:57 | Outpatient (RCR) | payer MEDICARE, MEDICAID, SELFPAY | END 2021-11-08 14:11 | disposition home or self-care (01) | LOC: HO.WCC 08:57 | PROVIDERS: PCP Family Medicine; Visit Provider Physician Assistant | DX: S91.002A Unspecified open wound, left ankle, initial encounter (principal); T81.31XA Disruption of external operation (surgical) wound, not elsewhere classified, initial encounter | CPT/HCPCS: 11042; 99213 ==

== ENCOUNTER 2021-10-21 08:46 | Outpatient (REF) | payer MEDICARE, MEDICAID, SELFPAY | END 2021-10-21 08:47 | disposition home or self-care (01) | LOC: HO.HOSX 08:46 | PROVIDERS: Visit Provider Physician Assistant | DX: Z13.89 Encounter for screening for other disorder (principal) ==

== ENCOUNTER 2021-10-22 08:46 | Outpatient (REF) | payer MEDICARE, MEDICAID, SELFPAY | END 2021-10-22 08:47 | disposition home or self-care (01) | LOC: HO.HOSX 08:46 | PROVIDERS: Visit Provider Physician Assistant | DX: Z13.89 Encounter for screening for other disorder (principal) ==

== ENCOUNTER 2021-10-28 05:48 | Outpatient (REF) | payer MEDICARE, MEDICAID, SELFPAY ==
--- NOTE | ~2021-10-28 | XR_ITS ---
EXAMINATION: XR ANKLE, LEFT CLINICAL INFORMATION: Trimalleolar fracture, post reduction. COMPARISON: Fluoroscopic spot views 09/22/2021, radiographs left ankle 09/20/2021 TECHNIQUE: AP, lateral, and mortise views of the left ankle. FINDINGS: Distal fibular fracture is reduced with lateral plate and multiple screws. The medial malleoli fracture is reduced with 2 screws. Hardware is intact. There are overlying skin hernandez lateral side. No destructive process. The medial malleoli fracture fragment is slightly distracted and slightly position laterally. There is lateral translocation of the talar dome. The lateral aspect of the talar dome articulates with the intraosseous area. There is callus formation suggested along the posterior malleoli fracture. XR/XR ankle LT min 3V IMPRESSION: -Status post reduction internal fixation. Hardware intact. -Mild lateral translocation talar dome.
== END 2021-10-28 05:49 | disposition home or self-care (01) ==
LOC: HO.HOSX 05:48
PROVIDERS: Visit Provider Physician Assistant
DX: M25.572 Pain in left ankle and joints of left foot (principal)
CPT/HCPCS: 73610

== ENCOUNTER 2021-11-25 10:03 | Outpatient (REF) | payer MEDICARE, MEDICAID, SELFPAY ==
--- NOTE | ~2021-11-25 | XR_ITS ---
EXAMINATION: XR ANKLE, LEFT CLINICAL INFORMATION: Fracture COMPARISON: Previous x-rays most recent October 2021 TECHNIQUE: AP, lateral, and mortise views of the left ankle. FINDINGS: There is ORIF of medial malleolar and distal fibular shaft fractures. Orthopedic hardware appears unchanged. Alignment is unchanged. There is a transverse medial malleolar fracture that is inferiorly displaced/distracted and fracture line still seen. No bony callus formation at the fracture site is seen. There is a callus formation seen at the distal fibular shaft fracture and the fracture appears more indistinct suggestive of evidence of healing. There is increasing bony callus formation adjacent to the posterior malleolar fracture. There is abnormal alignment of the ankle mortise with lateral translocation of the talar dome. This appears unchanged from 10/28/2021 exam. There is surrounding soft tissue swelling. The bones appear osteopenic. There is a plantar calcaneal spur. XR/XR ankle LT min 3V IMPRESSION: Stable appearance to the left ankle from 10/28/2021 exam. Fractures, alignment and hardware is unchanged.
== END 2021-11-25 10:04 | disposition home or self-care (01) ==
LOC: HO.HOSX 10:03
PROVIDERS: Visit Provider Physician Assistant
DX: S82.852D Displaced trimalleolar fracture of left lower leg, subsequent encounter for closed fracture with routine healing (principal); Z99.3 Dependence on wheelchair; Z79.899 Other long term (current) drug therapy; X58.XXXD Exposure to other specified factors, subsequent encounter
CPT/HCPCS: 73610; 99212

== ENCOUNTER 2022-01-20 08:27 | Outpatient (REF) | payer MEDICARE, MEDICAID, SELFPAY ==
--- NOTE | ~2022-01-20 | XR_ITS ---
EXAMINATION: XR ankle LT min 3V CLINICAL INFORMATION: Reason for Exam M25.572 - Pain in left ankle and joints of left foot COMPARISON: 11/25/2021 TECHNIQUE: Three views of the left ankle XR/XR ankle LT min 3V FINDINGS/IMPRESSION: * No acute fracture or dislocation. * Diffuse osteopenia. 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 Status post ORIF without evidence of hardware complication. * No soft tissue abnormality.
== END 2022-01-20 08:28 | disposition home or self-care (01) ==
LOC: HO.HOSX 08:27
PROVIDERS: Visit Provider Physician Assistant
DX: S82.852D Displaced trimalleolar fracture of left lower leg, subsequent encounter for closed fracture with routine healing (principal); X58.XXXD Exposure to other specified factors, subsequent encounter
CPT/HCPCS: 73610; 99212

== ENCOUNTER 2022-02-14 17:45 | Emergency (ER) | payer MEDICARE, MEDICAID, SELFPAY ==
--- NOTE | ~2022-02-14 | CT_ITS ---
EXAMINATION: CT head/brain wo IV con CLINICAL INFORMATION: Reason for Exam headache COMPARISON: CT head without contrast 03/08/2019 TECHNIQUE: Contiguous axial imaging was performed from the skull base to vertex without intravenous contrast. Sagittal and coronal reformatted images were obtained. This CT examination was performed using dose optimization techniques as appropriate, variously including the following: * Automated exposure control * Adjustment of mA and/or kV according to patient size (this includes techniques or standardized protocols for targeted exams where dose is matched to indication/reason for exam; i.e. extremities or head) Use of iterative reconstruction technique DLP: 634 mGy-cm FINDINGS: No acute osseous or soft tissue abnormality. Chronic subcutaneous stranding in the right parietal scalp. The mastoids are clear. Right posterior ethmoid sinus mucosal thickening. There is no evidence of acute intracranial hemorrhage or territorial infarction. No abnormal mass effect or midline shift is seen. Jett to white matter differentiation is well preserved. No extra-axial fluid collections are identified. No hydrocephalus. No significant volume loss. There is no abnormal attenuation within the brain parenchyma. CT/CT head/brain wo IV con IMPRESSION: No acute intracranial abnormality including hemorrhage, mass effect, hydrocephalus, or acute territorial edematous infarction.
[2022-02-14 17:58] VITALS: BP 152/70; PULSE 130; O2SAT 99
[2022-02-14 18:02] VITALS: BP 182/75; PULSE 84; RESP 18; TEMP 36.9; O2SAT 98; BMI 34.2
--- OUTSIDE RECORDS SUMMARY | 2022-02-14 18:07 | XMS_ITS | Continuity of Care Document ---
:1955 Author Organization [address], [address] [place] [address]- Care Team Providers Name Role Phone Lisha CARRASQUILLO, Huma Zarate Primary Care Physician Encounter [facility] Date(s): 03/06/19 - 03/13/[address], [address] [place] [address]- [facility] Attending Physician: Ann BARRIGA, Jake Fallon Allergies, Adverse Reactions, Alerts No Known Medication Allergies Immunizations Not Given Vaccine Date Status Refusal Reason influenza virus vaccine, inactivated 02/10/18 Not Given Patient Refuses Medications atorvastatin 40 mg oral tablet 1 tablet = 40 mg, By Mouth, Daily, # 30 tablet, 0 Refills, Maintenance, Tablet, Route to Pharmacy Electronically, [id number], [facility]/pharmacy #[id number] Start Date: 02/16/18 Status: OrderedclonazePAM 1 mg oral tablet 1 tablet = 1 mg, By Mouth, Daily at bedtime, 0 Refills, Maintenance, 01/08/15 9:19:52 Start Date: 01/08/15 Status: OrderedCoreg 3.125 mg oral tablet 3.125 mg, 1, tablet, By Mouth, 2 times a day, # 60 tablet, Refills 0, Tot. Refills 0, Maintenance, 02/16/18 10:18:24 EST, Route to Pharmacy Electronically, [id number], [facility]/pharmacy #[id number] Start Date: 02/16/18 Stop Date: 03/18/18 Status: Orderedfolic acid 1 mg oral tablet 1 tablet = 1 mg, By Mouth, Daily, 0 Refills, Maintenance, 01/08/15 9:21:20 Start Date: 01/08/15 Status: OrderedhydrOXYzine hydrochloride 25 mg oral tablet TAKE 1 TAB BY MOUTH NIGHTLY AT BEDTIME NEEDED FOR SLEEP Start Date: 02/08/18 Status: Orderedlacosamide 150 mg oral tablet 1 tablet = 150 mg, By Mouth, 2 times a day, # 180 tablet, 0 Refills, Maintenance, 02/08/18 22:52:11 EST, Tablet Start Date: 02/08/18 Status: Orderedlisinopril 2.5 mg oral tablet 2.5 mg, 1, tablet, By Mouth, Daily, take @ 2pm, # 30 tablet, Refills 0, Tot. Refills 0, Maintenance,02/16/18 10:18:40 EST, Route to Pharmacy Electronically, [id number], [facility]/pharmacy #[id number] Start Date: 02/16/18 Stop Date: 03/18/18 Status: OrderedPHENobarbital 32.4 mg oral tablet 1 tablet = 32.4 mg, By Mouth, 2 times a day, 0 Refills, Maintenance, 02/16/18 11:50:08 EST, Tablet Start Date: 02/16/18 Status: Orderedphenytoin 100 mg oral capsule, extended release 2 capsule = 200 mg, By Mouth, 2 times a day, 0 Refills, Maintenance, 01/08/15 9:20:41 Start Date: 01/08/15 Status: Ordered Problem List Condition Effective Dates Status Health Status Informant Epileptic seizure(Confirmed) Active Encounter for screening Active colonoscopy(Confirmed) Vital Signs Most recent to oldest [Reference Range]: 1 Height 162.56 cm (03/06/19 9:39 AM) Weight 62.1 kg (03/06/19 9:39 AM) Body Mass Index [18.5-24.99] 23.5 (03/06/19 9:39 AM) Social History Social History Type Response Smoking Status Current every day smoker entered on: 09/21/15 Sex
--- OUTSIDE RECORDS SUMMARY | 2022-02-14 18:07 | XMS_ITS | Continuity of Care Document ---
:1955 Author Organization [address], [address] [place] [address]- Care Team Providers Name Role Phone Lisha CARRASQUILLO, Huma Zarate Primary Care Physician Encounter [facility] Date(s): 05/21/19 - 06/21/[address], [address] [place] [address]- [facility] Attending Physician: Ann BARRIGA, Jake Fallon Referring Physician: Cl Avalos Allergies, Adverse Reactions, Alerts No Known Medication Allergies Immunizations Not Given Vaccine Date Status Refusal Reason influenza virus vaccine, inactivated 02/10/18 Not Given Patient Refuses Medications atorvastatin 40 mg oral tablet 1 tablet = 40 mg, By Mouth, Daily, # 30 tablet, 0 Refills, Maintenance, Tablet, Route to Pharmacy Electronically, [id number], [facility]/pharmacy #[id number] Start Date: 02/16/18 Status: OrderedclonazePAM 1 mg oral tablet 1 tablet = 1 mg, By Mouth, Daily at bedtime, 0 Refills, Maintenance, 01/08/15 9:19:52 Start Date: 01/08/15 Status: OrderedCoreg 3.125 mg oral tablet 3.125 mg, 1, tablet, By Mouth, 2 times a day, # 60 tablet, Refills 0, Tot. Refills 0, Maintenance, 02/16/18 10:18:24 EST, Route to Pharmacy Electronically, [id number], [facility]/pharmacy #[id number] Start Date: 02/16/18 Stop Date: 03/18/18 [...] Maintenance,02/16/18 10:18:40 EST, Route to Pharmacy Electronically, [id number], [facility]/pharmacy #[id number] Start Date: 02/16/18 Stop Date: 03/18/18 Status: [...] oldest [Reference Range]: 1 Height 162.56 cm (05/22/19 8:52 AM) Weight 62.1 kg (05/22/19 8:52 AM) Body Mass Index [18.5-24.99] 23.5 (05/22/19 8:52 AM) Social History Social History Type Response Smoking Status Current every day smoker entered on: 09/21/15 Sex
--- OUTSIDE RECORDS SUMMARY | 2022-02-14 18:07 | XMS_ITS | Continuity of Care Document ---
:1955 Author Organization [address], [address] [place] [address]- Care Team Providers Name Role Phone Lisha CARRASQUILLO, Huma Zarate Primary Care Physician [place] [facility] [place]/06[place] - 03/16/[address], [address] [place] [address]- [facility] Attending Physician: Steven Harris Admitting Physician: Steven Harris Referring Physician: AdmtrSteven Allergies, Adverse Reactions, Alerts No Known Medication Allergies Immunizations Not Given Vaccine Date Status Refusal Reason influenza virus vaccine, inactivated 02/10/18 Not Given Patient Refuses Medications atorvastatin 40 mg oral tablet 1 tablet = 40 mg, By Mouth, Daily, # 30 tablet, 0 Refills, Maintenance, Tablet, Route to Pharmacy Electronically, [id number], [facility]/pharmacy #[id number] Start Date: 02/16/18 Status: OrderedclonazePAM 1 mg oral tablet 1 tablet = 1 mg, By Mouth, Daily at bedtime, 0 Refills, Maintenance, 01/08/15 9:19:52 Start Date: 01/08/15 Status: OrderedCoreg 3.125 mg oral tablet 3.125 mg, 1, tablet, By Mouth, 2 times a day, # 60 tablet, Refills 0, Tot. Refills 0, Maintenance, 02/16/18 10:18:24 EST, Route to Pharmacy Electronically, [id number], [facility]/pharmacy #[id number] Start Date: 02/16/18 Stop Date: [...] Maintenance,02/16/18 10:18:40 EST, Route to Pharmacy Electronically, [id number], [facility]/pharmacy #[id number] Start Date: 02/16/18 Stop Date: 03/18/18 Status: [...] seizure(Confirmed) Active Encounter for screening Active colonoscopy(Confirmed) Social History Social History Type Response Smoking Status Current every day smoker entered on: 09/21/15 Sex
[2022-02-14 18:50] VITALS: BP 161/72; PULSE 85; TEMP 36.9; O2SAT 100
--- NOTE | 2022-02-14 18:57 | ECG_ITS ---
Test Reason : abdominal pain Blood Pressure : / mmHG Vent. Rate : 075 BPM Atrial Rate : 075 BPM P-R Int : 146 ms QRS Dur : 082 ms QT Int : 404 ms P-R-T Axes : 033 037 022 degrees QTc Int : 451 ms Normal sinus rhythm Normal ECG When compared with ECG of 08-FEB-2018 18:18, Criteria for Septal infarct are no longer Present Criteria for Lateral infarct are no longer Present Criteria for Inferior infarct are no longer Present ST no longer elevated in Anterolateral leads Nonspecific T wave abnormality no longer evident in Lateral leads Referred By: Yinka Garcia Electronically Signed By:THI LR MD
--- NOTE | 2022-02-14 19:34 | ED_ITS ---
HPI - General Adult General Chief complaint: Headache Stated complaint: headache Time Seen by Provider: 02/14/22 18:12 Source: patient Mode of arrival: ambulatory Limitations: no limitations History of Present Illness HPI narrative: 67 yold female with pmh of seizure and chronic pain presents to the ED for headache and epigastric nausea for one week. patient states for one week she has new neighbors who live above her and every night they make noise all night. patient states due to this she has not been able to have proper rest. Patient states not able to sleep due to the noise. Patient denies any recent trauma, neck stiffness, fever, chills, dysuria, hematuria, photophobia, chest pain, shortness of breath, slurred speech, facial droop, paralysis of extremities, or loss of vision. Related Data Home Medications Medication Instructions Recorded Confirmed clonazepam 2 mg tablet 2 mg PO BEDTIME 04/15/20 11/25/21 folic acid 1 mg tablet 1 mg PO DAILY 04/15/20 11/25/21 phenobarbital 32.4 mg tablet 32.4 mg PO BID 04/15/20 11/25/21 phenytoin sodium extended 100 mg 200 mg PO BID 04/15/20 11/25/21 capsule perampanel 6 mg tablet (Fycompa) 1 tab PO BEDTIME 09/07/21 11/25/21 lacosamide 150 mg tablet 150 mg PO BID 09/09/21 11/25/21 perampanel 4 mg tablet (Fycompa) 4 mg PO BEDTIME 09/30/21 11/25/21 Previous Rx's Medication Instructions Recorded aspirin 81 mg tablet,delayed 81 mg PO DAILY #90 tabs 08/07/20 release lisinopril 10 mg tablet 10 mg PO DAILY #90 tabs 08/07/20 Wheelchair with foot rest #1 ea 09/17/21 oxycodone 5 mg tablet 5 mg PO Q4H PRN pain (scale score 09/23/21 4-6) 7 days #42 tabs carvedilol 3.125 mg tablet 3.125 mg PO BID #180 tabs 10/04/21 walker #1 ea 10/26/21 docusate sodium 100 mg capsule 100 mg PO BID #60 caps 11/15/21 celecoxib 200 mg capsule 200 mg PO BID #60 caps 12/23/21 acetaminophen 325 mg tablet 650 mg PO Q6H PRN for pain 30 days 12/24/21 #240 tabs atorvastatin 40 mg tablet 40 mg PO DAILY #90 tabs 01/04/22 Allergies Allergy/AdvReac Type Severity Reaction Status Date / Time No Known Allergies Allergy Verified 01/20/22 09:56 [No Known Allergies*] Review of Systems Review of Systems: headache, and nausea Yes all other systems are reviewed and are negative [facility] Past Medical History Medical History Dislocation of left talus Hyperlipemia Hypertension Seizure disorder Takotsubo cardiomyopathy Surgical History History of cholecystectomy S/P placement of nerve stimulator Family History Family History Mother No problems noted. Father No problems noted. Social History Social History Household Members: Family Housing: Apartment Do you presently have visiting nurse or other home services: Yes Patient Tobacco Use Status: Former Tobacco user Quit Date: 1 year ago Tobacco use type: Cigarette Advance Directives: Yes Advance Directives on File: Yes Advance Directives Date on File: 09/07/21 service: No Current occupational status: disabled Physical Exam ED Vital Signs: Vital Signs - 24 hr 02/14/22 18:02 02/14/22 18:50 02/14/22 23:10 Temperature 98.4 F 98.5 F 98.1 F Pulse Rate 84 85 66 Respiratory Rate 18 17 Blood Pressure 182/75 H 161/72 H 153/67 H Pulse Oximetry 98 100 100 Oxygen Delivery Method Room Air Room Air Room Air BMI result Body Mass Index 34.2 Const General: cooperative, healthy appearing, comfortable, no acute distress, well developed, alert, awake and Physically active Orientation/consciousness: oriented to time and patient oriented x3 HENMT Head: Yes normal to inspection, Yes No palpable skull fracture present, Yes normocephalic, Yes atraumatic and Yes abrasion Eyes General: appearance normal, both eyes and all related structures Neck Neck: Yes normal visual inspection, Yes full ROM, Yes no lymphadenopathy, Yes no meningeal signs, Yes trachea midline, Yes supple, No anterior neck swelling and No tender Chest Chest palpation & inspection: normal inspection of the chest and normal palpation of entire chest wall Resp Effort & Inspection: normal respiratory effort and able to speak in complete sentences Auscultation: clear to auscultation bilaterally Cardio Jugular venous distension: no JVD Heart sounds: S1 normal heart sound present and S2 normal heart sound present GI Inspection: Yes normal to inspection and No abdominal wall ecchymosis Palpation (GI): Soft to palpation, not firm, nontender, no guarding and not rigid General: No CVA tenderness and Yes no CVA tenderness Back/Spine/Pelvis Back: no CVA tenderness, No CVA tenderness and No back tenderness Skin General skin exam: no rashes or lesions noted and elasticity normal Neuro General: oriented to time, patient oriented x3, gait normal, no meningeal signs and CN's II-XI intact bilaterally Cranial nerves: Yes CN's II-XII intact bilaterally Extrem General: Yes normal to inspection and Yes full ROM Psych Appearance: grossly normal, well kempt and not disheveled Course Course Course Narrative: Patient well-appearing. patient not in distress. Headache and epigastric nausea for a week but likely due to stress-induced from not sleeping and new neighbors. Due to age will do medical workup. Reevaluation(s) Reevaluation #1: EKG negative. Two troponins negative. Head CT scan negative. Headache resolved after receiving Tylenol. No longer nauseous. Patient to be discharged. Patient already has Tylenol and celocib at home. Time: 00:16 Medications Administered Discontinued Medications Generic Name Dose Route Start Last Admin Trade Name Freq PRN Reason Stop Dose Admin Acetaminophen 975 mg 02/14/22 18:54 02/14/22 19:50 Acetaminophen 325 Mg Tablet PO 02/14/22 18:55 975 mg ONCE ONE Administration Medical Decision Making [facility] Narrative Medical decision making narrative: headache Lab Data Result diagrams: 02/14/22 19:49 02/14/22 19:49 Labs: Lab Results 02/14/22 02/14/22 02/14/22 Range/Units 19:49 19:49 19:49 WBC 4.7 L (4.8-10.8) X10*3/uL RBC 4.16 L D (4.20-5.50) X10*6/uL Hgb 12.4 D (12.0-16.0) g/dl Hct 37.6 D (37.0-47.0) % MCV 90.4 (80.0-98.0) fL MCH 29.8 (27.0-33.0) pg MCHC 33.0 (31.0-35.0) g/dl RDW 14.4 (11.0-16.0) % Plt Count 308 (160-400) X10*3/uL MPV 9.8 (9.4-12.3) fL Immature Gran % (Auto) 0.2 (0.0-0.4) % Neut % (Auto) 56.9 (45-73) % Lymph % (Auto) 31.7 (20-40) % Nicollet % (Auto) 8.5 (2-11) % Eos % (Auto) 2.3 (0-4) % Baso % (Auto) 0.4 (0-2) % Lymph # (Auto) 1.5 (1.2-4.9) X10*3/uL Nicollet # (Auto) 0.4 (0.1-1.2) X10*3/uL Eos # (Auto) 0.1 (0.0-0.4) X10*3/uL Baso # (Auto) 0.0 (0.0-0.2) X10*3/uL Abs Immat Gran (auto) 0.01 (0.00-0.03) X10*3/uL Absolute Neuts (auto) 2.7 (2.0-8.3) x10*3/uL Absolute Nucleated RBC 0.000 (0.0-0.012) X10*3/uL Nucleated RBC % (auto) 0.0 (0.0-0.2) /100WBC Sodium 142 (135-145) mmol/L Potassium 4.2 (3.3-5.1) mmol/L Chloride 105 (96-108) mmol/L Carbon Dioxide 23 (22-29) mmol/L Anion Gap 18 (12-20) BUN 8 L (9-16) mg/dL Creatinine 0.63 (0.5-1.4) mg/dL Estim Creat Clear Calc 90.0 Estimated GFR > 60 Random Glucose 99 (60-115) mg/dL Calcium 9.5 D (8.4-10.2) mg/dL Total Bilirubin 0.5 (0.0-1.0) mg/dL Direct Bilirubin 0.3 (0.0-0.5) mg/dL AST 20 (5-31) U/L ALT 16 (0-31) U/L Alkaline Phosphatase 156 H (39-117) U/L Troponin I High Sens 12.4 (<3.5-17.0) ng/L Total Protein 7.8 (6.5-8.0) g/dL Albumin 4.7 (3.5-5.0) g/dL Lipase 27 (8-78) U/L // Range/Units 23:37 WBC (4.8-10.8) X10*3/uL RBC (4.20-5.50) X10*6/uL Hgb (12.0-16.0) g/dl Hct (37.0-47.0) % MCV (80.0-98.0) fL MCH (27.0-33.0) pg MCHC (31.0-35.0) g/dl RDW (11.0-16.0) % Plt Count (160-400) X10*3/uL MPV (9.4-12.3) fL Immature Gran % (Auto) (0.0-0.4) % Neut % (Auto) (45-73) % Lymph % (Auto) (20-40) % Nicollet % (Auto) (2-11) % Eos % (Auto) (0-4) % Baso % (Auto) (0-2) % Lymph # (Auto) (1.2-4.9) X10*3/uL Nicollet # (Auto) (0.1-1.2) X10*3/uL Eos # (Auto) (0.0-0.4) X10*3/uL Baso # (Auto) (0.0-0.2) X10*3/uL Abs Immat Gran (auto) (0.00-0.03) X10*3/uL Absolute Neuts (auto) (2.0-8.3) x10*3/uL Absolute Nucleated RBC (0.0-0.012) X10*3/uL Nucleated RBC % (auto) (0.0-0.2) /100WBC Sodium (135-145) mmol/L Potassium (3.3-5.1) mmol/L Chloride (96-108) mmol/L Carbon Dioxide (22-29) mmol/L Anion Gap (12-20) BUN (9-16) mg/dL Creatinine (0.5-1.4) mg/dL Estim Creat Clear Calc Estimated GFR Random Glucose (60-115) mg/dL Calcium (8.4-10.2) mg/dL Total Bilirubin (0.0-1.0) mg/dL Direct Bilirubin (0.0-0.5) mg/dL AST (5-31) U/L ALT (0-31) U/L Alkaline Phosphatase (39-117) U/L Troponin I High Sens 16.1 (<3.5-17.0) ng/L Total Protein (6.5-8.0) g/dL Albumin (3.5-5.0) g/dL Lipase (8-78) U/L ECG Data Interpretation: normal sinus rhythm. Ventricular rate 75. Peer interval 146. QRS 82. QTC 451. Negative STEMI Discharge Plan Discharge Clinical Impression: Headache Patient Disposition: Home, Self-Care Instructions: General Headache (ED) Additional Instructions: ortiz an?lisis de neo, tomograf?a computarizada de la renny y electrocardiograma resultaron negativos para signos de ataque card?aco, accidente cerebrovascular o hemorragia cerebral. Los laboratorios recibidos resultaron normales. Contin?e tomando ortiz medicamento para el dolor/NSAID en casa para el dolor de renny. Tambi?n se puede brian Tylenol de venta parag. Por favor, arlin un seguimiento con el proveedor de atenci?n primaria. Regrese al servicio de urgencias de inmediato por cualquier dolor de Jaime, n?useas, v?mitos, dolor en el costado, fiebre, escalofr?os, dificultad para hablar, p?rdida de la visi?n, par?lisis de las extremidades, ca?da facial, dolor en los ojos, dolor de renny intenso, dolor en el pecho, dificultad para respirar o cualquier otro concerniente a los s?ntomas. Prescriptions: No Action aspirin 81 mg tablet,delayed release (DR/EC) 81 mg PO DAILY Qty: 90 3RF lisinopril 10 mg tablet 10 mg PO DAILY Qty: 90 2RF carvedilol 3.125 mg tablet 3.125 mg PO BID Qty: 180 3RF (DME) walker Misc See Rx Instructions .MEDSUPPLY Qty: 1 0RF Rx Instructions: Folding Front wheeled walker docusate sodium 100 mg capsule 100 mg PO BID Qty: 60 0RF celecoxib 200 mg capsule 200 mg PO BID Qty: 60 0RF acetaminophen 325 mg tablet 650 mg PO Q6H PRN (Reason: for pain) 30 Days Qty: 240 0RF atorvastatin 40 mg tablet 40 mg PO DAILY Qty: 90 0RF Rx Instructions: UNABLE TO FILL FUTURE REFILLS. PLEASE CALL TO SCHEDULE FOLLOW UP; [phone]. Fycompa 6 mg tablet 1 tab PO BEDTIME lacosamide 150 mg tablet 150 mg PO BID oxycodone 5 mg tablet 5 mg PO Q4H PRN (Reason: pain (scale score 4-6)) 7 Days Qty: 42 0RF Rx Instructions: Partial Fill upon patient request. folic acid 1 mg tablet 1 mg PO DAILY phenobarbital 32.4 mg tablet 32.4 mg PO BID clonazepam 2 mg tablet 2 mg PO BEDTIME phenytoin sodium extended 100 mg capsule 200 mg PO BID Fycompa 4 mg tablet 4 mg PO BEDTIME (DME) Wheelchair with foot rest See Rx Instructions .ROUTE .MEDSUPPLY Qty: 1 0RF Rx Instructions: As directed Interventions: ED Discharge Assessment Last Done: 02/15/22 02:54 Discharge Date/Time: 02/15/22 06:57 Print Language: Urdu
[2022-02-14] MEDS: Acetaminophen 325 MG TABLET 975 MG PO (19:50)
[2022-02-14 19:55] LABS: MANUAL DIFF FLAG NO
[2022-02-14 19:57] LABS: Basophils Percent Auto 0.4 % (0-2); Eosinophils Absolute Auto 0.1 X10*3/uL (0.0-0.4); Eosinophils Percent Auto 2.3 % (0-4); Hematocrit 37.6 % (37.0-47.0); Hemoglobin 12.4 g/dl (12.0-16.0); Imm Gran Abs Auto 0.01 X10*3/uL (0.00-0.03); Imm Gran Pct Auto 0.2 % (0.0-0.4); Lymphocytes Absolute Auto 1.5 X10*3/uL (1.2-4.9); Lymphocytes Percent Auto 31.7 % (20-40); Mean Corpuscular Hemoglobin 29.8 pg (27.0-33.0); Mean Corpuscular Volume 90.4 fL (80.0-98.0); Mean Platelet Volume 9.8 fL (9.4-12.3); Monocytes Absolute Auto 0.4 X10*3/uL (0.1-1.2); Monocytes Percent Auto 8.5 % (2-11); Neutrophils Absolute Auto 2.7 x10*3/uL (2.0-8.3); Neutrophils Percent Auto 56.9 % (45-73); Platelet Count 308 X10*3/uL (160-400); Red Blood Count 4.16 X10*6/uL (4.20-5.50); Red Cell Distribution Width 14.4 % (11.0-16.0); White Blood Count 4.7 X10*3/uL (4.8-10.8)
[2022-02-14 20:24] LABS: Alanine Aminotransferase 16 U/L (0-31); Albumin Level 4.7 g/dL (3.5-5.0); Alkaline Phosphatase 156 U/L (39-117); Anion Gap 18 (12-20); Aspartate Amino Transferase 20 U/L (5-31); Bilirubin Direct 0.3 mg/dL (0.0-0.5); Bilirubin Total 0.5 mg/dL (0.0-1.0); Blood Urea Nitrogen 8 mg/dL (9-16); Calcium 9.5 mg/dL (8.4-10.2); Carbon Dioxide 23 mmol/L (22-29); Chloride 105 mmol/L (96-108); Estimated Glomerular Filt Rate > 60; Glucose Random 99 mg/dL (60-115); Lipase 27 U/L (8-78); Potassium 4.2 mmol/L (3.3-5.1); Sodium 142 mmol/L (135-145); Total Protein 7.8 g/dL (6.5-8.0)
[2022-02-14 20:29] LABS: Troponin-I High Sensitivity 12.4 ng/L (<3.5-17.0)
[2022-02-14 23:10] VITALS: BP 153/67; PULSE 66; RESP 17; TEMP 36.7; O2SAT 100
[2022-02-15] LABS: Troponin-I High Sensitivity 16.1 ng/L (<3.5-17.0)
== END 2022-02-15 06:57 | disposition home or self-care (01) ==
PROVIDERS: Physician Assistant; Emergency Provider Internal Medicine
DX: R51.9 Headache, unspecified (principal); I10 Essential (primary) hypertension; E78.5 Hyperlipidemia, unspecified; Z87.891 Personal history of nicotine dependence; Z79.82 Long term (current) use of aspirin; Z79.899 Other long term (current) drug therapy; Z79.02 Long term (current) use of antithrombotics/antiplatelets
CPT/HCPCS: 36415; 70450; 80053; 82248; 83690; 84484; 85025; 93005; 99284

== ENCOUNTER 2022-09-02 10:43 | Emergency (ER) | payer MEDICARE, MEDICAID, SELFPAY ==
--- NOTE | ~2022-09-02 | CT_ITS ---
EXAMINATION: CT HEAD WITHOUT CONTRAST CLINICAL INFORMATION: Dizziness COMPARISON: Previous head CT most recent January 2022 TECHNIQUE: Contiguous axial imaging was performed from the skull base to vertex without intravenous administration of contrast. This CT examination was performed using dose optimization techniques as appropriate, variously including the following: *Automated exposure control *Adjustment of mA and/or kV according to patient size (this includes techniques or standardized protocols for targeted exams where dose is matched to indication/reason for exam; i.e. extremities or head) *Use of iterative reconstruction technique DLP: 692 mGy-cm FINDINGS: There is no evidence of an extra-axial collection. There is no evidence of intra or extra-axial hemorrhage. The ventricles and extra-axial CSF spaces are prominent suggestive of mild generalized atrophy. Jett-white matter differentiation is normal. No mass, mass effect or infarct. No skull fracture. Visualized paranasal sinuses, mastoid air cells and middle ears are clear. CT/CT head/brain wo IV con IMPRESSION: No acute intracranial findings.
--- NOTE | 2022-09-02 10:59 | ED.CHESTPAIN ---
HPI - Chest Pain General Chief Complaint: Chest Pain Stated Complaint: Chest pain x 3 days per EMS Time Seen by Provider: 09/02/22 10:50 Source: patient and EMS Mode of arrival: EMS Limitations: no limitations History of Present Illness HPI narrative: Patient no known coronary artery disease history of hypertension high cholesterol and epilepsy on phenobarb and Dilantin been feeling little off for last 3 days with dizzy feeling also with left chest pain which is sharp comes and goes no shortness of breath no palpitation patient was given 324 mg aspirin by EMS no chest pain on arrival no cough Related Data Home Medications Medication Instructions Recorded Confirmed clonazepam 2 mg tablet 2 mg PO BEDTIME 04/15/20 11/25/21 folic acid 1 mg tablet 1 mg PO DAILY 04/15/20 11/25/21 phenobarbital 32.4 mg tablet 32.4 mg PO BID 04/15/20 11/25/21 phenytoin sodium extended 100 mg 200 mg PO BID 04/15/20 11/25/21 capsule perampanel 6 mg tablet (Fycompa) 1 tab PO BEDTIME 09/07/21 11/25/21 lacosamide 150 mg tablet 150 mg PO BID 09/09/21 11/25/21 perampanel 4 mg tablet (Fycompa) 4 mg PO BEDTIME 09/30/21 11/25/21 Previous Rx's Medication Instructions Recorded aspirin 81 mg tablet,delayed 81 mg PO DAILY #90 tabs 08/07/20 release lisinopril 10 mg tablet 10 mg PO DAILY #90 tabs 08/07/20 Wheelchair with foot rest #1 ea 09/17/21 oxycodone 5 mg tablet 5 mg PO Q4H PRN pain (scale score 09/23/21 4-6) 7 days #42 tabs carvedilol 3.125 mg tablet 3.125 mg PO BID #180 tabs 10/04/21 walker #1 ea 10/26/21 docusate sodium 100 mg capsule 100 mg PO BID #60 caps 11/15/21 acetaminophen 325 mg tablet 650 mg PO Q6H PRN for pain 30 days 12/24/21 #240 tabs celecoxib 200 mg capsule 200 mg PO BID #60 caps 04/28/22 atorvastatin 40 mg tablet 40 mg PO DAILY #90 tabs 08/16/22 Allergies Allergy/AdvReac Type Severity Reaction Status Date / Time No Known Allergies Allergy Verified 01/20/22 09:56 [No Known Allergies*] Review of Systems Review of Systems: Yes all other systems are reviewed and are negative [facility] Past Medical History Medical History Dislocation of left talus Hyperlipemia Hypertension Seizure disorder Takotsubo cardiomyopathy Surgical History History of cholecystectomy S/P placement of nerve stimulator Family History Family History Mother No problems noted. Father No problems noted. Social History Social History Household Members: Family Housing: Apartment Do you presently have visiting nurse or other home services: Yes Patient Tobacco Use Status: Former Tobacco user Quit Date: 1 year ago Tobacco use type: Cigarette Smoked in Last 30 Days: No Use of substances other than those prescribed or required for medical reasons: No Advance Directives: Yes Advance Directives on File: Yes Advance Directives Date on File: 09/07/21 service: No Current occupational status: disabled Physical Exam Vital Signs: Vital Signs: Last Vital Signs Temp 98.2 F 09/02/22 12:58 Pulse 58 09/02/22 14:29 Resp 11 L 09/02/22 14:29 BP 163/52 H 09/02/22 14:29 Pulse Ox 100 09/02/22 14:29 O2 Del Method Room Air 09/02/22 14:29 BMI result Body Mass Index 33.2 Appearance: Alert. Oriented X3. No acute distress. Eyes: PERRLA, No Nystagmus ENT: Pharynx normal. Oral Mucosa moist Neck: Normal inspection. Neck supple. CVS: Normal heart rate and rhythm. Pulses normal. Respiratory: No respiratory distress. Equal air entry bilateral, no wheezing/rales/rhonchi Abdomen: Soft and nontender. Bowel sounds are present, no mass palpable, no CVA tenderness Skin: Skin warm and dry. Normal skin color. Normal skin turgor. Extremities: No lower extremity edema. No calf tenderness Neuro: Oriented X 3. No motor deficit. No sensory deficit.No cerebellar signs , cranial nerves II-XII intact Medical Decision Making Medical Decision Making MDM Narrative: Patient nonspecific symptoms atypical chest pain EKG without any ischemic changes high sensitive troponin negative head CT scan was done because patient was feeling nonspecific dizziness which was also negative labs are stable noticed to have slightly low phenobarb level but patient did not have any seizure patient's vitals are stable will discharge patient home advised to follow with PCP Lab Data MDM Lab Attestation statement: I reviewed the patient's lab results. 09/02/22 12:00 09/02/22 12:01 Labs: Lab Results 09/02/22 09/02/22 09/02/22 Range/Units 12:00 12:01 12:01 WBC 3.8 L (4.8-10.8) X10*3/uL RBC 4.58 (4.20-5.50) X10*6/uL Hgb 13.7 (12.0-16.0) g/dl Hct 42.6 (37.0-47.0) % MCV 93.0 (80.0-98.0) fL MCH 29.9 (27.0-33.0) pg MCHC 32.2 (31.0-35.0) g/dl RDW 13.8 (11.0-16.0) % Plt Count 215 D (160-400) X10*3/uL MPV 10.4 (9.4-12.3) fL Immature Gran % (Auto) 0.3 (0.0-0.4) % Neut % (Auto) 62.2 (45-73) % Lymph % (Auto) 27.0 (20-40) % [place] % (Auto) 7.1 (2-11) % Eos % (Auto) 2.9 (0-4) % Baso % (Auto) 0.5 (0-2) % Lymph # (Auto) 1.0 L (1.2-4.9) X10*3/uL [place] # (Auto) 0.3 (0.1-1.2) X10*3/uL Eos # (Auto) 0.1 (0.0-0.4) X10*3/uL Baso # (Auto) 0.0 (0.0-0.2) X10*3/uL Abs Immat Gran (auto) 0.01 (0.00-0.03) X10*3/uL Absolute Neuts (auto) 2.4 (2.0-8.3) x10*3/uL Absolute Nucleated RBC 0.000 (0.0-0.012) X10*3/uL Nucleated RBC % (auto) 0.0 (0.0-0.2) /100WBC Sodium 141 (135-145) mmol/L Potassium 3.7 (3.3-5.1) mmol/L Chloride 106 (96-108) mmol/L Carbon Dioxide 25 (22-29) mmol/L Anion Gap 14 (12-20) BUN 3 L (9-16) mg/dL Creatinine 0.59 (0.5-1.4) mg/dL Estim Creat Clear Calc 105.7 Estimated GFR > 60 Random Glucose 92 (60-115) mg/dL Calcium 9.3 (8.4-10.2) mg/dL Magnesium 2.2 (1.6-2.6) mg/dL Total Bilirubin 0.5 (0.0-1.0) mg/dL AST 18 (5-31) U/L ALT 15 (0-31) U/L Alkaline Phosphatase 120 H (39-117) U/L Troponin I High Sens 2.9 (<3.5-17.0) ng/L Total Protein 7.3 (6.5-8.0) g/dL Albumin 4.3 (3.5-5.0) g/dL Phenytoin (10.0-20.0) ug/mL Phenobarbital (10.0-40.0) mcg/mL 09/02/22 Range/Units 12:01 WBC (4.8-10.8) X10*3/uL RBC (4.20-5.50) X10*6/uL Hgb (12.0-16.0) g/dl Hct (37.0-47.0) % MCV (80.0-98.0) fL MCH (27.0-33.0) pg MCHC (31.0-35.0) g/dl RDW (11.0-16.0) % Plt Count (160-400) X10*3/uL MPV (9.4-12.3) fL Immature Gran % (Auto) (0.0-0.4) % Neut % (Auto) (45-73) % Lymph % (Auto) (20-40) % [place] % (Auto) (2-11) % Eos % (Auto) (0-4) % Baso % (Auto) (0-2) % Lymph # (Auto) (1.2-4.9) X10*3/uL [place] # (Auto) (0.1-1.2) X10*3/uL Eos # (Auto) (0.0-0.4) X10*3/uL Baso # (Auto) (0.0-0.2) X10*3/uL Abs Immat Gran (auto) (0.00-0.03) X10*3/uL Absolute Neuts (auto) (2.0-8.3) x10*3/uL Absolute Nucleated RBC (0.0-0.012) X10*3/uL Nucleated RBC % (auto) (0.0-0.2) /100WBC Sodium (135-145) mmol/L Potassium (3.3-5.1) mmol/L Chloride (96-108) mmol/L Carbon Dioxide (22-29) mmol/L Anion Gap (12-20) BUN (9-16) mg/dL Creatinine (0.5-1.4) mg/dL Estim Creat Clear Calc Estimated GFR Random Glucose (60-115) mg/dL Calcium (8.4-10.2) mg/dL Magnesium (1.6-2.6) mg/dL Total Bilirubin (0.0-1.0) mg/dL AST (5-31) U/L ALT (0-31) U/L Alkaline Phosphatase (39-117) U/L Troponin I High Sens (<3.5-17.0) ng/L Total Protein (6.5-8.0) g/dL Albumin (3.5-5.0) g/dL Phenytoin 15.8 (10.0-20.0) ug/mL Phenobarbital 8.0 L* (10.0-40.0) mcg/mL Independent Interpretation I performed an independent interpretation of an: EKG Interpretation: Normal sinus rhythm heart rate 62 beats per minute normal interval normal axis no acute ST changes no acute ischemia impression normal EKG Discharge Plan Discharge Clinical Impression: Chest pain Patient Disposition: Home, Self-Care Instructions: Chest Pain (ED) Additional Instructions: Your chest pain is unlikely from the heart follow with PCP for further evaluation management Continue your medications Prescriptions: No Action aspirin 81 mg tablet,delayed release (DR/EC) 81 mg PO DAILY Qty: 90 3RF lisinopril 10 mg tablet 10 mg PO DAILY Qty: 90 2RF carvedilol 3.125 mg tablet 3.125 mg PO BID Qty: 180 3RF (DME) walker Misc See Rx Instructions .MEDSUPPLY Qty: 1 0RF Rx Instructions: Folding Front wheeled walker docusate sodium 100 mg capsule 100 mg PO BID Qty: 60 0RF acetaminophen 325 mg tablet 650 mg PO Q6H PRN (Reason: for pain) 30 Days Qty: 240 0RF celecoxib 200 mg capsule 200 mg PO BID Qty: 60 0RF atorvastatin 40 mg tablet 40 mg PO DAILY Qty: 90 0RF Rx Instructions: OVERDUE FOR APPT. PLEASE CALL [phone] TO SCHEDULE FOLLOW UP FOR 2022 SO WE CAN CONTINUE REFILLING Fycompa 6 mg tablet 1 tab PO BEDTIME lacosamide 150 mg tablet 150 mg PO BID oxycodone 5 mg tablet 5 mg PO Q4H PRN (Reason: pain (scale score 4-6)) 7 Days Qty: 42 0RF Rx Instructions: Partial Fill upon patient request. folic acid 1 mg tablet 1 mg PO DAILY phenobarbital 32.4 mg tablet 32.4 mg PO BID clonazepam 2 mg tablet 2 mg PO BEDTIME phenytoin sodium extended 100 mg capsule 200 mg PO BID Fycompa 4 mg tablet 4 mg PO BEDTIME (DME) Wheelchair with foot rest See Rx Instructions .ROUTE .MEDSUPPLY Qty: 1 0RF Rx Instructions: As directed
--- NOTE | 2022-09-02 11:01 | ECG_ITS ---
Test Reason : cp Blood Pressure : / mmHG Vent. Rate : 062 BPM Atrial Rate : 062 BPM P-R Int : 162 ms QRS Dur : 082 ms QT Int : 430 ms P-R-T Axes : 012 022 027 degrees QTc Int : 436 ms Normal sinus rhythm Normal ECG When compared with ECG of 14-FEB-2022 21:44, No significant change was found Referred By: Richard Carcamo Electronically Signed By:Evens Kelley
[2022-09-02 11:06] VITALS: BP 155/60; BP 156/77; PULSE 68; RESP 16; TEMP 37.3; O2SAT 100; O2SAT 98; BMI 33.2
[2022-09-02 12:05] LABS: MANUAL DIFF FLAG NO
[2022-09-02 12:07] LABS: Basophils Percent Auto 0.5 % (0-2); Eosinophils Absolute Auto 0.1 X10*3/uL (0.0-0.4); Eosinophils Percent Auto 2.9 % (0-4); Hematocrit 42.6 % (37.0-47.0); Hemoglobin 13.7 g/dl (12.0-16.0); Imm Gran Abs Auto 0.01 X10*3/uL (0.00-0.03); Imm Gran Pct Auto 0.3 % (0.0-0.4); Mean Corpuscular HGB Conc 32.2 g/dl (31.0-35.0); Mean Corpuscular Hemoglobin 29.9 pg (27.0-33.0); Mean Platelet Volume 10.4 fL (9.4-12.3); Monocytes Absolute Auto 0.3 X10*3/uL (0.1-1.2); Monocytes Percent Auto 7.1 % (2-11); Neutrophils Absolute Auto 2.4 x10*3/uL (2.0-8.3); Neutrophils Percent Auto 62.2 % (45-73); Platelet Count 215 X10*3/uL (160-400); Red Blood Count 4.58 X10*6/uL (4.20-5.50); Red Cell Distribution Width 13.8 % (11.0-16.0); White Blood Count 3.8 X10*3/uL (4.8-10.8)
[2022-09-02 12:28] LABS: Troponin-I High Sensitivity 2.9 ng/L (<3.5-17.0)
[2022-09-02 12:29] LABS: Alanine Aminotransferase 15 U/L (0-31); Albumin Level 4.3 g/dL (3.5-5.0); Alkaline Phosphatase 120 U/L (39-117); Anion Gap 14 (12-20); Aspartate Amino Transferase 18 U/L (5-31); Bilirubin Total 0.5 mg/dL (0.0-1.0); Blood Urea Nitrogen 3 mg/dL (9-16); Calcium 9.3 mg/dL (8.4-10.2); Carbon Dioxide 25 mmol/L (22-29); Chloride 106 mmol/L (96-108); Creatinine Clr Calc Pharmacy 105.7; Estimated Glomerular Filt Rate > 60; Glucose Random 92 mg/dL (60-115); Magnesium 2.2 mg/dL (1.6-2.6); Potassium 3.7 mmol/L (3.3-5.1); Sodium 141 mmol/L (135-145); Total Protein 7.3 g/dL (6.5-8.0)
[2022-09-02 12:46] LABS: Phenytoin Dilantin 15.8 ug/mL (10.0-20.0)
[2022-09-02 12:58] VITALS: BP 154/58; PULSE 58; RESP 11; TEMP 36.8; O2SAT 99
[2022-09-02 14:29] VITALS: BP 163/52; PULSE 58; RESP 11; O2SAT 100
== END 2022-09-02 16:09 | disposition home or self-care (01) ==
PROVIDERS: Emergency Provider Internal Medicine; PCP Family Medicine
DX: R07.89 Other chest pain (principal); I10 Essential (primary) hypertension; R42 Dizziness and giddiness; Z79.899 Other long term (current) drug therapy; Z87.891 Personal history of nicotine dependence
CPT/HCPCS: 36415; 70450; 80053; 80184; 80185; 83735; 84484; 85025; 93005; 99284; 99285

== ENCOUNTER 2022-09-22 15:56 | Emergency (ER) | payer MEDICARE, MEDICAID, SELFPAY ==
--- NOTE | 2022-09-22 | ECG_ITS ---
Test Reason : ams Blood Pressure : / mmHG Vent. Rate : 080 BPM Atrial Rate : 080 BPM P-R Int : 168 ms QRS Dur : 082 ms QT Int : 392 ms P-R-T Axes : 052 047 051 degrees QTc Int : 452 ms Normal sinus rhythm Normal ECG When compared with ECG of 02-SEP-2022 11:15, No significant change was found Referred By: Linsey Covington Electronically Signed By:Evens Kelley
[2022-09-22 16:04] VITALS: BP 141/103; BP 183/70; PULSE 82; PULSE 90; RESP 27; TEMP 36.9; O2SAT 100; BMI 33.9
[2022-09-22 16:19] LABS: Glucose, Whole Blood 144 mg/dL (60-115)
--- NOTE | 2022-09-22 16:46 | ED_ITS ---
HPI - Seizure General Chief Complaint: Altered Mental Status Stated Complaint: ams, seizure, per ems Time Seen by Provider: 09/22/22 16:09 Source: patient and EMS Mode of arrival: EMS History of Present Illness HPI Narrative: 67-year-old female with a history of seizure worsen his been on medication for over 14 years, is unclear on the details prior to her arrival via EMS, denies any recent medication changes or new medications but collateral information obtained from EMS states that the son came in and found her on the floor. She denies any recent fever, chills and denies any current shortness of breath/chest pain/palpitations/GI or symptoms. She denies any history of alcohol or drug use. Seizure History: Yes Related Data Home Medications Medication Instructions Recorded Confirmed clonazepam 2 mg tablet 2 mg PO BEDTIME 04/15/20 11/25/21 folic acid 1 mg tablet 1 mg PO DAILY 04/15/20 11/25/21 phenobarbital 32.4 mg tablet 32.4 mg PO BID 04/15/20 11/25/21 phenytoin sodium extended 100 mg 200 mg PO BID 04/15/20 11/25/21 capsule perampanel 6 mg tablet (Fycompa) 1 tab PO BEDTIME 09/07/21 11/25/21 lacosamide 150 mg tablet 150 mg PO BID 09/09/21 11/25/21 perampanel 4 mg tablet (Fycompa) 4 mg PO BEDTIME 09/30/21 11/25/21 Previous Rx's Medication Instructions Recorded aspirin 81 mg tablet,delayed 81 mg PO DAILY #90 tabs 08/07/20 release lisinopril 10 mg tablet 10 mg PO DAILY #90 tabs 08/07/20 Wheelchair with foot rest #1 ea 09/17/21 oxycodone 5 mg tablet 5 mg PO Q4H PRN pain (scale score 09/23/21 4-6) 7 days #42 tabs carvedilol 3.125 mg tablet 3.125 mg PO BID #180 tabs 10/04/21 walker #1 ea 10/26/21 docusate sodium 100 mg capsule 100 mg PO BID #60 caps 11/15/21 acetaminophen 325 mg tablet 650 mg PO Q6H PRN for pain 30 days 12/24/21 #240 tabs atorvastatin 40 mg tablet 40 mg PO DAILY #90 tabs 08/16/22 celecoxib 200 mg capsule 200 mg PO BID #60 caps 09/13/22 cefdinir 300 mg capsule 300 mg PO BID 5 days #10 caps 09/22/22 Allergies Allergy/AdvReac Type Severity Reaction Status Date / Time No Known Allergies Allergy Verified 01/20/22 09:56 [No Known Allergies*] Review of Systems Review of Systems: Pertinent positives and negatives as stated in [facility] Past Medical History Source: nursing notes reviewed Medical History Dislocation of left talus Hyperlipemia Hypertension Seizure disorder Takotsubo cardiomyopathy Surgical History History of cholecystectomy S/P placement of nerve stimulator Family History Family History Mother No problems noted. Father No problems noted. Social History Social History Household Members: Family Housing: Apartment Do you presently have visiting nurse or other home services: Yes Patient Tobacco Use Status: Former Tobacco user Quit Date: 1 year ago Tobacco use type: Cigarette Smoked in Last 30 Days: No Use of substances other than those prescribed or required for medical reasons: No Advance Directives: Yes Advance Directives on File: Yes Advance Directives Date on File: 09/07/21 service: No Current occupational status: disabled Physical Exam Vital Signs: Vital Signs: Last Vital Signs Temp 98.4 F 09/22/22 16:04 Pulse 80 09/22/22 17:24 Resp 16 09/22/22 17:24 BP 155/72 H 09/22/22 17:24 Pulse Ox 96 09/22/22 17:24 O2 Del Method Room Air 09/22/22 16:04 BMI result Body Mass Index 33.9 VITAL SIGNS: Reviewed. GENERAL: Does not appear postictal at this time, Well developed, well nourish ed, in no acute distress. HEAD: Normocephalic/atraumatic, EYES: PERRLA, EOMI EARS: Ext canals without abnormality NOSE: Nares patent bilateral OROPHARYNX: no oral lesions noted, posterior pharynx clear NECK: Supple, no adenopathy LUNGS: Normal breath sounds. No adventitious sounds or accessory muscle use. SpO2<100> CARDIOVASCULAR: Regular rate and rhythm without noted murmurs, no JVD or lower extremity edema. ABDOMEN: Soft, non-tender, non-distended with bowel sounds. MUSCULOSKELETAL: No tenderness, deformities, or effusions noted on gross inspection. EXTREMITIES: No cyanosis, clubbing or edema. SKIN: Inspection of the skin reveals no rashes NEUROLOGIC: Alert and oriented x 4. Strength and sensation to light touch were grossly intact x 4, cranial nerves 2-12 are grossly intact.. Medical Decision Making Medical Decision Making MDM Narrative: 67-year-old female with breakthrough seizure, DDX: Poor med compliance, infection, anemia, electrolyte derangements, toxicology. I reviewed all investigations and my interpretation is that patient is anti seizure medication levels are within normal limits and she has obvious UTI which is likely contributed to her breakthrough seizure. She will be treated with antibiotics and discharged home with remaining course. There are no jhon angements on the hematologic studies and chemistries are grossly within normal limits. Differential Diagnosis Please see the discussion above Lab Data Please see the discussion above 09/22/22 16:51 09/22/22 16:51 Labs: Lab Results 09/22/22 09/22/22 09/22/22 Range/Units 16:07 16:51 16:51 WBC 5.0 (4.8-10.8) X10*3/uL RBC 4.40 (4.20-5.50) X10*6/uL Hgb 13.1 (12.0-16.0) g/dl Hct 41.3 (37.0-47.0) % MCV 93.9 (80.0-98.0) fL MCH 29.8 (27.0-33.0) pg MCHC 31.7 (31.0-35.0) g/dl RDW 13.4 (11.0-16.0) % Plt Count 199 (160-400) X10*3/uL MPV 10.4 (9.4-12.3) fL Immature Gran % (Auto) 0.0 (0.0-0.4) % Neut % (Auto) 66.9 (45-73) % Lymph % (Auto) 22.2 (20-40) % [place] % (Auto) 7.1 (2-11) % Eos % (Auto) 3.4 (0-4) % Baso % (Auto) 0.4 (0-2) % Lymph # (Auto) 1.1 L (1.2-4.9) X10*3/uL [place] # (Auto) 0.4 (0.1-1.2) X10*3/uL Eos # (Auto) 0.2 (0.0-0.4) X10*3/uL Baso # (Auto) 0.0 (0.0-0.2) X10*3/uL Abs Immat Gran (auto) 0.00 (0.00-0.03) X10*3/uL Absolute Neuts (auto) 3.3 (2.0-8.3) x10*3/uL Absolute Nucleated RBC 0.000 (0.0-0.012) X10*3/uL Nucleated RBC % (auto) 0.0 (0.0-0.2) /100WBC Sodium 136 (135-145) mmol/L Potassium 4.3 (3.3-5.1) mmol/L Chloride 105 (96-108) mmol/L Carbon Dioxide 21 L (22-29) mmol/L Anion Gap 14 (12-20) BUN 8 L (9-16) mg/dL Creatinine 0.58 (0.5-1.4) mg/dL Estim Creat Clear Calc 104.8 Estimated GFR > 60 POC Glucose 144 H (60-115) mg/dL Random Glucose 101 (60-115) mg/dL Calcium 9.4 (8.4-10.2) mg/dL Urine Color Urine Appearance Urine pH (5.0-9.0) Ur Specific [place] (1.005-1.025) Urine Protein (Neg-Trace) mg/dL Urine Glucose (UA) (Negative) mg/dL Urine Ketones (Negative) mg/dL Urine Blood (Negative) Urine Nitrite (Negative) Ur Leukocyte Esterase (Negative) Urine RBC (0-2) /HPF Urine WBC (0-5) /HPF Ur Squamous Epith Cells (0-2) /HPF Urine Bacteria (None Seen) Hyaline Casts (0-2) /LPF Phenytoin (10.0-20.0) ug/mL Phenobarbital (10.0-40.0) mcg/mL 09/22/22 09/22/22 09/22/22 Range/Units 16:51 16:51 17:57 WBC (4.8-10.8) X10*3/uL RBC (4.20-5.50) X10*6/uL Hgb (12.0-16.0) g/dl Hct (37.0-47.0) % MCV (80.0-98.0) fL MCH (27.0-33.0) pg MCHC (31.0-35.0) g/dl RDW (11.0-16.0) % Plt Count (160-400) X10*3/uL MPV (9.4-12.3) fL Immature Gran % (Auto) (0.0-0.4) % Neut % (Auto) (45-73) % Lymph % (Auto) (20-40) % [place] % (Auto) (2-11) % Eos % (Auto) (0-4) % Baso % (Auto) (0-2) % Lymph # (Auto) (1.2-4.9) X10*3/uL [place] # (Auto) (0.1-1.2) X10*3/uL Eos # (Auto) (0.0-0.4) X10*3/uL Baso # (Auto) (0.0-0.2) X10*3/uL Abs Immat Gran (auto) (0.00-0.03) X10*3/uL Absolute Neuts (auto) (2.0-8.3) x10*3/uL Absolute Nucleated RBC (0.0-0.012) X10*3/uL Nucleated RBC % (auto) (0.0-0.2) /100WBC Sodium (135-145) mmol/L Potassium (3.3-5.1) mmol/L Chloride (96-108) mmol/L Carbon Dioxide (22-29) mmol/L Anion Gap (12-20) BUN (9-16) mg/dL Creatinine (0.5-1.4) mg/dL Estim Creat Clear Calc Estimated GFR POC Glucose (60-115) mg/dL Random Glucose (60-115) mg/dL Calcium (8.4-10.2) mg/dL Urine Color Yellow Urine Appearance Cloudy Urine pH 7.0 (5.0-9.0) Ur Specific [place] <= 1.005 (1.005-1.025) Urine Protein Negative (Neg-Trace) mg/dL Urine Glucose (UA) Negative (Negative) mg/dL Urine Ketones Negative (Negative) mg/dL Urine Blood Trace H (Negative) Urine Nitrite Negative (Negative) Ur Leukocyte Esterase Large (3+) H (Negative) Urine RBC 0-2 (0-2) /HPF Urine WBC >50 H (0-5) /HPF Ur Squamous Epith Cells 6-10 (0-2) /HPF Urine Bacteria 3+ (None Seen) Hyaline Casts 0-2 (0-2) /LPF Phenytoin 13.0 (10.0-20.0) ug/mL Phenobarbital 12.7 (10.0-40.0) mcg/mL Independent Interpretation I performed an independent interpretation of an: EKG Interpretation: NSR, HR-80, no STEMI, AR/QRS/QTc is wnl External Record Review External record reviewed: Prior outpatient labs Chronic Conditions Patient?s care impacted by: Hypertension Discharge Plan Discharge Clinical Impression: Breakthrough seizure, Acute UTI Patient Disposition: Home, Self-Care Instructions: Urinary Tract Infection in Women (DC) Additional Instructions: 1. Reanudar todos los medicamentos caseros seg?n lo prescrito. 2. Complete todo el curso de antibi?ticos seg?n lo indicado para ortiz infecci?n del tracto urinario. 3. Sharad un seguimiento con ortiz proveedor de atenci?n primaria en los pr?ximos 1 a 2 d?as. Regrese a la keyur de emergencias si los s?ntomas empeoran. 1. Resume all home medications as prescribed. 2. Complete the entire course of antibiotics as ordered for your urinary tract infection. 3. Follow-up with your primary care provider in the next 1-2 days. Return to the ER for any worsening symptoms. Prescriptions: New cefdinir 300 mg capsule 300 mg PO BID 5 Days Qty: 10 0RF No Action aspirin 81 mg tablet,delayed release (DR/EC) 81 mg PO DAILY Qty: 90 3RF lisinopril 10 mg tablet 10 mg PO DAILY Qty: 90 2RF carvedilol 3.125 mg tablet 3.125 mg PO BID Qty: 180 3RF (DME) walker Misc See Rx Instructions .MEDSUPPLY Qty: 1 0RF Rx Instructions: Folding Front wheeled walker docusate sodium 100 mg capsule 100 mg PO BID Qty: 60 0RF acetaminophen 325 mg tablet 650 mg PO Q6H PRN (Reason: for pain) 30 Days Qty: 240 0RF atorvastatin 40 mg tablet 40 mg PO DAILY Qty: 90 0RF Rx Instructions: OVERDUE FOR APPT. PLEASE CALL [phone] TO SCHEDULE FOLLOW UP FOR 2022 SO WE CAN CONTINUE REFILLING celecoxib 200 mg capsule 200 mg PO BID Qty: 60 0RF Fycompa 6 mg tablet 1 tab PO BEDTIME lacosamide 150 mg tablet 150 mg PO BID oxycodone 5 mg tablet 5 mg PO Q4H PRN (Reason: pain (scale score 4-6)) 7 Days Qty: 42 0RF Rx Instructions: Partial Fill upon patient request. folic acid 1 mg tablet 1 mg PO DAILY phenobarbital 32.4 mg tablet 32.4 mg PO BID clonazepam 2 mg tablet 2 mg PO BEDTIME phenytoin sodium extended 100 mg capsule 200 mg PO BID Fycompa 4 mg tablet 4 mg PO BEDTIME (DME) Wheelchair with foot rest See Rx Instructions .ROUTE .MEDSUPPLY Qty: 1 0RF Rx Instructions: As directed Print Language: [place]
[2022-09-22 16:58] LABS: MANUAL DIFF FLAG NO
[2022-09-22 17:09] LABS: Basophils Percent Auto 0.4 % (0-2); Eosinophils Absolute Auto 0.2 X10*3/uL (0.0-0.4); Eosinophils Percent Auto 3.4 % (0-4); Hematocrit 41.3 % (37.0-47.0); Hemoglobin 13.1 g/dl (12.0-16.0); Lymphocytes Absolute Auto 1.1 X10*3/uL (1.2-4.9); Lymphocytes Percent Auto 22.2 % (20-40); Mean Corpuscular HGB Conc 31.7 g/dl (31.0-35.0); Mean Corpuscular Hemoglobin 29.8 pg (27.0-33.0); Mean Corpuscular Volume 93.9 fL (80.0-98.0); Mean Platelet Volume 10.4 fL (9.4-12.3); Monocytes Absolute Auto 0.4 X10*3/uL (0.1-1.2); Monocytes Percent Auto 7.1 % (2-11); Neutrophils Absolute Auto 3.3 x10*3/uL (2.0-8.3); Neutrophils Percent Auto 66.9 % (45-73); Platelet Count 199 X10*3/uL (160-400); Red Cell Distribution Width 13.4 % (11.0-16.0)
[2022-09-22 17:15] LABS: Anion Gap 14 (12-20); Blood Urea Nitrogen 8 mg/dL (9-16); Calcium 9.4 mg/dL (8.4-10.2); Carbon Dioxide 21 mmol/L (22-29); Chloride 105 mmol/L (96-108); Creatinine Clr Calc Pharmacy 104.8; Estimated Glomerular Filt Rate > 60; Glucose Random 101 mg/dL (60-115); Potassium 4.3 mmol/L (3.3-5.1); Sodium 136 mmol/L (135-145)
[2022-09-22 17:24] VITALS: BP 155/72; PULSE 80; RESP 16; O2SAT 96
[2022-09-22 18:06] LABS: Appearance Urine Cloudy; Color Urine Yellow; Glucose Urine UA Negative (Negative); Leukocyte Esterase Urine Large (3+) (Negative); Nitrite Urine Negative (Negative); Specific Gravity - Urine <= 1.005 (1.005-1.025); UMIC TRIGGER UACC YES; Urine Blood Trace (Negative); Urine Ketones Negative (Negative); Urine Protein Negative (Neg-Trace)
[2022-09-22 18:12] LABS: Bacteria Urine 3+ (None Seen); Hyaline Casts Urine 0-2 /LPF (0-2); RBC Urine 0-2 /HPF (0-2); UACC Culture Trigger YES; WBC Urine >50 /HPF (0-5)
[2022-09-22] MEDS: Amoxicillin/Potassium Clav 875 MG TABLET PO (19:20)
[2022-09-22 19:28] VITALS: BP 140/71; PULSE 84; RESP 16; TEMP 37.3; O2SAT 97
== END 2022-09-22 19:35 | disposition home or self-care (01) ==
PROVIDERS: Emergency Provider Student in an Organized Health Care Education/Training Program
DX: R56.9 Unspecified convulsions (principal); N39.0 Urinary tract infection, site not specified; R41.82 Altered mental status, unspecified; Z79.899 Other long term (current) drug therapy
CPT/HCPCS: 36415; 80048; 80184; 80185; 81001; 82947; 85025; 87086; 93005; 99283; 99284

== ENCOUNTER 2022-10-07 13:46 | Emergency (ER) | payer MEDICARE, MEDICAID, SELFPAY ==
[2022-10-07 13:48] VITALS: BP 140/80; PULSE 85; O2SAT 98
[2022-10-07 14:46] VITALS: BP 170/85; PULSE 85; RESP 16; TEMP 36.6; O2SAT 99; BMI 14.4
--- NOTE | 2022-10-07 14:46 | ED_ITS ---
HPI - Abdominal Pain General Chief Complaint: Nausea/Vomiting/Diarrhea Stated Complaint: n/v/d Time Seen by Provider: 10/07/22 22:39 Source: patient Mode of arrival: ambulatory Limitations: language barrier History of Present Illness HPI narrative: History through subscription agent. Since Monday she has had diarrhea, has not had anything to eat. She drinks water only. No recent hospitalization no antibiotics. Denies fever MD elicited complaint: other (diarrhea) Onset (ago): day(s) (3) Related Data Home Medications Medication Instructions Recorded Confirmed clonazepam 2 mg tablet 2 mg PO BEDTIME 04/15/20 11/25/21 folic acid 1 mg tablet 1 mg PO DAILY 04/15/20 11/25/21 phenobarbital 32.4 mg tablet 32.4 mg PO BID 04/15/20 11/25/21 phenytoin sodium extended 100 mg 200 mg PO BID 04/15/20 11/25/21 capsule perampanel 6 mg tablet (Fycompa) 1 tab PO BEDTIME 09/07/21 11/25/21 lacosamide 150 mg tablet 150 mg PO BID 09/09/21 11/25/21 perampanel 4 mg tablet (Fycompa) 4 mg PO BEDTIME 09/30/21 11/25/21 Previous Rx's Medication Instructions Recorded aspirin 81 mg tablet,delayed 81 mg PO DAILY #90 tabs 08/07/20 release lisinopril 10 mg tablet 10 mg PO DAILY #90 tabs 08/07/20 Wheelchair with foot rest #1 ea 09/17/21 oxycodone 5 mg tablet 5 mg PO Q4H PRN pain (scale score 09/23/21 4-6) 7 days #42 tabs carvedilol 3.125 mg tablet 3.125 mg PO BID #180 tabs 10/04/21 walker #1 ea 10/26/21 docusate sodium 100 mg capsule 100 mg PO BID #60 caps 11/15/21 acetaminophen 325 mg tablet 650 mg PO Q6H PRN for pain 30 days 12/24/21 #240 tabs atorvastatin 40 mg tablet 40 mg PO DAILY #90 tabs 08/16/22 celecoxib 200 mg capsule 200 mg PO BID #60 caps 09/13/22 cefdinir 300 mg capsule 300 mg PO BID 5 days #10 caps 09/22/22 metronidazole 500 mg tablet 500 mg PO TID #30 tabs 10/08/22 Allergies Allergy/AdvReac Type Severity Reaction Status Date / Time No Known Allergies Allergy Verified 01/20/22 09:56 [No Known Allergies*] Review of Systems Review of Systems Yes all other systems are reviewed and are negative Comments: diarrhea PMFSH Past Medical History Medical History Dislocation of left talus Hyperlipemia Hypertension Seizure disorder Takotsubo cardiomyopathy Surgical History History of cholecystectomy S/P placement of nerve stimulator Family History Family History Mother No problems noted. Father No problems noted. Social History Social History Household Members: Family Housing: Apartment Do you presently have visiting nurse or other home services: Yes Patient Tobacco Use Status: Former Tobacco user Quit Date: 1 year ago Tobacco use type: Cigarette Smoked in Last 30 Days: No Advance Directives: Yes Advance Directives on File: Yes Advance Directives Date on File: 09/07/21 service: No Current occupational status: disabled Physical Exam ED Vital Signs: Vital Signs - 24 hr 10/07/22 14:46 10/07/22 22:22 Temperature 98 F 97.8 F Pulse Rate 85 74 Respiratory Rate 16 16 Blood Pressure 170/85 H 138/81 Pulse Oximetry 99 98 Oxygen Delivery Method Room Air Room Air BMI result Body Mass Index 14.4 Const General: healthy appearing Nutritional Appearance: average body habitus Orientation/consciousness: oriented to person and patient oriented x3 Limitations: no limitations HENMT Head: Yes normal to inspection Ears: external ears normal General nose exam: Normal external nose present Mouth: Normal oral and palatal mucosa present and oropharynx normal Throat: Yes posterior oropharynx normal Eyes General: appearance normal, both eyes and all related structures Neck Neck: Yes normal visual inspection Chest Chest palpation & inspection: normal inspection of the chest Resp Auscultation: clear to auscultation bilaterally Cardio Jugular venous distension: no JVD Rate: regular rate Rhythm: regular rhythm Heart sounds: S1 normal heart sound present and S2 normal heart sound present GI Inspection: Yes normal to inspection Palpation (GI): Soft to palpation, nontender and No hepatosplenomegaly present Auscultation: normal bowel sounds General: Yes no CVA tenderness Back/Spine/Pelvis Back: no CVA tenderness Skin General skin exam: no rashes or lesions noted Neuro General: oriented to person and patient oriented x3 Cranial nerves: Yes CN's II-XII intact bilaterally Motor exam (neuro): 5/5 motor strength present throughout Extrem General: Yes normal to inspection Psych Appearance: grossly normal Course Course Course Narrative: RME: 67 yo female w/PMHx UTI, seizures, HDL, HTN, takotsubo cardiomyopathy, c/o nonbloody diarrhea and abdominal pain x3-4d. No fever/ chills, N/V, dysuria. No recent abx, travel. Appears comfortable, vitals stable, holding water bottle. Labs, UA ordered. Full HPI, ROS and PE to be performed by primary ED provider. Reevaluation(s) Reevaluation #1: Cdiff is positive will treat with flagyl Time: 03:02 Medical Decision Making Differential Diagnosis Differential Diagnoses: The differential diagnosis associated with the presentation includes (bacterial diarrhea, cdiff, viral gastroenteritis, dehydration) Admission/Observation Consideration of admission/observation: Escalation of care including admission/observation considered (admission was considered in a 67 yo female with diarrhea and weakness now positive for cdiff) Lab Data MDM Lab Attestation statement: I reviewed the patient's lab results. (No elevation of WBC, no renal failure, stool positive for cdiff will treat) 10/07/22 22:22 10/07/22 22:22 Labs: Lab Results 10/07/22 10/07/22 10/08/22 Range/Units 22:22 22:22 01:01 WBC 7.0 (4.8-10.8) X10*3/uL RBC 4.28 (4.20-5.50) X10*6/uL Hgb 12.6 (12.0-16.0) g/dl Hct 38.0 (37.0-47.0) % MCV 88.8 (80.0-98.0) fL MCH 29.4 (27.0-33.0) pg MCHC 33.2 (31.0-35.0) g/dl RDW 13.5 (11.0-16.0) % Plt Count 265 D (160-400) X10*3/uL MPV 10.0 (9.4-12.3) fL Immature Gran % (Auto) 0.1 (0.0-0.4) % Neut % (Auto) 64.2 (45-73) % Lymph % (Auto) 22.4 (20-40) % [place] % (Auto) 9.1 (2-11) % Eos % (Auto) 3.9 (0-4) % Baso % (Auto) 0.3 (0-2) % Lymph # (Auto) 1.6 (1.2-4.9) X10*3/uL [place] # (Auto) 0.6 (0.1-1.2) X10*3/uL Eos # (Auto) 0.3 (0.0-0.4) X10*3/uL Baso # (Auto) 0.0 (0.0-0.2) X10*3/uL Abs Immat Gran (auto) 0.01 (0.00-0.03) X10*3/uL Absolute Neuts (auto) 4.5 (2.0-8.3) x10*3/uL Absolute Nucleated RBC 0.000 (0.0-0.012) X10*3/uL Nucleated RBC % (auto) 0.0 (0.0-0.2) /100WBC Sodium 137 (135-145) mmol/L Potassium 3.0 L D (3.3-5.1) mmol/L Chloride 100 (96-108) mmol/L Carbon Dioxide 23 (22-29) mmol/L Anion Gap 17 (12-20) BUN 7 L (9-16) mg/dL Creatinine 0.66 (0.5-1.4) mg/dL Estim Creat Clear Calc 51.2 Estimated GFR > 60 Random Glucose 98 (60-115) mg/dL Calcium 9.5 (8.4-10.2) mg/dL Magnesium 2.0 (1.6-2.6) mg/dL Total Bilirubin 0.4 (0.0-1.0) mg/dL Direct Bilirubin 0.2 (0.0-0.5) mg/dL AST 26 (5-31) U/L ALT 19 (0-31) U/L Alkaline Phosphatase 114 (39-117) U/L Total Protein 8.0 (6.5-8.0) g/dL Albumin 4.1 (3.5-5.0) g/dL Lipase 39 (8-78) U/L C. difficile Tox B Gene POSITIVE A* (Negative) C. difficile Toxin A&B Positive A* (Negative) C. difficile Interpret SEE NOTE Tests considered The following testing was considered but not selected: Ct of abdomen was considered but abdomen nontender no fever no elevation of WBC Medications Administered Generic Name Dose Route Start Last Admin Trade Name Freq PRN Reason Stop Dose Admin Sodium Chloride 1,000 mls @ 250 mls/hr 10/07/22 23:15 10/07/22 23:17 Ns IVCONT 10/08/22 03:14 250 mls/hr .Q4H ANA Administration Discharge Plan Discharge Clinical Impression: Clostridium difficile colitis Patient Disposition: Home, Self-Care Instructions: C. Diff (Clostridioides Difficile) Infection (ED) Prescriptions: New metronidazole 500 mg tablet 500 mg PO TID Qty: 30 0RF No Action aspirin 81 mg tablet,delayed release (DR/EC) 81 mg PO DAILY Qty: 90 3RF lisinopril 10 mg tablet 10 mg PO DAILY Qty: 90 2RF carvedilol 3.125 mg tablet 3.125 mg PO BID Qty: 180 3RF (DME) walker [facility] See Rx Instructions .MEDSUPPLY Qty: 1 0RF Rx Instructions: Folding Front wheeled walker docusate sodium 100 mg capsule 100 mg PO BID Qty: 60 0RF acetaminophen 325 mg tablet 650 mg PO Q6H PRN (Reason: for pain) 30 Days Qty: 240 0RF atorvastatin 40 mg tablet 40 mg PO DAILY Qty: 90 0RF Rx Instructions: OVERDUE FOR APPT. PLEASE CALL [phone] TO SCHEDULE FOLLOW UP FOR 2022 SO WE CAN CONTINUE REFILLING celecoxib 200 mg capsule 200 mg PO BID Qty: 60 0RF Fycompa 6 mg tablet 1 tab PO BEDTIME lacosamide 150 mg tablet 150 mg PO BID oxycodone 5 mg tablet 5 mg PO Q4H PRN (Reason: pain (scale score 4-6)) 7 Days Qty: 42 0RF Rx Instructions: Partial Fill upon patient request. cefdinir 300 mg capsule 300 mg PO BID 5 Days Qty: 10 0RF folic acid 1 mg tablet 1 mg PO DAILY phenobarbital 32.4 mg tablet 32.4 mg PO BID clonazepam 2 mg tablet 2 mg PO BEDTIME phenytoin sodium extended 100 mg capsule 200 mg PO BID Fycompa 4 mg tablet 4 mg PO BEDTIME (DME) Wheelchair with foot rest See Rx Instructions .ROUTE .MEDSUPPLY Qty: 1 0RF Rx Instructions: As directed Referrals: Physician,None [Primary Care Provider] - 5 days
[2022-10-07 22:22] VITALS: BP 138/81; PULSE 74; RESP 16; TEMP 36.6; O2SAT 98
--- NOTE | 2022-10-07 22:28 | MHC.EDTECH ---
this pct just assumed care of patient ,vitals sign taken ,rn in room putting in iv and getting labs .
[2022-10-07 22:54] LABS: MANUAL DIFF FLAG NO
--- NOTE | 2022-10-07 22:57 | PC.NURSE ---
Professor Sculpture to room, this rn rocael labs and placed IV, 22 R-wrist. chief c/o abd pain, n/v/d since Monday. No current c/o nausea, reports not eating much food since Monday, pain 8/10 in abdomen. Patient in bed resting, call camarena given, no questions at this time. Awaiting labs and disposition.
[2022-10-07 22:58] LABS: Basophils Percent Auto 0.3 % (0-2); Eosinophils Absolute Auto 0.3 X10*3/uL (0.0-0.4); Eosinophils Percent Auto 3.9 % (0-4); Hemoglobin 12.6 g/dl (12.0-16.0); Imm Gran Abs Auto 0.01 X10*3/uL (0.00-0.03); Imm Gran Pct Auto 0.1 % (0.0-0.4); Lymphocytes Absolute Auto 1.6 X10*3/uL (1.2-4.9); Lymphocytes Percent Auto 22.4 % (20-40); Mean Corpuscular HGB Conc 33.2 g/dl (31.0-35.0); Mean Corpuscular Hemoglobin 29.4 pg (27.0-33.0); Mean Corpuscular Volume 88.8 fL (80.0-98.0); Monocytes Absolute Auto 0.6 X10*3/uL (0.1-1.2); Monocytes Percent Auto 9.1 % (2-11); Neutrophils Absolute Auto 4.5 x10*3/uL (2.0-8.3); Neutrophils Percent Auto 64.2 % (45-73); Platelet Count 265 X10*3/uL (160-400); Red Blood Count 4.28 X10*6/uL (4.20-5.50); Red Cell Distribution Width 13.5 % (11.0-16.0)
--- NOTE | 2022-10-07 23:00 | PC.NURSE ---
Assumed care of this Pt at 2300.
[2022-10-07 23:11] LABS: Alanine Aminotransferase 19 U/L (0-31); Albumin Level 4.1 g/dL (3.5-5.0); Alkaline Phosphatase 114 U/L (39-117); Anion Gap 17 (12-20); Aspartate Amino Transferase 26 U/L (5-31); Bilirubin Direct 0.2 mg/dL (0.0-0.5); Bilirubin Total 0.4 mg/dL (0.0-1.0); Blood Urea Nitrogen 7 mg/dL (9-16); Calcium 9.5 mg/dL (8.4-10.2); Carbon Dioxide 23 mmol/L (22-29); Chloride 100 mmol/L (96-108); Creatinine Clr Calc Pharmacy 51.2; Estimated Glomerular Filt Rate > 60; Glucose Random 98 mg/dL (60-115); Lipase 39 U/L (8-78); Sodium 137 mmol/L (135-145)
[2022-10-07] MEDS: 0.9 % Sodium Chloride 1,000 ML 250 ML IVCONT (23:17)
--- NOTE | 2022-10-08 00:30 | PC.NURSE ---
Pt A&Ox4, Pt reports going to the BR every time she eats or drinks. Pt given crackers and PO fluids. Pt ambulated to the BR with steady gait, stool yellow, foul smelling and watery, sample collected and sent to lab.
[2022-10-08 02:10] LABS: CDiff Gene PCR POSITIVE (Negative)
[2022-10-08 02:55] LABS: CDiff Toxin Positive (Negative)
[2022-10-08 02:56] LABS: CDIFF Internal ctrl Dots and bkg OK (V)
[2022-10-08 03:13] VITALS: BP 134/77; PULSE 83; RESP 16; TEMP 36.6; O2SAT 97
[2022-10-08] MEDS: metroNIDAZOLE 500 MG TABLET PO (03:17)
[2022-10-08 10:49] LABS: Adenovirus F 40/41 Not Detected (Not Detect.); Astrovirus Not Detected (Not Detect.); Campylobacter Not Detected (Not Detect.); Cryptosporidium Not Detected (Not Detect.); Cyclospora cayetanensis Not Detected (Not Detect.); E. coli EAEC Not Detected (Not Detect.); E. coli EPEC Not Detected (Not Detect.); E. coli ETEC Not Detected (Not Detect.); E. coli STEC Not Detected (Not Detect.); Entamoeba histolytica Not Detected (Not Detect.); Giardia lamblia Not Detected (Not Detect.); Norovirus GI/GII Not Detected (Not Detect.); Plesiomonas shigelloides Not Detected (Not Detect.); Rotavirus A Not Detected (Not Detect.); Salmonella Not Detected (Not Detect.); Sapovirus Not Detected (Not Detect.); Shigella sp./EIEC Not Detected (Not Detect.); Vibrio Not Detected (Not Detect.); Vibrio Cholerae Not Detected (Not Detect.); Yersinia enterocolitica Not Detected (Not Detect.)
== END 2022-10-08 03:37 | disposition home or self-care (01) ==
PROVIDERS: Physician Assistant; Emergency Provider Emergency Medicine
DX: A04.72 Enterocolitis due to Clostridium difficile, not specified as recurrent (principal); R19.7 Diarrhea, unspecified; R10.9 Unspecified abdominal pain; E78.5 Hyperlipidemia, unspecified; I10 Essential (primary) hypertension; F17.210 Nicotine dependence, cigarettes, uncomplicated; Z79.899 Other long term (current) drug therapy
CPT/HCPCS: 36415; 80048; 80076; 83690; 83735; 85025; 87324; 87493; 87507; 96360; 96361; 99284

== ENCOUNTER 2022-12-04 20:43 | Emergency (ER) | payer MEDICARE, MEDICAID, SELFPAY ==
--- NOTE | ~2022-12-04 | XR_ITS ---
EXAMINATION: XR KNEE, LEFT CLINICAL INFORMATION: Injury. COMPARISON: None available. TECHNIQUE: Four views of the left knee. FINDINGS: No acute fracture or dislocation. No significant joint space narrowing or marginal osteophytes. No osseous erosion. Trace joint effusion. Atherosclerotic calcifications. XR/XR knee LT 3V IMPRESSION: No acute fracture or dislocation. Trace joint effusion.
[2022-12-04 20:53] VITALS: BP 150/100; BP 157/71; PULSE 104; PULSE 117; RESP 18; TEMP 37; O2SAT 98; BMI 38.1
--- NOTE | 2022-12-04 21:19 | ED.GENADULT ---
HPI - General Adult General Chief complaint: General Medical Stated complaint: L KNEE PAIN AND SWELLING Time Seen by Provider: 12/04/22 21:15 Source: patient Mode of arrival: EMS Limitations: no limitations History of Present Illness HPI narrative: Patient with history of arthritis chronic left ankle pain post ORIF in 09/15 had a seizure earlier today complaining of pain in the left knee does have arthritis in the knees in the past but noted slightly more swelling. No injury to the ankle does have chronic pain Related Data Home Medications Medication Instructions Recorded Confirmed clonazepam 2 mg tablet 2 mg PO BEDTIME 04/15/20 11/25/21 folic acid 1 mg tablet 1 mg PO DAILY 04/15/20 11/25/21 phenobarbital 32.4 mg tablet 32.4 mg PO BID 04/15/20 11/25/21 phenytoin sodium extended 100 mg 200 mg PO BID 04/15/20 11/25/21 capsule perampanel 6 mg tablet (Fycompa) 1 tab PO BEDTIME 09/07/21 11/25/21 lacosamide 150 mg tablet 150 mg PO BID 09/09/21 11/25/21 perampanel 4 mg tablet (Fycompa) 4 mg PO BEDTIME 09/30/21 11/25/21 Previous Rx's Medication Instructions Recorded aspirin 81 mg tablet,delayed 81 mg PO DAILY #90 tabs 08/07/20 release lisinopril 10 mg tablet 10 mg PO DAILY #90 tabs 08/07/20 Wheelchair with foot rest #1 ea 09/17/21 oxycodone 5 mg tablet 5 mg PO Q4H PRN pain (scale score 09/23/21 4-6) 7 days #42 tabs walker #1 ea 10/26/21 docusate sodium 100 mg capsule 100 mg PO BID #60 caps 11/15/21 acetaminophen 325 mg tablet 650 mg (2 x 325 mg) PO Q6H PRN for 12/24/21 pain 30 days #240 tabs atorvastatin 40 mg tablet 40 mg PO DAILY #90 tabs 08/16/22 cefdinir 300 mg capsule 300 mg PO BID 5 days #10 caps 09/22/22 metronidazole 500 mg tablet 500 mg PO TID #30 tabs 10/08/22 carvedilol 3.125 mg tablet 3.125 mg PO BID #180 tabs 11/18/22 celecoxib 200 mg capsule 200 mg PO BID #60 caps 11/23/22 tramadol 50 mg tablet 50 mg PO Q6H PRN pain #20 tabs 12/04/22 Allergies Allergy/AdvReac Type Severity Reaction Status Date / Time No Known Allergies Allergy Verified 01/20/22 09:56 [No Known Allergies*] Review of Systems Review of Systems: Yes all other systems are reviewed and are negative [facility] Past Medical History Medical History Seizure disorder Dislocation of left talus Takotsubo cardiomyopathy Hypertension Hyperlipemia Surgical History S/P placement of nerve stimulator History of cholecystectomy Family History Family History Mother No problems noted. Father No problems noted. Social History Social History Household Members: Family Housing: Apartment Do you presently have visiting nurse or other home services: Yes Patient Tobacco Use Status: Former Tobacco user Quit Date: 1 year ago Tobacco use type: Cigarette Advance Directives: Yes Advance Directives on File: Yes Advance Directives Date on File: 09/07/21 service: No Current occupational status: disabled Physical Exam ED Vital Signs: Vital Signs - 24 hr 12/04/22 20:53 Temperature 98.6 F Pulse Rate 104 H Respiratory Rate 18 Blood Pressure 157/71 H Pulse Oximetry 98 Oxygen Delivery Method Room Air BMI result Body Mass Index 38.1 Appearance: Alert. Oriented X3. No acute distress. Neck: Normal inspection. Neck supple. CVS: Normal heart rate and rhythm. Pulses normal. Respiratory: No respiratory distress. Equal air entry bilateral, Extremities: No lower extremity edema. No calf tenderness left knee diffuse swelling and tenderness good range of movement left ankle no significant swelling no significant tenderness Neuro: Oriented X 3. Medications Administered Discontinued Medications Generic Name Dose Route Start Last Admin Trade Name Freq PRN Reason Stop Dose Admin Tramadol HCl 50 mg 12/04/22 21:43 12/04/22 22:26 Tramadol Hcl 50 Mg Tablet PO 12/04/22 21:44 50 mg ONCE ONE Administration Medical Decision Making Radiology Impression Discussion of test interpretation with radiology: I have reviewed the radiologist's reading. Radiologist Impression: [id number] [place] [address] XRay Report Signed Patient: Justino Craft MR#: [id number] : 1955 Acct:[id number] Age/Sex: 67 / F ADM Date: 12/04/22 Loc: HO.ED Attending Dr: Ordering Physician: Richard Carcamo MD Date of Service: 12/04/22 Procedure(s): XR knee LT 3V Accession Number(s): [id number] cc: Physician,None ; Richard Carcamo MD~ EXAMINATION: XR KNEE, LEFT CLINICAL INFORMATION: Injury. COMPARISON: None available. TECHNIQUE: Four views of the left knee. FINDINGS: No acute fracture or dislocation. No significant joint space narrowing or marginal osteophytes. No osseous erosion. Trace joint effusion. Atherosclerotic calcifications. XR/XR knee LT 3V IMPRESSION: No acute fracture or dislocation. Trace joint effusion. Discharge Plan Discharge Clinical Impression: Osteoarthritis of left knee Patient Disposition: Home, Self-Care Instructions: Osteoarthritis (ED) Additional Instructions: Apply Marcel wrap for support Tramadol for severe pain Prescriptions: New tramadol 50 mg tablet 50 mg PO Q6H PRN (Reason: pain) Qty: 20 0RF No Action aspirin 81 mg tablet,delayed release (DR/EC) 81 mg PO DAILY Qty: 90 3RF lisinopril 10 mg tablet 10 mg PO DAILY Qty: 90 [facility] See Rx Instructions .MEDSUPPLY Qty: 1 0RF Rx Instructions: Folding Front wheeled walker docusate sodium 100 mg capsule 100 mg PO BID Qty: 60 0RF acetaminophen 325 mg tablet 650 mg PO Q6H PRN (Reason: for pain) 30 Days Qty: 240 0RF atorvastatin 40 mg tablet 40 mg PO DAILY Qty: 90 0RF Rx Instructions: OVERDUE FOR APPT. PLEASE CALL [phone] TO SCHEDULE FOLLOW UP FOR 2022 SO WE CAN CONTINUE REFILLING carvedilol 3.125 mg tablet 3.125 mg PO BID Qty: 180 0RF Rx Instructions: must call and schedule cardiology appt for refills celecoxib 200 mg capsule 200 mg PO BID Qty: 60 0RF Fycompa 6 mg tablet 1 tab PO BEDTIME lacosamide 150 mg tablet 150 mg PO BID oxycodone 5 mg tablet 5 mg PO Q4H PRN (Reason: pain (scale score 4-6)) 7 Days Qty: 42 0RF Rx Instructions: Partial Fill upon patient request. metronidazole 500 mg tablet 500 mg PO TID Qty: 30 0RF cefdinir 300 mg capsule 300 mg PO BID 5 Days Qty: 10 0RF folic acid 1 mg tablet 1 mg PO DAILY phenobarbital 32.4 mg tablet 32.4 mg PO BID clonazepam 2 mg tablet 2 mg PO BEDTIME phenytoin sodium extended 100 mg capsule 200 mg PO BID Fycompa 4 mg tablet 4 mg PO BEDTIME (DME) Wheelchair with foot rest See Rx Instructions .ROUTE .MEDSUPPLY Qty: 1 0RF Rx Instructions: As directed
[2022-12-04 22:00] VITALS: BP 154/76; PULSE 96; RESP 16; TEMP 37; O2SAT 94
[2022-12-04] MEDS: traMADoL HCL 50 MG TABLET PO (22:26)
--- NOTE | 2022-12-04 23:09 | PC.NURSE ---
pt attempted to call brother for ride home, pt's brother did not answer, charge nurse attempting to book pt a lyft home, pt moved to the waiting room at this time
--- NOTE | 2022-12-05 05:30 | PC.NURSE ---
This RN and oven equipment repairer assisted pt with calling her brother again from the waiting room, pts brother on his way to corn picker pt, pt denies any other needs at this time
== END 2022-12-05 05:31 | disposition home or self-care (01) ==
PROVIDERS: Emergency Provider Internal Medicine
DX: M17.12 Unilateral primary osteoarthritis, left knee (principal); M25.562 Pain in left knee; R56.9 Unspecified convulsions; Z79.899 Other long term (current) drug therapy; Z87.891 Personal history of nicotine dependence
CPT/HCPCS: 73562; 99283

== ENCOUNTER 2023-05-04 11:44 | Emergency (ER) | payer MEDICARE, MEDICAID, SELFPAY ==
--- NOTE | ~2023-05-04 | CT_ITS ---
EXAMINATION: CT CERVICAL SPINE WITHOUT CONTRAST CLINICAL INFORMATION: Mechanical fall, neck injury and pain COMPARISON: CT scan of cervical spine on 03/08/2019 TECHNIQUE: Multiple 3.0 and 0.6 mm axial images were obtained from base of skull to T1 levels without IV contrast enhancement. Sagittal and coronal 2.0 mm bone window images were reconstructed from axial image data. This CT examination was performed using dose optimization techniques as appropriate, variously including the following: *Automated exposure control *Adjustment of mA and/or kV according to patient size (this includes techniques or standardized protocols for targeted exams where dose is matched to indication/reason for exam; i.e. extremities or head) *Use of iterative reconstruction technique DLP: 1056.32 mGy-cm FINDINGS: C1/C2: Bony structures are intact with normal alignment. Persistent marginal osteophytosis with prominent bony spurs are seen at superior border of anterior C1 arch and tip of odontoid process. There is no spinal stenosis. C2/C3: Bony structures are intact with normal alignment. There is no spinal stenosis. Bilateral C2/C3 neuroforamina are patent. Bilateral apophyseal joints are intact with normal alignment. C3/C4: Bony structures are intact with normal alignment. There is no spinal stenosis. There are marked left and moderate right C3/C4 neuroforamina stenosis. Bilateral apophyseal joints are intact with normal alignment. C4/C5: Bony structures are intact with normal alignment. There is no spinal stenosis. Bilateral C4/C5 neuroforamina are markedly stenosed, more severe on the left side. Bilateral apophyseal joints are intact with normal alignment. C5/C6: Bony structures are intact with normal alignment. There is no spinal stenosis. There is mild asymmetric right C5/C6 neuroforaminal stenosis. Prominent posterior superior C6 syndesmophytes is seen impinging the anterior thecal sac. Bilateral apophyseal joints are intact with normal alignment. C6/C7: Bony structures are intact with normal alignment. There is no spinal stenosis. Bilateral C6/C7 neuroforamina are markedly stenosed. Bilateral apophyseal joints are intact with normal alignment. C7/T1: Bony structures are intact with normal alignment. There is no spinal stenosis. Bilateral C7/T1 neuroforamina are patent. Bilateral apophyseal joints are intact with normal alignment. Multilevel bilateral apophyseal joint and uncovertebral joint osteoarthritis with loss of joint space, sclerosis, facet hypertrophy and osteophytosis are seen. There is interval appearance of a hypodense nodule in anterior medial right thyroid lobe measuring 1.0 cm in size, series 14 image #56. CT/CT cervical spine wo IV con IMPRESSION: 1. There is no acute fracture or subluxation. 2. Unchanged cervical spondylosis with multilevel bilateral neuroforaminal stenosis as described above. 3. Interval appearance of a hypodense nodule in anterior medial right thyroid lobe. Incidental thyroid nodules up to 1.5 cm in diameter in patients 35 years of age or older are statistically overwhelmingly not clinically significant and no followup imaging recommended. Reference: J Am Nyasia Radiol 2015 Feb; 12(2): 143-50.
--- NOTE | ~2023-05-04 | CT_ITS ---
EXAMINATION: CT HEAD WITHOUT CONTRAST CLINICAL INFORMATION: Mechanical fall, Blunt head trauma without loss of consciousness, significant head injury and posttraumatic headache. COMPARISON: CT scan of brain on 09/02/2022 TECHNIQUE: Contiguous axial imaging was performed from the skull base to vertex without intravenous administration of contrast. This CT examination was performed using dose optimization techniques as appropriate, variously including the following: *Automated exposure control *Adjustment of mA and/or kV according to patient size (this includes techniques or standardized protocols for targeted exams where dose is matched to indication/reason for exam; i.e. extremities or head) *Use of iterative reconstruction technique DLP: 1056.32 mGy-cm FINDINGS: Ventricles, sulci and cisterns are mildly dilated. There is no midline shift, no abnormal intra- or extra- axial fluid accumulation. Jett and white matter differentiation is normal. Bone window images show no evidence of skull fracture. Mild circumferential mucosal thickening is seen in the right maxillary sinus. Marked mucosal thickening opacifying posterior right ethmoid air cells is also seen. Right frontal sinus is hypoplastic. CT/CT head/brain wo IV con IMPRESSION: 1. Unchanged mild age related cerebral atrophy. 2. No intracranial hemorrhage or skull fracture is seen. 3. No evidence of space occupying lesion could be found. 4. The current plain CT scan of the brain shows no diagnostic evidence of acute cerebral infarction. 5. Interval increase in posterior right ethmoid mucosal thickening.
[2023-05-04 11:55] VITALS: BP 140/79; PULSE 87; RESP 17; TEMP 36.6; O2SAT 95
[2023-05-04 11:58] VITALS: BP 142/98; PULSE 103; O2SAT 97
--- NOTE | 2023-05-04 12:06 | ECG_ITS ---
Test Reason : headache Blood Pressure : / mmHG Vent. Rate : 084 BPM Atrial Rate : 084 BPM P-R Int : 158 ms QRS Dur : 088 ms QT Int : 364 ms P-R-T Axes : 063 -02 -05 degrees QTc Int : 430 ms Normal sinus rhythm T wave abnormality, consider anterolateral ischemia Abnormal ECG When compared with ECG of 22-SEP-2022 16:07, T wave inversion now evident in Inferior leads T wave inversion now evident in Anterolateral leads Referred By: Oanh Londono Electronically Signed By:VALERIE CARRILLO
[2023-05-04 12:09] VITALS: BMI 30.8
[2023-05-04 13:26] LABS: MANUAL DIFF FLAG NO
[2023-05-04 13:31] LABS: Basophils Percent Auto 0.6 % (0-2); Eosinophils Absolute Auto 0.2 X10*3/uL (0.0-0.4); Eosinophils Percent Auto 3.6 % (0-4); Hematocrit 41.3 % (37.0-47.0); Hemoglobin 14.4 g/dl (12.0-16.0); Imm Gran Abs Auto 0.01 X10*3/uL (0.00-0.03); Imm Gran Pct Auto 0.2 % (0.0-0.4); Lymphocytes Absolute Auto 1.5 X10*3/uL (1.2-4.9); Lymphocytes Percent Auto 30.4 % (20-40); Mean Corpuscular HGB Conc 34.9 g/dl (31.0-35.0); Mean Corpuscular Hemoglobin 30.7 pg (27.0-33.0); Mean Corpuscular Volume 88.1 fL (80.0-98.0); Monocytes Absolute Auto 0.4 X10*3/uL (0.1-1.2); Neutrophils Absolute Auto 2.9 x10*3/uL (2.0-8.3); Neutrophils Percent Auto 57.2 % (45-73); Platelet Count 255 X10*3/uL (160-400); Red Blood Count 4.69 X10*6/uL (4.20-5.50); Red Cell Distribution Width 13.8 % (11.0-16.0)
--- NOTE | 2023-05-04 13:37 | ED_ITS ---
HPI - General Adult General Chief complaint: Headache Stated complaint: SZ W/FALL,DIZZY,NAUSEA,GOODE PER EMS Time Seen by Provider: 05/04/23 13:28 Source: patient, EMS and [facility] was[facility] Mode of arrival: EMS Limitations: language barrier History of Present Illness HPI narrative: Patient is a 68 year old assigned female at with a history of seizures presenting to the emergency department today with a headache. Patient states that 4 days ago she had a seizure and has since had a headache. Patient denies any dizziness, lightheadedness, abdominal pain, nausea, vomiting, fever, chills, blurry vision, double vision, loss of vision, chest pain, difficulty breathing, shortness of breath, back pain, night sweats, pain with urination, increased urinary frequency, increased urinary urgency, blood in her urine or stool, syncope or a near syncopal episode, bowel incontinence, bladder incontinence, bowel retention, bladder retention, or any other complaints at this time. Onset (ago): day(s) (4) Location: head Radiation: non-radiation Severity: mild Severity scale (1-10): 3 Quality: aching and dull Pain Consistency: constant Relieving factors: none Exacerbating factors: none Associated symptoms: denies other symptoms Treatments prior to arrival: none Related Data Home Medications Medication Instructions Recorded Confirmed clonazepam 2 mg tablet 2 mg PO BEDTIME 04/15/20 11/25/21 folic acid 1 mg tablet 1 mg PO DAILY 04/15/20 11/25/21 phenobarbital 32.4 mg tablet 32.4 mg PO BID 04/15/20 11/25/21 phenytoin sodium extended 100 mg 200 mg PO BID 04/15/20 11/25/21 capsule perampanel 6 mg tablet (Fycompa) 1 tab PO BEDTIME 09/07/21 11/25/21 lacosamide 150 mg tablet 150 mg PO BID 09/09/21 11/25/21 perampanel 4 mg tablet (Fycompa) 4 mg PO BEDTIME 09/30/21 11/25/21 Previous Rx's Medication Instructions Recorded aspirin 81 mg tablet,delayed 81 mg PO DAILY #90 tabs 08/07/20 release lisinopril 10 mg tablet 10 mg PO DAILY #90 tabs 08/07/20 Wheelchair with foot rest #1 ea 09/17/21 oxycodone 5 mg tablet 5 mg PO Q4H PRN pain (scale score 09/23/21 4-6) 7 days #42 tabs walker #1 ea 10/26/21 docusate sodium 100 mg capsule 100 mg PO BID #60 caps 11/15/21 acetaminophen 325 mg tablet 650 mg (2 x 325 mg) PO Q6H PRN for 12/24/21 pain 30 days #240 tabs atorvastatin 40 mg tablet 40 mg PO DAILY #90 tabs 08/16/22 cefdinir 300 mg capsule 300 mg PO BID 5 days #10 caps 09/22/22 metronidazole 500 mg tablet 500 mg PO TID #30 tabs 10/08/22 carvedilol 3.125 mg tablet 3.125 mg PO BID #180 tabs 11/18/22 celecoxib 200 mg capsule 200 mg PO BID #60 caps 11/23/22 tramadol 50 mg tablet 50 mg PO Q6H PRN pain #20 tabs 12/04/22 Allergies Allergy/AdvReac Type Severity Reaction Status Date / Time No Known Allergies Allergy Verified 01/20/22 09:56 [No Known Allergies*] Review of Systems 2 Constitutional: Constitutional: Reports no additional constitutional complaints, Denies chills, Denies fever(s), Reports headache(s) and Denies night sweats Eyes: Eyes: Reports no additional eye complaints, Denies blurry vision, Denies change in vision, Denies diplopia, Denies eye discharge, Denies loss of vision and Denies eye pain ENT: Denies dizziness and Reports headache(s) Cardiovascular: Cardiovascular: Reports no additional cardiovascular complaints, Denies chest pain, Denies lightheadedness, Denies Loss of Consciousness and Denies dyspnea Respiratory: Respiratory: Reports no additional respiratory complaints and Denies dyspnea Gastrointestinal: Gastrointestinal: Reports no additional gastrointestinal complaints, Denies abdominal pain, Denies melena, Denies hematochezia, Denies change in bowel habits and Denies change in stool character Genitourinary: Genitourinary: Denies hematuria, Denies urinary frequency, Denies dysuria, Denies urinary incontinence, Denies urinary hesitancy and Denies urinary urgency Musculoskeletal: Musculoskeletal: Reports no additional musculoskeletal complaints, Denies numbness and Denies tingling Neurologic: Denies dizziness, Reports headache(s), Denies loss of vision, Denies numbness and Denies tingling Psychiatric: Psychiatric: Reports no additional psychiatric complaints Endocrine: Endocrine: Reports no additional endocrine complaints Hematologic/Lymphatic: Hematologic/Lymphatic: Reports no additional hematologic/lymphatic complaints Allergic/Immunologic: Allergic/Immunologic: Reports no additional allergic/immunologic complaints PMFSH Past Medical History Attestation statement: The following information was validated with the patient. Source: old records reviewed and nursing notes reviewed Medical History Seizure disorder Dislocation of left talus Takotsubo cardiomyopathy Hypertension Hyperlipemia Surgical History S/P placement of nerve stimulator History of cholecystectomy Family History Family History Mother No problems noted. Father No problems noted. Social History Social History Household Members: Family Housing: Apartment Do you presently have visiting nurse or other home services: Yes Patient Tobacco Use Status: Former Tobacco user Quit Date: 1 year ago Tobacco use type: Cigarette Advance Directives: Yes Advance Directives on File: Yes Advance Directives Date on File: 09/07/21 service: No Current occupational status: disabled Physical Exam ED Vital Signs: Vital Signs - 24 hr 05/04/23 11:55 05/04/23 16:33 Temperature 97.9 F 97.7 F Pulse Rate 87 82 Respiratory Rate 17 16 Blood Pressure 140/79 H 121/81 Pulse Oximetry 95 97 Oxygen Delivery Method Room Air Room Air BMI result Body Mass Index 30.8 Const General: cooperative, no acute distress, alert and awake Nutritional Appearance: well nourished Orientation/consciousness: patient oriented x3 Limitations: no limitations HENMT Head: Yes normal to inspection and Yes atraumatic Ears: hearing grossly normal bilaterally and external ears normal General nose exam: Normal external nose present, no nasal discharge noted and no epistaxis Face and sinus: Yes normal facial exam, No abrasion and No laceration Mouth: Normal oral and palatal mucosa present, no drooling and no muffled voice Eyes General: appearance normal, both eyes and all related structures Periorbital: periorbital findings normal Eyelids: Yes eyelids normal Conjunctivae: conjunctivae normal Pupils: Equal, round and reactive pupils present EOM: EOMs intact bilaterally Neck Neck: Yes normal visual inspection, Yes full ROM and Yes no lymphadenopathy Chest Chest palpation & inspection: normal inspection of the chest Resp Effort & Inspection: normal respiratory effort and able to speak in complete sentences GI Inspection: Yes normal to inspection Neuro General: patient oriented x3 and moves all extremities Cranial nerves: Yes Equal, round and reactive pupils present Cognition (Neuro): normal cognition Motor exam (neuro): 5/5 motor strength present throughout Sensory Exam: Normal double simultaneous stimulation for sensation Coordination: [id number] test normal Extrem General: Yes normal to inspection, Yes full ROM and Yes capillary refill normal Psych Appearance: grossly normal Mental Status: mental status grossly normal Affect: normal affect Attitude: cooperative Thought process: Normal thought process present Thought content: Normal thought content present Insight: Good insight present (Psych) Medications Administered Discontinued Medications Generic Name Dose Route Start Last Admin Trade Name Freq PRN Reason Stop Dose Admin Potassium Chloride 40 meq 05/04/23 13:55 05/04/23 15:06 Potassium Chloride Packet 20 Meq Packet PO 05/04/23 13:56 40 meq ONCE ONE Administration Medical Decision Making Medical Decision Making [facility] Narrative: Patient is a 68 year old assigned female at with a history of seizure disorder presenting to the emergency department today with a headache after a seizure 4 days earlier. Patient's physical exam was unremarkable. Patient's blood work showed hypokalemia of 2.9 but was otherwise unremarkable. Patient's urine showed no acute process. Patient's EKG was unremarkable. Patient's head and c-spine CTs showed no acute process. I explained my physical exam findings as well as all test results to the patient. I answered all questions asked by the patient. Patient received potassium. I stressed the importance of the patient taking her medication as prescribed. I stressed the importance of the patient following up with her primary care provider. I stressed the importance of the patient returning to the emergency department immediately if her symptoms were to worsen or if she were to develop any dizziness, shortness of breath, difficulty breathing, chest pain, blurry vision, loss of vision, nausea, vomiting, abdominal pain, fever, chills, back pain, or any other complaints. Patient verbalized agreement and understanding with this treatment plan and discharge. Differential Diagnosis Differential Diagnoses: The differential diagnosis associated with the presentation includes Headache Seizure Hypokalemia Admission/Observation Consideration of admission/observation: Escalation of care including admission/observation considered Patient would have been admitted to the hospital had her work up had any findings where hospital admission was appropriate and her clinical presentation warranted hospital admission. Lab Data [facility] Lab Attestation statement: I reviewed the patient's lab results. My interpretation of these results are in the MDM Rationale portion of this note. 05/04/23 13:20 05/04/23 13:20 Labs: Lab Results 05/04/23 05/04/23 05/04/23 Range/Units 13:20 13:22 14:02 WBC 5.0 (4.8-10.8) X10*3/uL RBC 4.69 (4.20-5.50) X10*6/uL Hgb 14.4 (12.0-16.0) g/dl Hct 41.3 (37.0-47.0) % MCV 88.1 (80.0-98.0) fL MCH 30.7 (27.0-33.0) pg MCHC 34.9 (31.0-35.0) g/dl RDW 13.8 (11.0-16.0) % Plt Count 255 (160-400) X10*3/uL MPV 10.0 (9.4-12.3) fL Immature Gran % (Auto) 0.2 (0.0-0.4) % Neut % (Auto) 57.2 (45-73) % Lymph % (Auto) 30.4 (20-40) % King % (Auto) 8.0 (2-11) % Eos % (Auto) 3.6 (0-4) % Baso % (Auto) 0.6 (0-2) % Lymph # (Auto) 1.5 (1.2-4.9) X10*3/uL King # (Auto) 0.4 (0.1-1.2) X10*3/uL Eos # (Auto) 0.2 (0.0-0.4) X10*3/uL Baso # (Auto) 0.0 (0.0-0.2) X10*3/uL Abs Immat Gran (auto) 0.01 (0.00-0.03) X10*3/uL Absolute Neuts (auto) 2.9 (2.0-8.3) x10*3/uL Absolute Nucleated RBC 0.000 (0.0-0.012) X10*3/uL Nucleated RBC % (auto) 0.0 (0.0-0.2) /100WBC Sodium 143 (135-145) mmol/L Potassium 2.9 L* (3.3-5.1) mmol/L Chloride 107 (96-108) mmol/L Carbon Dioxide 27 (22-29) mmol/L Anion Gap 12 (12-20) BUN 5 L (9-16) mg/dL Creatinine 0.58 (0.5-1.4) mg/dL Estim Creat Clear Calc 102.0 Estimated GFR > 60 Random Glucose 107 (60-115) mg/dL Calcium 9.2 (8.4-10.2) mg/dL Magnesium 2.0 (1.6-2.6) mg/dL Total Bilirubin 0.5 (0.0-1.0) mg/dL AST 21 (5-31) U/L ALT 32 H (0-31) U/L Alkaline Phosphatase 135 H (39-117) U/L Troponin I High Sens 4.0 (<3.5-17.0) ng/L Total Protein 7.4 (6.5-8.0) g/dL Albumin 4.1 (3.5-5.0) g/dL Urine Color Urine Appearance Urine pH (5.0-9.0) Ur Specific [place] (1.005-1.025) Urine Protein (Neg-Trace) mg/dL Urine Glucose (UA) (Negative) mg/dL Urine Ketones (Negative) mg/dL Urine Blood (Negative) Urine Nitrite (Negative) Ur Leukocyte Esterase (Negative) Urine RBC (0-2) /HPF Urine WBC (0-5) /HPF Ur Squamous Epith Cells (0-2) /HPF Urine Bacteria (None Seen) Hyaline Casts (0-2) /LPF COVID-19 (CARMEN) Negative (Negative) COVID-19 Clin Com See Note Influenza Type A (FOZIA) Negative (Negative) Influenza Type B (FOZIA) Negative (Negative) Influenza A & B Note See Note 05/04/23 Range/Units 15:25 WBC (4.8-10.8) X10*3/uL RBC (4.20-5.50) X10*6/uL Hgb (12.0-16.0) g/dl Hct (37.0-47.0) % MCV (80.0-98.0) fL MCH (27.0-33.0) pg MCHC (31.0-35.0) g/dl RDW (11.0-16.0) % Plt Count (160-400) X10*3/uL MPV (9.4-12.3) fL Immature Gran % (Auto) (0.0-0.4) % Neut % (Auto) (45-73) % Lymph % (Auto) (20-40) % King % (Auto) (2-11) % Eos % (Auto) (0-4) % Baso % (Auto) (0-2) % Lymph # (Auto) (1.2-4.9) X10*3/uL King # (Auto) (0.1-1.2) X10*3/uL Eos # (Auto) (0.0-0.4) X10*3/uL Baso # (Auto) (0.0-0.2) X10*3/uL Abs Immat Gran (auto) (0.00-0.03) X10*3/uL Absolute Neuts (auto) (2.0-8.3) x10*3/uL Absolute Nucleated RBC (0.0-0.012) X10*3/uL Nucleated RBC % (auto) (0.0-0.2) /100WBC Sodium (135-145) mmol/L Potassium (3.3-5.1) mmol/L Chloride (96-108) mmol/L Carbon Dioxide (22-29) mmol/L Anion Gap (12-20) BUN (9-16) mg/dL Creatinine (0.5-1.4) mg/dL Estim Creat Clear Calc Estimated GFR Random Glucose (60-115) mg/dL Calcium (8.4-10.2) mg/dL Magnesium (1.6-2.6) mg/dL Total Bilirubin (0.0-1.0) mg/dL AST (5-31) U/L ALT (0-31) U/L Alkaline Phosphatase (39-117) U/L Troponin I High Sens (<3.5-17.0) ng/L Total Protein (6.5-8.0) g/dL Albumin (3.5-5.0) g/dL Urine Color Dark Yellow Urine Appearance Cloudy Urine pH 5.5 (5.0-9.0) Ur Specific [place] 1.025 (1.005-1.025) Urine Protein 100 (2+) H (Neg-Trace) mg/dL Urine Glucose (UA) 100 H (Negative) mg/dL Urine Ketones Trace (Negative) mg/dL Urine Blood Negative (Negative) Urine Nitrite Negative (Negative) Ur Leukocyte Esterase Trace H (Negative) Urine RBC 0-2 (0-2) /HPF Urine WBC 0-5 (0-5) /HPF Ur Squamous Epith Cells >20 (0-2) /HPF Urine Bacteria 1+ (None Seen) Hyaline Casts 11-20 (0-2) /LPF COVID-19 (CARMEN) (Negative) COVID-19 Clin Com Influenza Type A (FOZIA) (Negative) Influenza Type B (FOZIA) (Negative) Influenza A & B Note Independent Interpretation I performed an independent interpretation of an: EKG and CT Scan Interpretation: My interpretation is in agreement with the radiologist's impression of these imaging studies. - EXAMINATION: CT HEAD WITHOUT CONTRAST CLINICAL INFORMATION: Mechanical fall, Blunt head trauma without loss of consciousness, significant head injury and posttraumatic headache. COMPARISON: CT scan of brain on 09/02/2022 TECHNIQUE: Contiguous axial imaging was performed from the skull base to vertex without intravenous administration of contrast. This CT examination was performed using dose optimization techniques as appropriate, variously including the following: *Automated exposure control *Adjustment of mA and/or kV according to patient size (this includes techniques or standardized protocols for targeted exams where dose is matched to indication/reason for exam; i.e. extremities or head) *Use of iterative reconstruction technique DLP: 1056.32 mGy-cm FINDINGS: Ventricles, sulci and cisterns are mildly dilated. There is no midline shift, no abnormal intra- or extra- axial fluid accumulation. Jett and white matter differentiation is normal. Bone window images show no evidence of skull fracture. Mild circumferential mucosal thickening is seen in the right maxillary sinus. Marked mucosal thickening opacifying posterior right ethmoid air cells is also seen. Right frontal sinus is hypoplastic. CT/CT head/brain wo IV con IMPRESSION: 1. Unchanged mild age related cerebral atrophy. 2. No intracranial hemorrhage or skull fracture is seen. 3. No evidence of space occupying lesion could be found. 4. The current plain CT scan of the brain shows no diagnostic evidence of acute cerebral infarction. 5. Interval increase in posterior right ethmoid mucosal thickening. Dictated By: Dane Gallo Signed By: Electronically signed by Dane Gallo 05/04/23 1317 - EXAMINATION: CT CERVICAL SPINE WITHOUT CONTRAST CLINICAL INFORMATION: Mechanical fall, neck injury and pain COMPARISON: CT scan of cervical spine on 03/08/2019 TECHNIQUE: Multiple 3.0 and 0.6 mm axial images were obtained from base of skull to T1 levels without IV contrast enhancement. Sagittal and coronal 2.0 mm bone window images were reconstructed from axial image data. This CT examination was performed using dose optimization techniques as appropriate, variously including the following: *Automated exposure control *Adjustment of mA and/or kV according to patient size (this includes techniques or standardized protocols for targeted exams where dose is matched to indication/reason for exam; i.e. extremities or head) *Use of iterative reconstruction technique DLP: 1056.32 mGy-cm FINDINGS: C1/C2: Bony structures are intact with normal alignment. Persistent marginal osteophytosis with prominent bony spurs are seen at superior border of anterior C1 arch and tip of odontoid process. There is no spinal stenosis. C2/C3: Bony structures are intact with normal alignment. There is no spinal stenosis. Bilateral C2/C3 neuroforamina are patent. Bilateral apophyseal joints are intact with normal alignment. C3/C4: Bony structures are intact with normal alignment. There is no spinal stenosis. There are marked left and moderate right C3/C4 neuroforamina stenosis. Bilateral apophyseal joints are intact with normal alignment. C4/C5: Bony structures are intact with normal alignment. There is no spinal stenosis. Bilateral C4/C5 neuroforamina are markedly stenosed, more severe on the left side. Bilateral apophyseal joints are intact with normal alignment. C5/C6: Bony structures are intact with normal alignment. There is no spinal stenosis. There is mild asymmetric right C5/C6 neuroforaminal stenosis. Prominent posterior superior C6 syndesmophytes is seen impinging the anterior thecal sac. Bilateral apophyseal joints are intact with normal alignment. C6/C7: Bony structures are intact with normal alignment. There is no spinal stenosis. Bilateral C6/C7 neuroforamina are markedly stenosed. Bilateral apophyseal joints are intact with normal alignment. C7/T1: Bony structures are intact with normal alignment. There is no spinal stenosis. Bilateral C7/T1 neuroforamina are patent. Bilateral apophyseal joints are intact with normal alignment. Multilevel bilateral apophyseal joint and uncovertebral joint osteoarthritis with loss of joint space, sclerosis, facet hypertrophy and osteophytosis are seen. There is interval appearance of a hypodense nodule in anterior medial right thyroid lobe measuring 1.0 cm in size, series 14 image #56. CT/CT cervical spine wo IV con IMPRESSION: 1. There is no acute fracture or subluxation. 2. Unchanged cervical spondylosis with multilevel bilateral neuroforaminal stenosis as described above. 3. Interval appearance of a hypodense nodule in anterior medial right thyroid lobe. Incidental thyroid nodules up to 1.5 cm in diameter in patients 35 years of age or older are statistically overwhelmingly not clinically significant and no followup imaging recommended. Reference: J Am Nyasia Radiol 2015 Feb; 12(2): 143-50. Dictated By: Dane Gallo Signed By: Electronically signed by Dane Gallo 05/04/23 1328 - Vent. Rate: 084 BPM Atrial Rate: 084 BPM P-R Int: 158 ms QRS Dur: 088 ms QT Int: 364 ms P-R-T Axes: 063 -02 -05 degrees QTc Int: 430 ms Normal sinus rhythm T wave abnormality, consider anterolateral ischemia Abnormal ECG When compared with ECG of 22-SEP-2022 16:07, T wave inversion now evident in Inferior leads T wave inversion now evident in Anterolateral leads Electronically Signed By:MARTIN CARRILLO Dictated By: Martin Carrillo MD Signed By: Electronically signed by Martin Carrillo MD 05/05/23 191 Radiology Impression Discussion of test interpretation with radiology: I have reviewed the radiologist's reading. Independent Historian Clinical information obtained from an independent historian. History obtained from or confirmed by: EMS (EMS provided additional history and confirmed the history provided by the patient. ) Discharge Plan Discharge Clinical Impression: Headache, Fall, Acute hypokalemia Patient Disposition: Home, Self-Care Instructions: Fall Prevention for Older Adults (ED), Acute Headache (DC), Hypokalemia (ED), Potassium Content of Foods List (ED) Additional Instructions: Follow up with your primary care provider. Return to the emergency department immediately if your symptoms worsen or if you develop any dizziness, shortness of breath, difficulty breathing, chest pain, blurry vision, loss of vision, nausea, vomiting, abdominal pain, fever, chills, back pain, or any other complaints. Arlin un seguimiento con ortiz proveedor de atenci?n primaria. Regrese al departamento de emergencias inmediatamente si chemo s?ntomas empeoran o si presenta mareos, dificultad para respirar, dificultad para respirar, dolor en el pecho, visi?n borrosa, p?rdida de la visi?n, n?useas, v?mitos, dolor abdominal, fiebre, escalofr?os, dolor de espalda o cualquier otras quejas. Prescriptions: No Action aspirin 81 mg tablet,delayed release (DR/EC) 81 mg PO DAILY Qty: 90 3RF lisinopril 10 mg tablet 10 mg PO DAILY Qty: 90 2RF (DME) walker Misc See Rx Instructions .MEDSUPPLY Qty: 1 0RF Rx Instructions: Folding Front wheeled walker docusate sodium 100 mg capsule 100 mg PO BID Qty: 60 0RF acetaminophen 325 mg tablet 650 mg PO Q6H PRN (Reason: for pain) 30 Days Qty: 240 0RF atorvastatin 40 mg tablet 40 mg PO DAILY Qty: 90 0RF Rx Instructions: OVERDUE FOR APPT. PLEASE CALL [phone] TO SCHEDULE FOLLOW UP FOR 2022 SO WE CAN CONTINUE REFILLING carvedilol 3.125 mg tablet 3.125 mg PO BID Qty: 180 0RF Rx Instructions: must call and schedule cardiology appt for refills celecoxib 200 mg capsule 200 mg PO BID Qty: 60 0RF Fycompa 6 mg tablet 1 tab PO BEDTIME lacosamide 150 mg tablet 150 mg PO BID oxycodone 5 mg tablet 5 mg PO Q4H PRN (Reason: pain (scale score 4-6)) 7 Days Qty: 42 0RF Rx Instructions: Partial Fill upon patient request. metronidazole 500 mg tablet 500 mg PO TID Qty: 30 0RF tramadol 50 mg tablet 50 mg PO Q6H PRN (Reason: pain) Qty: 20 0RF cefdinir 300 mg capsule 300 mg PO BID 5 Days Qty: 10 0RF folic acid 1 mg tablet 1 mg PO DAILY phenobarbital 32.4 mg tablet 32.4 mg PO BID clonazepam 2 mg tablet 2 mg PO BEDTIME phenytoin sodium extended 100 mg capsule 200 mg PO BID Fycompa 4 mg tablet 4 mg PO BEDTIME (DME) Wheelchair with foot rest See Rx Instructions .ROUTE .MEDSUPPLY Qty: 1 0RF Rx Instructions: As directed Referrals: [facility] Family Medicine [Provider Group] (Call to establish and follow up with a primary care provider. If you already have a primary care provider, please follow up with them. Llame para establecer y realizar un seguimiento con un proveedor de atenci?n primaria. Si ya tiene un proveedor de atenci?n primaria, arlin un seguimiento con ?l.) [facility] Primary Care, [facility] [Provider Group] (Call to establish and follow up with a primary care provider. If you already have a primary care provider, please follow up with them. Llame para establecer y realizar un seguimiento con un proveedor de atenci?n primaria. Si ya tiene un proveedor de atenci?n primaria, arlin un seguimiento con ?l.) [facility] [Provider Group] (Call to establish and follow up with a primary care provider. If you already have a primary care provider, please follow up with them. Llame para establecer y realizar un seguimiento con un proveedor de atenci?n primaria. Si ya tiene un proveedor de atenci?n primaria, arlin un seguimiento con ?l.) Interventions: ED Discharge Assessment Last Done: 05/04/23 16:34 Discharge Date/Time: 05/04/23 16:34 Print Language: Ecuadorean
[2023-05-04 13:53] LABS: Alanine Aminotransferase 32 U/L (0-31); Albumin Level 4.1 g/dL (3.5-5.0); Alkaline Phosphatase 135 U/L (39-117); Anion Gap 12 (12-20); Aspartate Amino Transferase 21 U/L (5-31); Bilirubin Total 0.5 mg/dL (0.0-1.0); Blood Urea Nitrogen 5 mg/dL (9-16); Calcium 9.2 mg/dL (8.4-10.2); Carbon Dioxide 27 mmol/L (22-29); Chloride 107 mmol/L (96-108); Estimated Glomerular Filt Rate > 60; Glucose Random 107 mg/dL (60-115); Potassium 2.9 mmol/L (3.3-5.1); Sodium 143 mmol/L (135-145); Total Protein 7.4 g/dL (6.5-8.0)
[2023-05-04 13:56] LABS: COVID-19 Test Negative (Negative); IDNOW Serial# 9DB6401D
[2023-05-04 14:23] LABS: IDNOW Serial# 152EDE1D; Influenza A Negative (Negative); Influenza B2 Negative (Negative)
[2023-05-04] MEDS: Potassium Chloride Packet 20 MEQ PACKET 40 MEQ PO (15:06)
--- NOTE | 2023-05-04 15:12 | PC.NURSE ---
ambulated to bathroom independently with steady gait to provide urine sample. medicated per the MAR
[2023-05-04 15:35] LABS: Appearance Urine Cloudy; Color Urine Dark Yellow; Glucose Urine UA 100 mg/dL (Negative); Leukocyte Esterase Urine Trace (Negative); Nitrite Urine Negative (Negative); PH 5.5 (5.0-9.0); Specific Gravity - Urine 1.025 (1.005-1.025); UMIC TRIGGER UACC YES; Urine Blood Negative (Negative); Urine Ketones Trace mg/dL (Negative); Urine Protein 100 (2+) mg/dL (Neg-Trace)
[2023-05-04 16:03] LABS: Bacteria Urine 1+ (None Seen); RBC Urine 0-2 /HPF (0-2); Squamous Epithelial Cell Urine >20 /HPF (0-2); WBC Urine 0-5 /HPF (0-5)
[2023-05-04 16:33] VITALS: BP 121/81; PULSE 82; RESP 16; TEMP 36.5; O2SAT 97
== END 2023-05-04 16:34 | disposition home or self-care (01) ==
PROVIDERS: Physician Assistant Medical; Emergency Provider Emergency Medicine
DX: R51.9 Headache, unspecified (principal); E87.6 Hypokalemia; Z11.52 Encounter for screening for COVID-19; E78.5 Hyperlipidemia, unspecified; I10 Essential (primary) hypertension; Z79.82 Long term (current) use of aspirin; Z79.02 Long term (current) use of antithrombotics/antiplatelets; Z79.899 Other long term (current) drug therapy
CPT/HCPCS: 70450; 72125; 80053; 81001; 83735; 84484; 85025; 87502; 87635; 93005; 99283; 99284

== ENCOUNTER → 2023-05-04 12:06 | Outpatient (BNV) | payer MEDICARE, MEDICAID, SELFPAY | PROVIDERS: Emergency Provider Emergency Medicine; Visit Provider Internal Medicine | DX: R94.31 Abnormal electrocardiogram [ECG] [EKG] (principal) | CPT/HCPCS: 93010 ==

== ENCOUNTER 2023-05-30 09:13 | Emergency (ER) | payer MEDICARE, MEDICAID, SELFPAY ==
--- NOTE | ~2023-05-30 | XR_ITS ---
EXAMINATION: Left knee. Right hand/wrist. CLINICAL INFORMATION: Pain. COMPARISON: None available. TECHNIQUE: Four views of the left knee. 4 views right hand/wrist. FINDINGS: Left knee: There is a nondisplaced fracture left proximal fibula. The proximal tibia is normal. The tricompartment joint space is normal. There is mild osteopenia. No acute fracture or dislocation seen. There is no loose bodies. There is mild superior joint effusion.. Right hand/wrist: There is an old healed fracture distal fifth metacarpal with mild osteopenia. No acute fracture, dislocation or subluxation seen. Mild loss of PIP and DIP joint space is seen. The soft tissues are normal. XR/XR knee LT 4V IMPRESSION: Nondisplaced fracture left proximal fibula. Mild joint effusion. Mild osteopenia. Mild osteopenia right hand and wrist without any visible acute fracture or dislocation. Suspect mild degenerative changes PIP and DIP joints.
--- NOTE | ~2023-05-30 | XR_ITS ---
EXAMINATION: Left knee. Right hand/wrist. CLINICAL INFORMATION: Pain. COMPARISON: None available. TECHNIQUE: Four views of the left knee. 4 views right hand/wrist. FINDINGS: Left knee: There is a nondisplaced fracture left proximal fibula. The proximal tibia is normal. The tricompartment joint space is normal. There is mild osteopenia. No acute fracture or dislocation seen. There is no loose bodies. There is mild superior joint effusion.. Right hand/wrist: There is an old healed fracture distal fifth metacarpal with mild osteopenia. No acute fracture, dislocation or subluxation seen. Mild loss of PIP and DIP joint space is seen. The soft tissues are normal. XR/XR hand wrist RT IMPRESSION: Nondisplaced fracture left proximal fibula. Mild joint effusion. Mild osteopenia. Mild osteopenia right hand and wrist without any visible acute fracture or dislocation. Suspect mild degenerative changes PIP and DIP joints.
[2023-05-30 09:21] VITALS: BP 166/78; PULSE 75; O2SAT 91
[2023-05-30 09:26] VITALS: BP 125/57; PULSE 72; RESP 16; TEMP 36.6; O2SAT 98; BMI 36.3
--- NOTE | 2023-05-30 10:57 | ED.GENADULT ---
HPI - General Adult General Chief complaint: General Medical Stated complaint: FALL LAST NIGHT,WEAK,HIT HEAD ?LOC,LLE SWELLING Time Seen by Provider: 05/30/23 09:23 Source: patient Mode of arrival: EMS History of Present Illness HPI narrative: 68-year-old female who states that she tripped on her shoe last night and now has left knee pain that she would like to have evaluated and also reports some right wrist pain. Related Data Home Medications Medication Instructions Recorded Confirmed clonazepam 2 mg tablet 2 mg PO BEDTIME 04/15/20 11/25/21 folic acid 1 mg tablet 1 mg PO DAILY 04/15/20 11/25/21 phenobarbital 32.4 mg tablet 32.4 mg PO BID 04/15/20 11/25/21 phenytoin sodium extended 100 mg 200 mg PO BID 04/15/20 11/25/21 capsule perampanel 6 mg tablet (Fycompa) 1 tab PO BEDTIME 09/07/21 11/25/21 lacosamide 150 mg tablet 150 mg PO BID 09/09/21 11/25/21 perampanel 4 mg tablet (Fycompa) 4 mg PO BEDTIME 09/30/21 11/25/21 Previous Rx's Medication Instructions Recorded aspirin 81 mg tablet,delayed 81 mg PO DAILY #90 tabs 08/07/20 release lisinopril 10 mg tablet 10 mg PO DAILY #90 tabs 08/07/20 Wheelchair with foot rest #1 ea 09/17/21 oxycodone 5 mg tablet 5 mg PO Q4H PRN pain (scale score 09/23/21 4-6) 7 days #42 tabs walker #1 ea 10/26/21 docusate sodium 100 mg capsule 100 mg PO BID #60 caps 11/15/21 acetaminophen 325 mg tablet 650 mg (2 x 325 mg) PO Q6H PRN for 12/24/21 pain 30 days #240 tabs atorvastatin 40 mg tablet 40 mg PO DAILY #90 tabs 08/16/22 cefdinir 300 mg capsule 300 mg PO BID 5 days #10 caps 09/22/22 metronidazole 500 mg tablet 500 mg PO TID #30 tabs 10/08/22 carvedilol 3.125 mg tablet 3.125 mg PO BID #180 tabs 11/18/22 celecoxib 200 mg capsule 200 mg PO BID #60 caps 11/23/22 tramadol 50 mg tablet 50 mg PO Q6H PRN pain #20 tabs 12/04/22 Allergies Allergy/AdvReac Type Severity Reaction Status Date / Time No Known Allergies Allergy Verified 05/30/23 09:26 [No Known Allergies*] Review of Systems Review of Systems: Pertinent positives and negatives as stated in [facility] Past Medical History Source: nursing notes reviewed Medical History Seizure disorder Dislocation of left talus Takotsubo cardiomyopathy Hypertension Hyperlipemia Surgical History S/P placement of nerve stimulator History of cholecystectomy Family History Family History Mother No problems noted. Father No problems noted. Social History Social History Household Members: Family Housing: Apartment Do you presently have visiting nurse or other home services: Yes Alcohol intake: never Patient Tobacco Use Status: Former Tobacco user Quit Date: 1 year ago Tobacco use type: Cigarette Smoked in Last 30 Days: Yes Use of substances other than those prescribed or required for medical reasons: No Any prior treatment program specific to substance use: No Advance Directives: Yes Advance Directives on File: Yes Advance Directives Date on File: 09/07/21 service: No Current occupational status: disabled Physical Exam ED Vital Signs: Vital Signs - 24 hr 05/30/23 09:26 05/30/23 11:35 Temperature 98 F 97.7 F Pulse Rate 72 63 Respiratory Rate 16 18 Blood Pressure 125/57 L 108/52 L Pulse Oximetry 98 94 Oxygen Delivery Method Room Air Room Air BMI result Body Mass Index 36.3 VITAL SIGNS: Reviewed. GENERAL: Well developed, well nourished, in no acute distress. HEAD: Normocephalic/atraumatic EYES: PERRLA, EOMI LUNGS: Normal breath sounds. No adventitious sounds or accessory muscle use. SpO2<98> CARDIOVASCULAR: Regular rate and rhythm without noted murmurs, no JVD or lower extremity edema. ABDOMEN: Soft, non-tender, non-distended with bowel sounds. MUSCULOSKELETAL: No tenderness, deformities, or effusions noted on gross inspection. EXTREMITIES: No cyanosis, clubbing or edema. LEFT KNEE: No obvious deformity/erythema/induration, mild tenderness to palpation, patella is mobile and no tenderness to palpation over MCL or LCL RIGHT WRIST: No obvious deformity, no snuffbox tenderness SKIN: Inspection of the skin reveals no rashes NEUROLOGIC: Alert and oriented x 4. Strength and sensation to light touch were grossly intact x 4. Medications Administered Discontinued Medications Generic Name Dose Route Start Last Admin Trade Name Freq PRN Reason Stop Dose Admin Oxycodone HCl 5 mg 05/30/23 11:47 05/30/23 12:01 Oxycodone Hcl Immed Release 5 Mg Tablet PO 05/30/23 11:48 5 mg ONCE ONE Administration Medical Decision Making Medical Decision Making MDM Narrative: 68-year-old female with history and clinical presentation of mechanical fall without loss of consciousness and now reports left knee pain in right wrist pain which I will evaluate with radiographs and otherwise apply Marcel wrap to the left knee. Left knee x-ray demonstrates a proximal nondisplaced left fibular fracture, wrist x-rays are negative for evidence of any acute fracture or dislocation. Due to concerns of frequent falls/use of cane at home, will pursue short-term rehab and have placed a consult for case management and physical therapy. Patient otherwise received an Marcel wrap/walking boot/pain medication. Patient placed in physician observation because the patient needed more time for case management/physical therapy evaluation and placement into short-term rehab. At the time observation was started the patient's vital signs were stable, patient is alert and oriented, neuro: Nonfocal, CV RRR, lungs clear. Differential Diagnosis Differential Diagnoses: The differential diagnosis associated with the presentation includes Please see the discussion above Admission/Observation Consideration of admission/observation: Escalation of care including admission/observation considered Please see the discussion above Consult Healthcare Provider Management of the patient was discussed with: Engine Lathe Set Up Operator Tool Please see the discussion above Lab Data MDM Lab Attestation statement: I reviewed the patient's lab results. Please see the discussion above Radiology Impression Discussion of test interpretation with radiology: I have reviewed the radiologist's reading. Radiologist Impression: Please see the discussion above Chronic Conditions Patient?s care impacted by: Hypertension Seizures Critical Care Time Critical Care Time Critical Care Time: Yes Total Critical Care Time: 45 Attestation: I personally attest to this time spent taking care of the patient. Discharge Plan Discharge Clinical Impression: Frequent falls, Fibula fracture Patient Disposition: Still a Patient Prescriptions: No Action aspirin 81 mg tablet,delayed release (DR/EC) 81 mg PO DAILY Qty: 90 3RF lisinopril 10 mg tablet 10 mg PO DAILY Qty: 90 2RF (DME) walker Misc See Rx Instructions .MEDSUPPLY Qty: 1 0RF Rx Instructions: Folding Front wheeled walker docusate sodium 100 mg capsule 100 mg PO BID Qty: 60 0RF acetaminophen 325 mg tablet 650 mg PO Q6H PRN (Reason: for pain) 30 Days Qty: 240 0RF atorvastatin 40 mg tablet 40 mg PO DAILY Qty: 90 0RF Rx Instructions: OVERDUE FOR APPT. PLEASE CALL [phone] TO SCHEDULE FOLLOW UP FOR 2022 SO WE CAN CONTINUE REFILLING carvedilol 3.125 mg tablet 3.125 mg PO BID Qty: 180 0RF Rx Instructions: must call and schedule cardiology appt for refills celecoxib 200 mg capsule 200 mg PO BID Qty: 60 0RF Fycompa 6 mg tablet 1 tab PO BEDTIME lacosamide 150 mg tablet 150 mg PO BID oxycodone 5 mg tablet 5 mg PO Q4H PRN (Reason: pain (scale score 4-6)) 7 Days Qty: 42 0RF Rx Instructions: Partial Fill upon patient request. metronidazole 500 mg tablet 500 mg PO TID Qty: 30 0RF tramadol 50 mg tablet 50 mg PO Q6H PRN (Reason: pain) Qty: 20 0RF cefdinir 300 mg capsule 300 mg PO BID 5 Days Qty: 10 0RF folic acid 1 mg tablet 1 mg PO DAILY phenobarbital 32.4 mg tablet 32.4 mg PO BID clonazepam 2 mg tablet 2 mg PO BEDTIME phenytoin sodium extended 100 mg capsule 200 mg PO BID Fycompa 4 mg tablet 4 mg PO BEDTIME (DME) Wheelchair with foot rest See Rx Instructions .ROUTE .MEDSUPPLY Qty: 1 0RF Rx Instructions: As directed
[2023-05-30 11:35] VITALS: BP 108/52; PULSE 63; RESP 18; TEMP 36.5; O2SAT 94
--- NOTE | 2023-05-30 11:50 | PC.NURSE ---
Pedal Assembler at bedside,patient states she is here for left leg pain due to a fall yesterday, skin color appropriate for ethnicity, old bruising noted under bilateral eyes and right cheek, patient reports 10/10 pain in left leg, positive pedal pulses present, edema noted in left knee
[2023-05-30] MEDS: oxyCODONE HCl Immed Release 5 MG TABLET PO (12:01)
[2023-05-30 12:19] VITALS: BP 108/52; PULSE 63; O2SAT 94
--- NOTE | 2023-05-30 12:20 | PC.NURSE ---
Patient reports taking morning meds this morning, patient placed in hospital bed, pharmacy called for med rec
--- NOTE | 2023-05-30 12:40 | PC.NURSE ---
report given to kenzie rowan in overflow
[2023-05-30 13:18] VITALS: BP 125/69; PULSE 65; RESP 20; TEMP 36.8; O2SAT 95
[2023-05-30 13:59] LABS: COVID-19 Test Negative (Negative); IDNOW Serial# 152EDE1D
--- NOTE | 2023-05-30 15:39 | MHC.CM.ED ---
Received case management consult from Dr Covington. Patient came to the ER due to a fall. Found to have left fibula fracture. Physical therapy eval completed. Short term rehab is recommended. Met with patient and mast maker in regards to discharge planning. 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 PCP verified. Copy of HCP verified to be on file. Patient received 3 Pfizer vaccines. List of facilities contracted with patient's insurance provided from [employer]. Patient's choices: 1)[facility] [place] [facility] [address] 2) [facility]. [facility] is able to offer a bed and is in the process of obtaining insurance auth. Continue to monitor for d/c needs.
[2023-05-30 19:53] VITALS: BP 116/69; PULSE 70; RESP 18; TEMP 36.6; O2SAT 95
--- NOTE | 2023-05-30 21:08 | PHA.MEDREC ---
Pharmacy Consult ? Medication Reconciliation Pharmacy has completed the medication reconciliation. Patient has not idea what medications see takes at home besides phenobarbital and phenytoin. [employer] claim history for the rest of medicaitons. Merle Morrison, GabyD
[2023-05-30] MEDS: Lacosamide Oral Solution 100 MG/10 ML SOLUTION 150 MG PO (21:50)
[2023-05-30] MEDS: PHENobarbitaL 30 MG TABLET PO (21:50)
[2023-05-30] MEDS: Phenytoin Sodium Extended 100 MG CAPSULE 200 MG PO (21:50)
--- NOTE | 2023-05-30 21:58 | PC.NURSE ---
Pharmacy notified meds needed for pt. Waiting on meds from pharmacy. Plan of care ongoing.
--- NOTE | 2023-05-30 22:20 | PC.NURSE ---
Pt ca&ox4, no signs of distress. Pt repositioned in bed for comfort. Plan of care ongoing.
[2023-05-31 05:38] VITALS: BP 110/64; PULSE 66; RESP 14; TEMP 36.6; O2SAT 95
[2023-05-31] MEDS: Lacosamide Oral Solution 100 MG/10 ML SOLUTION 150 MG PO (09:47)
[2023-05-31] MEDS: Phenytoin Sodium Extended 100 MG CAPSULE 200 MG PO (09:47)
[2023-05-31] MEDS: PHENobarbitaL 30 MG TABLET PO (09:47)
--- NOTE | 2023-05-31 10:25 | PC.NURSE ---
pt alert, transfer 1 assist to commode and cleaned by multi craft maintenance technician, medicated as ordered, walking boot in place, attempted to elle to give RN TO RN report to snf, was sent to voicemail and message left, no call back at this time, pt picked up by ems
== END 2023-05-31 10:00 | disposition skilled nursing facility (03) ==
PROVIDERS: Emergency Provider Student in an Organized Health Care Education/Training Program; PCP Internal Medicine
DX: S82.402A Unspecified fracture of shaft of left fibula, initial encounter for closed fracture (principal); R26.2 Difficulty in walking, not elsewhere classified; M25.531 Pain in right wrist; W01.0XXA Fall on same level from slipping, tripping and stumbling without subsequent striking against object, initial encounter; Y93.9 Activity, unspecified; Y92.9 Unspecified place or not applicable; Y99.8 Other external cause status; Z91.81 History of falling; Z11.52 Encounter for screening for COVID-19; Z79.899 Other long term (current) drug therapy; Z87.891 Personal history of nicotine dependence
CPT/HCPCS: 29515; 73110; 73130; 73564; 87635; 97162; 99284

== ENCOUNTER 2023-06-23 08:18 | Emergency (ER) | payer MEDICARE, MEDICAID, SELFPAY ==
--- NOTE | ~2023-06-23 | XR_ITS ---
EXAMINATION: XR WRIST, RIGHT CLINICAL INFORMATION: Post reduction COMPARISON: Previous x-ray from earlier the same day TECHNIQUE: Two views of the right wrist. FINDINGS: Overlying cast or splint. No appreciable change in the comminuted fracture of the right distal radius. Diffuse soft tissue swelling. XR/XR wrist RT min 3V IMPRESSION: No appreciable change in the comminuted fracture of the right distal radius.
--- NOTE | ~2023-06-23 | XR_ITS ---
EXAMINATION: XR WRIST, RIGHT CLINICAL INFORMATION: Pain and swelling COMPARISON: Previous x-ray May 30, 2023 TECHNIQUE: PA, lateral, and oblique views of the right wrist. FINDINGS: There is a new comminuted intra-articular fracture of the right distal radius involving the distal radial shaft. There is an oblique fracture of the distal radial shaft with slight ulnar and dorsal displacement. There is a transverse component of fracture in the distal radial metaphysis with some impaction. There is a vertical extension into the radiocarpal joint with slight dorsal displacement. Difficult to exclude nondisplaced ulnar styloid fracture. There is overlying soft tissue swelling. XR/XR wrist RT min 3V IMPRESSION: Comminuted displaced fracture of the distal radius.
[2023-06-23 08:34] VITALS: BP 148/88; PULSE 75; O2SAT 98
[2023-06-23 08:37] VITALS: BP 174/78; PULSE 71; RESP 18; TEMP 36.7; O2SAT 96; BMI 34.9
--- NOTE | 2023-06-23 09:26 | ED.FALL ---
HPI - Fall General Chief Complaint: Fall Stated Complaint: mechanical fall, wrist deformity Time Seen by Provider: 06/23/23 09:02 Source: patient, EMS, RN notes reviewed and old records reviewed Mode of arrival: EMS Limitations: no limitations History of Present Illness HPI Narrative: 68 year old Samoan speaking, right hand dominant female with pmhx significant for osteoarthritis, HTN, HDL, and epilepsy on phenobarbital and Dilantin presents to the ED today via EMS for evaluation of right wrist pain s/p mechanical fall occurring [employer]. Patient reports getting out of bed this morning to get her coffee when her leg collapsed under here, causing her to fall forward. Admits to falling onto out stretched right arm. Notes immediate pain and deformity to wrist. Denies head strike or LOC. No thinners. Her son immediately helped her up and called EMS. She presents to the ED with right wrist pain with decreased range of motion of the right wrist. Denies right elbow or shoulder pain. Rates wrist pain 10/10. Pain does not radiate. She did not take any OTC pain medications prior to arrival in ED. Denies numbness/tingling/weakness of the RUE. Denies any other injury/ pain. Of note, she was recently diagnosed with a left fibula fracture on 05/29/22 following a mechanical fall and is currently in a walking boot. States she ambulates independently at home. She currently lives at home alone however her brother comes over to care for her. Related Data Home Medications Medication Instructions Recorded Confirmed clonazepam 2 mg tablet 2 mg PO BEDTIME 04/15/20 05/30/23 folic acid 1 mg tablet 1 mg PO DAILY 04/15/20 05/30/23 phenobarbital 32.4 mg tablet 32.4 mg PO BID 04/15/20 05/30/23 phenytoin sodium extended 100 mg 200 mg PO BID 04/15/20 05/30/23 capsule perampanel 6 mg tablet (Fycompa) 1 tab PO BEDTIME 09/07/21 05/30/23 lacosamide 150 mg tablet 150 mg PO BID 09/09/21 05/30/23 Previous Rx's Medication Instructions Recorded aspirin 81 mg tablet,delayed 81 mg PO DAILY #90 tabs 08/07/20 release Wheelchair with foot rest #1 ea 09/17/21 walker #1 ea 10/26/21 carvedilol 3.125 mg tablet 3.125 mg PO BID #180 tabs 11/18/22 morphine 15 mg immediate release 15 mg PO Q8H PRN pain (scale score 06/23/23 tablet 7-10) #5 tabs Allergies Allergy/AdvReac Type Severity Reaction Status Date / Time No Known Allergies Allergy Verified 06/23/23 08:40 [No Known Allergies*] Review of Systems Review of Systems: Constitutional: No fever, chills, fatigue, night sweats, weight changes ENT/Mouth: No ear pain, hearing loss, nasal congestion, sinus pain, rhinorrhea, sore throat Eyes: No eye pain, swelling, redness, vision changes, discharge Cardio: No chest pain, palpitations, RIOS, orthopnea, peripheral edema Pulm: No SOB, cough, sputum, wheezing, dyspnea, hemoptysis GI: No nausea, vomiting, hematemesis, abdominal pain, diarrhea, constipation, hematochezia, melena : No irregular bleeding, dysuria, frequency, urgency, hesitancy, hematuria, flank pain, urinary flow changes, urinary incontinence or retention MSK: No back pain, neck pain, joint pain, myalgias, +right wrist pain/ deformity Skin: No lesions, rashes Neuro: No weakness, numbness, paresthesias, LOC, dizziness, headache Psych: No anxiety/panic, depression, SI/HI, AH/VH All other systems reviewed and are negative. [facility] Past Medical History Attestation statement: The following information was validated with the patient. Source: old records reviewed and nursing notes reviewed Medical History Seizure disorder Dislocation of left talus Takotsubo cardiomyopathy Hypertension Hyperlipemia Surgical History S/P placement of nerve stimulator History of cholecystectomy Family History Family History Mother No problems noted. Father No problems noted. Social History Social History Household Members: Family Housing: Apartment Do you presently have visiting nurse or other home services: Yes Alcohol intake: never Patient Tobacco Use Status: Former Tobacco user Quit Date: 1 year ago Tobacco use type: Cigarette Advance Directives: Yes Advance Directives on File: Yes Advance Directives Date on File: 09/07/21 service: No Current occupational status: disabled Physical Exam Vital Signs: Vital Signs: Last Vital Signs Temp 98.1 F 06/23/23 08:37 Pulse 63 06/23/23 10:51 Resp 16 06/23/23 10:51 BP 150/70 H 06/23/23 10:51 Pulse Ox 98 06/23/23 10:51 O2 Del Method Room Air 06/23/23 10:51 BMI result Body Mass Index 34.9 Patient hypertensive. Vitals otherwise WNL. Const: General: cooperative, healthy appearing, comfortable and no acute distress Orientation/consciousness: patient oriented x3 Limitations: no limitations HEENT: Head: Yes normal to inspection, Yes No palpable skull fracture present, Yes normocephalic and Yes atraumatic Eyes: General: appearance normal, both eyes and all related structures Conjunctivae: conjunctivae normal Sclerae: sclerae normal Pupils: Equal, round and reactive pupils present Neck: Other: + no cervical midline spinous tenderness or step-off deformity Neck: Yes normal visual inspection and Yes full ROM Chest: Chest palpation & inspection: normal inspection of the chest and normal palpation of entire chest wall Resp: Effort & Inspection: normal respiratory effort and able to speak in complete sentences Auscultation: clear to auscultation bilaterally Cardio: Rate: regular rate Rhythm: regular rhythm GI: Inspection: Yes normal to inspection Palpation (GI): Soft to palpation and nontender Skin: General skin exam: no rashes or lesions noted Neuro: General: patient oriented x3 Cranial nerves: Yes Equal, round and reactive pupils present Extrem: Other: + dinner fork deformity noted to right wrist. Unable to move wrist d/t deformity and pain. Cap refill less than 2 seconds. No palpable radial pulse however radial pulse identified with Doppler. Full ROM to MCPs, PIPs, and DIPs of right hand. Sensation intact. No distal cyanosis or dusky skin General: Yes capillary refill normal Course Course Course Narrative: 1000-- initial radiographs of right wrist showing new comminuted intra-articular fracture of the right distal radius involving the distal radial shaft. There is also an oblique fracture of the distal radial shaft with slight ulnar and dorsal displacement. There is a transverse component of fracture in the distal radial metaphysis with some impaction. There is vertical extension into the radiocarpal joint with slight dorsal displacement. XR findings correlate with physical exam. > these findings were discussed with my attending physician Dr. Covington and after reviewing case, she recommends placing patient in finger traps to help realign radius. Will perform hematoma block, administer p.o. morphine and attempt finger traps prior to splinting. 1259--hematoma block performed using 10ml lido. reduction attempted with finger traps. After 20 minutes, reverse sugar-tong splint placed with assistance from Sherrell LINDSEY. Neurovascularly intact distally after splint placement and patient states splint is comfortable. Repeat xray ordered which does not demonstrate any appreciable change in the comminuted fracture. As reduction was unsuccessful, I reached out to Orthopedic PA Michael Remy regarding further management. After reviewing the case, she does not recommend splint removal and re-reduction. She advises outpatient follow up as patient will likely require surgery. 1420-- Utilized the on air director to discuss all work up results with patient. I informed her that she will have to follow up with ortho this week regarding fracture. she verbalizes understanding that splint needs to stay clean, dry, and intact until follow up. Discussed all worrisome signs/ symptoms along with strict return precautions regarding her splint. She has also been provided with a sling and morphine has been sent to pharmacy for break through pain. At time of discharge, she states splint is comfortable. She is moving all digits on right hand with ease. I am able to fit my fingers in between splint and her extremity. Cap refill is <2 seconds and she has good coloring to hand. Hand is warm to touch. No concern for acute NV compromise or compartment syndrome. I did note concern as patient lives alone, is currently in a left walking boot and now has a fracture to her dominant extremity. I offered patient PT and case management consult however she is currently declining this and states she would like to go home as her brother car assist her. Patient has remained stable throughout ED visit today. Discussed worrisome signs and symptoms and when to return to the ED. All questions answered at this time. Patient is agreeable with disposition and stable for discharge. Her brother, Bartolo, is at bedside to drive her home. All discharge instructions were also discussed with patient's brother. Medications Administered Discontinued Medications Generic Name Dose Route Start Last Admin Trade Name Roscoeq PRN Reason Stop Dose Admin Lidocaine HCl 5 ml 06/23/23 10:06 06/23/23 11:17 Lidocaine Hcl 1 % Mpf 5 Ml Vial INFILTRATI 06/23/23 10:07 5 ml ONCE ONE Administration Lidocaine HCl 5 ml 06/23/23 10:06 06/23/23 11:17 Lidocaine Hcl 1 % Mpf 5 Ml Vial INFILTRATI 06/23/23 10:07 5 ml ONCE ONE Administration Morphine Sulfate 15 mg 06/23/23 11:10 06/23/23 11:17 Morphine Sulfate Immed Release 15 Mg Tablet PO 06/23/23 11:11 15 mg ONCE ONE Administration Procedures Orthopedic Fracture Reduction Fracture #1: Time Out Performed: Yes Side: right Fracture Reduction Location: radius Analgesia: hematoma block Technique: finger traps Post Reduction X-rays Demonstrate: other (no significant change) Post-reduction neuro exam: intact Post-reduction vascular exam: intact Splint Applied: Yes Patient Tolerated Procedure: well Orthopedic Splinting/Casting Injury #1: Side: right Upper Extremity Injury Location: wrist Upper Extremity Immobilizer: sling/shoulder immobilizer and sugar tong splint (reverse) Medical Decision Making Medical Decision Making MDM Narrative: 68 year old Samoan speaking, right hand dominant female with pmhx significant for osteoarthritis, HTN, HDL, and epilepsy on phenobarbital and Dilantin presents to the ED today via EMS for evaluation of right wrist pain s/p mechanical fall occurring [employer]. Patient hypertensive likely secondary to pain. Vitals otherwise WNL. She is nontoxic-appearing and in no acute distress. On exam, dinner fork deformity noted to right wrist. Unable to move wrist d/t deformity and pain. Cap refill < 2 seconds in all digits on right hand. No palpable radial pulse however radial pulse identified with Doppler. Full ROM to MCPs, PIPs, and DIPs of right hand. Sensation intact. No distal cyanosis or dusky skin. Differential diagnosis includes fracture, dislocation, contusion, msk sprain/strain. Unlikely open fracture, osteo, NV compromise, threat to limb, compartment syndrome. Plan for radiographs, pain control, reduction and re-evaluation. Differential Diagnosis Differential Diagnoses: The differential diagnosis associated with the presentation includes as above. Admission/Observation not indicated. Consult Healthcare Provider Management of the patient was discussed with: Peer Tutor (Orthopedic CHUCK Remy) Independent Interpretation I performed an independent interpretation of an: Plain X-Ray Interpretation: I have reviewed both pre-reduction and post-reduction XR results and agree with radiologist's interpretation of distal radial fracture. Radiology Impression Discussion of test interpretation with radiology: I have reviewed the radiologist's reading. Radiologist Impression: EXAMINATION: XR WRIST, RIGHT CLINICAL INFORMATION: Pain and swelling COMPARISON: Previous x-ray May 30, 2023 TECHNIQUE: PA, lateral, and oblique views of the right wrist. FINDINGS: There is a new comminuted intra-articular fracture of the right distal radius involving the distal radial shaft. There is an oblique fracture of the distal radial shaft with slight ulnar and dorsal displacement. There is a transverse component of fracture in the distal radial metaphysis with some impaction. There is a vertical extension into the radiocarpal joint with slight dorsal displacement. Difficult to exclude nondisplaced ulnar styloid fracture. There is overlying soft tissue swelling. XR/XR wrist RT min 3V IMPRESSION: Comminuted displaced fracture of the distal radius. Independent Historian Clinical information obtained from an independent historian. History obtained from or confirmed by: Other (brother) External Record Review External record reviewed: Inpatient record, Office record, Outpatient record, Prior outpatient labs, Prior outpatient radiology, Primary care record and Outside ED record Prescription Management I considered prescription management with: Pain Medication Chronic Conditions Patient?s care impacted by: Hypertension Social Determinants Patient?s care significantly limited by Social Determinants of Health including: Other Social Determinant of Health Critical Care Time Critical Care Time Critical Care Time: Yes Total Critical Care Time: 120 Attestation: Critical care time in the amount of 120 minutes has been provided to the patient in terms of direct patient care, frequent reevaluation, consultation with Orthopedics, review and interpretation of medical data and results, and management of potentially life-threatening conditions. This is all outside of any medical procedures. Discharge Plan Discharge Clinical Impression: Fracture of distal end of radius Qualifiers: Encounter type: initial encounter Fracture type: closed Fracture morphology: Colles' Laterality: right Qualified Code(s): S52.531A - Colles' fracture of right radius, initial encounter for closed fracture Colles' fracture of right radius Qualifiers: Encounter type: initial encounter Fracture type: closed Qualified Code(s): S52.531A - Colles' fracture of right radius, initial encounter for closed fracture Patient Disposition: Home, Self-Care Instructions: Wrist Fracture in Adults (ED), ORIF of an Arm Fracture (DC) Additional Instructions: You were evaluated in the ED today for right wrist pain after falling. You were noted to have a fracture of your distal radius (right wrist) on imaging. We tried to reduce the fracture today and a splint was placed. You state that the splint is comfortable. As discussed, please keep splint clean dry and intact until you follow-up with orthopedics. Take tylenol and ibuprofen at home for pain. discomfort. Morphine has been sent to your pharmacy for you to take for break through pain. Do not drink, drive or operate heavy machinery while taking this pain medication. You have been provided with a referral to our orthopedic doctor. CALL THEM TO MAKE AN APPOINTMENT FOR THIS WEEK. THEY WILL NOT CALL YOU. As discussed, return to the ED if you begin to have worsening right wrist pain, see your fingers changing colors, or if you are unable to move your fingers as these are all worrisome signs that the splint has to be removed. In the case of an emergency call 911. Prescriptions: New morphine 15 mg tablet 15 mg PO Q8H PRN (Reason: pain (scale score 7-10)) Qty: 5 0RF Rx Instructions: Partial Fill upon patient request. No Action aspirin 81 mg tablet,delayed release (DR/EC) 81 mg PO DAILY Qty: 90 3RF (DME) walker [facility] [place] See Rx Instructions .MEDSUPPLY Qty: 1 0RF Rx Instructions: Folding Front wheeled walker carvedilol 3.125 mg tablet 3.125 mg PO BID Qty: 180 0RF Rx Instructions: must call and schedule cardiology appt for refills Fycompa 6 mg tablet 1 tab PO BEDTIME lacosamide 150 mg tablet 150 mg PO BID folic acid 1 mg tablet 1 mg PO DAILY phenobarbital 32.4 mg tablet 32.4 mg PO BID clonazepam 2 mg tablet 2 mg PO BEDTIME phenytoin sodium extended 100 mg capsule 200 mg PO BID (DME) Wheelchair with foot rest See Rx Instructions .ROUTE .MEDSUPPLY Qty: 1 0RF Rx Instructions: As directed Referrals: [facility] [Provider Group] (There is a new comminuted intra-articular fracture of the right distal radius involving the distal radial shaft. There is an oblique fracture of the distal radial shaft with slight ulnar and dorsal displacement. There is a transverse component of fracture in the distal radial metaphysis with some impaction. There is a vertical extension into the radiocarpal joint with slight dorsal displacement. Difficult to exclude nondisplaced ulnar styloid fracture. There is overlying soft tissue swelling. ) Discharge Date/Time: 06/23/23 14:24 Print Language: Samoan
[2023-06-23 10:51] VITALS: BP 150/70; PULSE 63; RESP 16; O2SAT 98
[2023-06-23] MEDS: Lidocaine HCl 1 % MPF 5 ML VIAL INFILTRATI ×2 (11:17)
[2023-06-23] MEDS: Morphine Sulfate Immed Release 15 MG TABLET PO (11:17)
[2023-06-23 14:24] VITALS: BP 150/70; BP 161/90; PULSE 63; PULSE 70; RESP 16; TEMP 36.6; TEMP 36.7; O2SAT 98; O2SAT 99
== END 2023-06-23 14:24 | disposition home or self-care (01) ==
PROVIDERS: Emergency Provider Student in an Organized Health Care Education/Training Program; PCP Internal Medicine
DX: S52.531A Colles' fracture of right radius, initial encounter for closed fracture (principal); W18.30XA Fall on same level, unspecified, initial encounter; Y93.89 Activity, other specified; Y92.092 Bedroom in other non-institutional residence as the place of occurrence of the external cause; Y99.9 Unspecified external cause status; M25.531 Pain in right wrist; I10 Essential (primary) hypertension; E78.5 Hyperlipidemia, unspecified; G40.909 Epilepsy, unspecified, not intractable, without status epilepticus; Z79.899 Other long term (current) drug therapy
CPT/HCPCS: 25600; 29125; 73110; 99283; 99284

== ENCOUNTER 2023-07-06 07:18 | Outpatient (REF) | payer MEDICARE, MEDICAID, SELFPAY ==
--- NOTE | ~2023-07-06 | XR_ITS ---
EXAMINATION: XR WRIST, RIGHT CLINICAL INFORMATION: Pain in right wrist. COMPARISON: 06/23/2023, 05/30/2023 TECHNIQUE: PA, lateral, and oblique views of the right wrist. FINDINGS: The bones are diffusely demineralized. Redemonstration of comminuted, intra-articular fracture of the distal radius with diffuse soft tissue swelling. Alignment is improved. Fracture lines are less distinct, suggesting some mild bridging callus formation. Displaced fracture of the ulnar styloid. XR/XR wrist RT min 3V IMPRESSION: 1. Redemonstration of comminuted, intra-articular fracture of the distal radius with diffuse soft tissue swelling. Alignment is improved. Fracture lines are less distinct, suggesting some mild bridging callus formation. 2. Displaced fracture of the ulnar styloid.
== END 2023-07-06 07:19 | disposition home or self-care (01) ==
LOC: HO.HOSX 07:18
PROVIDERS: Visit Provider Physician Assistant
DX: M25.531 Pain in right wrist (principal); G40.909 Epilepsy, unspecified, not intractable, without status epilepticus; S52.571A Other intraarticular fracture of lower end of right radius, initial encounter for closed fracture; W18.39XA Other fall on same level, initial encounter; Z91.81 History of falling; Y93.89 Activity, other specified; Y92.9 Unspecified place or not applicable; Y99.9 Unspecified external cause status; Z96.82 Presence of neurostimulator
CPT/HCPCS: 25600; 73110; 99212

== ENCOUNTER 2023-07-06 10:31 | Outpatient (AMB) | payer MEDICARE, MEDICAID, SELFPAY ==
--- NOTE | 2023-07-06 10:52 | A.OFFVIS_ITS ---
Intake Vital Signs 07/06/23 11:14 Height 5 ft 3 in Weight 196 lb BMI 34.7 Intake Visit Reasons: FC- right wrist fracture, DOI 06/23/23 Intake Note: Justino a 68 year old right hand dominant female who presents today with her brother Bartolo for an evaluation of right wrist fracture. Patient reports that she has has a couple of falls due to epilepsy. She was seen on 05/30/23 for a fibula fracture and was placed in a walking boot. She was also seen on 06/23/23 for a wrist fracture, she was placed in a splint and sling. Currently she has constant wrist and foot pain. Denies numbness or tingling. Finds little relief with taking ibuprofen. Allergies No Known Allergies [No Known Allergies*] Allergy (Verified 07/06/23 11:17) Medication List - Last Reconciled 07/06/23 by CHUCK Barrios-Tianna aspirin 81 mg PO DAILY carvedilol 3.125 mg PO BID clonazepam 2 mg PO BEDTIME folic acid 1 mg PO DAILY lacosamide 150 mg PO BID morphine 15 mg PO Q8H PRN perampanel (Fycompa) 1 tab PO BEDTIME phenobarbital 32.4 mg PO BID phenytoin sodium extended 200 mg PO BID walker Folding Front wheeled walker [Wheelchair with foot rest As directed] HPI FC- right wrist fracture, DOI 06/23/23 HPI Details 68-year-old right hand dominant epilepti c female who presents to the office today with her brother, Bartolo for an injury she sustained to her right wrist on 06/23/23. She was sent to a rehab facility which prolonged her ability to get into our office sooner. She does live alone but has support from her sons. She denies numbness or tingling of the right wrist. PENDING SALE TO [facility] Medical History Seizure disorder Dislocation of left talus Takotsubo cardiomyopathy Hypertension Hyperlipemia Surgical History S/P placement of nerve stimulator History of cholecystectomy Family History Mother No problems noted. Father No problems noted. Social History Household Members: Family Housing: Apartment Do you presently have visiting nurse or other home services: Yes Alcohol intake: never Patient Tobacco Use Status: Former Tobacco user Quit Date: 1 year ago Tobacco use type: Cigarette Advance Directives Date on File: 09/07/21 service: No Current occupational status: disabled Review of Systems Const All systems reviewed & are unremarkable except as noted in HPI and below Physical Exam Vital Signs: BMI result Body Mass Index 34.7 Const General: cooperative, healthy appearing, comfortable, no acute distress, well developed and alert Orientation/consciousness: patient oriented x3 HEENT Head: Yes normal to inspection, Yes normocephalic and Yes atraumatic Eyes General: appearance normal, both eyes and all related structures Neck Neck: Yes normal visual inspection and Yes no lymphadenopathy Resp Effort & Inspection: normal respiratory effort and able to speak in complete sentences Cardio Rate: regular rate Peripheral pulses: Peripheral pulses 2+ throughout GI Inspection: Yes normal to inspection Palpation (GI): Soft to palpation Skin General skin exam: no rashes or lesions noted Neuro General: patient oriented x3 Extrem Other: Right wrist: Skin intact. There is mild welling and bruising over the distal radius with tenderness over the fracture site. There is no pain over the elbow, negative forearm squeeze test. She has full range of motion of the elbow. She can fully extend all digits and make a closed fist. Pulses are present and she is neurovascularly intact. Psych Appearance: grossly normal Mental Status: mental status grossly normal Office Procedures Casting/Splints 40331-[id number] Splint Application Procedure code (CPT) selection complete Results Reviewed Results Reviewed: Xrays were obtained in the office today and personally reviewed by me of the right wrist show comminuted,intraarticular fracture Assessment & Plan Assessment & Plan (1) Distal radius fracture, right: Code(s): S52.501A - Unspecified fracture of the lower end of right radius, initial encounter for closed fracture Plan I discussed the case with Dr. Machado via tigertext and since the injury is alreadeks old, there is a possibility the fracture has started healing; which would make surgical fixation more difficult which I explained to the patient and her son, Bartolo. I discussed the extent of the injury to the patient and her son, and options available. Given the extent of the fracture pattern and high risk of further displacement, it is recommended that we surgically fix this to help with stability and restoring anatomy. I explained to the patient the procedure in detail along with the risks, benefits and alternatives. Risks including but not limited to infection, wound breakdown, stiffness, ongoing pain, nonunion or malunion, and possible complications with hardware. She does understand all this and would like to proceed with open reduction internal fixation of the right distal radius with Dr. Machado. She was booked for this procedure, but was also booked for an appt next week with me while Dr Machado is in the office for one last set of xrays prior to surgery to determine the extent of potential healing. Bartolo [phone] Fracture care was not billed for at this time until we determine course of treatment at next appt. Orders: Orders XR wrist RT min 3V Today M25.531 - Pain in right wrist Patient Instructions: Scribed for Michael Remy PA-C, by Butch Lorenzana mobile paramedical examiner, on 07/06/2023 at 10:30 AM ADITYA. Michael Navas PA-C, have personally reviewed and agree with the information entered by the scribe. Coding Level of Care Code Est Pt Level 3 (95349) Diagnoses Distal radius fracture, right S52.501A CPT Codes Splint - CPT: 84798-Froqlhf Splint Application ([id number])
[2023-07-06 11:14] VITALS: BMI 34.7
== END 2023-07-06 11:51 | disposition home or self-care (01) ==
PROVIDERS: PCP Family Medicine; Visit Provider Physician Assistant
DX: S52.501A Unspecified fracture of the lower end of right radius, initial encounter for closed fracture (principal); W19.XXXA Unspecified fall, initial encounter; G40.909 Epilepsy, unspecified, not intractable, without status epilepticus; R29.6 Repeated falls
CPT/HCPCS: 25600; 99213

== ENCOUNTER 2023-07-12 08:15 | Outpatient (REF) | payer MEDICARE, MEDICAID, SELFPAY ==
--- NOTE | ~2023-07-12 | XR_ITS ---
EXAMINATION: XR WRIST, RIGHT CLINICAL INFORMATION: Pain. COMPARISON: Prior radiographs, most recently 07/06/2023. TECHNIQUE: PA, lateral, and oblique views of the right wrist. FINDINGS: There is bony demineralization. An impacted, oblique fracture is seen of the distal right radial shaft and metaphysis. Again, there is faint intra-articular extension of this fracture line. There is stable alignment of a fracture of the ulnar styloid. No significant new callus formation is seen. The proximal and distal carpal rows are intact. There is generalized soft tissue swelling. XR/XR wrist RT min 3V IMPRESSION: There is continued stable alignment of distal right radial and ulnar fracture fragments. No significant new callus formation is noted.
== END 2023-07-12 08:16 | disposition home or self-care (01) ==
LOC: HO.HOSX 08:15
PROVIDERS: Visit Provider Physician Assistant
DX: S52.501G Unspecified fracture of the lower end of right radius, subsequent encounter for closed fracture with delayed healing (principal)
CPT/HCPCS: 29075; 73110; 99212

== ENCOUNTER 2023-07-12 14:18 | Outpatient (AMB) | payer MEDICARE, MEDICAID, SELFPAY ==
--- NOTE | 2023-07-12 14:32 | A.OFFVIS_ITS ---
Intake Intake Visit Reasons: O/V rt dis. Rad fx w/ xrays 06/23/23 Intake Note: Justino a 68 year old right hand dominant female who presents today with her brother Bartolo for an evaluation of right wrist fracture. Allergies No Known Allergies [No Known Allergies*] Allergy (Verified 07/06/23 11:17) HPI O/V rt dis. Rad fx w/ xrays 06/23/23 HPI Details 68-year-old right hand dominant female jovani watts returns to the office today with her brother for a follow-up of right wrist fracture, 06/23/23. She continues to have pain and swelling in her elbow. She denies any elbow pain or limited ROM. [facility] Medical History Seizure disorder Dislocation of left talus Takotsubo cardiomyopathy Hypertension Hyperlipemia Surgical History S/P placement of nerve stimulator History of cholecystectomy Family History Mother No problems noted. Father No problems noted. Social History Household Members: Family Housing: Apartment Do you presently have visiting nurse or other home services: Yes Alcohol intake: never Patient Tobacco Use Status: Former Tobacco user Quit Date: 1 year ago Tobacco use type: Cigarette Advance Directives Date on File: 09/07/21 service: No Current occupational status: disabled Review of Systems Const All systems reviewed & are unremarkable except as noted in HPI and below Physical Exam Const General: cooperative, healthy appearing, comfortable, no acute distress, well developed and alert Orientation/consciousness: patient oriented x3 HEENT Head: Yes normal to inspection, Yes normocephalic and Yes atraumatic Eyes General: appearance normal, both eyes and all related structures Neck Neck: Yes normal visual inspection and Yes no lymphadenopathy Resp Effort & Inspection: normal respiratory effort and able to speak in complete sentences Cardio Rate: regular rate Peripheral pulses: Peripheral pulses 2+ throughout GI Inspection: Yes normal to inspection Palpation (GI): Soft to palpation Skin General skin exam: no rashes or lesions noted Neuro General: patient oriented x3 Extrem Other: Right wrist: Skin intact. There is mild welling and bruising over the distal radius with tenderness over the fracture site. There is no pain over the elbow, negative forearm squeeze test. She has full range of motion of the elbow. She can fully extend all digits and make a closed fist. Pulses are present and she is neurovascularly intact. Psych Appearance: grossly normal Mental Status: mental status grossly normal Office Procedures Casting/Splints [id number] Cast Application Procedure code (CPT) selection complete Results Reviewed Results Reviewed: Xrays were obtained in the office today and personally reviewed by me of the right wrist show comminuted,intraarticular fracture Assessment & Plan Assessment & Plan (1) Distal radius fracture, right: Code(s): S52.501A - Unspecified fracture of the lower end of right radius, initial encounter for closed fracture Qualifiers: Encounter type: subsequent encounter Fracture type: closed Fracture morphology: unspecified fracture morphology Fracture healing: with delayed healing Qualified Code(s): S52.501G - Unspecified fracture of the lower end of right radius, subsequent encounter for closed fracture with delayed healing Plan Dr. Machado was available to see the patient with me today. The plan is to continue with operative fixation on the right distal radius as previously discussed. Her brother Bartolo was present with her today and agreed to proceed. She understands that she should eat or drink nothing post-midnight. We will proceed forward as planned. Orders: Orders XR wrist RT min 3V Today M25.531 - Pain in right wrist Patient Instructions: Scribed for Michael Remy PA-C, by Butch Lorenzana medical service representative, on 07/12/2023 at 2:30 PM EST. I, Michael Remy PA-C, have personally reviewed and agree with the information entered by the scribe. Coding Level of Care Code Global (40645) Diagnoses Closed fracture of distal end of right radius with delayed healing, unspecified fracture morphology, subsequent encounter S52.501G Encounter type: subsequent encounter Fracture type: closed Fracture morphology: unspecified fracture morphology Fracture healing: with delayed healing CPT Codes Casting - CPT: [id number] Cast Application ([id number])
== END 2023-07-12 15:25 | disposition home or self-care (01) ==
PROVIDERS: PCP Family Medicine; Visit Provider Physician Assistant
DX: S52.501G Unspecified fracture of the lower end of right radius, subsequent encounter for closed fracture with delayed healing (principal)
CPT/HCPCS: 29075; 99024

== ENCOUNTER 2023-07-13 06:42 | Day surgery (SDC) | payer MEDICARE, MEDICAID, SELFPAY ==
--- NOTE | ~2023-07-13 | FL_ITS ---
EXAMINATION: XR FLUOROSCOPY WITH IMAGES CLINICAL INFORMATION: Right wrist fracture COMPARISON: Right wrist 07/12/2023 TECHNIQUE: Fluoroscopy Supervised By: Dr. Machado. Fluoroscopy Time: 40.92 seconds. Cumulative Dose: 1.1351 mGy. DAP: 0.0686 Gycm2. Images: 7. FINDINGS: 7 fluoroscopic images demonstrate side plate and multiple screws in the region of the distal right radius. FL/FL guidance in OR IMPRESSION: Fluoroscopic guidance provided for Dr. Machado for internal fixation of distal right radial fracture.
[2023-07-13 07:18] VITALS: BMI 34.7
[2023-07-13 07:30] VITALS: BP 120/63; PULSE 64; RESP 16; TEMP 36.8; O2SAT 97
[2023-07-13 08:00] LABS: Anion Gap 12 (12-20); Blood Urea Nitrogen 5 mg/dL (9-16); Calcium 8.6 mg/dL (8.4-10.2); Carbon Dioxide 28 mmol/L (22-29); Chloride 105 mmol/L (96-108); Creatinine Clr Calc Pharmacy 104.5; Estimated Glomerular Filt Rate > 60; Glucose Fasting 92 mg/dL (60-99); Potassium 3.8 mmol/L (3.3-5.1); Sodium 141 mmol/L (135-145)
--- NOTE | 2023-07-13 08:00 | HO.ANESPROP2 ---
HPI - Anesthesia Eval Consult details Narrative: orif right radius PMFSH Active Problems Active Problems: All Active Problems Distal radius fracture, right (Acute) Trimalleolar fracture (Acute) Past Medical History Medical History Seizure disorder Dislocation of left talus Takotsubo cardiomyopathy Hypertension Hyperlipemia Family History Family History Mother No problems noted. Father No problems noted. Family history of problems with anesthesia: No Surgical History Surgical History S/P placement of nerve stimulator History of cholecystectomy History of Problems with Anesthesia: No Social History Social History Household Members: Family Housing: Apartment Do you presently have visiting nurse or other home services: Yes Alcohol intake: never Patient Tobacco Use Status: Former Tobacco user Quit Date: 2021 Tobacco use type: Cigarette Years Smoked: 2 Smoked in Last 30 Days: No Use of substances other than those prescribed or required for medical reasons: No Are you DNR?: No Advance Directives: No Advance Directives Information Provided: Yes Advance Directives Date on File: 09/07/21 service: No Current occupational status: disabled Meds Allergies Allergy/AdvReac Type Severity Reaction Status Date / Time No Known Allergies Allergy Verified 07/13/23 07:13 [No Known Allergies*] Home Medications ?Medication ?Instructions ?Recorded ?Confirmed ?Last Taken ?Type clonazepam 2 mg tablet 2 mg PO BEDTIME 04/15/20 07/13/23 08/30/21 History folic acid 1 mg tablet 1 mg PO DAILY 04/15/20 07/13/23 07/13/23 History phenobarbital 32.4 mg tablet 32.4 mg PO BID 04/15/20 07/13/23 07/13/23 History phenytoin sodium extended 100 mg 200 mg PO BID 04/15/20 07/13/23 07/13/23 History capsule perampanel 6 mg tablet (Fycompa) 1 tab PO BEDTIME 09/07/21 07/13/23 09/06/21 History lacosamide 150 mg tablet 150 mg PO BID 09/09/21 07/13/23 07/13/23 History Exam Height,Weight and Vital Signs: Height 5 ft 3 in Weight 88.904 kg Last Vital Signs Temp 98.2 F 07/13/23 07:30 Pulse 64 07/13/23 07:30 Resp 16 07/13/23 07:30 BP 120/63 07/13/23 07:30 Pulse Ox 97 07/13/23 07:30 O2 Del Method Room Air 07/13/23 07:30 Airway Mallampati Class: II Neck ROM: Full Heart: rrr Lungs: cta Assessment and Plan Assessment Anesthesia Assessment: Anesthesia Plan Discussed Final Anesthetic Review Family History of Problems with Anesthesia: No History of Problems with Anesthesia: No NPO: Yes ASA Class: III Final Preanesthetic Review: No Changes in Pt Med Stat, Meds/Allgs Chart Reviewed, Consent Obtained/Reviewed and Anes Risks/Benef Reviewed Patient Risk: Intermediate Procedure Risk: Intermediate Anesthetic Plan Anesthetic Plan: GA, Regional Block and Agree w/ Assess. and Plan (low K noted, stat lytes ordered) Disposition: Standard PACU
--- NOTE | 2023-07-13 08:12 | MHC.SHP ---
Pre-Procedural Eval Section A - 24 Hr Update-Section A only Date of Service: 07/13/23 The patient is an INPATIENT: No Changes since office visit: No Cold of Flu in the past 2 weeks, No New Medical Problems, No Changes in Medication and No Patient answered all questions The patient has been examined within 24 hours of the surgical procedure. The History & Physical has been completed within 30 days and I have reviewed it.: Yes Section B - Complete if H&P > 30 days Chief Complaint: Unspecified fracture of the lower end of right rad Allergies: Allergies Allergy/AdvReac Type Severity Reaction Status Date / Time No Known Allergies Allergy Verified 07/13/23 07:13 [No Known Allergies*] Plan I have reviewed the history and physical and performed a pertinent physical examination on my patient. No changes have occurred unless specified. Time Spent With Patient Time: Total time managing care of this patient today ____ minutes.
--- NOTE | 2023-07-13 08:13 | P.OP_ITS ---
Operative Note Operative Note Date of Service: 07/13/23 Narrative: Operative Note Narrative: Preop diagnosis: 1. Right Distal radius fracture, comminuted and intra- articular Postop diagnosis: Same Procedure: 1. Right Distal radius fracture open reduction internal fixation, 2 part intra-articular Surgeon: Therese Machado MD Anesthesia: General anesthesia plus regional block Findings: Distal radius fracture, 2 part intra-articular with some early evidence of bony healing Implants: A 5 hole narrow Accu Med volar locking plate, with 5 X 2.3 mm locking pegs/screws, 1 X 3.5 mm locking screw, and 2 X 3.5 mm cortical screws Tourniquet time: 60 minutes EBL: 5.0 ml Specimen: None Drains: None Complications: None Disposition: Brought to the recovery room in stable condition Plan: Follow-up in 10-14 days for wound check, suture removal and postop radiographs The patient will be placed in either a short-arm cast or a volar wrist splint. Encouraged no lifting of anything heavier than a cell phone. Please encourage active and passive range of motion of the digits. Follow-up at 4-5 weeks postop for repeat radiographs. Indications: The patient is a 68 year old woman with right comminuted intra- articular distal radius fracture with extension to the shaft. . The risks and benefits of operative treatment, including but not limited to risk of damage to blood vessels, nerves, tendons, infection, recurrence, persistent pain or numbness, incomplete resolution of preoperative symptoms, or need for further surgery were discussed with the patient and they wished to proceed with surgery. Procedure: Once consent was obtained patient was brought back to the operating suite and placed in the operating table in a supine position. A regional block was performed by the anesthesia team. Perioperative antibiotics and anesthesia was administered by the anesthesia team. A tourniquet was applied to the proximal aspect of the right upper extremity and the limb was prepped and draped in a standard surgical fashion. The limb was elevated exsanguinated with Esmarch bandage and the tourniquet inflated to 250 mm of mercury for a total tourniquet time of 60 minutes. The FluoroScan was used throughout the case to assess our reduction, and facil itate implant placement. A gentle closed reduction was 1st performed on the patient's right distal radius fracture. Was assessed radiographically before proceeding with the reduction internal fixation. I then made an 8 cm longitudinal incision over the distal aspect of the flexor carpi radialis tendon. The incision was made through the skin to the subcutaneous tissue using a 15. Blade. Then carefully dissected down to flexor carpi radialis tendon she tenotomy scissors. The FCR tendon sheath was then incised longitudinally using tenotomy scissors under direct visualization. The FCR tendon was then retracted ulnarly. I then made a longitudinal incision in the volar forearm fascia through the floor of FCR tendon sheath using tenotomy scissors under direct visualization. I identified the interval between the radial artery and the flexor tendons. This interval was developed further with my index finger, releasing some of the muscular fibers of the flexor pollicis longus. A dull w eatlander retractor was then placed. I then created an ulnarly based flap of the pronator quadratus by releasing the radial and distal edges using a 15. Blade. A Staton elevator was used to elevate the pronator quadratus from the volar surface of the distal radius. This then revealed to us our distal radius fracture. The fracture was a 2 part intra-articular with extension across the metaphysis to the radial shaft. There was evidence of early bony healing. An open reduction was then performed on our distal radius fracture. I then placed a 5 hole narrow Accu Med volar locking plate on the volar surface of the distal radius. I placed a single K-wire through the distal aspect of the plate and into the distal radius. This was assessed using fluoroscopic images. I was satisfied with the placement of our plate. I then placed 5 X 2.3 mm locking screws/pegs in the distal aspect of the plate and distal radius by 1st drilling bicortically with a 1.8 mm drill bit, measuring with a depth gauge, and placing the appropriate length locking screws/pegs. The placement of our plate and screws was then assessed again using fluoroscopic images. The once satisfied with the placement of the volar locking plate and screws on the distal aspect of the distal radius, the plate was then reduced to the shaft of the radius. I then placed 2 X 3.5 mm cortical screws and 1 X 3.5 mm locking screw to the proximal aspect of the plate and into the shaft of the radius. This was done by 1st drilling bicortically with a 2.8 mm drill bit, measuring with a depth gauge, and placing the appropriate length screw. Final radiographs were then obtained. The DRUJ was assessed and found to be stable on exam. She was also noted to have an oblique fracture of the distal ulna. This was found to be stable on exam, likely with early bony healing already. I was satisfied with our reduction and placement of all implants. At this point the wound was irrigated with normal saline. The pronator quadra tus was reduced back over the volar locking plate using some 3-0 Vicryl suture material. The tourniquet was then deflated and hemostasis was obtained with a brief period of local pressure and bipolar monopolar electrocautery. The subcutaneous layer was then reapproximated using some 4-0 Vicryl suture, and the skin edges were reapproximated using some 5 0 Prolene suture. The wound was then infiltrated with some 1% lidocaine with epinephrine postop pain control. A sterile dressing and a short dorsal splint allowing for active flexion and extension of the digits was applied. The patient appears to have tolerated the procedure well and with no complications. All digits were well vascularized conclusion of the case.
[2023-07-13] MEDS: Lactated Ringers 1,000 ML 80 ML IVCONT (08:32)
[2023-07-13 14:19] VITALS: BP 143/67; PULSE 65; RESP 18; TEMP 36.4; O2SAT 100
[2023-07-13 14:20] VITALS: BP 143/67; PULSE 63; RESP 18; O2SAT 95
[2023-07-13 14:25] VITALS: BP 134/74; PULSE 63; RESP 18; O2SAT 96
[2023-07-13 14:30] VITALS: BP 134/69; PULSE 62; RESP 16; O2SAT 96
[2023-07-13 14:45] VITALS: BP 129/61; PULSE 57; RESP 16; O2SAT 96
== END 2023-07-13 16:03 | disposition home or self-care (01) ==
PROVIDERS: Anesthesiology; PCP Internal Medicine; Visit Provider Orthopaedic Surgery
PROC: (CPT 25608; principal; 2023-07-13 09:10)
DX: S52.501A Unspecified fracture of the lower end of right radius, initial encounter for closed fracture (principal); M25.531 Pain in right wrist; G40.909 Epilepsy, unspecified, not intractable, without status epilepticus; I51.81 Takotsubo syndrome; I10 Essential (primary) hypertension; E78.5 Hyperlipidemia, unspecified; Z96.82 Presence of neurostimulator; Z79.82 Long term (current) use of aspirin; Z79.899 Other long term (current) drug therapy; Z87.891 Personal history of nicotine dependence
CPT/HCPCS: 25608; 36415; 80048; C1713; J0131; J0665; J0690; J1100; J1170; J2250; J2405; J2704; J2795; J3010

== ENCOUNTER → 2023-07-13 06:42 | Outpatient (BNV) | payer MEDICARE, MEDICAID, SELFPAY | PROVIDERS: PCP Internal Medicine; Visit Provider Orthopaedic Surgery | DX: S52.571A Other intraarticular fracture of lower end of right radius, initial encounter for closed fracture (principal) | CPT/HCPCS: 25608 ==

== ENCOUNTER 2023-07-26 09:38 | Outpatient (REF) | payer MEDICARE, SELFPAY ==
--- NOTE | ~2023-07-26 | XR_ITS ---
EXAMINATION: XR WRIST, RIGHT CLINICAL INFORMATION: Pain in right wrist. COMPARISON: July 12, 2023, July 13, 2023. TECHNIQUE: PA, lateral, and oblique views of the right wrist. FINDINGS: Status post ORIF of the previously identified impacted, oblique fracture of the distal radial shaft with intra-articular extension. Hardware appears intact. Redemonstration of fracture of the ulnar styloid that is similar alignment. Mild sclerosis along the fracture line suggests mild interval bridging callus formation. XR/XR wrist RT min 3V IMPRESSION: 1. Status post ORIF of the previously identified impacted, oblique fracture of the distal radial shaft with intra-articular extension. Hardware appears intact. 2. Redemonstration of fracture of the ulnar styloid that is similar alignment. Mild sclerosis along the fracture line suggests mild interval bridging callus formation.
== END 2023-07-26 09:39 | disposition home or self-care (01) ==
LOC: HO.HOSX 09:38
PROVIDERS: Visit Provider Orthopaedic Surgery
DX: S52.501G Unspecified fracture of the lower end of right radius, subsequent encounter for closed fracture with delayed healing (principal); G40.909 Epilepsy, unspecified, not intractable, without status epilepticus; R29.6 Repeated falls
CPT/HCPCS: 73110; 99212

== ENCOUNTER 2023-07-26 12:07 | Outpatient (AMB) | payer MEDICARE, MEDICAID, SELFPAY ==
--- NOTE | 2023-07-26 12:24 | A.OFFVIS_ITS ---
Intake Visit Reasons: PO RT distal radius ORIF 07/13/23 AR Intake Note: Justino 68 yr old female presents today for her PO visit for her RT distal radius ORIF 07/13/23 AR. States her pain is very mild and is doing well over. Sutures removed and steri strips applied. Allergies No Known Allergies [No Known Allergies*] Allergy (Verified 07/26/23 12:38) HPI HPI PO RT distal radius ORIF 07/13/23 AR: Details: Justino is a 68 year old right hand dominant Sinhala speaking woman who presents S/P right distal radius ORIF, DOS: 07/13/23. She has Epilepsy an a hx of frequent falls. She fell and fractured her wrist on 06/23/23. She is seen today with her brother. She says she is doing well overall. Her pain is mild and tolerable. She is able to make a fist and move her fingers without complaints. [facility] Medical History (Updated 07/26/23 @ 12:34 by Dong Barnett) Seizure disorder Dislocation of left talus Takotsubo cardiomyopathy Hypertension Hyperlipemia Surgical History S/P placement of nerve stimulator History of cholecystectomy Family History Mother No problems noted. Father No problems noted. Social History Household Members: Family Housing: Apartment Do you presently have visiting nurse or other home services: Yes Alcohol intake: never Patient Tobacco Use Status: Former Tobacco user Quit Date: 2021 Tobacco use type: Cigarette Years Smoked: 2 Advance Directives Date on File: 09/07/21 service: No Current occupational status: disabled Review of Systems Const All systems reviewed & are unremarkable except as noted in HPI and below Physical Exam Const General: no acute distress and alert Orientation/consciousness: patient oriented x3 Neuro General: patient oriented x3 Extrem Other: The patient was alert oriented and in no acute distress The incision is healing well with no erythema drainage or evidence of infection. Sutures removed and Steri-Strips applied She can make a fist and extend all her digits She has about 40 degrees of supination and about 45 degrees of pronation Good elbow flexion extension Sensation is intact Cap refill is brisk Radiographs: 3 views of the right wrist were taken and viewed by me today in clinic. they show a comminuted distal radius fracture with satisfactory fracture alignment and position of all implants. Psych Appearance: grossly normal Affect: normal affect Attitude: cooperative Assessment & Plan Assessment & Plan (1) Distal radius fracture, right: Code(s): S52.501A - Unspecified fracture of the lower end of right radius, initial encounter for closed fracture Category: Medical Qualifiers: Encounter type: subsequent encounter Fracture healing: with delayed healing Fracture morphology: unspecified fracture morphology Fracture type: closed Qualified Code(s): S52.501G - Unspecified fracture of the lower end of right radius, subsequent encounter for closed fracture with delayed healing (2) Seizure disorder: Code(s): G40.909 - Epilepsy, unspecified, not intractable, without status epilepticus Category: Medical Plan Assessment & Plan: 1. Right distal radius fracture, comminuted S/P ORIF, DOS: 07/13/23 From a fall, DOI: 06/23/23 Of note, the patient has a hx of frequent falls due to Epilepsy. The patient appears to be doing well post-operatively I educated the patient and her brother about the post-operative course She was placed in a short arm cast to be worn for the next 3 weeks I discussed activity modifications, she is to lift nothing heavier than a cellphone for the next 3 weeks She will perform gentle finger ROM, and pronation/supination exercises at home Consider early referral to OT hand therapy after cast removal She will follow up in 3 weeks, with X-rays, 3V R wrist Scribed for Therese Machado MD by Dong Barnett, manager medical, on 07/26/23 at 12:50 PM, EST. Orders: Orders XR wrist RT min 3V Today M25.531 - Pain in right wrist Coding Level of Care Code Global (87000) Diagnoses Closed fracture of distal end of right radius with delayed healing, unspecified fracture morphology, subsequent encounter S52.501G Encounter type: subsequent encounter Fracture healing: with delayed healing Fracture morphology: unspecified fracture morphology Fracture type: closed Seizure disorder G40.909
== END 2023-07-26 13:35 | disposition home or self-care (01) ==
PROVIDERS: PCP Family Medicine; Visit Provider Orthopaedic Surgery
DX: S52.501G Unspecified fracture of the lower end of right radius, subsequent encounter for closed fracture with delayed healing (principal); G40.909 Epilepsy, unspecified, not intractable, without status epilepticus
CPT/HCPCS: 99024

== ENCOUNTER 2023-08-16 14:33 | Outpatient (AMB) | payer MEDICARE, SELFPAY ==
--- NOTE | 2023-08-16 15:29 | MHC.OFFVIS ---
Intake Visit Reasons: PO RT distal radius ORIF 07/13/23 AR Intake Note: Justino 68 yr old female presents today for her PO visit for her RT distal radius ORIF on 07/13/23 AR. Cast removed and xrays updated in office. Patient reports she is doing well, states she has some soreness now that cast has been removed. Allergies No Known Allergies [No Known Allergies*] Allergy (Verified 08/16/23 15:30) HPI HPI PO RT distal radius ORIF 07/13/23 AR: Details: Justino is a 68 year old right hand dominant Malay speaking woman who presents S/P right distal radius ORIF, DOS: 07/13/23. She has Epilepsy an a hx of frequent falls. She fell and fractured her wrist on 06/23/23. She is seen today with her brother who acts as a documentation nurse. She says she is doing well overall. Her pain is mild and tolerable. She is able to make a fist and move her fingers without complaints. [facility] Medical History (Updated 07/26/23 @ 12:34 by Dong Barnett) Seizure disorder Dislocation of left talus Takotsubo cardiomyopathy Hypertension Hyperlipemia Surgical History S/P placement of nerve stimulator History of cholecystectomy Family History Mother No problems noted. Father No problems noted. Social History Household Members: Family Housing: Apartment Do you presently have visiting nurse or other home services: Yes Alcohol intake: never Patient Tobacco Use Status: Former Tobacco user Quit Date: 2021 Tobacco use type: Cigarette Years Smoked: 2 Advance Directives Date on File: 09/07/21 service: No Current occupational status: disabled Physical Exam Const General: no acute distress and alert Orientation/consciousness: patient oriented x3 Neuro General: patient oriented x3 Extrem Other: The patient was alert oriented and in no acute distress The incision is healing well with no erythema drainage or evidence of infection. She can bring her fingers close towards a fist getting the fingers within about a cm of her palm. She can then bring them back into full extension. She has about 50 degrees of supination and about 50 degrees of pronation Good elbow flexion extension She has some mild tenderness at the distal radius fracture site Good improvement in swelling. Sensation is intact Cap refill is brisk Radiographs: 3 views of the right wrist were taken and viewed by me today in clinic. they show a comminuted distal radius fracture with satisfactory fracture alignment and position of all implants and early evidence of interval bony healing. She also has a distal ulna fracture with satisfactory fracture alignment and then some early evidence of interval bony healing. Psych Appearance: grossly normal Affect: normal affect Attitude: cooperative Assessment & Plan Assessment & Plan (1) Distal radius fracture, right: Code(s): S52.501A - Unspecified fracture of the lower end of right radius, initial encounter for closed fracture Category: Medical Qualifiers: Encounter type: subsequent encounter Fracture healing: with delayed healing Fracture morphology: unspecified fracture morphology Fracture type: closed Qualified Code(s): S52.501G - Unspecified fracture of the lower end of right radius, subsequent encounter for closed fracture with delayed healing (2) Seizure disorder: Code(s): G40.909 - Epilepsy, unspecified, not intractable, without status epilepticus Category: Medical Plan Assessment & Plan: 1. Right distal radius fracture, comminuted S/P ORIF, DOS: 07/13/23 From a fall, DOI: 06/23/23 2. Right distal ulna fracture Treated with casting Of note, the patient has a hx of frequent falls due to Epilepsy. The patient appears to be doing well post-operatively I educated the patient and her brother about the post-operative course She was fitted for a velcro wrist splint, to be worn like a cast except for showering or when at rest to work on ROM, for the next 4 weeks I discussed activity modifications, she is to lift nothing heavier than a cellphone for the next 4 weeks She will perform gentle finger & wrist ROM and prono-supination exercises at home She will follow up in 4 weeks, with X-rays, 3V R wrist. Consider early referral to OT hand therapy at next appointment Scribed for Therese Machado MD by Dong Barnett, medical billing assistant, on 08/16/23 at 3:45 PM, EST. Orders: Orders XR wrist RT min 3V Today M25.531 - Pain in right wrist Coding Level of Care Code Global (53087) Diagnoses Closed fracture of distal end of right radius with delayed healing, unspecified fracture morphology, subsequent encounter S52.501G Encounter type: subsequent encounter Fracture healing: with delayed healing Fracture morphology: unspecified fracture morphology Fracture type: closed Seizure disorder G40.90
== END 2023-08-16 15:58 | disposition home or self-care (01) ==
LOC: HO.HOS 14:34
PROVIDERS: PCP Internal Medicine; Visit Provider Orthopaedic Surgery
DX: S52.501G Unspecified fracture of the lower end of right radius, subsequent encounter for closed fracture with delayed healing (principal); G40.909 Epilepsy, unspecified, not intractable, without status epilepticus
CPT/HCPCS: 99024

== ENCOUNTER 2023-08-16 14:33 | Outpatient (REF) | payer MEDICARE, SELFPAY ==
--- NOTE | ~2023-08-16 | XR_ITS ---
EXAMINATION: XR WRIST, RIGHT CLINICAL INFORMATION: Right wrist pain. COMPARISON: 07/26/2023 TECHNIQUE: PA, lateral, and oblique views of the right wrist. FINDINGS: Bones are osteoporotic. Anterior plate and screw fixation construct is unchanged in alignment and positioning. As seen on prior studies, there is slight ulnar displacement of the distal radial fracture fragment with slight vertex medial angulation, unchanged. Transverse distal ulnar metaphyseal fracture and avulsion fracture at the tip of the ulnar styloid process are unchanged. Intercarpal joints are unremarkable. Carpal bones appear intact. Soft tissue swelling is noted at the wrist. XR/XR wrist RT min 3V IMPRESSION: Unchanged alignment and positioning of the distal radial and ulnar fractures status post ORIF. No evidence of hardware failure.
== END 2023-08-16 14:34 | disposition home or self-care (01) ==
LOC: HO.HOSX 14:33
PROVIDERS: PCP Internal Medicine; Visit Provider Orthopaedic Surgery
DX: S52.501G Unspecified fracture of the lower end of right radius, subsequent encounter for closed fracture with delayed healing (principal); G40.909 Epilepsy, unspecified, not intractable, without status epilepticus
CPT/HCPCS: 73110; 99212

== ENCOUNTER 2023-09-06 13:25 | Outpatient (AMB) | payer MEDICARE, SELFPAY ==
--- NOTE | 2023-09-06 13:36 | MHC.OFFVIS ---
Vital Signs 09/06/23 13:37 Height 5 ft 3 in Weight 183 lb 6.793 oz BMI 32.5 BP 120/80 Blood Pressure Location Lt brachial Position Sitting Pulse 76 Pulse Source Pulse Oximeter Intake Visit Reasons: overdue f/up Email Marketing Coordinator Required: Yes Email Marketing Coordinator Name: Bartolo/ Brother Accompanied by: Brother Allergies No Known Allergies [No Known Allergies*] Allergy (Verified 08/16/23 15:30) Medication List - Last Reconciled 09/06/23 by Evens Kelley MD clonazepam 2 mg PO BEDTIME folic acid 1 mg PO DAILY lacosamide 150 mg PO BID perampanel (Fycompa) 1 tab PO BEDTIME phenobarbital 32.4 mg PO BID phenytoin sodium extended 200 mg PO BID phenytoin sodium extended (Dilantin Extended) 100 mg PO BID walker Folding Front wheeled walker [Wheelchair with foot rest As directed] HPI Comments Details: 68-year-old female with background history of Takotsubo Cardiomyopathy in the setting of seizure. She presented to [facility] with seizure and inferolateral ST elevations. She underwent emergent cardiac catheterization which showed no coronary disease in her ejection fraction was 20% with changes consistent with takotsubo cardiomyopathy. Subsequent to that repeat echocardiography has shown improvement in her left ventricular ejection fraction. She has history of TIA. She is on antiseizure medications. 09/06/23: She returns for f/u after long time. Unfortunately she had seizure again and fell breaking left foot and as well right wrist fracture. She had surgery done on the wrist. No CP or SOB. [facility] Medical History (Updated 07/26/23 @ 12:34 by Dong Barnett) Seizure disorder Dislocation of left talus Takotsubo cardiomyopathy Hypertension Hyperlipemia Surgical History S/P placement of nerve stimulator History of cholecystectomy Family History Mother No problems noted. Father No problems noted. Social History Household Members: Family Housing: Apartment Do you presently have visiting nurse or other home services: Yes Alcohol intake: never Patient Tobacco Use Status: Former Tobacco user Tobacco use type: Cigarette Years Smoked: 2 Advance Directives Date on File: 09/07/21 service: No Current occupational status: disabled Review of Systems Const Denies chills, Denies fatigue, Denies fever(s), Denies frequent falls, Denies weakness, Denies weight gain and Denies weight loss ENT Denies dizziness Card Denies chest pain, Denies leg edema, Denies lightheadedness, Denies palpitations, Denies dyspnea and Denies dyspnea on exertion Resp Denies cough, Denies dyspnea and Denies dyspnea on exertion GI Denies hematochezia Musc Denies abnormal gait, Denies muscle weakness, Denies numbness, Denies radiating pain into limb and Denies tingling Neuro Denies abnormal gait, Denies dizziness, Denies frequent falls, Denies numbness, Denies tingling and Denies weakness Endo Denies fatigue and Denies palpitations Physical Exam Vital Signs: Last Vital Signs Pulse 76 09/06/23 13:37 BP 120/80 09/06/23 13:37 BMI result Body Mass Index 32.5 GENERAL APPEARANCE: in no acute distress, well developed, well nourished. NECK/THYROID: no carotid bruit, no jugular venous distention. SKIN: no suspicious lesions, warm and dry. HEART: no murmurs, regular rate and rhythm, S1, S2 normal. LUNGS: clear to auscultation bilaterally. ABDOMEN: normal, bowel sounds present, soft, nontender, nondistended. EXTREMITIES: Right wrist in brace, left foot in brace. NEUROLOGIC: nonfocal, alert and oriented. Assessment & Plan Assessment & Plan (1) Seizure disorder: Code(s): G40.909 - Epilepsy, unspecified, not intractable, without status epilepticus Category: Medical Plan Pleasant 68 year old here for f/u She had Takotsubo in setting of seizure in 2020. LV function recovered. She had seizure again and she fell breaking wrist and ankle. f/u with neurology- Dr velasquez. PRN f/u with us. Stable from CV viewpoint. Coding Level of Care Code Est Pt Level 3 (35637) Diagnoses Seizure disorder G40.909
[2023-09-06 13:37] VITALS: BP 120/80; PULSE 76; BMI 32.5
== END 2023-09-06 14:06 | disposition home or self-care (01) ==
LOC: HO.HCS 13:26
PROVIDERS: PCP Internal Medicine; Visit Provider Internal Medicine Cardiovascular Disease
DX: G40.909 Epilepsy, unspecified, not intractable, without status epilepticus (principal)
CPT/HCPCS: 99213

== ENCOUNTER → 2023-09-06 13:25 | Outpatient (BNVA) | payer MEDICARE, SELFPAY | PROVIDERS: PCP Internal Medicine; Visit Provider Internal Medicine Cardiovascular Disease | DX: G40.909 Epilepsy, unspecified, not intractable, without status epilepticus (principal) | CPT/HCPCS: 99212 ==

== ENCOUNTER 2023-09-13 09:44 | Outpatient (REF) | payer MEDICARE, MEDICAID, SELFPAY ==
--- NOTE | ~2023-09-13 | XR_ITS ---
EXAMINATION: XR WRIST, RIGHT CLINICAL INFORMATION: Pain in right wrist. COMPARISON: 08/16/2023 TECHNIQUE: PA, lateral, and oblique views of the right wrist. FINDINGS: The bones are diffusely demineralized. Redemonstration of anterior plate and screw fixation construct in the distal radius. Stable alignment. Hardware appears intact. Redemonstration of slight ulnar displacement of the distal radial fracture fragment with slight vertex medial angulation. Redemonstration of transverse distal ulnar metaphyseal fracture and avulsion fracture of the tip of the ulnar styloid process, stable. XR/XR wrist RT min 3V IMPRESSION: Similar unchanged alignment and positioning of the distal radial and ulnar fractures status post ORIF. Hardware appears intact.
== END 2023-09-13 09:45 | disposition home or self-care (01) ==
LOC: HO.HOSX 09:44
PROVIDERS: Visit Provider Orthopaedic Surgery
DX: S52.501G Unspecified fracture of the lower end of right radius, subsequent encounter for closed fracture with delayed healing (principal); G40.909 Epilepsy, unspecified, not intractable, without status epilepticus
CPT/HCPCS: 73110; 99212

== ENCOUNTER 2023-09-13 14:30 | Outpatient (AMB) | payer MEDICARE, SELFPAY ==
--- NOTE | 2023-09-13 14:41 | MHC.OFFVIS ---
Vital Signs 09/13/23 14:47 Height 5 ft 3 in Weight 183 lb BMI 32.4 Handedness Right Intake Visit Reasons: PO RT distal radius ORIF 07/13/23 AR Intake Note: Justino 68 year old right hand dominant female presents today for her post operative visit for her right distal radius ORIF 07/13/23 AR. Patient reports she is still having mild discomfort but takes Tylenol to alleviate it. Allergies No Known Allergies [No Known Allergies*] Allergy (Verified 09/13/23 14:47) HPI HPI PO RT distal radius ORIF 07/13/23 AR: Details: Justino is a 68 year old right hand dominant St Helenian speaking woman who presents S/P right distal radius ORIF, DOS: 07/13/23. She has Epilepsy an a hx of frequent falls. She fell and fractured her wrist on 06/23/23. She is seen today with her son who acted as a substitute school nurse, & wearing a sling & her velcro wrist splint. She says she is doing well overall. She is able to make a fist and move her fingers without complaints. [facility] Medical History Seizure disorder Dislocation of left talus Takotsubo cardiomyopathy Hypertension Hyperlipemia Surgical History S/P placement of nerve stimulator History of cholecystectomy Family History Mother No problems noted. Father No problems noted. Social History Household Members: Family Housing: Apartment Do you presently have visiting nurse or other home services: Yes Alcohol intake: never Patient Tobacco Use Status: Former Tobacco user Tobacco use type: Cigarette Years Smoked: 2 Advance Directives Date on File: 09/07/21 service: No Current occupational status: disabled Physical Exam Vital Signs: BMI result Body Mass Index 32.4 Const General: no acute distress and alert Orientation/consciousness: patient oriented x3 Neuro General: patient oriented x3 Extrem Other: The patient was alert oriented and in no acute distress She ambulates with a walker. She was seen today wearing a sling for her right upper extremity and her right wrist was in a Velcro splint. The sling and splint were removed today. The incision is well-healed She can bring her fingers closed to a fist and back into full extension Her fracture was completely nontender to palpation. Wrist ROM: ~60 degrees of supination ~80 degrees of pronation ~30 degrees flexion ~20 degrees extension Good elbow flexion & extension Fracture site is non-tender Swelling has resolved Sensation is intact Cap refill is brisk Radiographs: 3 views of the right wrist were taken and viewed by me today in clinic. they show a comminuted distal radius fracture with satisfactory fracture alignment and position of all implants and early evidence of interval bony healing. She also has a distal ulna fracture with satisfactory fracture alignment and then some early evidence of interval bony healing. Psych Appearance: grossly normal Affect: normal affect Attitude: cooperative Assessment & Plan Assessment & Plan (1) Distal radius fracture, right: Code(s): S52.501A - Unspecified fracture of the lower end of right radius, initial encounter for closed fracture Category: Medical Qualifiers: Encounter type: subsequent encounter Fracture healing: with delayed healing Fracture morphology: unspecified fracture morphology Fracture type: closed Qualified Code(s): S52.501G - Unspecified fracture of the lower end of right radius, subsequent encounter for closed fracture with delayed healing (2) Seizure disorder: Code(s): G40.909 - Epilepsy, unspecified, not intractable, without status epilepticus Category: Medical Plan Assessment & Plan: 1. Right distal radius fracture, comminuted S/P ORIF, DOS: 07/13/23 From a fall, DOI: 06/23/23 2. Right distal ulna fracture Treated with casting Of note, the patient has a hx of frequent falls due to Epilepsy. The patient appears to be doing well I educated the patient and her family about the post-operative course She will discontinue her sling and splint at this time. She can continue to wear her wrist splint when out of the house with daily activities for the next 2 weeks. I discussed activity modifications, she is to begin using her hand or more light & medium weight activities She will continue to work on ROM exercises at home I ordered OT hand therapy to work on ROM exercises, with a focus on wrist ROM She will follow up prn Scribed for Therese Machado MD by Dong Barnett, medical record librarians teacher, on 09/13/23 at 3:15 PM, EST. Orders: Orders XR wrist RT min 3V Today Therese Machado MD M25.531 - Pain in right wrist OT Evaluation and Treatment Today CHUCK Valentin S52.501G - Unspecified fracture of the lower end of right radius, subsequent encounter for closed fracture with delayed healing Coding Level of Care Code Global (23149) Diagnoses Closed fracture of distal end of right radius with delayed healing, unspecified fracture morphology, subsequent encounter S52.501G Encounter type: subsequent encounter Fracture healing: with delayed healing Fracture morphology: unspecified fracture morphology Fracture type: closed Seizure disorder G40.909
[2023-09-13 14:47] VITALS: BMI 32.4
== END 2023-09-13 15:34 | disposition home or self-care (01) ==
PROVIDERS: PCP Internal Medicine; Visit Provider Orthopaedic Surgery
DX: S52.501G Unspecified fracture of the lower end of right radius, subsequent encounter for closed fracture with delayed healing (principal); G40.909 Epilepsy, unspecified, not intractable, without status epilepticus
CPT/HCPCS: 99024

== ENCOUNTER 2025-01-16 11:38 | Outpatient (AMB) | payer MEDICARE, MEDICAID, SELFPAY ==
--- NOTE | 2025-01-16 10:00 | MHC.PC.OV ---
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(see comments) Sales Systems Engineer Required: Yes Accompanied by: Friend Allergies No Known Allergies (No Known Allergies*) Allergy (Verified 01/30/25 12:16) Medication List - Last Reconciled 02/02/25 by CHUCK Hardy aspirin 81 mg PO DAILY atorvastatin (Lipitor) 40 mg PO DAILY carvedilol 3.125 mg PO BID clonazepam 2 mg PO BEDTIME folic acid 1 mg PO DAILY lacosamide 150 mg PO BID 90 days lisinopril 10 mg PO DAILY melatonin 5 mg PO BEDTIME oxycodone 5 mg PO Q8H PRN phenobarbital 32.4 mg PO BID 90 days phenytoin sodium extended 200 mg (2 x 100 mg) PO BID 90 days walker Folding Front wheeled walker [Wheelchair with foot rest As directed] Tobacco use date assessed: 01/16/25 Fall risk assessment: No Falls in past year (pt felt two times last week,and also on last monday) Last assessed Fall Risk: 01/16/25 Dental Screening Dental Screen Date: 01/16/25 Did you have a dental visit in the last 12 months?: No Did you have a dental problem in the last 6 months where you did not have access to dental care?: No HPI HPI Comments History of Present Illness Details The patient is a 70-year-old female with seizure disorder, HTN, HLD and anxiety [facility] and for follow up of a seizure disorder. She was hospitalized in August due to a seizure episode and has been experiencing frequent epileptic attacks, including three episodes on a recent Monday. These episodes have resulted in falls, causing a bruise on her back and previous injuries such as a broken leg and wrist. She is on Phenobarbitol, Phenytoin and Lacosamide. The patient lives alone, which has increased her anxiety and possibly contributed to the frequency of her seizures. She has a aboriginal home school liaison officer and a nurse from an agency, but the frequency of visits is uncertain. Her son, who previously lived with her, has recently moved out, exacerbating her anxiety. The patient reports insomnia, waking up frequently at night, and has been prescribed clonazepam, with a suggestion to add melatonin to her regimen. She has a follow-up appointment with a neurologist on March 05 and a metal leaf layer on the . Patient is on Lisinopril 10mg and Carvedilolol 3.125mg BID. Her BP today was 120/70. She is also on Atorvastatin and Aspirin. She is due for mammogram. She will be due for Colonoscopy in 05/23. Medical History: - Seizure disorder - Anxiety - Insomnia Patient was informed and verbally consented to the use of an ambient scribe for clinic note documentation during this visit. [facility] Medical History (Updated 02/02/25 @ 22:19 by CHUCK Hardy) Anxiety Dislocation of left talus Hyperlipemia Hypertension Insomnia Seizure disorder Takotsubo cardiomyopathy Surgical History History of cholecystectomy S/P placement of nerve stimulator Family History Mother No problems noted. Father No problems noted. Social History Household Members: None Housing: Apartment Do you presently have visiting nurse or other home services: Yes Alcohol intake: current Alcohol intake frequency: holidays/special occasions only Patient Tobacco Use Status: Former Tobacco user Tobacco use type: Cigarette Years Smoked: 2 e-Cigarette/Vaping Use: Never Used Second Hand Smoke Exposure: No Advance Directives Date on File: 09/07/21 service: No Current occupational status: disabled Cognitive needs: Yes (walker) Hearing needs: No Vision needs: No Questionnaire PHQ-9 Over the last 2 weeks, how often have you been bothered by any of the following problems? 1. Little interest or pleasure in doing things: not at all 2. Feeling down, depressed, or hopeless: nearly every day 3. Trouble falling or staying asleep, or sleeping too much: not at all 4. Feeling tired or having little energy: not at all 5. Poor appetite or overeating: nearly every day (poor appetite) 6. Feeling bad about yourself - or that you are a failure or have let yourself or your family down: not at all 7. Trouble concentrating on things, such as reading the newspaper or watching television: not at all 8. Moving or speaking so slowly that other people could have noticed. Or the opposite - being so fidgety or restless that you have been moving around a lot more than usual: not at all 9. Thoughts that you would be better off or of hurting yourself in some way: not at all Total score: 6 Depression Screening Interpretation: Positive Depression Screening Follow-up: Follow-up Visit Requested Depression Screening Done: Yes Source: Developed by Drs. Jake Hodges, Gloria Licona, Maciej Turner and colleagues, with an educational darian from [employer]. Thrive Questionnaire Date Thrive assessed: 01/16/25 I am a: Patient Within the past 12 months, did the food you bought not last and you didn't have the money to get more?: Never true Within the past 12 months, did you worry whether your food would run out before you got money to buy more?: Never true Do you have trouble paying for medicines?: No Do you have trouble getting transportation to medical appointments?: No Do you have trouble paying your heating and electricity bill?: No Do you have trouble taking care of your child, family member or friend?: No Do you have trouble with day-to-day activities such as bathing, preparing meals, shopping, managing finances, etc.?: No Are you currently unemployed and looking for a job?: No Are you interested in more education?: No THRIVE Score: 0 AUDIT C Alcohol Use Questionnaire (AUDIT-C) 1. How often do you have a drink containing alcohol?: Never 3. How often do you have six or more drinks on one occasion?: Never Total Score: 0 LEON-7 AMB Questionnaire LEON-7 Date LEON - 7 assessed: 01/16/25 Feeling nervous, anxious, or on edge: 0 = Not at all Not being able to stop or control worryin = Not at all Worrying too much about different things: 0 = Not at all Trouble relaxin = Not at all Being so restless that it is hard to sit still: 0 = Not at all Becoming easily annoyed or irritable: 0 = Not at all Feeling afraid as if something awful might happen: 0 = Not at all Total LEON-7 score (0-4 normal; 5-9 mild; 10-14 moderate; 15-21 severe): 0 Source: Developed by Drs. Jake Hodges, Gloria Licona, Maciej Turner and colleagues, with an educational darian from [employer]. Review of Systems Narrative CONSTITUTIONAL Negative HEAD/NECK Negative EAR/NOSE/MOUTH/THROAT Negative RESPIRATORY Negative CARDIOVASCULAR Negative GASTROINTESTINAL Negative MUSCULOSKELETAL Negative NEUROLOGICAL Reports frequent epileptic attacks, loss of consciousness during seizures, and previous injuries from falls. PSYCHIATRIC Reports increased anxiety and insomnia, waking up frequently at night Physical exam (Primary Care) Vital Signs: Last Vital Signs Temp 97.9 F 01/16/25 11:41 Pulse 91 01/16/25 11:41 BP 120/70 01/16/25 11:41 Pulse Ox 94 01/16/25 11:41 Oxygen Delivery Method Room Air 01/16/25 11:41 BMI result Body Mass Index 29.2 GENERAL Well developed, Overweight, in no apparent distress HEENT Head-Normocephalic Eyes- PERRLA, EOMI, Conjuctiva clear, lids WNL Ears- Canals clear, TMs WNL Mouth/Throat-No lesions, no erythema, no exudate Neck- Supple, No lymphadenopathy, thyroid WNL RESPIRATORY Normal I:E, Clear to auscultation CARDIOVASCULAR Regular, rate and rhythm, No murmurs or rubs GASTROINTESTINAL Soft, nontender, normal bowel sounds, no masses MUSCULOSKELETAL Back- nontender Joints- no swelling or deformity NEUROLOGICAL Gait normal PSYCHIATRIC Oriented to person, place and time Mood and affect WNL Appearance WNL Speech WNL Thought processes WNL Tobacco/Smoking Status: Tobacco use Status Tobacco use date assessed 01/16/25 01/16/25 11:54 Patient Tobacco Use Status Current everyday Tobacco 01/16/25 11:54 Tobacco use type Cigarette 01/16/25 10:00 e-Cigarette/Vaping Use Currently Using 01/16/25 11:54 PHQ-9: PHQ-9 Score PHQ-9: Total score 6 01/16/25 11:54 Depression Screening Interpretation: Positive Depression Screening Follow-up: Follow-up Visit Requested Thrive Assessment: Date of Thrive Assessment Date Thrive assessed 01/16/25 01/16/25 11:54 Coding Level of Care Code New Pt Est Pt Level 4 (42479) Patient Type New Diagnoses Primary hypertension I10 Hypertension type: primary hypertension Seizure disorder G40.909 Anxiety F41.9 Psychophysiological insomnia F51.04 Insomnia type: psychophysiologic Time Spent (min) 30 Comment Time spent on chart review, medication reconciliation, H&P, Patient education, Orders Assessment & Plan Assessment & Plan (1) Hypertension: Comment: BP today was 120/70 Code(s): I10 - Essential (primary) hypertension Category: Medical Qualifiers: Hypertension type: primary hypertension Qualified Code(s): I10 - Essential (primary) hypertension Plan: Controlled on Lisinopril and Carvedilol. Patient will continue current medications. Will monitor. Patient will follow up in 3 months. (2) Seizure disorder: Code(s): G40.909 - Epilepsy, unspecified, not intractable, without status epilepticus Category: Medical Plan: The patient will follow up with the neurologist on March 05 to discuss medication adjustments, as current treatment is not effectively controlling her seizures. A request for a supportive chair through insurance will be initiated to prevent injuries during seizures. Patient to follow up in 6 weeks or sooner if symptoms persist or worsen. (3) Anxiety: Code(s): F41.9 - Anxiety disorder, unspecified Category: Medical Plan: The patient's anxiety appears to be exacerbated by living alone after her son moved out. Continued monitoring and support from her aboriginal home school liaison officer and nurse are recommended. (4) Insomnia: Code(s): G47.00 - Insomnia, unspecified Category: Medical Qualifiers: Insomnia type: psychophysiologic Qualified Code(s): F51.04 - Psychophysiologic insomnia Plan: The patient is currently taking clonazepam for insomnia, and melatonin will be added to her regimen to improve sleep quality. Plan I discussed with the patient the importance of following up with her neurologist to adjust her seizure medications, as her current regimen is not adequately controlling her seizures. We also talked about the need for a supportive chair to prevent injuries during seizures, and I will initiate a request through her insurance. Additionally, we addressed her insomnia and decided to add melatonin to her current clonazepam regimen to improve her sleep. Medications: New aspirin 81 mg PO DAILY 90 tabs 3RF lisinopril 10 mg PO DAILY 90 tabs 1RF atorvastatin (Lipitor) 40 mg PO DAILY 90 tabs 3RF clonazepam 2 mg PO BEDTIME 30 tabs 1RF melatonin 5 mg PO BEDTIME 30 caps 1RF for sleep Changed From [Wheelchair with foot rest] As directed 1 ea 0RF To [Wheelchair with foot rest] As directed 1 ea 0RF From [Wheelchair with foot rest] As directed 1 ea 0RF To [Wheelchair with foot rest] As directed 1 ea 0RF Refilled phenobarbital 32.4 mg PO BID 180 tabs 1RF 90 days phenytoin sodium extended 200 mg (2 x 100 mg) PO BID 360 caps 1RF 90 days carvedilol 3.125 mg PO BID 180 tabs 1RF I10 - Essential (primary) hypertension lacosamide 150 mg PO BID 180 tabs 1RF 90 days Patient Instructions: - Follow up with the neurologist on March 20 for medication adjustments. - Attend the metal leaf layer appointment on March 24. - Take clonazepam as prescribed and start taking melatonin to help with sleep. - Ensure home safety to prevent injuries during seizures.
[2025-01-16 11:41] VITALS: BP 120/70; PULSE 91; TEMP 36.6; O2SAT 94; BMI 29.2
--- OUTSIDE RECORDS SUMMARY | 2025-01-16 14:52 | XMS_ITS | Clinical Summary ---
Author Organization [employer] Address [address] [facility] [address] [place] [address] Care Team Providers Care Senior Applications Developer Name Role Phone Unavailable Primary Care Provider Unavailabl e Social History Tobacco Use Types Packs/Day Years Used Date Smoking Tobacco: Never Assessed Comments Unknown Sex and Gender Information Value Date Recorded Sex Assigned at Female 01/24/2022 10:21 AM EDT Legal Sex Female 10:21 AM EDT Gender Identity Female 01/24/2022 10:21 AM EDT Sexual Orientation Straight 01/24/2022 10 :21 AM EDT Plan of Treatment Health Maintenance Due Date Last Done Comments CT Colonography 1957 Colonoscopy 1957 Colorectal Cancer Screening 1957 Depression Screening 1957 FIT DNA/Cologuard 1957 FIT 1957 FOBT 1957 SDOH Screening 1957 Sigmoidoscopy 1957 Alcohol/Substance Use Screening 1969 Tobacco Screening 1969 Hepatitis C Screening 1975 Mammogram 1997 Zoster Vaccines (1 of 2) 2007 RSV Patients and Patients Aged 60 years or older (1 - Risk 60-74 years 1-dose series) 2017 Pneumococcal Vaccine: 50+ Years (2 of 2 - PPSV23) 06/23/2017 04/28/2017 DTaP/Tdap/Td Vaccines (2 - T d or Tdap) 09/10/2020 09/10/2010 COVID-19 Vaccine ( - 2024-2 6 season) 2024 04/15/2021, 09/21/2020, 08/31/2020 Influenza Vaccine (#1) 2024 05/16/2023 HIB Vaccines Aged Out No longer eligi ble based on patient's age to complete this topic HPV Vaccines Aged Out No longer eligi ble based on patient's age to complete this topic Hepatitis A Vaccines Aged Out No long er eligible based on patient's age to complete this topic Hepatitis B Vaccines Aged Out No long er eligible based on patient's age to complete this topic IPV Vaccines Aged Out No longer eligi ble based on patient's age to complete this topic Meningococcal B Vaccine Aged Out No l onger eligible based on patient's age to complete this topic Meningococcal Vaccine Aged Out No laurence dex eligible based on patient's age to complete this topic RSV under 20 months Aged Out No longe r eligible based on patient's age to complete this topic Rotavirus Vaccines Aged Out No longer eligible based on patient's age to complete this topic Insurance [facility]
--- OUTSIDE RECORDS SUMMARY | 2025-01-16 14:52 | XMS_ITS | Encounter Summary ---
Author Organization [employer] Address [address] [facility] [address] [place] [address] Care Team Providers Care Lane Marker Installer Name Role Phone Unavailable Primary Care Provider Unavailabl e Reason for Visit * Reason Onset Date Comments New Patient Appt 09/22/2022 Encounter Details Date Type Department Care Team (Late st Contact Info) Description 09/22/2022 Telephone [facility] [address] [place] [address] Joshua Pugh MD [address] [place] [address] New Patient Appt Social History Tobacco Use Types Packs/Day Years Used Date Smoking Tobacco: Never Assessed Comments Unknown Sex and Gender Information Value Date Recorded Sex Assigned at Female 01/24/2022 10:21 AM EDT Legal Sex Female 10:21 AM EDT Gender Identity Female 01/24/2022 10:21 AM EDT Sexual Orientation Straight 01/24/2022 10 :21 AM EDT documented as of this encounter Miscellaneous Notes * Telephone Encounter - Linda Hart - 09/22/2022 2:46 PM EDT New Patients Par Linda Moreno called to schedule New patient appt, pt did not answer left voicemail to give a call at [phone]. documented in this encounter Plan of Treatment Not on file documented as of this encounter Visit Diagnoses Not on filedocumented in this encounter
--- OUTSIDE RECORDS SUMMARY | 2025-01-16 14:52 | XMS_ITS | Clinical Summary ---
Author Organization [facility] Address [address] [place] [address] Care Team Providers Care Sap Portal Developer Name Role Phone Kassie Rebolledo PA-C Primary Care Provider [phone] Source Comments PLEASE NOTE, if this patient is a minor, it may be UNLAWFUL to discuss sensitive information that is contained in these records (such as FAMILY PLANNING, MENTAL HEALTH or SUBSTANCE ABUSE) with the minor patient's parent or other person without the patient's specific authorization.[facility] Allergies No known active allergies Medications clonazePAM (KLONOPIN) 1 mg tablet Take 1 mg by mouth nightly at bedtime. 2 5 Active phenytoin (DILANTIN) 100 mg ER capsule 6 5 Active VIMPAT 200 mg tablet Take by mouth 2 (two) times daily. 5 5 Active folic acid (FOLVITE) 1 mg tablet 1,000 mcg once daily. 10 5 Active PHENobarbital (LUMINAL) 32.4 mg tablet 3 5 Active acetaZOLAMIDE (DIAMOX) 250 mg tablet 5 5 Active nicotine polacrilex (COMMIT) 4 mg lozengeIndicatio ns:Smoking addiction Place 1 Lozenge inside cheek as needed for smoking cessation. no more than 20 lozenges per 24 hours. 100 Lozenge 0 5 Active Melatonin 5 mg sublIndications: Insomnia, unspecified type Place 5 mg under the tongue nightly at bedtime as needed (for sleep may take 5-10 mg). 60 Tab 5 6 Active naproxen (NAPROSYN) 500 mg tabletIndication s:Weight loss TAKE 1 TAB BY MOUTH 2 (TWO) TIMES DAILY WITH A MEAL 60 Tab 1 8 Active hydrOXYzine HCl (ATARAX) 25 mg tabletIndication s:Sleep disorder Take 1 Tab by mouth nightly at bedtime as needed for sleep 90 Tab 3 8 Active Active Problems Problem Noted Date Diagnosed Date History of mammogram 05/18/2017 Overview (05/18/2017): 05/12/2017: [facility]: no mammographic evidence of cancer. Screening for colorectal cancer 04/05/2016 Overview (05/30/2016): 05/10/16: colonoscopy done polyp 5 mm in cecum. Diverticulosis and internal hemerrhoids. Will follow up with biopsy results. 03/17/16 [facility] GI with Nick WOODS, plan for colonoscopy with Dr Jacobo 05/10/16 Insomnia 02/25/2016 Abnormal Pap smear of cervix 02/16/2015 Smoking addiction 12/05/2014 Seizure disorder Overview (05/30/2016): Dr. Reilly Neurology: impression on 04/21/16: status post Vagus nerve stimulator. Pt has chronic intractable epilepsy of unknonw etiology and mostly complex partial seizures but sometimes secondarily generalized. Immunizations Immunization Administration Dates Next Due PNEUMOCOCCAL CONJUGATE PCV 13 04/28/2017 TDAP 09/10/2010 Family History Medical History Relation Name Comments Diabetes Maternal Grandmother Relation Name Status Comments Father Alive Maternal Grandmother Mother Alive Social History Tobacco Use Types Packs/Day Years Used Date Smoking Tobacco: Every Day Cigarettes Smokeless Tobacco: Never Tobacco Cessation:Ready to Q uit: Yes; Counseling Given: Yes Alcohol Use Standard Drinks/Week Comments No 0 (1 standard drink = 0.6 oz pur e alcohol) Social Connections Answer Date Recorded Connectedness 0 12/02/2023 Financial Resource Strain Answer Date R ecorded Financial Resource Strain 0 2018 Stress Answer Date Recorded Stress 0 11/18/2018 Physical Activity Answer Date Recorded Physical Activity 0 11/18/2018 Food Insecurity Answer Date Recorded Food 0 12/21/2023 Transportation Needs Answer Date Record ed Transportation 0 11/18/2018 Housing Stability Answer Date Recorded Housing 0 11/18/2018 Safety and Environment Answer Date Rodrigo rded Safety 0 04/28/2017 Utilities Answer Date Recorded Utilities 0 11/18/2018 Employment Answer Date Recorded Employment 0 11/18/2018 Comments No Sex and Gender Information Value Date Recorded Sex Assigned at Female 04/28/2017 6:30 AM PST Legal Sex Female 10:42 AM PDT Gender Identity Female 04/28/2017 6:30 AM PST Sexual Orientation Straight 04/28/2017 6: 30 AM PST Last Filed Vital Signs Vital Sign Reading Time Taken Comments Blood Pressure 128/70 04/28/2017 9:20 AM EST Pulse 72 04/28/2017 9:20 AM EST Temperature 36.8 C (98.2 F) 04/28/2017 9:20 AM EST Respiratory Rate 14 04/28/2017 9:20 AM EST Oxygen Saturation - - Inhaled Oxygen Concentration - - Weight 61.6 kg (135 lb 12.8 oz) 04/28/2017 9:20 AM EST Height 161.3 cm (5' 3.5 ) 04/28/2017 9:20 AM EST Body Mass Index 23.68 04/28/2017 9:20 AM EST Plan of Treatment Not on file Insurance [place] Member Subscriber Plan / Payer ( fective 2014-Present) Name:Justino Craft Relation to Subscriber:Self Name:Justino Craft Payer ID:[id number] Group ID:Not on file Type:Medicaid Address: [address] [id number] MEDICARE - [place] Care Teams Sap Portal Developer Relationship Specialty Start Date End Date Kassie Rebolledo PA-C [address] [place] [address] PCP - General 02/14/18
--- OUTSIDE RECORDS SUMMARY | 2025-01-16 14:52 | XMS_ITS ---
Author Organization [facility] Care Team Providers Care Senior Technical Support Analyst Name Role Phone Pedro Gant Unavailable Unavailable Kady Casiano Unavailable Unavailable Carmelita Hua Unavailable Unavailable Allergies and adverse reactions No Known Allergies Care Team Name Role Address Phone Organization Dates Pedro Gant [address] [place], [address], [place] (Office[place] : : [facility] 05/31/2023 - 06/09/2023 Kady Casiano [address], [place], [address], [place] (Office[place] : : [facility] 05/31/2023 - 06/09/2023 Carmelita Hua [address] [place] [address], [place], [address], [place]Office): : [facility] 05/31/2023 - 06/09/2023 Immunizations Immunization Status Vaccine Details Vaccine Code CodeSystem Date Notes TB 1 Step Mantoux (PPD) completed tuberculin skin test; purified protein derivative solution, intradermal lotNumber: [id number] expiry: 05/25/2024 Mfg: par Given 0.1 ml Left Forearm intradermally 96 CVX created date: 06/02/2023 consent date: 06/01/2023 administere d date: 06/02/2023 TB 1 Step Mantoux (PPD) completed tuberculin skin test; purified protein derivative solution, intradermal lotNumber: [id number] expiry: 01/25/2023 Mfg: PAR Given 0.1 ml Right Forearm intradermally 96 CVX created date: 09/13/2021 consent date: 09/13/2021 administere d date: 09/13/2021 TB 2 Step Mantoux Skin Test completed tuberculin skin test; purified protein derivative solution, intradermal lotNumber: [id number] expiry: 02/23/2023 Mfg: PAR Given 0.1 ml Right Forearm intradermally Step 1 of Multi-step with next step required 96 CVX created date: 09/20/2021 consent date: 09/19/2021 administere d date: 09/19/2021 TDAP(tetanus/dipt h/pertuss) completed tetanus toxoid, reduced diphtheria toxoid, and acellular pertussis vaccine, adsorbed 115 CVX created date: 05/31/2023 administere d date: 09/10/2010 COVID-19 Vaccine Dose 1 completed unknown vaccine or immune globulin 999 CVX created date: 09/13/2021 administere d date: 08/31/2020 COVID-19 Vaccine Dose 2 completed unknown vaccine or immune globulin 999 CVX created date: 09/13/2021 administere d date: 09/21/2020 COVID-19 Vaccine Additional Dose/Booster completed unknown vaccine or immune globulin 999 CVX created date: 09/13/2021 administere d date: 04/15/2021 PCV (Prevnar) 15 completed Pneumococcal conjugate vaccine 15-valent (PCV15), polysaccharide [id number] conjugate, adjuvant, preservative free 215 CVX created date: 05/31/2023 administere d date: 05/14/2017 Flu Vaccine Prior To Admission (historical only) completed unknown vaccine or immune globulin 999 CVX created date: 05/31/2023 administere d date: 05/16/2023 Mental Status Section Date Assessment Total Score Description 06/09/2023 BIMS 15 cognitively int act CAM 0 No delirium ind icated PHQ-9 00 06/04/2023 BIMS 15 cognitively int act CAM 0 No delirium ind icated PHQ-9 01 minimal depress ion Insurance Providers Problems Problem # Description Date of onset Resolved Date Code CodeSystem Concern Status 1 EPILEPSY, UNSPECIFIED, NOT INTRACTABLE, WITHOUT STATUS EPILEPTICUS 05/31/[address] active 2 MUSCLE WEAKNESS (GENERALIZED) 05/31/[address] active 3 OTHER ABNORMALITIES OF GAIT AND MOBILITY 05/31/[address] active 4 OTHER SPECIFIED DISORDERS OF BONE DENSITY AND STRUCTURE, RIGHT HAND 05/31/[address] active 5 UNSPECIFIED FALL, SUBSEQUENT ENCOUNTER 05/31/[address] active 6 UNSPECIFIED FRACTURE OF SHAFT OF LEFT FIBULA, SUBSEQUENT ENCOUNTER FOR CLOSED FRACTURE WITH ROUTINE HEALING 05/31/[address] active 7 UNSTEADINESS ON FEET 05/31/[address] active 8 DISLOCATION OF LEFT ANKLE JOINT, INITIAL ENCOUNTER 09/10/2021 09/10/[address] completed 9 DISLOCATION OF LEFT ANKLE JOINT, SUBSEQUENT ENCOUNTER 09/10/2021 09/20/[address] completed 10 DISLOCATION OF TARSAL JOINT OF LEFT FOOT, SUBSEQUENT ENCOUNTER 09/10/2021 09/20/[address] completed 11 DISPLACED TRIMALLEOLAR FRACTURE OF LEFT LOWER LEG, INITIAL ENCOUNTER FOR CLOSED FRACTURE 09/10/2021 09/10/[address] completed 12 DISPLACED TRIMALLEOLAR FRACTURE OF LEFT LOWER LEG, SUBSEQUENT ENCOUNTER FOR CLOSED FRACTURE WITH ROUTINE HEALING 09/10/2021 09/20/[address] completed 13 ESSENTIAL (PRIMARY) HYPERTENSION 09/10/[address] active 14 HYPERLIPIDEMIA, UNSPECIFIED 09/10/[address] active 15 OTHER SEIZURES 09/10/2021 09/20/[address] completed 16 TAKOTSUBO SYNDROME 09/10/2021 931876498 SNOMED C T active Reason for Referral No Reasons for Referral Entered Social History Social History Observation Description Start Date End Date Code Code System Current Smoking Status Tobacco smoking consumption unknown 802300006 SNOMED CT Sex Assigned At Female 1955 89049-0 [facility] Gender Identity Sexual Orientation Vital Signs Code Code System Vitals Name Values and Units Timing Information 18117-0 [facility] Pain Level Value=0.0 06/09/2023 8462-4 [facility] Blood Pressure-Diastolic Value=74 Un its=mmHg 06/09/2023 8480-6 [facility] Blood Pressure-Systolic Tnlft=842 Un its=mmHg 06/09/2023 8867-4 [facility] Heart rate Value=78.0 Units=/min 8310-5 [facility] Body Temperature Value=97.7 Units= F 06/05/2023 9279-1 [facility] Respiratory Rate Value=18.0 Units=/m in 06/04/2023 70452-0 [facility] O2 % BldC Oximetry Value=96.0 Units= % 06/04/2023 8302-2 [facility] Height Value=62.0 Units=Inches 05/31/2023 48041-0 [facility] Weight Ztppd=755.0 Units=Lbs 08/2023
== END 2025-01-16 13:02 | disposition home or self-care (01) ==
LOC: HO.HMCHD 11:39
PROVIDERS: PCP Pediatrics; Visit Provider Physician Assistant Medical
DX: I10 Essential (primary) hypertension (principal); G40.909 Epilepsy, unspecified, not intractable, without status epilepticus; F41.9 Anxiety disorder, unspecified; F51.04 Psychophysiologic insomnia

== ENCOUNTER → 2025-01-16 11:38 | Outpatient (BNVA) | payer MEDICAID, MEDICARE, SELFPAY | PROVIDERS: PCP Pediatrics; Visit Provider Physician Assistant Medical | DX: I10 Essential (primary) hypertension (principal); G40.909 Epilepsy, unspecified, not intractable, without status epilepticus; F41.9 Anxiety disorder, unspecified; F51.04 Psychophysiologic insomnia | CPT/HCPCS: 99212 ==

== ENCOUNTER 2025-01-22 14:17 | Outpatient (AMB) | payer MEDICARE, MEDICAID, SELFPAY ==
[2025-01-22 14:53] VITALS: BP 124/68; PULSE 89; BMI 28.1
--- NOTE | 2025-01-22 14:53 | MHC.OFFVIS ---
Vital Signs 01/22/25 14:53 Height 5 ft 3 in Weight 158 lb 11.725 oz BMI 28.1 BP 124/68 Blood Pressure Location Lt brachial Position Sitting Pulse 89 Pulse Source Monitor Intake Visit Reasons: overdue f/up Technical Sales Director Required: Yes Technical Sales Director Name: [id number] [id number] Allergies No Known Allergies (No Known Allergies*) Allergy (Verified 01/16/25 11:48) Medication List - Last Reconciled 01/22/25 by Haroon Mcdaniels NP aspirin 81 mg PO DAILY atorvastatin (Lipitor) 40 mg PO DAILY carvedilol 3.125 mg PO BID clonazepam 2 mg PO BEDTIME folic acid 1 mg PO DAILY lacosamide 150 mg PO BID 90 days lisinopril 10 mg PO DAILY melatonin 5 mg PO BEDTIME phenobarbital 32.4 mg PO BID 90 days phenytoin sodium extended 200 mg (2 x 100 mg) PO BID 90 days walker Folding Front wheeled walker [Wheelchair with foot rest As directed] HPI Comments Details: This is a 70-year-old female patient who is coming in for med refill request, accompanied by her friend. [place]-speaking and an full time staff interpreter was used throughout the visit. 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 At that time patient underwent a cardiac catheterization that showed no coronary artery disease but later on echo, LV systolic function improved to baseline. Today, patient is reporting recurrent seizures and falls related to this. Patient states that she has not had a primary care in a long time and is in the process of establishing 1 at this time. Patient is otherwise denying any cardiac symptoms of exertional chest pain, shortness of breath, palpitations, dizziness, orthopnea, PND, leg edema, presyncope or syncope. Patient solely to see us for med refills as previously patient was started on carvedilol for the takotsubo cardiomyopathy. Patient is reporting compliance with her medications. FORMERLY [facility], [facility]–1983 Medical History Seizure disorder Dislocation of left talus Takotsubo cardiomyopathy Hypertension Hyperlipemia Surgical History S/P placement of nerve stimulator History of cholecystectomy Family History Mother No problems noted. Father No problems noted. Social History Household Members: Family Housing: Apartment Do you presently have visiting nurse or other home services: Yes Alcohol intake: never Patient Tobacco Use Status: Current everyday Tobacco user Tobacco use type: Cigarette Years Smoked: 2 e-Cigarette/Vaping Use: Currently Using Advance Directives Date on File: 09/07/21 service: No Current occupational status: disabled Cognitive needs: Yes (walker) Hearing needs: No Vision needs: No Review of Systems Const Denies weakness ENT Denies dizziness Card Denies chest pain, Denies chest pain with activity, Denies syncope, Denies rapid heart rate, Denies pedal edema, Denies edema, Denies leg edema, Denies lightheadedness, Denies palpitations, Denies dyspnea, Denies dyspnea on exertion and Denies orthopnea Resp Denies cough, Denies dyspnea and Denies dyspnea on exertion GI Denies hematochezia and Denies change in stool character Musc Reports abnormal gait, Reports myalgias, Reports arthralgias, Reports joint swelling, Denies muscle cramps, Denies muscle weakness, Denies numbness, Denies radiating pain into limb and Denies tingling Neuro Reports abnormal gait, Denies dizziness, Denies syncope, Denies numbness, Denies tingling and Denies weakness Endo Denies palpitations Physical Exam Vital Signs: Last Vital Signs Pulse 89 01/22/25 14:53 BP 124/68 01/22/25 14:53 BMI result Body Mass Index 28.1 Const General: cooperative, healthy appearing, comfortable and no acute distress Orientation/consciousness: patient oriented x3 HEENT Head: Yes normal to inspection Neck Neck: Yes normal visual inspection, Yes trachea midline and Yes supple Chest Chest palpation & inspection: normal inspection of the chest Resp Effort & Inspection: normal respiratory effort Auscultation: clear to auscultation bilaterally, no crackles, no rales, no rhonchi and no wheezes Cardio Jugular venous distension: no JVD Palpation: normal PMI Rate: regular rate Rhythm: regular rhythm Heart sounds: S1 normal heart sound present, S2 normal heart sound present, no click, no gallops, no murmurs and no rubs Peripheral pulses: Peripheral pulses 2+ throughout GI Inspection: Yes normal to inspection Palpation (GI): Soft to palpation Auscultation: normal bowel sounds Skin General skin exam: no rashes or lesions noted Neuro General: patient oriented x3 Extrem General: Yes normal to inspection, No no pedal edema and No calf tenderness Psych Appearance: grossly normal Mental Status: mental status grossly normal Speech and movement: Normal speech and movement present Office Procedures EKG Details: EKG today showed normal sinus rhythm, rate 89 beats per minute, nonspecific STT wave with possible inferior and lateral infarct, [place], [place]. [address]-Ptpyywophafnkmbnu, Complete Assessment & Plan Assessment & Plan (1) Seizure disorder: Code(s): G40.909 - Epilepsy, unspecified, not intractable, without status epilepticus Category: Medical Plan: EKG today is unchanged. 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 Cardiac catheterization at that time showed no coronary artery disease. Patient states that other than having recurrent seizures and falls related to this, patient has been doing well cardiac-mi. Patient is also on the process of establishing neurology care for seizures. Once primary care is established, patient can continue getting refills from them. Blood pressure today is well-controlled. Continue current regimen. Ideally, blood pressure goal less than 130/80. Advised on heart healthy diet, regular exercise as tolerated, med compliance, and management of vascular risk factors. Patient will continue to follow up with the office on an as-needed basis. In the interim, patient will call the office with any concerns or change in symptoms. This note was generated using voice recognition software. While every effort has been made to ensure accuracy and proper supervisor backfilling, there may be occasional errors that could affect the content or meaning of the described symptoms. Orders: Orders AMB EKG-In Office Today G40.909 - Epilepsy, unspecified, not intractable, without status epilepticus Medications: Refilled carvedilol 3.125 mg PO BID 180 tabs 1RF I10 - Essential (primary) hypertension Coding Level of Care Code Est Pt Level 3 (95542) Diagnoses Seizure disorder G40.909 CPT Codes EKG - CPT: 08288-[id number], Complete ([id number]) Time Spent (min) 29 Comment Time spent in reviewing the chart, test results, assessment, counseling and documentation.
--- OUTSIDE RECORDS SUMMARY | 2025-01-22 18:28 | XMS_ITS | Clinical Summary ---
Author Organization [employer] Address [address] [place] [address] Care Team Providers Care Vice President Of Talent Acquisition Name Role Phone Unavailable Primary Care Provider [...] patient's age to complete this topic Insurance [facility] ST[employer]
--- OUTSIDE RECORDS SUMMARY | 2025-01-22 18:28 | XMS_ITS | Clinical Summary ---
Author Organization [facility] Address [address] [place] [address] Care Team Providers Care Suit Maker Name Role Phone Kassie Rebolledo PA-C Primary Care Provider [phone] Source Comments PLEASE NOTE, if this patient [...] History of mammogram 05/18/2017 Overview (05/18/2017): 05/12/2017: [facility]: no mammographic evidence of cancer. Screening for colorectal cancer 04/05/2016 Overview (05/30/2016): 05/10/16: colonoscopy done polyp 5 mm in cecum. Diverticulosis and internal hemerrhoids. Will follow up with biopsy results. 03/17/16 al [facility] with Nick WOODS, plan for colonoscopy [...] Craft Relation to Subscriber:Self Name:Justino Craft Payer ID:[id number] Group ID:Not on file Type:Medicaid Address: [address] [id number] MEDICARE - [place] Care Teams Suit Maker Relationship Specialty Start Date End Date Kassie Rebolledo PA-C [address] [place] [address] PCP - General 02/14/18
--- OUTSIDE RECORDS SUMMARY | 2025-01-22 18:28 | XMS_ITS | Encounter Summary ---
Author Organization [employer] Address [address] [facility] [address] [place] [address] Care Team Providers Care Credentials Specialist Name Role Phone Unavailable Primary Care Provider Unavailabl e Reason for Visit * Reason Onset Date Comments New Patient Appt 09/22/2022 Encounter Details Date Type Department Care Team (Late st Contact Info) Description 09/22/2022 Telephone [facility] MED[facility]INE [address] [place] [address] Joshua Pugh MD [address] [place] [address] New Patient Appt Social History Tobacco Use [...] left voicemail to give a call at [phone]. documented in this encounter Plan of Treatment Not on file documented as of this encounter Visit Diagnoses Not on filedocumented in this encounter
== END 2025-01-22 15:47 | disposition home or self-care (01) ==
LOC: HO.HCS 14:18
PROVIDERS: PCP Pediatrics
DX: G40.909 Epilepsy, unspecified, not intractable, without status epilepticus (principal)
CPT/HCPCS: 93010; 99213

== ENCOUNTER → 2025-01-22 14:17 | Outpatient (BNVA) | payer MEDICARE, MEDICAID, SELFPAY | PROVIDERS: PCP Pediatrics | DX: I51.81 Takotsubo syndrome (principal); G40.909 Epilepsy, unspecified, not intractable, without status epilepticus; Z79.899 Other long term (current) drug therapy; Z91.81 History of falling | CPT/HCPCS: 93005; 99212 ==

== ENCOUNTER 2025-01-30 11:50 | Inpatient (IN) | payer MEDICARE, MEDICAID, SELFPAY ==
[2025-01-30] VITALS (8 sets, daily range): BP systolic 103–162; BP diastolic 50–98; PULSE 78–88; RESP 16–18; TEMP 36.5–37.1; O2SAT 97–100; BMI 29.4
--- NOTE | ~2025-01-30 | XR_ITS ---
EXAMINATION: XR LUMBOSACRAL SPINE CLINICAL INFORMATION: fall, w lumbar back pain COMPARISON: September 21, 2006 is not available on PACS system. TECHNIQUE: AP and lateral views. FINDINGS: Superior endplate compression deformities resulting in 30-40 % volume loss with retropulsion at L1. Multilevel marginal osteophyte formation and endplate sclerosis. No gross malalignment. S-shaped curvature of the thoracolumbar spine. Vascular clips in the right upper quadrant abdomen. Osteopenia versus osteoporosis. Vascular calcifications, aorta and iliac arteries. XR/XR lumbar spine 2-3V IMPRESSION: 30/40% compression deformity with retropulsion, L1 likely old and osteoporotic in nature. Multilevel thoracolumbar spondylosis. Atherosclerosis disease.. Electronically signed by: Jason Stratton MD 01/30/2025 01:59 PM [facility]EMPH[facility]
--- NOTE | ~2025-01-30 | XR_ITS ---
EXAMINATION: XR PELVIS 1-2 VIEWS, XR FEMUR 2 VIEWS RIGHT HISTORY: fall w pain COMPARISON: There are no prior studies available for comparison. FINDINGS: A single AP view of the pelvis and AP and lateral views of the left femur are submitted. The bones are osteopenic. There are nondisplaced fractures of the right superior and inferior pubic rami. No additional fracture is identified. The femur is intact. There is no dislocation. The hip joint space is maintained. There is mild narrowing of the medial compartment of the knee. There are vascular calcifications. XR/XR pelvis 1-2V IMPRESSION: Osteopenia. Nondisplaced fractures of the right superior and inferior pubic rami. No evidence of fracture of the right femur. Electronically signed by: Jake Moreno MD 01/30/2025 01:58 PM [facility]
--- NOTE | ~2025-01-30 | XR_ITS ---
EXAMINATION: XR PELVIS 1-2 VIEWS, XR FEMUR 2 VIEWS RIGHT HISTORY: fall w pain COMPARISON: There are no prior studies available for comparison. FINDINGS: A single AP view of the pelvis and AP and lateral views of the left femur are submitted. The bones are osteopenic. There are nondisplaced fractures of the right superior and inferior pubic rami. No additional fracture is identified. The femur is intact. There is no dislocation. The hip joint space is maintained. There is mild narrowing of the medial compartment of the knee. There are vascular calcifications. XR/XR femur RT 2V IMPRESSION: Osteopenia. Nondisplaced fractures of the right superior and inferior pubic rami. No evidence of fracture of the right femur. Electronically signed by: Jake Moreno MD 01/30/2025 01:58 PM EST
--- NOTE | ~2025-01-30 | CT_ITS ---
CLINICAL HISTORY: uti; recvent fall ; urine retension CT abdomen and pelvis without contrast Indication: Fall, UTI Comparison: None provided Findings: The lung bases are clear. Hepatic parenchyma is normal. Patient is status post cholecystectomy. Spleen is normal. No perisplenic hematoma. Kidneys are normal. Small parapelvic cysts are present. No hydronephrosis or hydroureter. Adrenal glands are normal. Stomach is partially distended. Pancreas is normal. Non opacified small bowel is normal. Moderate stool burden in the colon. Retrocecal appendix is normal. Diverticulosis without evidence of diverticulitis in the sigmoid colon. Pelvic contents are unremarkable. Bladder is decompressed. A Dodd catheter is present. No bowel obstruction, pneumoperitoneum, or pneumatosis. There is an age-indeterminate, likely acute or acute on chronic L1 burst fracture with 30% height loss. Proximally 3 mm of retropulsion. Small paraspinal hematoma and fat stranding suggests acuity. There is a chronic appearing wedge deformity of T10 with 50% anterior height loss. No retropulsion. Chronic appearing right L3 transverse process fracture. Sacrum is intact. Acute right superior and inferior pubic ramus fractures. No diastasis. Right pelvic hematoma is present. No large retroperitoneal hematoma. IMPRESSION: L1 burst fracture with 30% height loss. Paraspinal hematoma suggests acuity. This may represent an acute or acute on chronic burst fracture deformity. Small retropulsion. If clinically indicated, acuity may be further evaluated with MRI. Right superior and inferior pubic ramus acute fracture with adjacent hematoma. This document has been electronically signed by: Candido Castillo III, MD PHD on 02/02/2025 01:54:21
--- NOTE | ~2025-01-30 | CT_ITS ---
CLINICAL HISTORY: fall with HS 5 days ago, headache CT head without contrast Comparison: CT/REG/AL/SR - CT HEAD/BRAIN WO IV CON - 05/04/23 12:32 EST Findings: BRAIN: No acute infarct, hemorrhage, or mass effect. CSF SPACES: No hydrocephalus or effacement of basal cisterns. SKULL: No calvarial fracture. SINUSES: Mild ethmoid sinus mucosal thickening. ORBITS: Limited views are unremarkable. OTHER: Negative. IMPRESSION: 1. No acute intracranial findings. This document has been electronically signed by: Naya Garcia MD on 01/30/2025 18:38:08
--- NOTE | ~2025-01-30 | CT_ITS ---
CLINICAL HISTORY: fall, R sided rib pain CT chest with contrast Comparison: None provided Findings: NECK BASE: Small subcentimeter thyroid nodules. LUNGS/PLEURA: Mild emphysematous changes at the lung apices. There is 5 mm nodule in the left lower lobe (series 24, image 37). PULM VASCULAR: No central pulmonary embolism. MEDIASTINUM: No masses or lymphadenopathy. CARDIAC: No pericardial effusion. No cardiomegaly. AORTA: No aneurysm. CHEST WALL: No masses or axillary lymphadenopathy. LIMITED ABDOMEN: L cholecystectomy clips. BONES: Multiple right-sided remote appearing posterior rib fractures. There also multiple right anterior lateral remote appearing rib fractures. The right anterior lateral 6th rib demonstrates a small cortical irregularity. IMPRESSION: 1. Multiple remote right-sided anterior and posterior rib fractures with a possible acute nondisplaced right anterolateral 6th rib fracture. Recommend correlation with point tenderness. 2. No pneumothorax. This document has been electronically signed by: Naya Garcia MD on 01/30/2025 18:44:21
--- NOTE | ~2025-01-30 | CT_ITS ---
CLINICAL HISTORY: fall w HS, cervical neck pain CT cervical spine without contrast Comparison: CT/REG/PA/SR - CT CERVICAL SPINE WITHOUT IV CONTRAST - 05/04/23 12:32 EST Findings: Vertebral alignment is within normal limits. Mild multilevel degenerative endplate changes of the cervical spine. No acute fractures or dislocations. Visualized intracranial contents are unremarkable. Small subcentimeter right thyroid nodule. Mild emphysematous changes at the lung apices. IMPRESSION: No acute traumatic abnormality in the cervical spine. This document has been electronically signed by: Naya Garcia MD on 01/30/2025 18:54:17
--- NOTE | 2025-01-30 12:43 | PC.NURSE ---
CHUCK Downs at bedside evaluating the patient. Staff medical detail representative (Romanian) at bedside translating.
--- NOTE | 2025-01-30 12:55 | ECG_ITS ---
Test Reason : weakness Blood Pressure : */* mmHG Vent. Rate : 83 BPM Atrial Rate : 83 BPM P-R Int : 136 ms QRS Dur : 86 ms QT Int : 416 ms P-R-T Axes : 7 14 11 degrees QTcB Int : 488 ms Normal sinus rhythm [address] & T wave abnormality, consider anterior ischemia Abnormal ECG When compared with ECG of 04-May-2023 12:45, QT has lengthened Referred By: Shazia Downs Electronically Signed By: Evens Kelley
--- NOTE | 2025-01-30 13:06 | ED.GENADULT ---
HPI - General Adult General Chief complaint: Fall Stated complaint: FALL 5D AGO, L BACK PAIN,LE PAIN N/V, DIZZINESS Time Seen by Provider: 01/30/25 12:24 Source: patient, EMS, RN notes reviewed and old records reviewed Mode of arrival: EMS Limitations: language barrier (Romanian-speaking) History of Present Illness ED Provider: DAGO Downs HPI narrative: 70-year-old female with medical history of HLD, takotsubo cardiomyopathy, HTN, seizures presents to the ED due to a fall that occurred 5 days ago after having a seizure. Patient states this past week she has had 2 seizures with the fall, she is unsure if she hit her head however she has been experiencing right-sided neck pain, with nausea and vomiting over the last 2-3 days. Patient states she has been taking Tylenol without effect. Additionally, patient states she is having right-sided rib pain, right-sided femur pain, and lumbar back pain after her fall. Patient states she is taking phenytoin for seizure prevention daily. MD complaint: fall, R sided body pain Related Data Previous Rx's ?Medication ?Instructions ?Recorded walker #1 ea 10/26/21 folic acid 1 mg tablet 1 mg PO DAILY #90 tabs 01/13/25 Wheelchair with foot rest #1 ea 01/16/25 aspirin 81 mg tablet 81 mg PO DAILY #90 tabs 01/16/25 atorvastatin 40 mg tablet (Lipitor) 40 mg PO DAILY #90 tabs 01/16/25 clonazepam 2 mg tablet 2 mg PO BEDTIME #30 tabs 01/16/25 lacosamide 150 mg tablet 150 mg PO BID 90 days #180 tabs 01/16/25 lisinopril 10 mg tablet 10 mg PO DAILY #90 tabs 01/16/25 melatonin 5 mg capsule 5 mg PO BEDTIME for sleep #30 caps 01/16/25 phenobarbital 32.4 mg tablet 32.4 mg PO BID 90 days #180 tabs 01/16/25 phenytoin sodium extended 100 mg 200 mg (2 x 100 mg) PO BID 90 days 01/16/25 capsule #360 caps carvedilol 3.125 mg tablet 3.125 mg PO BID #180 tabs 01/22/25 oxycodone 5 mg tablet 5 mg PO Q8H PRN pain (scale score 02/01/25 4-6) #9 tabs Allergies Allergy/AdvReac Type Severity Reaction Status Date / Time No Known Allergies (No Known Allergy Verified 01/30/25 12:16 Allergies*) Review of Systems Review of Systems: CONST: Negative for fever, body aches and chills. HENT: Negative for neck pain/stiffness, headache, congestion, sore throat, swelling. EYES: Negative for discharge/pain or vision changes. RESP: Negative for cough/hemoptysis and shortness of breath. CV: Negative chest pain, difficulty breathing, palpitations. ABD: Negative pain, nausea, vomiting. : Negative increase frequency, dysuria, blood in urine or stool. MUSC: Negative for muscle aches, edema. POS R sided rib pain, femur pain, lumbar back pain, cervical neck pain after fall SKIN: Negative rash, lesions/sores. NEURO: Negative headache, dizziness, weakness. Yes all other systems are reviewed and are negative COUNTS INCLUDE 234 BEDS AT THE [facility] Past Medical History Attestation statement: The following information was validated with the patient. Source: old records reviewed and nursing notes reviewed Medical History Seizure disorder Dislocation of left talus Takotsubo cardiomyopathy Hypertension Hyperlipemia Surgical History S/P placement of nerve stimulator History of cholecystectomy Family History Family History Mother No problems noted. Father No problems noted. Social History Social History Household Members: Family Housing: Apartment Do you presently have visiting nurse or other home services: Yes Alcohol intake: current Alcohol intake frequency: holidays/special occasions only Patient Tobacco Use Status: Current everyday Tobacco user Tobacco use type: Cigarette Years Smoked: 2 Smoked in Last 30 Days: No e-Cigarette/Vaping Use: Currently Using Use of substances other than those prescribed or required for medical reasons: No Advance Directives: Yes Advance Directives on File: Yes Advance Directives Date on File: 09/07/21 service: No Current occupational status: disabled Cognitive needs: Yes (walker) Hearing needs: No Vision needs: No Physical Exam ED Vital Signs: Vital Signs - 24 hr 02/01/25 06:02 02/01/25 08:34 02/01/25 08:42 Temperature 97.1 F Pulse Rate 79 79 Respiratory Rate 16 Blood Pressure 94/56 L 111/63 Pulse Oximetry 99 Oxygen Delivery Method Room Air Oxygen Flow Rate 02/01/25 08:53 02/01/25 14:30 02/01/25 15:21 Temperature 97.4 F 97.4 F Pulse Rate 78 83 83 Respiratory Rate 16 16 16 Blood Pressure 111/63 94/50 L 94/50 L Pulse Oximetry 95 95 Oxygen Delivery Method Room Air Room Air Room Air Oxygen Flow Rate 96 02/01/25 15:30 02/01/25 18:28 02/01/25 19:33 Temperature 98.7 F Pulse Rate 74 85 82 Respiratory Rate 16 16 Blood Pressure 84/38 L 93/50 L 67/42 L Pulse Oximetry 98 97 Oxygen Delivery Method Room Air Room Air Oxygen Flow Rate 02/01/25 19:41 02/01/25 19:43 02/01/25 20:15 Temperature Pulse Rate 75 Respiratory Rate 17 Blood Pressure 78/40 L 82/45 L 95/44 L Pulse Oximetry 97 Oxygen Delivery Method Room Air Oxygen Flow Rate 02/01/25 21:18 Temperature Pulse Rate 78 Respiratory Rate 14 Blood Pressure 104/48 L Pulse Oximetry 99 Oxygen Delivery Method Room Air Oxygen Flow Rate BMI result Body Mass Index 29.4 GENERAL APPEARANCE: ?AxOx4, generally well-appearing, no acute distress. HEENT: ?NC, AT. MMM. EOMI, clear conjunctiva, oropharynx clear. NECK: ?Supple without lymphadenopathy.? No stiffness or restricted ROM. HEART:? Normal rate and regular rhythm, normal S1/S1, no m/r/g LUNGS:? CTAB, moving air well. No crackles or wheezes are heard. ABDOMEN: ?Soft, nontender, nondistended with good bowel sounds heard. TTP over R sided lower ribs, no overlying skin changes or ecchymosis seen BACK: No CVAT, no obvious deformity. TTP of right-sided lumbar paraspinal muscles, mild tenderness of lumbar spine, no bony step-offs palpated or observed, no ecchymosis or overlying skin changes EXTREMITIES: ?Without cyanosis, clubbing or edema. TTP of right femur, pelvis, no ecchymosis or overlying skin changes observed NEUROLOGICAL: ?Grossly nonfocal. Alert and oriented, moving all 4 extremities. Observed to ambulate with normal gait. Skin: ?Warm and dry without any rash. Course Reevaluation(s) Reevaluation #1: Patient received in sign-out at change of shift pending CT scans to for traumatic injury to the chest, head, C-spine. There is a possible single nondisplaced right anterior lateral rib fracture. No pneumothorax. No other evidence of traumatic injuries. At this time the patient will be medically cleared for case management evaluation. She is supposed to be nonweightbearing for 3 months due to the pubic rami fracture. Time: 19:39 Reevaluation #2: CHUCK Byrant Physician observation continued. Uneventful night. Vital signs stable. No complaints from nursing overnight. Med reconciliation reviewed and done. Pending disposition. Will continue to monitor. Reevaluation #3: Time: 08:50 Date: 02/01/25 Provider: CHUCK Stuart Patient in physician observation for case management needs. No acute events reported overnight.?No current issues or complaints. VS stable. Patient is pending PT/CM eval. Will continue to monitor. Time: 14:24 Date: 02/01/25 Provider: CHUCK Stuart Physician observation ended at 1300. Patient is being discharged to [facility] for rehab. CHUCK Stuart 02/01/25 1534 Received message from overflow RN, concerned for asymptomatic BP 80s/40s while patient was being discharged to rehab. patient's BP soft this morning however she was administered her BP medications (carvedilol and lisinopril) - likely causing further hypotension. i have ordered 1L IVF, advised housekeeping staff to monitor/recheck BP post fluid resuscitation - instructed to inform ED provider. Time: 19:12 Date: 02/01/25 Provider: Shazia Downs PA-C I received a message from nursing staff concerned for asymptomatic low blood pressure of 84 over 38, patient already received 1 L IV fluids. I have ordered additional 500 mL of fluids, with instruction to hold the 9:00 p.m. dose of carvedilol due to hypotension. Nursing staff is planning on administering fluids, and bladder scanning due to earlier issues of urine retention. Nursing staff will reach back out to provider after administrating fluids, and evaluating for urine output. 21:27, 02/01/2025, DR. Gaspar's progress note: code of rapid response was called because the patient's hypotensive, patient remained asymptomatic, no headache, no CP, no SOB, no abdominal pain, patient initially came here for evaluation after having a fall with seizure, patient had right pelvic fracture and multiple compression fracture of the lumbar spine patient was waiting in the overflow area for placement, patient received 1 L of fluids and I order another L of normal saline labs/ x-rays /CTs were reviewed no acute infection. physical exam consistent with urinary retention, Dodd catheter was placed and 530 cc of urine, UA is showing UTI therefore suspected infection and sepsis now will initiate septic shock protocol. We will keep monitoring in the ED with IV fluids, patient will need inpatient hospitalization. Patient was interviewed using a helicopter pilot instructor, AAO x3, normal neuro exam, no CP, no abdominal pain. Case discussed with Dr. Colon who agreed to accept the patient for a blood pressure monitoring. Will discontinue physician observation now. Consultations Consultation #1: DR. Gaspar's Progress note: FOCUSED EXAM: Urinary retention, UTI, suspected septic shock now. Patient received total of 30 cc/kg fluids (Total of 2,259 cc ) IV ceftriaxone. blood pressure stable repeat lactic acid less than 2. Patient is asymptomatic, VSS. Time: 00:29 Medications Administered Generic Name Dose Route Start Last Admin Trade Name Freq PRN Reason Stop Dose Admin Acetaminophen 975 mg 01/30/25 21:00 02/01/25 22:16 Acetaminophen 325 Mg Tablet PO 975 mg TID ANA Administration Aspirin 81 mg 02/01/25 09:00 02/01/25 08:33 Aspirin Enteric Coated 81 Mg Tablet. PO 81 mg DAILY ANA Administration Atorvastatin Calcium 40 mg 01/31/25 21:00 02/01/25 22:17 Atorvastatin Calcium 40 Mg Tablet PO 40 mg BEDTIME ANA Administration Carvedilol 3.125 mg 01/31/25 09:00 02/01/25 22:16 Carvedilol 3.125 Mg Tablet PO Not Given BID ANA Protocol Folic Acid 1 mg 01/31/25 09:00 02/01/25 08:38 Folic Acid 1 Mg Tablet PO 1 mg DAILY ANA Administration Heparin Sodium (Porcine) 5,000 unit 02/01/25 22:00 02/01/25 22:51 Heparin Sodium,Porcine 5,000 Unit/Ml Vial SUBCUT 5,000 unit Q8H ANA Administration Lactated Ringer's 1,000 mls @ 100 mls/hr 02/01/25 21:30 02/01/25 23:32 Lr IVCONT 100 mls/hr .Q10H ANA Administration Lacosamide 150 mg 01/31/25 09:00 02/01/25 22:21 Lacosamide 100 Mg Tablet PO 150 mg BID ANA Administration Lisinopril 5 mg 01/31/25 10:30 02/01/25 08:42 Lisinopril 5 Mg Tablet PO 5 mg DAILY ANA Administration Protocol Loperamide HCl 2 mg 01/31/25 15:00 02/01/25 22:22 Loperamide Hcl 2 Mg Capsule PO Not Given TID ANA Oxycodone HCl 5 mg 01/30/25 17:41 02/01/25 23:31 Oxycodone Hcl Immed Release 5 Mg Tablet PO 5 mg Q6H PRN Administration Pain, Severe (Pain Scale 7-10) Phenobarbital 30 mg 01/31/25 09:00 02/01/25 22:17 Phenobarbital 30 Mg Tablet PO 30 mg BID ANA Administration Phenytoin Sodium 200 mg 01/31/25 09:00 02/01/25 22:18 Phenytoin Sodium Extended 100 Mg Capsule PO 200 mg BID ANA Administration Sodium Chloride 3 ml 02/02/25 00:00 02/01/25 23:29 0.9 % Sodium Chloride Flush 3 Ml Syringe IVFLUSH 3 ml QSHIFT ANA Administration Discontinued Medications Generic Name Dose Route Start Last Admin Trade Name Freq PRN Reason Stop Dose Admin Acetaminophen 1,000 mg in 100 mls @ 400 mls/hr 01/30/25 13:14 01/30/25 15:28 Ofirmev IV 01/30/25 13:28 Infused ONCE ONE Infusion Lactated Ringer's 1,000 mls @ 999 mls/hr 01/30/25 17:28 01/30/25 18:34 Lr IV 01/30/25 18:28 Infused .Q1H1M ONE Infusion Sodium Chloride 1,000 mls @ 999 mls/hr 02/01/25 17:15 02/01/25 18:35 Ns IV 02/01/25 18:15 Infused .Q1H1M ANA Infusion Lactated Ringer's 1,000 mls @ 500 mls/hr 02/01/25 19:11 02/01/25 20:55 Lr IV 02/01/25 21:10 Infused .Q2H ONE Infusion Sodium Chloride 1,000 mls @ 999 mls/hr 02/01/25 20:03 02/01/25 22:12 Ns IV 02/01/25 21:03 Infused .Q1H1M ONE Infusion Ceftriaxone Sodium 1 gm/ 50 mls @ 100 mls/hr 02/01/25 21:25 02/01/25 22:45 Sodium Chloride IV 02/01/25 21:54 Infused ONCE ONE Infusion Sodium Chloride 2,259 mls @ 2,259 mls/hr 02/01/25 21:25 02/01/25 23:31 Ns 30 ml/kg infuse over 1 hr (2259 ml) 02/01/25 22:24 Infused IV Infusion .Q1H STA Iohexol 100 ml 01/30/25 16:29 01/30/25 16:30 Iohexol 350 Mg/Ml 100 Ml Infus..Btl IV 01/30/25 16:30 65 ml ONCE ONE Administration Lisinopril 10 mg 01/31/25 09:00 01/31/25 12:01 Lisinopril 10 Mg Tablet PO Not Given DAILY [facility] Protocol Midodrine 10 mg 02/01/25 21:11 02/01/25 22:17 Midodrine Hcl 10 Mg Tablet PO 02/01/25 21:12 10 mg ONCE ONE Administration Morphine Sulfate 4 mg 01/30/25 13:14 01/30/25 15:14 Morphine Sulfate 4 Mg/Ml Cartridge IVPUSH 01/30/25 13:15 4 mg ONCE ONE Administration Protocol Medical Decision Making Medical Decision Making MDM Narrative: 70-year-old female with medical history of HLD, takotsubo cardiomyopathy, HTN, seizures presents to the ED due to a fall that occurred 5 days ago after having a seizure. Patient states this past week she has had 2 seizures with the fall, she is unsure if she hit her head however she has been experiencing right-sided neck pain, with nausea and vomiting over the last 2-3 days. Patient states she has been taking Tylenol without effect. Additionally, patient states she is having right-sided rib pain, right-sided femur pain, and lumbar back pain after her fall. Patient states she is taking phenytoin for seizure prevention daily. Plan: Labs, EKG, CT C-spine, CT head/brain, CT chest, XR right femur, XR lumbar spine, XR pelvis EKG reveals normal sinus rhythm without significant ST elevation or depression, when compared with the prior the QT has lengthened, initial troponin 13.5, patient without chest pain. Labs without leukocytosis/leukopenia, no evidence of anemia, hyponatremia of 130, anion gap of 21--> patient medicated with 1 L IV fluids to correct hyponatremia and mild anion gap. XR pelvis reveals non-displaced fractures of the right superior and inferior pubic rami--> I spoke with orthopedic CHUCK Cruz who recommended patient be non-weight bearing for 3 months due to her fractures. Patient awaiting PT case management evaluation for short-term rehab needs. XR lumbar spine reveals 30/40% compression deformity with retropulsion of L1 likely old and osteoporotic in nature Awaiting results of CT head/brain, CT C-spine, and CT chest. I placed scheduled order for 975 mg p.o. Tylenol t.i.d., 5 mg oxycodone q.6 for severe pain. Differential Diagnosis Differential Diagnoses: The differential diagnosis associated with the presentation includes ICH Cervical spine fracture Lumbar spine fracture Rib fracture Femur fracture Pelvis fracture Electrolyte abnormality Dysrhythmia Admission/Observation Consideration of admission/observation: Escalation of care including admission/observation considered Lab Data MDM Lab Attestation statement: I reviewed the patient's lab results. 02/01/25 22:10 02/01/25 22:10 Labs: Lab Results 01/30/25 01/31/25 01/31/25 Range/Units 15:06 11:27 11:33 WBC 7.1 (4.8-10.8) X10*3/uL RBC 4.29 (4.20-5.50) X10*6/uL Hgb 13.1 (12.0-16.0) g/dl Hct 38.4 (37.0-47.0) % MCV 89.5 (80.0-98.0) fL MCH 30.5 (27.0-33.0) pg MCHC 34.1 (31.0-35.0) g/dl RDW 14.0 (11.0-16.0) % Plt Count 414 H D (160-400) X10*3/uL MPV 9.5 (9.4-12.3) fL Immature Gran % (Auto) 0.4 (0.0-0.4) % Neut % (Auto) 66.5 (45-73) % Lymph % (Auto) 23.7 (20-40) % Swain % (Auto) 8.7 (2-11) % Eos % (Auto) 0.4 (0-4) % Baso % (Auto) 0.3 (0-2) % Lymph # (Auto) 1.7 (1.2-4.9) X10*3/uL Swain # (Auto) 0.6 (0.1-1.2) X10*3/uL Eos # (Auto) 0.0 (0.0-0.4) X10*3/uL Baso # (Auto) 0.0 (0.0-0.2) X10*3/uL Abs Immat Gran (auto) 0.03 (0.00-0.03) X10*3/uL Absolute Neuts (auto) 4.7 (2.0-8.3) x10*3/uL Absolute Nucleated RBC 0.000 (0.0-0.012) X10*3/uL Nucleated RBC % (auto) 0.0 (0.0-0.2) /100WBC Sodium 130 L (135-145) mmol/L Potassium 3.3 (3.3-5.1) mmol/L Chloride 94 L (96-108) mmol/L Carbon Dioxide 18 L (22-29) mmol/L Anion Gap 21 H (12-20) BUN 5 L (9-16) mg/dL Creatinine 0.58 (0.5-1.4) mg/dL Estim Creat Clear Calc 90.2 Estimated GFR > 60 Random Glucose 72 (60-115) mg/dL Calcium 9.1 (8.4-10.2) mg/dL Magnesium 2.1 (1.6-2.6) mg/dL Total Bilirubin 0.6 (0.0-1.0) mg/dL AST 32 H (5-31) U/L ALT 14 (0-31) U/L Alkaline Phosphatase 233 H (39-117) U/L Total Creatine Kinase 123 (26-140) U/L Troponin I High Sens 13.5 D (<3.5-17.0) ng/L Total Protein 7.9 (6.5-8.0) g/dL Albumin 4.4 (3.5-5.0) g/dL Urine Color Yellow Urine Appearance Clear Urine pH 5.5 (5.0-9.0) Ur Specific [place] 1.020 (1.005-1.025) Urine Protein Negative (Neg-Trace) mg/dL Urine Glucose (UA) Negative (Negative) mg/dL Urine Ketones >=160 (Negative) mg/dL Urine Blood Negative (Negative) Urine Nitrite Negative (Negative) Ur Leukocyte Esterase Negative (Negative) Urine RBC (0-2) /HPF Urine WBC (0-5) /HPF Ur Squamous Epith Cells (0-2) /HPF Urine Bacteria (None Seen) Hyaline Casts (0-2) /LPF COVID-19 (CARMEN) Negative (Negative) COVID-19 Clin Com See Note 02/01/25 Range/Units 21:10 WBC (4.8-10.8) X10*3/uL RBC (4.20-5.50) X10*6/uL Hgb (12.0-16.0) g/dl Hct (37.0-47.0) % MCV (80.0-98.0) fL MCH (27.0-33.0) pg MCHC (31.0-35.0) g/dl RDW (11.0-16.0) % Plt Count (160-400) X10*3/uL MPV (9.4-12.3) fL Immature Gran % (Auto) (0.0-0.4) % Neut % (Auto) (45-73) % Lymph % (Auto) (20-40) % Swain % (Auto) (2-11) % Eos % (Auto) (0-4) % Baso % (Auto) (0-2) % Lymph # (Auto) (1.2-4.9) X10*3/uL Swain # (Auto) (0.1-1.2) X10*3/uL Eos # (Auto) (0.0-0.4) X10*3/uL Baso # (Auto) (0.0-0.2) X10*3/uL Abs Immat Gran (auto) (0.00-0.03) X10*3/uL Absolute Neuts (auto) (2.0-8.3) x10*3/uL Absolute Nucleated RBC (0.0-0.012) X10*3/uL Nucleated RBC % (auto) (0.0-0.2) /100WBC Sodium (135-145) mmol/L Potassium (3.3-5.1) mmol/L Chloride (96-108) mmol/L Carbon Dioxide (22-29) mmol/L Anion Gap (12-20) BUN (9-16) mg/dL Creatinine (0.5-1.4) mg/dL Estim Creat Clear Calc Estimated GFR Random Glucose (60-115) mg/dL Calcium (8.4-10.2) mg/dL Magnesium (1.6-2.6) mg/dL Total Bilirubin (0.0-1.0) mg/dL AST (5-31) U/L ALT (0-31) U/L Alkaline Phosphatase (39-117) U/L Total Creatine Kinase (26-140) U/L Troponin I High Sens (<3.5-17.0) ng/L Total Protein (6.5-8.0) g/dL Albumin (3.5-5.0) g/dL Urine Color Yellow Urine Appearance Cloudy Urine pH 5.5 (5.0-9.0) Ur Specific [place] 1.020 (1.005-1.025) Urine Protein Trace (Neg-Trace) mg/dL Urine Glucose (UA) Negative (Negative) mg/dL Urine Ketones Trace (Negative) mg/dL Urine Blood Small (1+) H (Negative) Urine Nitrite Positive H (Negative) Ur Leukocyte Esterase Moderate (2+) H (Negative) Urine RBC 6-10 H (0-2) /HPF Urine WBC 21-50 H (0-5) /HPF Ur Squamous Epith Cells 6-10 (0-2) /HPF Urine Bacteria 4+ (None Seen) Hyaline Casts 3-5 (0-2) /LPF COVID-19 (CARMEN) (Negative) COVID-19 Clin Com Independent Interpretation I performed an independent interpretation of an: EKG and Plain X-Ray Interpretation: I personally interpreted the EKG which reveals normal sinus rhythm, no significant ST-elevation/depression, with a lengthened QT of 488 Vent. Rate : 83 BPM Atrial Rate : 83 BPM P-R Int : 136 ms QRS Dur : 86 ms QT Int : 416 ms P-R-T Axes : 7 14 11 degrees QTcB Int : 488 ms Normal sinus rhythm ST & T wave abnormality, consider anterior ischemia Abnormal ECG When compared with ECG of 04-May-2023 12:45, QT has lengthened I personally interpreted the XR R femur which was negative for fracture or dislocation, I agree with the radiologist's interpretation I personally interpreted the XR lumbar spine which was negative for fracture or dislocation, I agree with the radiologist's interpretation I personally interpreted the XR pelvis which reveals nondisplaced fracture of the inferior and superior pubic rami, I agree with the radiologist's interpretation Radiology Impression Discussion of test interpretation with radiology: I have reviewed the radiologist's reading. Radiologist Impression: CT head/brain CT C-spine CT chest XR R femur FINDINGS: A single AP view of the pelvis and AP and lateral views of the left femur are submitted. The bones are osteopenic. There are nondisplaced fractures of the right superior and inferior pubic rami. No additional fracture is identified. The femur is intact. There is no dislocation. The hip joint space is maintained. There is mild narrowing of the medial compartment of the knee. There are vascular calcifications. XR/XR femur RT 2V IMPRESSION: Osteopenia. Nondisplaced fractures of the right superior and inferior pubic rami. No evidence of fracture of the right femur. Electronically signed by: Jake Moreno MD 01/30/2025 01:58 PM EST Dictated By: Jake Moreno MD Signed By: <Electronically signed by Jake Moreno MD in OV> 01/30/25 1358 XR lumbar spine FINDINGS: Superior endplate compression deformities resulting in 30-40 % volume loss with retropulsion at L1. Multilevel marginal osteophyte formation and endplate sclerosis. No gross malalignment. S-shaped curvature of the thoracolumbar spine. Vascular clips in the right upper quadrant abdomen. Osteopenia versus osteoporosis. Vascular calcifications, aorta and iliac arteries. XR/XR lumbar spine 2-3V IMPRESSION: 30/40% compression deformity with retropulsion, L1 likely old and osteoporotic in nature. Multilevel thoracolumbar spondylosis. Atherosclerosis disease.. Electronically signed by: Jason Stratton MD 01/30/2025 01:59 PM EST RP Dictated By: Jason Storey MD Signed By: <Electronically signed by Jason Kline MD in OV> 01/30/25 1359 XR pelvis FINDINGS: A single AP view of the pelvis and AP and lateral views of the left femur are submitted. The bones are osteopenic. There are nondisplaced fractures of the right superior and inferior pubic rami. No additional fracture is identified. The femur is intact. There is no dislocation. The hip joint space is maintained. There is mild narrowing of the medial compartment of the knee. There are vascular calcifications. XR/XR pelvis 1-2V IMPRESSION: Osteopenia. Nondisplaced fractures of the right superior and inferior pubic rami. No evidence of fracture of the right femur. Electronically signed by: Jake Moreno MD 01/30/2025 01:58 PM EST RP Dictated By: Jake Moreno MD Signed By: <Electronically signed by Jake Moreno MD in OV> 01/30/25 1358 External Record Review External record reviewed: Inpatient record, Office record and Outpatient record Discharge Plan Discharge Clinical Impression: Closed fracture of pubic ramus, Acute hypotension, Acute UTI, Septic shock, Acute urinary retention Patient Disposition: Admitted As Inpatient Interventions: ED Discharge Assessment Last Done: 02/01/25 15:21
--- NOTE | 2025-01-30 14:17 | PC.NURSE ---
Patient is a difficult IV stick. Unsuccessful attempts x2. CHUCK Downs aware. Unable to collect labs or IV access. Care ongoing by this RN. Another RN to attempt access.
--- NOTE | 2025-01-30 14:33 | PC.NURSE ---
Zandra Gan RN also unsuccessful attempt. Dawit Adam RN to attempt with ultrasound guidance. CHUCK Downs aware. Care ongoing by this RN.
--- NOTE | 2025-01-30 14:54 | PC.NURSE ---
Vicky Rebollar, RN at bedside attempting IV access with ultrasound. Dawit Adam RN unavailable at this time.
[2025-01-30 15:11] LABS: MANUAL DIFF FLAG NO
[2025-01-30 15:14] LABS: Hematocrit 38.4 % (37.0-47.0); Hemoglobin 13.1 g/dl (12.0-16.0); Imm Gran Abs Auto 0.03 X10*3/uL (0.00-0.03); Imm Gran Pct Auto 0.4 % (0.0-0.4); Lymphocytes Absolute Auto 1.7 X10*3/uL (1.2-4.9); Mean Corpuscular HGB Conc 34.1 g/dl (31.0-35.0); Mean Corpuscular Hemoglobin 30.5 pg (27.0-33.0); Mean Corpuscular Volume 89.5 fL (80.0-98.0); NRBC Abs Auto 0.000 X10*3/uL (0.0-0.012); NRBC Pct Auto 0.0 /100WBC (0.0-0.2); Platelet Count 414 X10*3/uL (160-400); Red Blood Count 4.29 X10*6/uL (4.20-5.50); White Blood Count 7.1 X10*3/uL (4.8-10.8)
[2025-01-30 15:33] LABS: Alanine Aminotransferase 14 U/L (0-31); Albumin Level 4.4 g/dL (3.5-5.0); Alkaline Phosphatase 233 U/L (39-117); Anion Gap 21 (12-20); Aspartate Amino Transferase 32 U/L (5-31); Blood Urea Nitrogen 5 mg/dL (9-16); Calcium 9.1 mg/dL (8.4-10.2); Carbon Dioxide 18 mmol/L (22-29); Chloride 94 mmol/L (96-108); Creatinine Clr Calc Pharmacy 90.2; Estimated Glomerular Filt Rate > 60; Magnesium 2.1 mg/dL (1.6-2.6); Potassium 3.3 mmol/L (3.3-5.1); Sodium 130 mmol/L (135-145); Total Protein 7.9 g/dL (6.5-8.0)
[2025-01-30 15:39] LABS: Troponin-I High Sensitivity 13.5 ng/L (<3.5-17.0)
--- OUTSIDE RECORDS SUMMARY | 2025-01-30 16:27 | XMS_ITS | Encounter Summary ---
Author Organization [employer] Address [address] [place] [address] Care Team Providers Care Rod Hanger Name Role Phone Unavailable Primary Care Provider Unavailabl e Reason for Visit * Reason Onset Date Comments New Patient Appt 09/22/2022 Encounter Details Date Type Department Care Team (Late st Contact Info) Description 09/22/2022 Telephone [facility] [address] [place] [address] Joshua Pugh MD [address] [place] [address] New Patient Appt Social History Tobacco Use [...] left voicemail to give a call at [phone]. documented in this encounter Plan of Treatment Not on file documented as of this encounter Visit Diagnoses Not on filedocumented in this encounter
--- OUTSIDE RECORDS SUMMARY | 2025-01-30 16:27 | XMS_ITS | Clinical Summary ---
Author Organization [employer] Address [address] [place] [address] Care Team Providers Care Machine Finisher Name Role Phone Unavailable Primary Care Provider [...] patient's age to complete this topic Insurance [facility] STANDARD
[2025-01-30] MEDS: iohexoL 350 MG/ML 100 ML INFUS..BTL IV (16:30)
[2025-01-30] MEDS: Lactated Ringers 1,000 ML 999 ML IV (17:34)
--- NOTE | 2025-01-30 21:00 | MHC.CM.ED ---
CM met with patient with medical voucher clerk, as patient is Frisian speaking. Pt has a seizure disorder, had a seizure, fell and sustained non-displaced fx's of the R superior and inferior pubic rami. Per ortho: non surgical. Will be NWB x 3 months.Pt lives alone. Is a smoker. 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 She uses a rollator. She has MOW. Her PCP is at the [facility]. She has a MOLST on file-Full Code. Pt is requesting to change her HCP on file to Samantha Dyson ([phone]). HCP reviewed, completed and signed. Uploaded into [facility] and [facility] [employer]. Copies given. PT is pending. Local referrals placed. Pt has [employer] Medicare and Medicaid. CM will follow.
[2025-01-30] MEDS: oxyCODONE HCl Immed Release 5 MG TABLET PO (21:20)
[2025-01-31] VITALS (9 sets, daily range): BP systolic 90–120; BP diastolic 49–67; PULSE 83–94; RESP 13–16; TEMP 36.1–37.4; O2SAT 98–100
--- NOTE | 2025-01-31 06:01 | PC.NURSE ---
Assumed care of patient at 0300 in ED OVF. Alert and Oriented x [address] Bed in lowest setting, locked, alarm and call camarena in place. Awaiting placement.
--- NOTE | 2025-01-31 09:16 | PHA.MEDREC ---
Pharmacy Consult ? Medication Reconciliation Pharmacy has completed the medication reconciliation.
--- NOTE | 2025-01-31 12:10 | MHC.CM.ED ---
Patient remains in ER overflow. Physical therapy eval completed. Short term rehab is recommended. [facility], [facility], [facility], [facility] [address], [facility], [facility], [facility], and [facility] are able to offer a bed. [facility], [facility], [facility], [facility], [facility], [facility], [facility] and [facility] are still reviewing. Met with patient and park interpreter in regards to discharge planning. Bed offers discussed. Patient has been to [facility] [address] and accepts bed there. [facility] made aware and asked to obtain ins auth. Patient aware auth may not be available until Monday. Continue to monitor for d/c needs.
--- NOTE | 2025-01-31 12:11 | PC.NURSE ---
straight cath for 1500. Pt denied feeling full before cath inserted. Provider aware.
[2025-01-31 12:15] LABS: Appearance Urine Clear; Glucose Urine UA Negative (Negative); PH 5.5 (5.0-9.0); Specific Gravity - Urine 1.020 (1.005-1.025)
[2025-01-31 12:26] LABS: COVID-19 Test Negative (Negative); IDNOW Serial# 6674DD1D
--- NOTE | 2025-01-31 17:47 | PC.NURSE ---
Pt hasn't urinated since straight cath. was bladder scanned aprox 1 hr ago with 275cc's. pure which put back inplace.
--- NOTE | 2025-01-31 20:30 | PC.NURSE ---
Assumed care of pt, presents to ED for seizures post fall at home, pt apparently had two seizures at home, per imaging, pt has anterior and posterior rib fractures followed by a pubic rami fracture as well, pt is Estonian speaking, aaox4, nad. Pt resting comfortably in bed
[2025-02-01] VITALS (17 sets, daily range): BP systolic 67–118; BP diastolic 38–63; PULSE 74–85; RESP 13–17; TEMP 36.2–37.1; O2SAT 95–99
[2025-02-01] MEDS: Aspirin Enteric Coated 81 MG TABLET.DR PO (08:33)
--- NOTE | 2025-02-01 10:31 | PC.NURSE ---
Pt resting quietly in bed this am. Took meds whole. Ate breakfast independently. VSS. Denies any complaints. NAD. Bladder scan showed 103ml. Will not place domingo at this time. Will reassess in 4hrs.
--- NOTE | 2025-02-01 11:38 | MHC.CM.PN ---
Addendum entered by Alivia Guerrero 02/01/25 15:44: CM INFORMED PT WITH LOW BP TRANSPORT HELD WITH GRAEME AND SNF INFORMED Original Note: PER NOTES PT ACCEPTED A BED OFFER AT [facility] YESTERDAY [facility] LIAISON CONFIRMS THEY HAVE RECEIVED INSURANCE AUTH BLS TRANSPORT BOOKED FOR 1500 HOURS WITH G[facility]EME RN GIVEN PHONE NUMBER FOR REPORT [phone]
[2025-02-01] MEDS: Lactated Ringers 1,000 ML 500 ML IV (19:30)
--- NOTE | 2025-02-01 20:00 | PC.NURSE ---
Addendum entered by Ale Whalen RN 02/02/25 04:38: Patient again noted hypotensive 03:30, as confirmed with manual. Pt remained drowsy, arousable to voice and light touch, asympomatic with mentation and neuros maintained. Dr. Colon notified. ICU consulted and SECURITY SPECIALIST Sabino presented to this pt's bedside. BP did improve some with stimulation. Repeat labs including CBC ordered and obtained. MD notified, electrolyte repletions requested. Addendum entered by Ale Whalen RN 02/02/25 03:29: Logger Driving Horses assumed care of this patient again, now seen in the main ED bed21 at ~23:12. Sepsis fluids completed shortly after assuming care, and maintenance fluids were started per MAY. Dodd in place intact and patent of foul smelling clear yellow urine. U/A recently sent prior to magnetic tape typewriter operator reassuming care showed +UTI and patient was initiated on ceftriaxone per MAY review. Patient remains A&Ox4. Only complaint offered is still of pain in right hip. Pt medicated per MAY. +radial and dp pulses, +Cms. Pt denies any numbness or tingling.? CT abdomen/pelvis ordered prior to assuming care was obtained by magnetic tape typewriter operator. 02:00 hour: CT resulted and impression was reviewed. Covering Dr. Colon was notified of impression (please see report for full details). Ortho was consulted by . 02:45 pt noted to again be hypotensive 87/50. MD notified. Of note, patient has received 2.5L fluid boluses in addition to sepsis fluids 2,259ml as well as some maintenance fluids (LR 100ml/hr initiated at 23:32). Cumulative fluid volume ~5L in boluses and UOP since IUC placed =1650ml were discussed with . written orders to hold fluid bolus that has been ordered for this 87/50 BP. Logger Driving Horses's assessment remains unchanged on 02:00 hour reassessment?with director of customer acquisition present: This pt continues to deny dizziness, numbness/tingling, chest pain, sob, n/v. The pt has?+dp/pt pulses and +equal cms bilaterally, -edema to BLE. +dorsiflexion and plantar flexion to command. Denies back pain. Pt continues to reports pain in her right hip still which she described as okay and declined offered medication for. This pt continues to rest in bed with even and unlabored breathing, no distress noted. Plan of care ongoing.? Original Note: [employer]riving Horses assumed care of this patient at 19:30. Per received handoff report, patient had been hypotensive this evening s/p 1L NS bolus with improvement to 93/50 at 18:28 prior to this magnetic tape typewriter operator assuming care; An additional 500ml LR bolus was ordered during shift change report by CHUCK Downs for 93 SBP. Per report pt was also due to void/bladder scan at 20:00. Bladder scan was obtained at 19:24 by this magnetic tape typewriter operator which showed 386ml. Pt was drowsy but arousable, A&Ox4 on assessment with staff director of customer acquisition present at bedside. Pt was non-tender to pelvic/lower abdominal palpation and denied urge or pressure. Providers Brandon Downs and Mary Perez were notified of bladder scan. Vitals were obtained prior to initiating ordered LR bolus, notable for hypotension 67/42 with cuff on LUE, confirmed by magnetic tape typewriter operator with manual of 78/40. Rapid response was called with ED provider, covering Hospitalist Dr. Colon, ED platform builder, and nursing hand silvering supervisor responding to this pt's bedside. Bp reassessment during rapid showed 82/45 with patient in full trendelenberg position. MD advised patient to be placed on tele. As no tele capabilities in pt's current room/unit and need for potential higher level of care, the plan to transfer this patient back to the main ED was discussed with ED charge, MD, and nursing hand silvering supervisor. This patient was transferred in arousable/verbal condition with LR bolus infusing and all belongings by ICU resource RN and airplane technician at ~19:45. Handoff report was called to ED RN Greer.
--- NOTE | 2025-02-01 20:09 | PC.NURSE ---
Addendum entered by Greer Eid RN 02/01/25 20:57: Pt came from overflow with LR liter bolus infusing. Liter of NS started once LR completed at 2054. Original Note: Assumed care of patient at 1999. Pt comes from ED overflow unit for low BPs. Currently has NS liter bolus infusing. BP is now 90/40s. hourly sign language interpreter at bedside. Pt denies pain, nausea, dizziness. States she feels well. Breathing unlabored. Pt placed on tele. Plan for another liter bolus of NS.
--- NOTE | 2025-02-01 20:12 | PC.NURSE ---
Pt alert and oriented x4 via secondary spanish teacher. She denied pain or other complaint during the shift. Pt with planned discharge for 3 pm. She was bladder scanned for 216cc as approx 1430 as scheduled for urinary retention. Pt rechecked prior to discharge and found to be low twice via dynamap and manual taken with bp 84/38 L upper arm. She denied symptoms at that time also via interperter Provider Toña Yi aware of BP and low urine production and bolus ordered. Pt noted to be difficult stick for IV access and IV had been removed for discharge. Bolus given as soon as access obtained. EMS/discharge held. Repeat BP post bolus 93/50 wtih BOX TOE STITCHER Shazia Downs aware and was researching chart to further plan care. Handoff given to oncoming RN with pt BP again dropping with pt drowsy requiring INVESTIGATIONS CHIEF to be called. Plan of care evolving with oncoming RN following.
--- NOTE | 2025-02-01 21:10 | PC.NURSE ---
Pt bladder scanned and found to have 530 mL in bladder. 16F domingo placed and draining. U/A obtained and sent to lab.
[2025-02-01 21:18] LABS: Appearance Urine Cloudy; Glucose Urine UA Negative (Negative); PH 5.5 (5.0-9.0); Specific Gravity - Urine 1.020 (1.005-1.025); UMIC TRIGGER UACC YES
[2025-02-01 21:20] LABS: UACC Culture Trigger YES
--- NOTE | 2025-02-01 21:31 | P.HPHOSP_ITS ---
History of Present Illness Date of Service: 02/01/25 Chief Complaint: fall 70-year-old female with a past medical history of seizure disorder; history of neurostimulator placement; hypertension, hyperlipidemia, takotsubo cardiomyopathy, seizure disorder; presented to the hospital today with a chief complaint of fall. Patient mentions she had an episode of seizure at home and subsequently she fell down; fall patient came to the hospital for further evaluation. Reports having generalized tonic-clonic seizure at home. Denies any further episodes after she came to the hospital. Denies any fever chills cough or sputum production. Denies any abdominal pain nausea vomiting or diarrhea. ER course: Patient initially presented to the ER 2 days ago with above complaints; had CT head and CT C-spine done which showed acute findings; CT of the hip showed pubic rami fracture; also noted to have trimalleolar fracture and distal radius fracture; patient was placed in the ED ops and was planned for discharge to rehab. But today while she was waiting for rehab placement in the ER noted to have low blood pressures. Given IV fluids. Urinalysis abnormal consistent with UTI. Given ceftriaxone. RN reported that patient has been having intermittent urinary retention. [facility] Medical History Seizure disorder Dislocation of left talus Takotsubo cardiomyopathy Hypertension Hyperlipemia Family History Mother No problems noted. Father No problems noted. Surgical History S/P placement of nerve stimulator History of cholecystectomy Social History Household Members: Family Housing: Apartment Do you presently have visiting nurse or other home services: Yes Alcohol intake: current Alcohol intake frequency: holidays/special occasions only Patient Tobacco Use Status: Current everyday Tobacco user Tobacco use type: Cigarette Years Smoked: 2 Smoked in Last 30 Days: No e-Cigarette/Vaping Use: Currently Using Use of substances other than those prescribed or required for medical reasons: No Advance Directives: Yes Advance Directives on File: Yes Advance Directives Date on File: 09/07/21 service: No Current occupational status: disabled Cognitive needs: Yes (walker) Hearing needs: No Vision needs: No Meds Allergies Allergy/AdvReac Type Severity Reaction Status Date / Time No Known Allergies (No Known Allergy Verified 01/30/25 12:16 Allergies*) Active Medications: Current Medications Acetaminophen (Acetaminophen 325 Mg Tablet) 975 mg PO TID [facility] Last Admin: 02/01/25 16:18 Dose: 975 mg Acetaminophen (Acetaminophen 325 Mg Tablet) 650 mg PO Q6H PRN PRN Reason: Pain, Mild 1-3,fever,headache Aspirin (Aspirin Enteric Coated 81 Mg Tablet.Dr) 81 mg PO DAILY [facility] Last Admin: 02/01/25 08:33 Dose: 81 mg Atorvastatin Calcium (Atorvastatin Calcium 40 Mg Tablet) 40 mg PO BEDTIME [facility] Last Admin: 01/31/25 21:53 Dose: 40 mg Calcium Carbonate (Calcium Carbonate 750 Mg Tab.Chew) 750 mg PO Q4H PRN PRN Reason: Heartburn Carvedilol (Carvedilol 3.125 Mg Tablet) 3.125 mg PO BID [facility]; Protocol Last Admin: 02/01/25 08:34 Dose: 3.125 mg Clonazepam (Clonazepam 1 Mg Tablet) 2 mg PO BEDTIME PRN PRN Reason: Insomnia Folic Acid (Folic Acid 1 Mg Tablet) 1 mg PO DAILY [facility] Last Admin: 02/01/25 08:38 Dose: 1 mg Heparin Sodium (Porcine) (Heparin Sodium,Porcine 5,000 Unit/Ml Vial) 5,000 unit SUBCUT Q8H [facility] Ceftriaxone Sodium 1 gm/ (Sodium Chloride) 50 mls @ 100 mls/hr IV ONCE ONE Stop: 02/01/25 21:54 Sodium Chloride (Ns) 2,259 mls @ 2,259 mls/hr 30 ml/kg infuse over 1 hr (2259 ml) IV .Q1H STA Stop: 02/01/25 22:24 Lactated Ringer's (Lr) 1,000 mls @ 100 mls/hr IVCONT .Q10H [facility] Ceftriaxone Sodium 1 gm/ (Sodium Chloride) 50 mls @ 100 mls/hr IV Q24H [facility] Lacosamide (Lacosamide 100 Mg Tablet) 150 mg PO BID [facility] Last Admin: 02/01/25 08:32 Dose: 150 mg Lisinopril (Lisinopril 5 Mg Tablet) 5 mg PO DAILY [facility]; Protocol Last Admin: 02/01/25 08:42 Dose: 5 mg Loperamide HCl (Loperamide Hcl 2 Mg Capsule) 2 mg PO TID [facility] Last Admin: 02/01/25 16:25 Dose: Not Given Magnesium Hydroxide (Milk Of Magnesia 30 Ml Oral.Susp) 30 ml PO DAILY PRN PRN Reason: Constipation Melatonin (Melatonin 3 Mg Tablet) 6 mg PO BEDTIME PRN PRN Reason: Insomnia Melatonin (Melatonin 3 Mg Tablet) 6 mg PO BEDTIME PRN PRN Reason: Insomnia Oxycodone HCl (Oxycodone Hcl Immed Release 5 Mg Tablet) 5 mg PO Q6H PRN PRN Reason: Pain, Severe (Pain Scale 7-10) Last Admin: 01/30/25 21:20 Dose: 5 mg Phenobarbital (Phenobarbital 30 Mg Tablet) 30 mg PO BID [facility] Last Admin: 02/01/25 08:32 Dose: 30 mg Phenytoin Sodium (Phenytoin Sodium Extended 100 Mg Capsule) 200 mg PO BID [facility] Last Admin: 02/01/25 08:33 Dose: 200 mg Sodium Chloride (0.9 % Sodium Chloride Flush 3 Ml Syringe) 3 ml IVFLUSH QSHIFT [facility] Physical Exam 2 Vital Signs and Narrative: Vital Signs: Last Vital Signs Temp 98.7 F 02/01/25 18:28 Pulse 78 02/01/25 21:18 Resp 14 02/01/25 21:18 BP 104/48 L 02/01/25 21:18 Pulse Ox 99 02/01/25 21:18 O2 Del Method Room Air 02/01/25 21:18 O2 Flow Rate 96 02/01/25 08:53 BMI result Body Mass Index 29.4 Gen: Appears be in no acute distress HEENT: NCAT, Moist mucosa. Pulmonary: Vesicular breath sounds, fair air entry CVS: Normal S1-S2 Abdomen: BS+, Soft, Nontender Extremities: Warm well perfused Neuro: Alert and awake. Results Labs 02/01/25 22:10 02/01/25 22:10 Labs: Laboratory Results - last 24 hr 02/01/25 21:10 Urine Color Yellow Urine Appearance Cloudy Urine pH 5.5 Ur Specific [place] 1.020 Urine Protein Trace Urine Glucose (UA) Negative Urine Ketones Trace Urine Blood Small (1+) H Urine Nitrite Positive H Ur Leukocyte Esterase Moderate (2+) H Urine RBC 6-10 H Urine WBC 21-50 H Ur Squamous Epith Cells 6-10 Urine Bacteria 4+ Hyaline Casts 3-5 Assessment and Plan (1) Acute hypotension: Status: Acute Plan 70-year-old female with a past medical history of seizure disorder; history of neurostimulator placement; hypertension, hyperlipidemia, takotsubo cardiomyopathy, seizure disorder; presented to the hospital today with a chief complaint of fall. Seizure: Patient did not have any further episodes of seizure after she came to the hospital. Reports being compliant with her home medications-we will continue lacosamide, phenobarbital, phenytoin Seizure precautions Fall: Secondary to seizure episode. Supportive care. PT/OT when ready for discharge. Pubic rami fracture/distal radius fracture/trimalleolar fracture: Pain control. Orthopedics follow-up recommended. L1 fracture: Patient likely had the fracture when she had the fall [address] abdomen pelvis showed L1 acute fracture with 30% height loss. Patient exam is nonfocal. Will consult spine surgery/Orthopedics for further input. Severe sepsis/UTI: Patient blood pressure was as low as 60s systolic. Improved with IV fluids. Pending stat labs. Continue ceftriaxone. Follow up cultures. Hold home carvedilol. DVT prophylaxis: Subcu heparin Code status: Full code Quality Stroke Does the patient have a stroke diagnosis?: No VTE Prior VTE?: No VTE Risk Level:: Medical - moderate - high VTE Device Contraindication: Treatment Not Indicated VTE Drug Contraindication: N/A - Med Ordered
--- NOTE | 2025-02-01 22:03 | PC.NURSE ---
Sepsis alert initiated @ 2126. Delay in ABX administration d/t pt being difficult blood draw. ABX to be given once blood cultures obtained.
[2025-02-01 22:21] LABS: Hematocrit 37.4 % (37.0-47.0); Hemoglobin 12.4 g/dl (12.0-16.0); Imm Gran Abs Auto 0.01 X10*3/uL (0.00-0.03); Imm Gran Pct Auto 0.2 % (0.0-0.4); Lymphocytes Absolute Auto 1.7 X10*3/uL (1.2-4.9); MANUAL DIFF FLAG SCAN; Mean Corpuscular HGB Conc 33.2 g/dl (31.0-35.0); Mean Corpuscular Hemoglobin 29.9 pg (27.0-33.0); Mean Corpuscular Volume 90.1 fL (80.0-98.0); NRBC Abs Auto 0.000 X10*3/uL (0.0-0.012); NRBC Pct Auto 0.0 /100WBC (0.0-0.2); PLT CLUMP 1; Red Blood Count 4.15 X10*6/uL (4.20-5.50); SCAN SMEAR FLAG 1
[2025-02-01 22:32] LABS: Calcium 8.1 mg/dL (8.4-10.2); Chloride 110 mmol/L (96-108); Potassium 3.1 mmol/L (3.3-5.1); Sodium 141 mmol/L (135-145)
[2025-02-01 22:38] LABS: Troponin-I High Sensitivity 26.4 ng/L (<3.5-17.0)
[2025-02-01 22:42] LABS: Platelet Count 236 X10*3/uL (160-400)
[2025-02-01] MEDS: 0.9 % Sodium Chloride Flush 3 ML SYRINGE IVFLUSH (23:29)
[2025-02-01] MEDS: oxyCODONE HCl Immed Release 5 MG TABLET PO (23:31)
[2025-02-01] MEDS: Lactated Ringers 1,000 ML 100 ML IVCONT (23:32)
[2025-02-02] VITALS (15 sets, daily range): BP systolic 80–140; BP diastolic 36–62; PULSE 64–84; RESP 14–21; TEMP 36.6–36.7; O2SAT 94–100; BMI 30.8
[2025-02-02 04:11] LABS: MANUAL DIFF FLAG NO
[2025-02-02 04:13] LABS: Hematocrit 34.9 % (37.0-47.0); Hemoglobin 11.6 g/dl (12.0-16.0); Imm Gran Abs Auto 0.01 X10*3/uL (0.00-0.03); Imm Gran Pct Auto 0.2 % (0.0-0.4); Lymphocytes Absolute Auto 1.4 X10*3/uL (1.2-4.9); Mean Corpuscular HGB Conc 33.2 g/dl (31.0-35.0); Mean Corpuscular Hemoglobin 29.9 pg (27.0-33.0); Mean Corpuscular Volume 89.9 fL (80.0-98.0); NRBC Abs Auto 0.000 X10*3/uL (0.0-0.012); NRBC Pct Auto 0.0 /100WBC (0.0-0.2); Platelet Count 294 X10*3/uL (160-400); Red Blood Count 3.88 X10*6/uL (4.20-5.50); White Blood Count 4.1 X10*3/uL (4.8-10.8)
[2025-02-02 04:26] LABS: Alanine Aminotransferase 10 U/L (0-31); Albumin Level 3.4 g/dL (3.5-5.0); Alkaline Phosphatase 184 U/L (39-117); Anion Gap 10 (12-20); Aspartate Amino Transferase 24 U/L (5-31); Blood Urea Nitrogen 8 mg/dL (9-16); Calcium 7.8 mg/dL (8.4-10.2); Carbon Dioxide 24 mmol/L (22-29); Chloride 112 mmol/L (96-108); Creatinine Clr Calc Pharmacy 104.6; Estimated Glomerular Filt Rate > 60; Magnesium 1.8 mg/dL (1.6-2.6); Potassium 3.2 mmol/L (3.3-5.1); Sodium 143 mmol/L (135-145); Total Protein 5.8 g/dL (6.5-8.0)
[2025-02-02 04:31] LABS: Troponin-I High Sensitivity 17.9 ng/L (<3.5-17.0)
--- NOTE | 2025-02-02 04:33 | PM.EVENT ---
Documented by User: Blanca Gallo NP 02/02/25 04:48 Event Note Date of Service: 02/02/25 Event Note: The patient is a 70-year-old indonesian speaking female with a past medical history of seizure disorder; history of neurostimulator placement; hypertension, hyperlipidemia, takotsubo cardiomyopathy, who presented to the hospital 01/30/2025 after sustaining a fall. Reported tonic-clonic seizure at home.? Her CT head and CT C-spine done which showed acute findings; CT of the hip showed pubic rami fracture; also noted to have trimalleolar fracture and distal radius fracture; patient was placed in the ED observation pending for discharge to rehab.? Tonight Patient having low blood pressures, UA consistent with UTI, started on Ceftriaxone and IV fluids. No elevated lactic acid. Abd CT was performed incidental finding of L1 burst fracture with 30% height loss suggestive of paraspinal hematoma.? Hospitalist physician consulted Ortho/spine surgery? ICU consulted due to Hypotension despite 5 liter bolus. On my assessment? no neurological deficits were noted. Alert and oriented x3. BP with MAP > 70. Patient BP are stable at this moment does not require ICU level of care at this time? Rec:? Agree with abx coverage for acute UTI? K and Ca replacement? Albumin? Frequent neuro check Cont to trend H&H? Please reach out to ICU team if patient condition deteriorates? Time Spent With Patient Time: Total time managing care of this patient today ____ minutes. Documented by User: Shayne Pinzon MD 02/02/25 10:16 Event Note Date of Service: 02/02/25
[2025-02-02] MEDS: Lactated Ringers 1,000 ML 100 ML IVCONT ×2 (07:38→17:48)
--- NOTE | 2025-02-02 09:14 | PC.NURSE ---
Addendum entered by Pascual Field RN 02/02/25 09:16: domingo in place 16fr draining yellow urine Patient denies urinary symptoms at this time Original Note: This Rn assumed care of patient @ 0700 Patient A&O x 3 Nauruan speaking but knows some nepali seizure precautions in place Currently running LR @ 100 ml/hr IV left fore arm patent Patient been having soft BPs 87/53, repositioned and reassessed last BP 116/44
--- NOTE | 2025-02-02 09:21 | PM.EVENT ---
Event Note Date of Service: 02/02/25 Event Note: Patient is a 70 YO F with multiple falls and seizures over the last week XR and CT taken in the ED reveal R nondisplaced superior and inferior pubic rami fractures Recommend NWB x3 months to allow for fracture healing and to prevent displacement No acute orthopedic intervention indicated at this time Time Spent With Patient Time: Total time managing care of this patient today ____ minutes.
--- NOTE | 2025-02-02 09:59 | P.PNIM_ITS ---
Subjective Subjective Date of Service: 02/02/25 Interval History: Pt seen and evaluated in the ED during morning rounds Pt is a poor historian and does not remember what led to her fall or if she is having any urinary symptoms Complains of right leg and back pain Denies any lightheadedness or dizziness Review of Systems Review of Systems: Yes all other systems are reviewed and are negative Physical Exam 2 Exam: Exam: General: AOx3, no acute distress Resp: CTA bilaterally CVS: S1, S2, RRR GI: +BS, NT, no distention Skin: Warm, dry Neuro: Cranial nerves II-XII grossly intact bilaterally. Motor grossly intact bilaterally Extremities: No edema. Right wrist in soft splint. Right leg weakness and reduced ROM secondary to pain Psych: Appropriate affect Vital Signs: Vital Signs: Last Vital Signs Temp 98 F 02/02/25 09:28 Pulse 77 02/02/25 09:28 Resp 21 H 02/02/25 09:28 BP 98/44 L 02/02/25 09:28 Pulse Ox 97 02/02/25 09:28 O2 Del Method Room Air 02/02/25 09:28 O2 Flow Rate 96 02/01/25 08:53 BMI result Body Mass Index 29.4 Objective Data Active Medications Acetaminophen (Acetaminophen 325 Mg Tablet) 975 mg PO TID [facility] Last Admin: 02/02/25 09:04 Dose: 975 mg Documented By: LANDRY Acetaminophen (Acetaminophen 325 Mg Tablet) 650 mg PO Q6H PRN PRN Reason: Pain, Mild 1-3,fever,headache Aspirin (Aspirin Enteric Coated 81 Mg Tablet.) 81 mg PO DAILY [facility] On Hold: 02/02/25 05:40 Last Admin: 02/01/25 08:33 Dose: 81 mg Documented By: JOSE D Atorvastatin Calcium (Atorvastatin Calcium 40 Mg Tablet) 40 mg PO BEDTIME [facility] Last Admin: 02/01/25 22:17 Dose: 40 mg Documented By: JOVANNA Calcium Carbonate (Calcium Carbonate 750 Mg Tab.Chew) 750 mg PO Q4H PRN PRN Reason: Heartburn Clonazepam (Clonazepam 1 Mg Tablet) 2 mg PO BEDTIME PRN PRN Reason: Insomnia Folic Acid (Folic Acid 1 Mg Tablet) 1 mg PO DAILY [facility] Last Admin: 02/02/25 09:04 Dose: 1 mg Documented By: LANDRY Heparin Sodium (Porcine) (Heparin Sodium,Porcine 5,000 Unit/Ml Vial) 5,000 unit SUBCUT Q8H [facility] On Hold: 02/02/25 05:40 Last Admin: 02/02/25 05:40 Dose: Not Given Documented By: BRENDA Non-Admin Reason: Physician Held Med Lactated Ringer's (Lr) 1,000 mls @ 100 mls/hr IVCONT .Q10H [facility] Last Admin: 02/02/25 07:38 Dose: 100 mls/hr Documented By: LANDRY Ceftriaxone Sodium 1 gm/ (Sodium Chloride) 50 mls @ 100 mls/hr IV Q24H [facility] Lacosamide (Lacosamide 100 Mg Tablet) 150 mg PO BID [facility] Last Admin: 02/02/25 09:04 Dose: 150 mg Documented By: LANDRY Lisinopril (Lisinopril 5 Mg Tablet) 5 mg PO DAILY [facility]; Protocol Last Admin: 02/02/25 09:04 Dose: 5 mg Documented By: LANDRY Loperamide HCl (Loperamide Hcl 2 Mg Capsule) 2 mg PO TID [facility] Last Admin: 02/02/25 09:08 Dose: Not Given Documented By: LANDRY Non-Admin Reason: no BM Magnesium Hydroxide (Milk Of Magnesia 30 Ml Oral.Susp) 30 ml PO DAILY PRN PRN Reason: Constipation Melatonin (Melatonin 3 Mg Tablet) 6 mg PO BEDTIME PRN PRN Reason: Insomnia Melatonin (Melatonin 3 Mg Tablet) 6 mg PO BEDTIME PRN PRN Reason: Insomnia Oxycodone HCl (Oxycodone Hcl Immed Release 5 Mg Tablet) 5 mg PO Q6H PRN PRN Reason: Pain, Severe (Pain Scale 7-10) Last Admin: 02/01/25 23:31 Dose: 5 mg Documented By: BRENDA Phenobarbital (Phenobarbital 30 Mg Tablet) 30 mg PO BID [facility] Last Admin: 02/02/25 09:05 Dose: 30 mg Documented By: LANDRY Phenytoin Sodium (Phenytoin Sodium Extended 100 Mg Capsule) 200 mg PO BID [facility] Last Admin: 02/02/25 09:03 Dose: 200 mg Documented By: LANDRY Sodium Chloride (0.9 % Sodium Chloride Flush 3 Ml Syringe) 3 ml IVFLUSH QSHIFT [facility] Last Admin: 02/02/25 07:40 Dose: Not Given Documented By: LANDRY Non-Admin Reason: IV Running Labs 02/02/25 04:08 02/02/25 04:08 Labs: Laboratory Results - last 24 hr 02/01/25 02/01/25 02/01/25 21:10 22:10 22:11 MCV 90.1 MCH 29.9 MCHC 33.2 RDW 14.9 Plt Count 236 D MPV 10.4 Immature Gran % (Auto) 0.2 Neut % (Auto) 55.1 Lymph % (Auto) 33.7 Morton % (Auto) 9.6 Eos % (Auto) 1.2 Baso % (Auto) 0.2 Lymph # (Auto) 1.7 Morton # (Auto) 0.5 Eos # (Auto) 0.1 Baso # (Auto) 0.0 Abs Immat Gran (auto) 0.01 Absolute Neuts (auto) 2.8 Absolute Nucleated RBC 0.000 Nucleated RBC % (auto) 0.0 Smear Tech's Comments VERIFIED Anion Gap 13 Estim Creat Clear Calc 72.7 Estimated GFR > 60 Random Glucose 90 Lactic Acid 2.0 Calcium 8.1 L D Magnesium Total Bilirubin 0.2 AST 24 ALT 12 Alkaline Phosphatase 229 H Troponin I High Sens 26.4 H D NT-Pro-B Natriuret Pep 147.5 Total Protein 7.0 Albumin 4.1 Urine Color Yellow Urine Appearance Cloudy Urine pH 5.5 Ur Specific [place] 1.020 Urine Protein Trace Urine Glucose (UA) Negative Urine Ketones Trace Urine Blood Small (1+) H Urine Nitrite Positive H Ur Leukocyte Esterase Moderate (2+) H Urine RBC 6-10 H Urine WBC 21-50 H Ur Squamous Epith Cells 6-10 Urine Bacteria 4+ Hyaline Casts 3-5 02/01/25 02/02/25 23:00 04:08 MCV 89.9 MCH 29.9 MCHC 33.2 RDW 15.1 Plt Count 294 MPV 9.9 Immature Gran % (Auto) 0.2 Neut % (Auto) 58.7 Lymph % (Auto) 33.5 Morton % (Auto) 5.9 Eos % (Auto) 1.5 Baso % (Auto) 0.2 Lymph # (Auto) 1.4 Morton # (Auto) 0.2 Eos # (Auto) 0.1 Baso # (Auto) 0.0 Abs Immat Gran (auto) 0.01 Absolute Neuts (auto) 2.4 Absolute Nucleated RBC 0.000 Nucleated RBC % (auto) 0.0 Smear Tech's Comments Anion Gap 10 L Estim Creat Clear Calc 104.6 Estimated GFR > 60 Random Glucose 97 Lactic Acid 1.8 Calcium 7.8 L Magnesium 1.8 Total Bilirubin 0.2 AST 24 ALT 10 Alkaline Phosphatase 184 H Troponin I High Sens 17.9 H NT-Pro-B Natriuret Pep Total Protein 5.8 L Albumin 3.4 L Urine Color Urine Appearance Urine pH Ur Specific [place] Urine Protein Urine Glucose (UA) Urine Ketones Urine Blood Urine Nitrite Ur Leukocyte Esterase Urine RBC Urine WBC Ur Squamous Epith Cells Urine Bacteria Hyaline Casts Assessment and Plan (1) Acute UTI: Status: Acute Plan 70-year-old female with a past medical history of seizure disorder; history of neurostimulator placement; hypertension, hyperlipidemia, takotsubo cardiomyopathy, seizure disorder; presented to the hospital today with a chief complaint of fall. Acute UTI UA+ No sepsis: no SIRS criteria Empiric ceftriaxone, day 2 Urine culture growing gram negative rods Hypotension BP as low as 80/40 Possibly in the setting of UTI Received 5.3L IVF in the ED with minor improvement in ANGELICA Evaluated by ICU who declined admission Hold carvedilol and lisinopril Monitor BP closely; low threshold to give albumin Seizure: Patient did not have any further episodes of seizure after she came to the hospital. Reports being compliant with her home medications-we will continue lacosamide, phenobarbital, phenytoin Seizure precautions Pubic rami fracture/distal radius fracture/trimalleolar fracture Secondary to seizure episode at home Soft wrist splint, pain control Orthopedics follow-up; no acute intervention necessary at this time Pt should be NWB x3 months to allow for fracture healing and to prevent displacement PT/OT recommend STR L1 fracture Secondary to fall during seizure episode at home CT abdomen pelvis showed L1 acute fracture with 30% height loss Patient exam is nonfocal Pain control Outpatient follow up DVT prophylaxis: Subcu heparin Code status: Full code Pt requires continued hospitalization due to acute UTI complicated by hypotension. Given patient's comorbidities including seizure disorder as well as acute illnesses including multiple fractures, pt is at high-risk for complications and significant decline without administration of IV antibiotics and close monitoring of vital signs. Quality Stroke Does the patient have a stroke diagnosis?: No VTE Prior VTE?: No VTE Risk Level:: Medical - moderate - high VTE Device Contraindication: Treatment Not Indicated VTE Drug Contraindication: N/A - Med Ordered
--- NOTE | 2025-02-02 19:43 | PC.NURSE ---
this RN assumed care of this pt @1900, pt noted to be sitting upright in hospital be, seizure pads in pplace for safety, LR hanging @100mL/hr, pt appears to be inno apparent / respiratory distress, conneted to cardiac and SPO2 monitor, respirations even and unlabored, call light provided for safety, primarily Danish speaking
--- NOTE | 2025-02-02 20:12 | HO.NURTONUR ---
Chief Complaint: fall 70-year-old female, full code, NKA, Regular Diet, A+Ox3, primarily botswanan speaking, with a past medical history of seizure disorder; history of neurostimulator placement; hypertension, hyperlipidemia, takotsubo cardiomyopathy; presented to the hospital today with a chief complaint of fall. Patient mentions she had an episode of seizure at home and subsequently she fell down; fall patient came to the hospital for further evaluation. Reports having generalized tonic-clonic seizure at home. Denies any further episodes after she came to the hospital. Denies any fever chills cough or sputum production. Denies any abdominal pain nausea vomiting or diarrhea. ER course: Patient initially presented to the ER 2 days ago with above complaints; had CT head and CT C-spine done which showed acute findings; CT of the hip showed pubic rami fracture; also noted to have trimalleolar fracture and distal radius fracture; patient was placed in the ED ops and was planned for discharge to rehab. But today while she was waiting for rehab placement in the ER noted to have low blood pressures systolic in the 80's. Given IV fluids. Urinalysis abnormal consistent with UTI. Given ceftriaxone. RN reported that patient has been having intermittent urinary retention. Plan: Seizure precautions Supportive care. PT/OT when ready for discharge. Pain control. Orthopedics follow-up recommended. L1 fracture: Patient likely had the fracture when she had the fall [address] abdomen pelvis showed L1 acute fracture with 30% height loss. Patient exam is nonfocal. Will consult spine surgery/Orthopedics for further input. Continue ceftriaxone. Follow up cultures. Hold home carvedilol. Pt has a 22g IV to the left forearm w. LR running @100mL/hr
--- NOTE | 2025-02-02 20:48 | HO.NURTONUR ---
pt noted to desat to 79% while sleeping, when awaken pt SPO2 increased back between 98-99% on RA
[2025-02-02] MEDS: 0.9 % Sodium Chloride Flush 3 ML SYRINGE IVFLUSH (21:33)
[2025-02-03] MEDS: Lactated Ringers 1,000 ML 100 ML IVCONT (02:43)
[2025-02-03 03:21] VITALS: BP 105/58; PULSE 75; RESP 18; TEMP 36.7; O2SAT 96
--- NOTE | 2025-02-03 07:33 | P.PNIM_ITS ---
Subjective Subjective Date of Service: 02/03/25 Physical Exam 2 Vital Signs: Vital Signs: Last Vital Signs Temp 98.0 F 02/03/25 03:21 Pulse 75 02/03/25 03:21 Resp 18 02/03/25 03:21 BP 105/58 L 02/03/25 03:21 Pulse Ox 96 02/03/25 03:21 O2 Del Method Room Air 02/03/25 03:21 O2 Flow Rate 96 02/01/25 08:53 BMI result Body Mass Index 30.8 Objective Data Active Medications Acetaminophen (Acetaminophen 325 Mg Tablet) 975 mg PO TID [facility] Last Admin: 02/02/25 22:05 Dose: 975 mg Documented By: MIKI Acetaminophen (Acetaminophen 325 Mg Tablet) 650 mg PO Q6H PRN PRN Reason: Pain, Mild 1-3,fever,headache Aspirin (Aspirin Enteric Coated 81 Mg Tablet.) 81 mg PO DAILY [facility] On Hold: 02/02/25 05:40 Last Admin: 02/01/25 08:33 Dose: 81 mg Documented By: JOSE D Atorvastatin Calcium (Atorvastatin Calcium 40 Mg Tablet) 40 mg PO BEDTIME [facility] Last Admin: 02/02/25 21:32 Dose: 40 mg Documented By: MIKI Calcium Carbonate (Calcium Carbonate 750 Mg Tab.Chew) 750 mg PO Q4H PRN PRN Reason: Heartburn Clonazepam (Clonazepam 1 Mg Tablet) 2 mg PO BEDTIME PRN PRN Reason: Insomnia Folic Acid (Folic Acid 1 Mg Tablet) 1 mg PO DAILY [facility] Last Admin: 02/02/25 09:04 Dose: 1 mg Documented By: LANDRY Heparin Sodium (Porcine) (Heparin Sodium,Porcine 5,000 Unit/Ml Vial) 5,000 unit SUBCUT Q8H [facility] On Hold: 02/02/25 05:40 Last Admin: 02/02/25 05:40 Dose: Not Given Documented By: BRENDA Non-Admin Reason: Physician Held Med Lactated Ringer's (Lr) 1,000 mls @ 100 mls/hr IVCONT .Q10H [facility] Last Admin: 02/03/25 02:43 Dose: 100 mls/hr Documented By: MIKI Ceftriaxone Sodium 1 gm/ (Sodium Chloride) 50 mls @ 100 mls/hr IV Q24H [facility] Last Infusion: 02/02/25 22:07 Dose: Infused Documented By: MIKI Influenza Virus Vaccine (Flu Vacc [id number](6mo Up)/Pf 0.5 Ml Syringe) 0.5 ml IM .ONCE ONE Stop: 02/03/25 09:01 Lacosamide (Lacosamide 100 Mg Tablet) 150 mg PO BID [facility] Last Admin: 02/02/25 21:32 Dose: 150 mg Documented By: MIKI Lisinopril (Lisinopril 5 Mg Tablet) 5 mg PO DAILY [facility]; Protocol On Hold: 02/02/25 17:29 Last Admin: 02/02/25 09:04 Dose: 5 mg Documented By: LANDRY Loperamide HCl (Loperamide Hcl 2 Mg Capsule) 2 mg PO TID [facility] Last Admin: 02/02/25 21:12 Dose: Not Given Documented By: MIKI Non-Admin Reason: no BM Magnesium Hydroxide (Milk Of Magnesia 30 Ml Oral.Susp) 30 ml PO DAILY PRN PRN Reason: Constipation Melatonin (Melatonin 3 Mg Tablet) 6 mg PO BEDTIME PRN PRN Reason: Insomnia Melatonin (Melatonin 3 Mg Tablet) 6 mg PO BEDTIME PRN PRN Reason: Insomnia Oxycodone HCl (Oxycodone Hcl Immed Release 5 Mg Tablet) 5 mg PO Q6H PRN PRN Reason: Pain, Severe (Pain Scale 7-10) Last Admin: 02/01/25 23:31 Dose: 5 mg Documented By: BRENDA Phenobarbital (Phenobarbital 30 Mg Tablet) 30 mg PO BID [facility] Last Admin: 02/02/25 21:32 Dose: 30 mg Documented By: MIKI Phenytoin Sodium (Phenytoin Sodium Extended 100 Mg Capsule) 200 mg PO BID [facility] Last Admin: 02/02/25 21:32 Dose: 200 mg Documented By: MIKI Sodium Chloride (0.9 % Sodium Chloride Flush 3 Ml Syringe) 3 ml IVFLUSH [facility] Last Admin: 02/02/25 21:33 Dose: 3 ml Documented By: MIKI Labs 02/02/25 04:08 02/02/25 04:08 Microbiology Microbiology Results: Microbiology 02/01/25 22:09 Blood Culture - Preliminary Blood - Venous No growth after 24 hours. 02/01/25 22:11 Blood Culture - Preliminary Blood - Venous No growth after 24 hours. 02/01/25 21:10 Urine Culture - Preliminary Urine Catheterized - Dodd Catheter Gram negative arlin Quality Stroke Does the patient have a stroke diagnosis?: No VTE Prior VTE?: No VTE Risk Level:: Medical - moderate - high VTE Device Contraindication: Treatment Not Indicated VTE Drug Contraindication: N/A - Med Ordered
[2025-02-03 08:00] VITALS: BP 133/59; PULSE 74; RESP 20; TEMP 36.1; O2SAT 98
[2025-02-03 08:59] VITALS: BP 133/59; PULSE 74; O2SAT 98
[2025-02-03] MEDS: Flu Vacc TS2025-26(6mo up)/PF 0.5 ML SYRINGE IM (09:02)
--- NOTE | 2025-02-03 10:59 | MHC.CM.PN ---
Patient is medically cleared for dc to SNF/STR today. CM met with Patient at bedside to inform her of the dc plan and with her permission, CM left a message for MILAGRO/Samantha @ [phone], informing her of the dc plan.
[2025-02-03 12:00] VITALS: BP 111/59; PULSE 85; RESP 20; TEMP 37.2; O2SAT 96
--- NOTE | 2025-02-03 14:32 | PM.DS ---
DS: Providers Provider Date of Service: 02/03/25 Date of admission: 02/01/25 22:00 Date of discharge: 02/03/25 Primary care physician: Jayda Reilly MD Consults: 02/02/25 02:14 Consult to Orthopedics Routine Consulting Provider: [facility] Reason for consultation: L1 fracture DS: Diagnosis Discharge Diagnosis (1) Acute UTI: Status: Acute DS: Summary Hospital Course Hospital Course: 70-year-old female who is a poor historian at baseline with a past medical history of seizure disorder; history of neurostimulator placement; hypertension, hyperlipidemia, takotsubo cardiomyopathy, seizure disorder; presented to the hospital today with a chief complaint of fall. Workup revealed pansensitive E coli, was treated with IV antibiotics for 3 days and is being discharged on Bactrim 0.5 days to complete a total 7 day course of antibiotics. Has been seizure-free since admission. Unwitnessed Traumatic fall Fall likely in the setting of seizures with unknown downtime likely secondary to pansensitive E coli UTI Septic shock-hypotension, altered mental status in the setting of pansensitive E coli UTI Urine analysis positive for pansensitive E coli-hence placed her on Bactrim as this would also help with her hypokalemia Hypotension-likely in the setting of sepsis secondary to pansensitive E coli UTI- resolved post IV antibiotics and aggressive fluid resuscitation. Seizure: Patient did not have any further episodes of seizure after she came to the hospital. Reports being compliant with her home medications-we will continue lacosamide, phenobarbital, phenytoin. Was maintained on Seizure precautions Pubic rami fracture/distal radius fracture/trimalleolar fracture Secondary to seizure episode at home Soft wrist splint, pain control Orthopedics follow-up; no acute intervention necessary at this time Pt should be NWB x3 months to allow for fracture healing and to prevent displacement PT/OT recommend STR L1 fracture Secondary to fall during seizure episode at home CT abdomen pelvis showed L1 acute fracture with 30% height loss Patient exam is nonfocal Pain control Outpatient follow up DVT prophylaxis: Subcu heparin while inpatient Code status: Full code Patient was hemodynamically stable, medically deemed appropriate for short-term rehab placement, has been seizure-free since admission (since we are treating her with IV antibiotics for UTI). She needs to follow up with outpatient orthopedics for fracture of the pubic rami, L1 fracture that did not require operative management and only pain control Time spent discussing smoking cessation with patient: more than 10 minutes Time Attestation Discharge Coordination Time (in mins): 55 Quality: Safe Use of Opioids Does Pt have an Active Cancer Diagnosis on the Problem List?: No Quality: Stroke Does the patient have a stroke diagnosis?: No Physical Exam Vital Signs: Vital Signs: Last Vital Signs Temp 98.9 F 02/03/25 12:00 Pulse 85 02/03/25 12:00 Resp 20 02/03/25 12:00 BP 111/59 L 02/03/25 12:00 Pulse Ox 96 02/03/25 12:00 O2 Del Method Room Air 02/03/25 12:00 O2 Flow Rate 96 02/01/25 08:53 BMI result Body Mass Index 30.8 DS: Data Data Completed and Pending Completed studies during hospitalization [Text1]: Procedures Reposition Left Fibula with Internal Fixation Device, Open Approach (09/20/21) Reposition Left Tibia, External Approach (09/07/21) Labs on day of discharge: Preliminary micro results at discharge 02/01/25 22:09 Blood Culture - Preliminary Blood - Venous No growth after 24 hours. 02/01/25 22:11 Blood Culture - Preliminary Blood - Venous No growth after 24 hours. Discharge Plan Discharge Anticipated Discharge Date/Time: 02/03/25 14:08 Patient Disposition: Xfer SNF Discharge Diagnosis: Sepsis secondary to E coli UTI causing [id number] since admission, falls,Pubic rami fracture/distal radius fracture/trimalleolar fracture Referrals: [facility] [Provider Group] [facility] [Outside] Jayda Reilly MD [Primary Care Provider, Internal Medicine] - 1 Week Discharge Medications: New oxycodone 5 mg tablet 5 mg PO Q8H PRN (Reason: pain (scale score 4-6)) Qty: 9 0RF Rx Instructions: Partial Fill upon patient request. sulfamethoxazole-trimethoprim [Bactrim DS] 800-160 mg tablet 1 tab PO BID 5 Days Qty: 10 0RF Continued (DME) walker Misc See Rx Instructions .MEDSUPPLY Qty: 1 0RF Rx Instructions: Folding Front wheeled walker folic acid 1 mg tablet 1 mg PO DAILY Qty: 90 1RF aspirin 81 mg tablet 81 mg PO DAILY Qty: 90 3RF atorvastatin [Lipitor] 40 mg tablet 40 mg PO DAILY Qty: 90 3RF clonazepam 2 mg tablet 2 mg PO BEDTIME Qty: 30 1RF lacosamide 150 mg tablet 150 mg PO BID 90 Days Qty: 180 1RF lisinopril 10 mg tablet 10 mg PO DAILY Qty: 90 1RF phenobarbital 32.4 mg tablet 32.4 mg PO BID 90 Days Qty: 180 1RF phenytoin sodium extended 100 mg capsule 200 mg PO BID 90 Days Qty: 360 1RF melatonin 5 mg capsule 5 mg PO BEDTIME Qty: 30 1RF (DME) Wheelchair with foot rest See Rx Instructions .ROUTE .MEDSUPPLY Qty: 1 0RF Rx Instructions: As directed carvedilol 3.125 mg tablet 3.125 mg PO BID Qty: 180 1RF Discharge Orders: Discharge Order (Routine); Ordered 02/03/25 Ordered By: Linnea Mejia Diet: Low salt diet Activity on Discharge: As tolerated Stand Alone Forms: Patient Portal Discharge page Print Language: Austrian Care Plan Goals: Continue antibiotics Bactrim for 4-1/2 days to complete total 7 day course for pansensitive E coli Continue taking your seizure medications as instructed Please come back to the ED if you notice any changes or any seizure episodes. Or any further falls. Health Concerns: See above Plan of Treatment: See above Assessment: See above Patient Instructions: Pelvic Fracture (ED)
--- NOTE | 2025-02-03 15:22 | PC.NURSE ---
Report called to Rochelle Antonio. All questions answered. Pt's med packet ready to hand off to EMS. Pt given DC instructions.
[2025-02-03 15:48] VITALS: BP 108/59; PULSE 89; RESP 20; TEMP 36.6; O2SAT 95
--- NOTE | 2025-02-12 19:13 | P.CDIM_ITS ---
PROVIDER RESPONSE TEXT: To clarify, the appropriate diagnosis supported by the clinical indicators: Right trimalleolar fracture remains a known or suspected condition for this patient and is further supported by QUERY TEXT: PHYSICIAN'S DOCUMENTATION REQUEST Date of Query: 02/12/2025 07:21 AM EST Patient Name: Justino Craft Admit Date: 02/02/2025 Dear Alex Colon MD, A review of the medical record indicates additional documentation may be needed. Please review below and update the documentation accordingly. The purpose of this query is not to question medical judgment, but to ensure the accuracy of the conditions reported for your patient. The diagnosis of trimalleolar fracture is documented in the record on 02/01/25 in the H&P. There is either a lack of clinical support for this condition in the current medical record, or there is a lack of recognized standard criteria to support the condition. Clinical Indicators: presented to the ED status post an episode of seizure at home and subsequently she fell There is no imaging documented regarding the trimalleolar fracture or the laterality The request is for one of the following: A) Additional documentation to support the condition. Indicate if this is in lieu of what may be considered standard criteria, and/or support why the standard criteria may not be present for this patient. Or B) A more appropriate diagnosis, reflecting the patient's condition. Please clarify the documentation of trimalleolar fracture: Right trimalleolar fracture remains a known or suspected condition for this patient and is further supported by Right trimalleolar fracture has been ruled out and a more appropriate diagnosis for this patient's condition is Left trimalleolar fracture remains a known or suspected condition for this patient and is further supported by Other (explain) Clinically unable to determine (explain) Thank you, Ethel Izquierdo RN Use of terms such as suspected, likely, concern for, or probable (associated with a specific diagnosis that is being evaluated, monitored, or treated as if it exists) are acceptable and can be coded in the inpatient setting, when documented at the time of discharge. Please use your independent medical judgment in providing your response. THIS QUERY IS PART OF THE PERMANENT MEDICAL RECORD
== END 2025-02-03 15:47 | disposition skilled nursing facility (03) | DRG 871 ==
LOC: HO.ED 02-01 20:11 → HO.EDOVER 02-01 22:05 → HO.IMC 02-02 19:54
PROVIDERS: Physician Assistant; Registered Nurse Community Health; Admitting Provider Hospitalist; Emergency Provider Emergency Medicine; PCP Internal Medicine; Visit Provider Student in an Organized Health Care Education/Training Program
DX: A41.9 Sepsis, unspecified organism (principal); R65.21 Severe sepsis with septic shock; N39.0 Urinary tract infection, site not specified; S32.501A Unspecified fracture of right pubis, initial encounter for closed fracture; G40.409 Other generalized epilepsy and epileptic syndromes, not intractable, without status epilepticus; Z87.891 Personal history of nicotine dependence; S82.851A Displaced trimalleolar fracture of right lower leg, initial encounter for closed fracture; R33.9 Retention of urine, unspecified; I95.9 Hypotension, unspecified; B96.20 Unspecified Escherichia coli [E. coli] as the cause of diseases classified elsewhere; Z23 Encounter for immunization; Z20.822 Contact with and (suspected) exposure to COVID-19; Z96.82 Presence of neurostimulator; Z79.82 Long term (current) use of aspirin; Z79.899 Other long term (current) drug therapy
CPT/HCPCS: 36415; 70450; 71260; 72100; 72125; 72170; 73552; 74176; 80053; 81001; 81003; 82550; 83605; 83735; 83880; 84484; 85025; 87040; 87086; 87088; 87186; 87635; 90656; 93005; 97162; 97530; 99285; J0131; J0696; J1644; J2270; J7120; Q9967

== ENCOUNTER → 2025-01-30 12:55 | Outpatient (BNV) | payer MEDICARE, MEDICAID, SELFPAY | PROVIDERS: Emergency Provider Emergency Medicine; Visit Provider Radiology Diagnostic Radiology | DX: R07.89 Other chest pain (principal); M54.2 Cervicalgia; R51.9 Headache, unspecified; M54.50 Low back pain, unspecified; M79.604 Pain in right leg; W19.XXXA Unspecified fall, initial encounter | CPT/HCPCS: 70450; 71260; 72100; 72125; 72170; 73552 ==

== ENCOUNTER → 2025-01-30 12:55 | Outpatient (BNV) | payer MEDICARE, MEDICAID, SELFPAY | PROVIDERS: Emergency Provider Emergency Medicine; PCP Internal Medicine; Visit Provider Internal Medicine Cardiovascular Disease | DX: R94.31 Abnormal electrocardiogram [ECG] [EKG] (principal); R53.1 Weakness | CPT/HCPCS: 93010 ==

== ENCOUNTER 2025-02-01 22:00 | Outpatient (BNV) | payer MEDICARE, MEDICAID, SELFPAY | END 2025-02-02 | PROVIDERS: Admitting Provider Hospitalist; Emergency Provider Emergency Medicine; PCP Internal Medicine; Visit Provider Radiology Diagnostic Radiology | DX: S32.012A Unstable burst fracture of first lumbar vertebra, initial encounter for closed fracture (principal); S32.511A Fracture of superior rim of right pubis, initial encounter for closed fracture; S32.591A Other specified fracture of right pubis, initial encounter for closed fracture; N39.0 Urinary tract infection, site not specified; Z04.3 Encounter for examination and observation following other accident | CPT/HCPCS: 74176 ==

== ENCOUNTER → 2025-02-01 22:00 | Outpatient (BNV) | payer MEDICARE, MEDICAID, SELFPAY | PROVIDERS: Admitting Provider Hospitalist; Emergency Provider Emergency Medicine; PCP Internal Medicine; Visit Provider Student in an Organized Health Care Education/Training Program | DX: N39.0 Urinary tract infection, site not specified (principal) | CPT/HCPCS: 99223; 99233; 99239 ==

== ENCOUNTER 2025-03-26 10:40 | Outpatient (AMB) | payer MEDICARE, MEDICAID, SELFPAY ==
--- NOTE | 2025-03-26 08:22 | A.OFFPC_ITS ---
Vital Signs 03/26/25 10:50 BP 114/70 Blood Pressure Location Rt brachial Position Sitting Pulse 70 Pulse Source Pulse Oximeter Temp 97.3 F Temp Source Temporal Artery Scan Pulse Oximetry (%) 99 Oxygen Delivery Method Room Air Intake Visit Reasons: F/U Appointment per [employer] Circuit Tester Required: Yes Circuit Tester Name: Her TAB BUILDER Accompanied by: TAB BUILDER Allergies No Known Allergies (No Known Allergies*) Allergy (Verified 01/30/25 12:16) Medication List - Last Reconciled 05/04/25 by CHUCK Hardy acetaminophen 650 mg (2 x 325 mg) PO QID PRN 15 days aspirin 81 mg PO DAILY atorvastatin (Lipitor) 40 mg PO DAILY carvedilol 3.125 mg PO BID clonazepam 2 mg PO BEDTIME folic acid 1 mg PO DAILY lacosamide 150 mg PO BID 90 days lidocaine 4% 1 patch topical DAILY PRN 10 days lisinopril 10 mg PO DAILY melatonin 5 mg PO BEDTIME methocarbamol 750 mg PO Q8H 7 days perampanel (Fycompa) 6 mg PO DAILY 90 days phenobarbital 32.4 mg PO BID 90 days phenytoin sodium extended 200 mg (2 x 100 mg) PO BID 90 days psyllium husk (Metamucil Fiber (aspartame)) 1 packet PO BID walker Folding Front wheeled walker [Wheelchair with foot rest As directed] Tobacco use date assessed: 03/26/25 Fall risk assessment: No Falls in past year Last assessed Fall Risk: 03/26/25 Dental Screening Dental Screen Date: 03/26/25 Did you have a dental visit in the last 12 months?: No Did you have a dental problem in the last 6 months where you did not have access to dental care?: No HPI HPI Comments History of Present Illness Details History of Present Illness The patient is a 70-year-old [place]ore[place] speaking female with seizure disorder, HTN, HLD and anxiety presenting for follow-up regarding a seizure in January which resulted in a fall, causing an L1 vertebral fracture and a pelvic fracture. Following the incident, she was admitted to a rehabilitation facility and was discharged approximately three to uhtlw-gxk-l-half weeks ago. She has a history of seizures since age 16, with several instances resulting in fractures. Her medications are managed in pre-filled organizers and she is reportedly compliant. For pain, she receives in-home physical therapy and acupressure once a week. She has been on multiple medications long-term, prompting concerns about effects on her bone density and liver. The patient has a history of a prior surgery of a cholecystectomy, which has led to chronic diarrhea. She takes an anti-diarrhea medication before eating to prevent fecal incontinence, but it was noted she should not take it due to a history of blood clots. She missed a neurology appointment in February while in rehab, which has been rescheduled for May 06. She has not had prior bone density testing and has no scheduled follow-up with orthopedics. Socially, she [facility] which is insufficient for her needs, and she is otherwise home alone. Medical History: - Seizure disorder since age 16, complic ated by multiple falls and fractures. - History of blood clots. - L1 vertebral compression fracture (Jan). - Pelvic fracture (January). - Chronic diarrhea and fecal incontinenc e, post-surgical. Surgical History: - History of an unspecified surgery resu lting in chronic diarrhea. Medications: - Unspecified anti-diarrheal medication taken before meals for management of fecal incontinence. - Multiple unspecified medications for s eizure disorder and other chronic conditions, taken from pre-filled pill organizers. Health Maintenance Due to a history of multiple fractures and long-term medication use, there is a need for bone density screening. Recent lab work will be reviewed to check liver function and assess if she is due for further testing. To address transportation difficulties, a form for a handicap placard will be provided for completion and submission. Social History - The patient lives at home and is alone for most of the day. - Receives home care services from [facility] for two hours per day for assistance with activities of daily living. - Current home care hours are noted to b e insufficient for her needs, which include showering, dressing, and meal preparation. - Efforts are being made to arrange esquivel sportation services for medical appointments. Patient was informed and verbally consented to the use of an ambient scribe for clinic note documentation during this visit. [facility] Medical History (Updated 05/04/25 @ 09:13 by CHUCK Hardy) Anemia Anxiety Dislocation of left talus Hyperlipemia Hypertension Insomnia Seizure disorder Takotsubo cardiomyopathy Surgical History History of cholecystectomy S/P placement of nerve stimulator Family History (Updated 03/26/25 @ 10:55 by Zhane Talamantes MA) Mother Substance abuse Father Substance abuse Social History Household Members: None Housing: Apartment Do you presently have visiting nurse or other home services: Yes Alcohol intake: current Alcohol intake frequency: holidays/special occasions only Patient Tobacco Use Status: Former Tobacco user Tobacco use type: Cigarette Years Smoked: 2 e-Cigarette/Vaping Use: Never Used Second Hand Smoke Exposure: No Advance Directives Date on File: 09/07/21 service: No Current occupational status: disabled Cognitive needs: Yes (walker) Hearing needs: No Vision needs: No Questionnaire Thrive Questionnaire Date Thrive assessed: 01/16/25 LEON-7 AMB Questionnaire LEON-7 Date LEON - 7 assessed: 01/16/25 Source: Developed by Drs. Jake Hodges, Gloria Licona, Maciej Turner and colleagues, with an educational darian from [employer]. Review of Systems Narrative Review of Systems - Neurological: Reports a history of seizures since age 16. - Musculoskeletal: Reports history of recent L1 vertebral and pelvic fractures. - Gastrointestinal: Reports chronic diarrhea and fecal incontinence following a past surgery, which occurs after eating if she does not take an anti-diarrheal medication. Physical exam (Primary Care) Vital Signs: Last Vital Signs Temp 97.3 F 03/26/25 10:50 Pulse 70 03/26/25 10:50 BP 114/70 03/26/25 10:50 Pulse Ox 99 03/26/25 10:50 Oxygen Delivery Method Room Air 03/26/25 10:50 GENERAL Well developed, Well nourished, in no apparent distress, in wheel chair HEENT Head-Normocephalic Neck- Supple, No lymphadenopathy, thyroid WNL RESPIRATORY Normal I:E, Clear to auscultation CARDIOVASCULAR Regular, rate and rhythm, No murmurs or rubs GASTROINTESTINAL Soft, nontender, normal bowel sounds, no masses MUSCULOSKELETAL Back- tender in lumbar Joints- no swelling or deformity NEUROLOGICAL In wheel chair PSYCHIATRIC Oriented to person, place and time Mood and affect -depressed Appearance WNL Speech WNL Thought processes WNL Tobacco/Smoking Status: Tobacco use Status Tobacco use date assessed 03/26/25 03/26/25 08:23 Patient Tobacco Use Status Former Tobacco user 03/26/25 08:23 Tobacco use type Cigarette 03/26/25 08:23 e-Cigarette/Vaping Use Never Used 03/26/25 08:23 Thrive Assessment: Date of Thrive Assessment Date Thrive assessed 01/16/25 03/26/25 08:23 Results Reviewed Results Reviewed: FINDINGS: A single AP view of the pelvis and AP and lateral views of the left femur are submitted. The bones are osteopenic. There are nondisplaced fractures of the right superior and inferior pubic rami. No additional fracture is identified. The femur is intact. There is no dislocation. The hip joint space is maintained. There is mild narrowing of the medial compartment of the knee. There are vascular calcifications. XR/XR pelvis 1-2V IMPRESSION: Osteopenia. Nondisplaced fractures of the right superior and inferior pubic rami. No evidence of fracture of the right femur. Electronically signed by: Jake Moreno MD 01/30/2025 01:58 PM EST FINDINGS: Superior endplate compression deformities resulting in 30-40 % volume loss with retropulsion at L1. Multilevel marginal osteophyte formation and endplate sclerosis. No gross malalignment. S-shaped curvature of the thoracolumbar spine. Vascular clips in the right upper quadrant abdomen. Osteopenia versus osteoporosis. Vascular calcifications, aorta and iliac arteries. XR/XR lumbar spine 2-3V IMPRESSION: 30/40% compression deformity with retropulsion, L1 likely old and osteoporotic in nature. Multilevel thoracolumbar spondylosis. Atherosclerosis disease.. Electronically signed by: Jason Stratton MD 01/30/2025 01:59 PM EST Coding Level of Care Code Established Pt Est Pt Level 4 (70493) Established Pt Add On Problem Visit Only Patient Type Established Diagnoses Primary hypertension I10 Hypertension type: primary hypertension Seizure disorder G40.909 Low back pain M54.50 Chronic diarrhea K52.9 Time Spent (min) 35 Comment Time spent on chart review, H&P, Patient education, orders and follow up Assessment & Plan Assessment & Plan (1) Hypertension: Comment: BP today was 114/70 Code(s): I10 - Essential (primary) hypertension Category: Medical Qualifiers: Hypertension type: primary hypertension Qualified Code(s): I10 - Essential (primary) hypertension Plan: Controlled. Patient will continue current medications. Will monitor. Patient will follow up in 3 months (2) Seizure disorder: Code(s): G40.909 - Epilepsy, unspecified, not intractable, without status epilepticus Category: Medical Plan: Patient to follow up with Neurology on 05/06 (3) Low back pain: Code(s): M54.50 - Low back pain, unspecified Plan: Due to vertebral fracture. Will request DEXA. Will request reevaluation of home care hours. Patient to follow up in 3 weeks or sooner if symptoms persist or worsen. (4) Chronic diarrhea: Code(s): K52.9 - Noninfective gastroenteritis and colitis, unspecified Plan: Will get labs. Will try Metamucil. Patient to follow up in 3 weeks or sooner if symptoms persist or worsen. Plan Plan Patient was informed and verbally consented to the use of an ambient scribe for clinic note documentation during this visit. 1. Chronic Post-Surgical Diarrhea The patient experiences post-prandial diarrhea and incontinence as a sequela of a prior surgery, for which she currently takes an anti-diarrheal medication. This medication is contraindicated due to a history of blood clots. A prescription for a fiber supplement to be taken twice daily will be sent to [facility] to help bulk her stools. 2. Insufficient Home Care Support The patient receives two hours of home care per day, which is insufficient for her needs, including ADLs like showering and meal preparation. Will contact her care agency, [facility], to discuss increasing her service hours. 3. Seizure Disorder The patient has a history of seizures since age 16, recently resulting in a fall and fractures. She missed her post-hospitalization neurology appointment but has been rescheduled for May 06. Neurology follow-up will be essential for ongoing management. Discussion Notes I spoke with the patient's caregiver about the need to increase home care hours from the current two hours per day, which is insufficient for the patient's ADL needs. I will contact the agency to advocate for more support. We discussed the patient's chronic post-surgical diarrhea and the contraindication of her current anti-diarrheal medication due to a history of blood clots. I have prescribed a fiber supplement as a safer alternative to bulk the stool and will send it to her pharmacy. I also provided the form for a handicap placard to assist with transportation challenges and confirmed her upcoming neurology appointment for seizure management. We identified the need for a bone density test and a review of her recent lab work given her history. Patient Instructions - A new prescription for a fiber supplement will be sent to [facility]. - Take this twice a day to help manage your diarrhea. - Please make sure you attend your neurology appointment scheduled for May 06. - Continue with your in-home physical therapy and acupressure for pain. - We have provided a form for a handicap parking placard. - Please fill out your section, and we will complete the doctor's portion and submit it. - We will be contacting your home care agency to request an increase in your d aily care hours. Orders: Orders IRON PROFILE 03/26/25 D64.9 - Anemia, unspecified Complete Blood Count no Diff 03/26/25 D64.9 - Anemia, unspecified Comprehensive Met. Panel 03/26/25 I10 - Essential (primary) hypertension, Z79.899 - Other retirement (current) drug therapy Ferritin 03/26/25 D64.9 - Anemia, unspecified XR DEXA axial skeleton 03/26/25 Z78.0 - Asymptomatic menopausal state Medications: New psyllium husk (Metamucil Fiber (aspartame)) 1 packet PO BID 180 ea 2RF for diarr hea
[2025-03-26 10:50] VITALS: BP 114/70; PULSE 70; TEMP 36.3; O2SAT 99
--- OUTSIDE RECORDS SUMMARY | 2025-03-26 11:56 | XMS_ITS | Encounter Summary ---
Author Organization [employer] Address [address] [place] [address] Care Team Providers Care Biometrics Technician Name Role Phone Unavailable Primary Care Provider Unavailabl e Reason for Visit * Reason Onset Date Comments New Patient Appt 09/22/2022 Encounter Details Date Type Department Care Team (Late st Contact Info) Description 09/22/2022 Telephone [facility] [address] [place] [address] Joshua Pugh MD [address] [place] [address] New Patient Appt Social History Tobacco Use [...] left voicemail to give a call at [phone]. documented in this encounter Plan of Treatment Not on file documented as of this encounter Visit Diagnoses Not on filedocumented in this encounter
--- OUTSIDE RECORDS SUMMARY | 2025-03-26 11:56 | XMS_ITS | Clinical Summary ---
Author Organization [employer] Address [address] [place] [address] Care Team Providers Care Soils Technician Name Role Phone Unavailable Primary Care [...] 1969 Hepatitis C Screening 1975 Mammogram 1997 RSV Patients and Patients Aged 60 years or older (1 - Risk 50-74 years 1-dose series) 2007 Zoster Vaccines (1 of 2) 2007 Pneumococcal Vaccine: 50+ Years (2 of 2 - PPSV23, PCV20, or PCV21) 06/23/2017 04/28/2017 DTaP/Tdap/Td Vaccines (2 - T d or Tdap) 09/10/2020 09/10/2010 COVID-19 Vaccine (4 - 2024-2 6 season) 2024 04/15/2021, 09/21/2020, [...] patient's age to complete this topic Insurance [facility]
--- OUTSIDE RECORDS SUMMARY | 2025-03-26 11:56 | XMS_ITS | Clinical Summary ---
Author Organization [facility] Address [address] [place] [address] Phone Care Team Providers Care Drying Room Operator Name Role Phone Charlotte Menendez MD Primary Care Provider [phone] Encounters Date Type Department Care Team Description 02/27/[address] [facility] - Main Lab [address] [place] [address] Charlotte Menendez MD Essential (primary) hypertension; Hyperlipidemia, unspecified; Epilepsy, unspecified, not intractable, without status epilepticus (CMS/HCC V24, CMS/HCC V28) from Last 3 Months Social History Tobacco Use Types Packs/Day Years Used Date Smoking Tobacco: Never Assessed Comments Unknown Sex and Gender Information Value Date Recorded Sex Assigned at Not on file Legal Sex Female 3:47 PM EST Gender Identity Not on file Sexual Orientation Not on file Plan of Treatment Health Maintenance Due Date Last Done Comments Colorectal Cancer Screening: Colonoscopy 1955 DTaP,Tdap,and Td Vaccines (1 - Tdap) 01/17/1976 Pneumococcal Vaccine: 50+ Ye ars (1 of 1 - PCV) 2007 Zoster Vaccines (1 of 2) 2007 Breast Cancer Screening 07/12/2020 07/12/2018 Depression Screening 03/27/2024 COVID-19 Vaccine (1 - 2024-2 6 season) 2024 Influenza Vaccine (#1) 2024 Cholesterol Screening (Lipid Panel) 02/27/2025 Falls Risk Assessment 02/27/2025 Hepatitis C Screening 02/27/2025 Medicare Annual Wellness Visit 02/27/2025 Osteoporosis Screening (Bone Density Screening) 02/27/2025 Social Influencers of Health Screening 02/27/2025 Hypertension/CHF/CAD Annual BMP Blood Test 02/27/2026 02/27/2025 RSV Immunization Adult Patie nts (1 - 1-dose 75+ series) 01/17/2032 HIB Vaccines Aged Out No longer eligi [...] on patient's age to complete this topic MMR Vaccines Aged Out No longer eligi ble based on patient's age to complete this topic Meningococcal ACWY Vaccine Aged Out N o longer eligible based on patient's age to complete this topic Meningococcal B Vaccine Aged Out No l onger eligible based on patient's age to complete this topic RSV Immunization Patients Un jhon 20 months Aged Out No longer eligible b ased on patient's age to complete this topic Varicella Vaccines Aged Out No longer eligible based on patient's age to complete this topic Procedures Procedure Name Priority Date/Time Associated Diagnosis Comments PHENYTOIN LEVEL, TOTAL Routine 9:00 AM EST Essential (primary) hypertension Hyperlipidemia, unspecified Epilepsy, unspecified, not intractable, without status epilepticus (CMS/HCC V24, CMS/HCC V28) PHENOBARBITAL LEVEL Routine 02/27/2025 9 :00 AM EST Essential (primary) hypertension Hyperlipidemia, unspecified Epilepsy, unspecified, not intractable, without status epilepticus (CMS/HCC V24, CMS/HCC V28) BASIC METABOLIC PANEL Routine 02/27/2025 9:00 AM EST Essential (primary) hypertension Hyperlipidemia, unspecified Epilepsy, unspecified, not intractable, without status epilepticus (CMS/HCC V24, CMS/HCC V28) COMPLETE BLOOD COUNT Routine 02/27/2025 9:00 AM EST Essential (primary) hypertension Hyperlipidemia, unspecified Epilepsy, unspecified, not intractable, without status epilepticus (CMS/HCC V24, CMS/HCC V28) ARABELLA SCREENING DIGITAL Routine 07/12/2018 6:09 PM EDT Encounter for screening mammogram for malignant neoplasm of breast from Last 3 Months or Most Recently Relevant to Health Maintenance Results * (ABNORMAL) Complete blood count (02/27/2025 9:00 AM EST) WBC 3.0(L) 4.8 - 10.8 K/mcL LAB HEMETOLOGY METHOD 02/27/2025 10:49 AM [facility] RBC 4.00 3.80 - 4.80 M/mcL LAB HEMETOLOGY METHOD 02/27/2025 10:49 AM [facility] Hemoglobin 12.2 11.5 - 16.0 g/dL LAB HEMETOLOGY METHOD 02/27/2025 10:49 AM [facility] Hematocrit 37.9 35.0 - 47.0 % LAB HEMETOLOGY METHOD 02/27/2025 10:49 AM [facility] MCV 94.3 79.0 - 98.0 FL LAB HEMETOLOGY METHOD 02/27/2025 10:49 AM [facility] MCH 30.3 27.0 - 32.0 pcg LAB HEMETOLOGY METHOD 02/27/2025 10:49 AM [facility] MCHC 32.2 32.0 - 37.0 g/dL LAB HEMETOLOGY METHOD 02/27/2025 10:49 AM [facility] RDW 15.1(H) 11.0 - 15.0 % LAB HEMETOLOGY METHOD 02/27/2025 10:49 AM [facility] Platelets 296 130 - 400 K/mcL LAB HEMETOLOGY METHOD 02/27/2025 10:49 AM [facility] MPV 10.7 7.0 - 11.0 FL LAB HEMETOLOGY METHOD 02/27/2025 10:49 AM [facility] NRBC 0.0 <1.0 % LAB HEMETOLOGY METHOD 02/27/2025 10:49 AM [facility] NRBC Absolute 0.00 <0.10 K/mcL LAB HEMETOLOGY METHOD 02/27/2025 10:49 AM EST [facility] Blood Venous blood specimen / Unknown Venipuncture / Unknown 02/27/2025 9:00 AM EST 02/27/2025 10:15 AM EST us Charlotte Menendez MD LAB BLOOD ORDERABLES Final Resul t Performing Organization Address City/[facility]/ZIP Co de Phone Number [facility] [address] [place] [address], [place] [phone] * Phenytoin level total (02/27/2025 9:00 AM EST) Phenytoin Level 15.7 10.0 - 20.0 mcg/mL 02/27/2025 11:27 AM EST [facility] Blood Venous blood specimen / Unknown Venipuncture / Unknown 02/27/2025 9:00 AM EST 02/27/2025 10:15 AM EST us Charlotte Menendez MD LAB BLOOD ORDERABLES Final Resul t Performing Organization Address [facility] Co de Phone Number [facility] [address] [place] [address], [place] [phone] * (ABNORMAL) Phenobarbital level (02/27/2025 9:00 AM EST) Phenobarbital Serum 11(L) 15 - 40 ug/mL 02/28/2025 8:06 AM EST [facility] Comment:Detection Limit = 3 Blood Venous blood specimen / Unknown Venipuncture / Unknown 02/27/2025 9:00 AM EST 02/27/2025 10:15 AM EST Narrative [facility] - 02/28/2025 8:06 AM EST Performed at: 01 - [facility] [id number] Manager Scientific: Grace Sheldon MD, Phone: [phone] Charlotte Menendez MD LAB BLOOD ORDERABLES Final Resul t [facility] * Basic metabolic panel (02/27/2025 9:00 AM EST) Sodium 142 133 - 145 mmol/L 02/27/2025 11:30 AM [facility] Potassium 4.8 3.5 - 5.5 mmol/L 02/27/2025 11:30 AM [facility] Chloride 107 96 - 110 mmol/L 02/27/2025 11:30 AM [facility] CO2 24 21 - 32 mmol/L 02/27/2025 11:30 AM [facility] Anion Gap 11 3 - 11 02/27/2025 11:30 AM [facility] Glucose 73 70 - 100 mg/dL 02/27/2025 11:30 AM [facility] BUN 11 5 - 25 mg/dL 02/27/2025 11:30 AM [facility] Creatinine 0.51 0.50 - 1.10 mg/dL 02/27/2025 11:30 AM [facility] eGFR 102 >=60 mL/min/1. 73m2 02/27/2025 11:30 AM [facility] Comment:Calculation based on the Chronic Kidney Disease Epidemiology Collaboration (CKD-EPI) equation refit without adjustment for race. BUN/Creatinine Ratio 21.6 02/27/2025 11:30 AM [facility] Calcium 8.9 8.5 - 10.5 mg/dL 02/27/2025 11:30 AM [facility] Blood Venous blood specimen / Unknown Venipuncture / Unknown 02/27/2025 9:00 AM EST 02/27/2025 10:15 AM EST us Charlotte Menendez MD LAB BLOOD ORDERABLES Final Resul t [facility] [address] [place] [address], * ARABELLA SCREENING DIGITAL (07/12/2018 6:09 PM EDT) Anatomical Region Laterality Modality Mammography 07/12/2018 3:17 PM EDT Narrative 07/12/2018 6:[address] [facility] Diagnostic Imaging Department [address] [place] [address] Patient: JUSTINO PAULINO./Age/Sex: 1955 - 63 - F Unit#: [id number] [facility] Mn[facility]onic/Ordering Site: [facility] Ordering Physician: MARIBEL POSEY PA-C [facility] Screening Digital - 07/12/18 - 1549 History: Bilateral breast cancer screening. Technique: Bilateral digital mammography. Conventional CC and MLO projections with tomosynthesis MLO views and computer-aided detection Comparison: 05/12/2017. Findings: Breast tissue is mostly fatty replaced (category A density). There is no suspicious group of microcalcification, no suspicious mass, architectural distortion or suspicious change in breast tissue density. Pacemaker remains in place overlying posterior aspect of the left breast as revealed on MLO projection. Impression: No evidence of malignancy. BIRADS category 1, negative examination, 3341F [address]773, , [address] Note: Patient information entered into a reminder system with a target due date for the next mammogram; PQRI II 7075F Dictating Physician: OSIEL MARKHAM MD Electronically Signed by: OSIEL MARKHAM MD Dic Date/Time: 07/12/181807 Sign date/Time: 07/12/181808 Procedure Note Osiel Markham MD - 03/15/2022 [facility] Diagnostic Imaging Department [address] [place] [address] Patient: JUSTINO PAULINO /Age/Sex: 1955 - 63 - F Unit#: [id number] [facility]Ordering Site: [facility] Ordering Physician: MARIBEL POSEY PA-C [facility] Screening Digital - 07/12/181548 History: Bilateral breast cancer screening. Technique: Bilateral digital mammography. Conventional CC and MLOprojections with tomosynthesis MLO views and computer-aided detection Comparison: 05/12/2017. Findings: Breast tissue is mostly fatty replaced (category A density). There isno suspicious group of microcalcification, no suspicious mass,architectural distortion or suspicious change in breast tissue density. Pacemaker remains in place overlying posterior aspect of the left breastas revealed on MLO projection. Impression: No evidence of malignancy. BIRADS category 1, negative examination, 3341F [id number], , [address] Note: Patient information entered into a reminder system with a targetdue date for the next mammogram; PQRI II 7005F Dictating Physician: OSIEL MARKHAM MD Electronically Signed by: OSIEL MARKHAM MD Dic Date/Time: 07/12/181807 Sign date/Time: 07/12/181808 Mar[facility] IMG BI PROCEDURES Final Resul t from Last 3 Months or Most Recently Relevant to Health Maintenance Insurance [employer] MED[employer]ARE [employer]VANTAGE Care Teams Drying Room Operator Relationship Specialty Start Date End Date Charlotte Menendez MD [address] [place] [address] PCP - General Hospitalist Medicine 02/27/25
--- OUTSIDE RECORDS SUMMARY | 2025-03-26 11:56 | XMS_ITS | Encounter Summary ---
Author Organization [facility] Address [address] [place] [address] Care Team Providers Care Tomato Grader Name Role Phone Charlotte Menendez MD Primary Care Provider [phone] Encounter Details Date Type Department Care Team (Late st Contact Info) Description 02/27/2025 Lab Requisition [facility] - Main Lab [address] [facility] [place] [address] Charlotte Menendez MD [address] [place] [address] Essential (primary) hypertension; Hyperlipidemia, unspecified; Epilepsy, unspecified, not intractable, without status epilepticus (CMS/HCC V24, CMS/HCC V28) Social History Tobacco Use Types Packs/Day Years Used Date Smoking Tobacco: Never Assessed Comments Unknown Sex and Gender Information Value Date Recorded Sex Assigned at Not on file Legal Sex Female 3:47 PM EST Gender Identity Not on file Sexual Orientation Not on file documented as of this encounter Plan of Treatment Not on file documented as of this encounter Procedures Procedure Name Priority Date/Time Associated Diagnosis Comments COMPLETE BLOOD COUNT Routine 02/27/2025 9:00 AM EST Essential (primary) hypertension Hyperlipidemia, unspecified Epilepsy, unspecified, not intractable, without status epilepticus (CMS/HCC V24, CMS/HCC V28) PHENYTOIN LEVEL, TOTAL Routine 9:00 AM EST [...] not intractable, without status epilepticus (CMS/HCC V24, CMS/[facility] V28) documented in this encounter Results * Phenytoin level total (02/27/2025 9:00 AM EST) Pathologist [facility] Phenytoin Level 15.7 10.0 - 20.0 mcg/mL 02/27/2025 11:27 AM EST [facility] Blood Venous blood specimen / Unknown Venipuncture / Unknown 02/27/2025 9:00 AM EST 02/27/2025 10:15 AM EST us Charlotte Menendez MD LAB BLOOD ORDERABLES Final Resul t Performing Organization Address City/[facility]/ZIP Co de Phone Number [facility] [address] [place] [address], [place] [phone] * (ABNORMAL) Phenobarbital level (02/27/2025 9:00 AM EST) Pathologist [facility] Phenobarbital Serum 11(L) 15 - 40 ug/mL 02/28/2025 8:06 AM EST [facility] Comment:Detection Limit = 3 Blood Venous blood specimen / Unknown Venipuncture / Unknown 02/27/2025 9:00 AM EST 02/27/2025 10:15 AM EST Narrative [facility] - 02/28/2025 8:06 AM EST Performed at: 01 - [facility] [address] [id number] Vacuum Cleaner Repairer: Grace Sheldon MD, Phone: [phone] us Charlotte Menendez MD LAB BLOOD ORDERABLES Final Resul t [facility] * Basic metabolic panel (02/27/2025 9:00 AM EST) Pathologist [facility] Sodium 142 133 - 145 mmol/L 02/27/2025 11:30 AM [facility] Potassium 4.8 3.5 - 5.5 mmol/L 02/27/2025 11:30 AM [facility] Chloride 107 96 - 110 mmol/L 02/27/2025 11:30 AM [facility] CO2 24 21 - 32 mmol/L 02/27/2025 11:30 AM [facility] Anion Gap 11 3 - 11 02/27/2025 11:30 AM [facility] Glucose 73 70 - 100 mg/dL 02/27/2025 11:30 AM [facility] BUN 11 5 - 25 mg/dL 02/27/2025 11:30 AM [facility] Creatinine 0.51 0.50 - 1.10 mg/dL 02/27/2025 11:30 AM [facility] eGFR 102 >=60 mL/min/1. 73m2 02/27/2025 11:30 AM [facility] Comment:Calculation based on the Chronic Kidney Disease Epidemiology Collaboration (CKD-EPI) equation refit without adjustment for race. BUN/Creatinine Ratio 21.6 02/27/2025 11:30 AM [facility] Calcium 8.9 8.5 - 10.5 mg/dL 02/27/2025 11:30 AM [facility] Blood Venous blood specimen / Unknown Venipuncture / Unknown 02/27/2025 9:00 AM EST 02/27/2025 10:15 AM EST us Charlotte Menendez MD LAB BLOOD ORDERABLES Final Resul t [facility] [address] [place] [address], * (ABNORMAL) Complete blood count (02/27/2025 9:00 AM EST) [facility] WBC 3.0(L) 4.8 - 10.8 K/mcL LAB HEMETOLOGY METHOD 02/27/2025 10:49 AM [facility] RBC 4.00 3.80 - 4.80 M/mcL LAB HEMETOLOGY METHOD 02/27/2025 10:49 AM [facility] Hemoglobin 12.2 11.5 - 16.0 g/dL LAB HEMETOLOGY METHOD 02/27/2025 10:49 AM [facility] Hematocrit 37.9 35.0 - 47.0 % LAB HEMETOLOGY METHOD 02/27/2025 10:49 AM [facility] MCV 94.3 79.0 - 98.0 FL LAB HEMETOLOGY METHOD 02/27/2025 10:49 AM [facility] MCH 30.3 27.0 - 32.0 pcg LAB HEMETOLOGY METHOD 02/27/2025 10:49 AM [facility] MCHC 32.2 32.0 - 37.0 g/dL LAB HEMETOLOGY METHOD 02/27/2025 10:49 AM [facility] RDW 15.1(H) 11.0 - 15.0 % LAB HEMETOLOGY METHOD 02/27/2025 10:49 AM [facility] Platelets 296 130 - 400 K/mcL LAB HEMETOLOGY METHOD 02/27/2025 10:49 AM [facility] MPV 10.7 7.0 - 11.0 FL LAB HEMETOLOGY METHOD 02/27/2025 10:49 AM [facility] NRBC 0.0 <1.0 % LAB HEMETOLOGY METHOD 02/27/2025 10:49 AM [facility] NRBC Absolute 0.00 <0.10 K/mcL LAB HEMETOLOGY METHOD 02/27/2025 10:49 AM EST [facility] Blood Venous blood specimen / Unknown Venipuncture / Unknown 02/27/2025 9:00 AM EST 02/27/2025 10:15 AM EST Charlotte Menendez MD LAB BLOOD ORDERABLES Final Resul t [facility] [address] [place] [address], documented in this encounter Visit Diagnoses Diagnosis Essential (primary) hypertension Unspecified essential hypertension Hyperlipidemia, unspecified Epilepsy, unspecified, not intractable, without status epilepticus (CMS/HCC V24, CMS/HCC V28) documented in this encounter Care Teams Tomato Grader Relationship Specialty Start Date End Date Charlotte Menendez MD [address] [place] [address] PCP - General Hospitalist Medicine 02/27/25 documented as of this encounter
--- OUTSIDE RECORDS SUMMARY | 2025-05-02 19:00 | XMS_ITS | Clinical Summary ---
Author Organization Unknown Care Team Providers Care Sports Medicine Specialist Name Role Phone PASSER FRITZ WOODS Unavailable Unavailable PARISA LINDSEY, ETHAN Unavailable Unavailab danelle HA TROUBLE LINEMAN, STACIE Unavailable Unavailable ZENIA PT, HAIDER Unavailable Unavail able MAURA ZYGLO TECHNICIAN, CHI Unavailable Unavailable READING OT, JUAN MANUEL Unavailable Unavailable Payers Payer Name Policy Type Policy Number Effective Date Expira tion Date [facility] [id number] Problems Condition Name Condition Details Condition Category Status Onset Date Resolution Date Last Treatment Date Treating Clinician Comments OTH FRACTURE OF RIGHT PUBIS, SUBS FOR FX W ROUTN HEAL Active 2024-03 00:00: 00 UNSP FX THE LOWER END R RAD, SUBS FOR CLOS FX W ROUTN HEAL Active 2024-03 00:00: 00 UNSP FX FIRST LUM VERTEBRA, SUBS FOR FX W ROUTN HEAL Active 2024-03 00:00: 00 ESSENTIAL (PRIMARY) HYPERTENSION Active 2024-03 00:00: 00 EPILEPSY, UNSP, NOT INTRACTABLE, WITHOUT STATUS EPILEPTICUS Active 2024-03 00:00: 00 HYPERLIPIDEM IA, UNSPECIFIED Active 03-27 00:00: 00 OTH SYMPTOMS AND SIGNS W COGNITIVE FUNCTIONS AND AWARENESS Active 2024-03 00:00: 00 PERSONAL HISTORY OF URINARY (TRACT) INFECTIONS Active 2024-03 00:00: 00 HISTORY OF FALLING Active 2024-03 00:00: 00 Encounter for sepsis aftercare Active 2024-03 00:00: 00 PRESENCE OF NEUROSTIMULA TOR Active 03-27 00:00: 00 Allergies, Adverse Reactions, Alerts Allergy Name Allergy Type Status Severity Reaction(s) Onset Date Inactive Date Treating Clinician Comments NO KNOWN ALLERGIES Propensity to adverse reactions Active 2024-03 11:54: 44 Medications Ordered Medication Name Filled Medication Name Start Date Stop Date Current Medication? Ordering Clinician Indication Dosage Frequency Signature (SIG) Comments Components lacosamide 150 mg tablet 2024-03 00:00: 00 03-05 00:00 :00 No [id number] Per instruc tions Per instructio ns (route: oral) Med Classific ation: Central Nervous System Agents carvedilol 3.125 mg tablet 2024-03 00:00: 00 03-05 00:00 :00 No [id number] Per instruc tions Per instructio ns (route: oral) Med Classific ation: Cardiovas cular Therapy Agents methocarbam ol 750 mg tablet 2024-03 00:00: 00 03-05 00:00 :00 No [id number] Per instruc tions Per instructio ns (route: oral) Med Classific ation: Locomotor System sulfamethox azole 800 mg-trimetho prim 160 mg tablet 2024-03 00:00: 00 03-05 00:00 :00 No [id number] Per instruc tions Per instructio ns (route: oral) Med Classific ation: Anti-Infe ctive Agents acetaminoph en 325 mg tablet 2024-03 00:00: 00 Yes [id number] MILD PAIN 2 tablet EVERY 4 HOURS 2 tablet EVERY 4 HOURS (route: oral) Med Classific ation: Analgesic , Anti-infl ammatory or Antipyret ic aspirin 81 mg tablet,lesa yed release 2024-03 00:00: 00 Yes [id number] BLOOD THINNER 1 tablet DAILY 1 tablet DAILY (route: oral) Med Classific ation: Hematolog ical Agents atorvastati n 40 mg tablet 2024-03 00:00: 00 Yes [id number] HIGH LIPIDS 1 tablet BEDTIME 1 tablet BEDTIME (route: oral) Med Classific ation: Cardiovas cular Therapy Agents carvedilol 3.125 mg tablet 2024-03 00:00: 00 Yes [id number] HIGH BLOOD PRESSURE 1 tablet 2 TIMES DAILY 1 tablet 2 TIMES DAILY (route: oral) Med Classific ation: Cardiovas cular Therapy Agents clonazepam 2 mg tablet 2024-03 2- 00:00: 00 Yes [id number] ANXIETY 1 tablet BEDTIME 1 tablet BEDTIME (route: oral) Med Classific ation: Central Nervous System Agents folic acid 1 mg tablet 2024-03 2- 00:00: 00 Yes [id number] SUPPLEMENT 1 tablet DAILY 1 tablet DAILY (route: oral) Med Classific ation: Electroly te Balance-N utritiona l Products lacosamide 150 mg tablet 2024-03 2- 00:00: 00 Yes [id number] SEIZURE DISORDER 1 tablet 2 TIMES DAILY 1 tablet 2 TIMES DAILY (route: oral) Med Classific ation: Central Nervous System Agents melatonin 5 mg chewable tablet 2024-03 00:00: 00 Yes [id number] TROUBLE SLEEPING 1 tablet BEDTIME 1 tablet BEDTIME (route: oral) Med Classific ation: Central Nervous System Agents phenobarbit al 32.4 mg tablet 2024-03 00:00: 00 Yes [id number] SEIZURE DISORDER 1 tablet 2 TIMES DAILY 1 tablet 2 TIMES DAILY (route: oral) Med Classific ation: Central Nervous System Agents phenytoin sodium extended 100 mg capsule 2024-03 00:00: 00 Yes [id number] SEIZURES 2 capsule 2 TIMES DAILY 2 capsule 2 TIMES DAILY (route: oral) Med Classific ation: Central Nervous System Agents Vital Signs Vital Name Observation Time Observation Value Commen ts Temperature 2025-03-25 09:36:00.000 97.5 [degF] Temperature 2025-03-21 12:21:00.000 97.4 [degF] Temperature 2025-03-19 11:28:00.000 98.2 [degF] Temperature 2025-03-18 18:42:00.000 97.3 [degF] Temperature 2025-03-17 11:17:00.000 98.1 [degF] Temperature 2025-03-12 11:24:00.000 97.6 [degF] Temperature 2025-03-10 09:51:00.000 97.3 [degF] Temperature 2025-03-05 12:47:00.000 97.5 [degF] BMI (%) 2025-03-05 12:13:58.000 30 kg/m2 Height 2025-03-05 12:12:50.000 62 [in_us] Pulse 2025-03-25 09:36:00.000 84 /min Pulse 2025-03-24 11:29:00.000 88 /min Pulse 2025-03-21 12:21:00.000 73 /min Pulse 2025-03-19 11:28:00.000 83 /min Pulse 2025-03-18 18:42:00.000 74 /min Pulse 2025-03-17 11:17:00.000 72 /min Pulse 2025-03-12 11:24:00.000 86 /min Pulse 2025-03-10 09:51:00.000 76 /min Pulse 2025-03-05 12:47:00.000 86 /min O2 Saturation (%) 2025-03-25 09:36:00.000 98 % O2 Saturation (%) 2025-03-24 11:29:00.000 98 % O2 Saturation (%) 2025-03-21 12:21:00.000 99 % O2 Saturation (%) 2025-03-19 11:28:00.000 99 % O2 Saturation (%) 2025-03-18 18:42:00.000 97 % O2 Saturation (%) 2025-03-17 11:17:00.000 96 % O2 Saturation (%) 2025-03-12 11:24:00.000 98 % O2 Saturation (%) 2025-03-10 09:51:00.000 94 % O2 Saturation (%) 2025-03-05 12:47:00.000 97 % Respirations 2025-03-25 09:36:00.000 18 /min Respirations 2025-03-24 11:29:00.000 16 /min Respirations 2025-03-21 12:21:00.000 16 /min Respirations 2025-03-19 11:28:00.000 18 /min Respirations 2025-03-18 18:42:00.000 18 /min Respirations 2025-03-17 11:17:00.000 18 /min Respirations 2025-03-12 11:24:00.000 18 /min Respirations 2025-03-10 09:51:00.000 18 /min Respirations 2025-03-05 12:47:00.000 18 /min Weight (lbs) 2025-03-05 12:13:58.000 169 [lb_av] Systolic Blood Pressure 2025-03-25 09:36:00.000 108 mm [Hg] Systolic Blood Pressure 2025-03-24 11:29:00.000 105 mm [Hg] Systolic Blood Pressure 2025-03-21 12:21:00.000 100 mm [Hg] Systolic Blood Pressure 2025-03-19 11:28:00.000 90 mm[ Hg] Systolic Blood Pressure 2025-03-18 18:42:00.000 120 mm [Hg] Systolic Blood Pressure 2025-03-17 11:17:00.000 110 mm [Hg] Systolic Blood Pressure 2025-03-12 11:24:00.000 123 mm [Hg] Systolic Blood Pressure 2025-03-10 09:51:00.000 132 mm [Hg] Systolic Blood Pressure 2025-03-05 12:47:00.000 124 mm [Hg] Diastolic Blood Pressure 2025-03-25 09:36:00.000 62 mm [Hg] Diastolic Blood Pressure 2025-03-24 11:29:00.000 58 mm [Hg] Diastolic Blood Pressure 2025-03-21 12:21:00.000 72 mm [Hg] Diastolic Blood Pressure 2025-03-19 11:28:00.000 61 mm [Hg] Diastolic Blood Pressure 2025-03-18 18:42:00.000 80 mm [Hg] Diastolic Blood Pressure 2025-03-17 11:17:00.000 80 mm [Hg] Diastolic Blood Pressure 2025-03-12 11:24:00.000 70 mm [Hg] Diastolic Blood Pressure 2025-03-10 09:51:00.000 70 mm [Hg] Diastolic Blood Pressure 2025-03-05 12:47:00.000 60 mm [Hg] Plan of Treatment Planned Activity Planned Date Details Comments Future Scheduled Test RN TO OBSE RVE, ASSESS, EVALUATE, AND DEVELOP AN INDIVIDUALIZED PLAN OF CARE. AGENCY MAY ACCEPT ORDERS FROM CONSULTING PHYSICIANS. RN TO OBSERVE AND ASSESS, TROUBLE LINEMAN/LICENSED RETAIL SUPERVISOR TO OBSERVE FOR RISK FOR FALLS AND INSTRUCT IN FALL PREVENTION, HOME SAFETY, MEDICATION MANAGEMENT, INFECTION PREVENTION, AND NUTRITION MANAGEMENT. RN/TROUBLE LINEMAN/LICENSED RETAIL SUPERVISOR NURSE MAY PERFORM O2 SATURATION LEVEL ON ADMISSION AND PRN FOR RN TO ASSESS/TROUBLE LINEMAN TO OBSERVE PATIENT, WITH NOTIFICATION TO THE PHYSICIAN IF SATURATION IS 90% IN THE ABSENCE OF MORE SPECIFIC PARAMETERS FROM THE PHYSICIAN. AGENCY MAY PERFORM A RESUMPTION OF CARE VISIT FOLLOWING ANY HOSPITAL ADMISSION. RN/TROUBLE LINEMAN/LICENSED RETAIL SUPERVISOR TO MONITOR CO-MORBID CONDITIONS LISTED ON THE PLAN OF CARE AND ANY NEW CONDITIONS THAT PRESENT THEMSELVES DURING THIS EPISODE TO IDENTIFY CHANGES AND INTERVENE TO MINIMIZE COMPLICATIONS. [code = RN TO OBSERVE, ASSESS, EVALUATE, AND DEVELOP AN INDIVIDUALIZED PLAN OF CARE. AGENCY MAY ACCEPT ORDERS FROM CONSULTING PHYSICIANS. RN TO OBSERVE AND ASSESS, TROUBLE LINEMAN/LICENSED RETAIL SUPERVISOR TO OBSERVE FOR RISK FOR FALLS AND INSTRUCT IN FALL PREVENTION, HOME SAFETY, MEDICATION MANAGEMENT, INFECTION PREVENTION, AND NUTRITION MANAGEMENT. RN/TROUBLE LINEMAN/LICENSED RETAIL SUPERVISOR NURSE MAY PERFORM O2 SATURATION LEVEL ON ADMISSION AND PRN FOR RN TO ASSESS/TROUBLE LINEMAN TO OBSERVE PATIENT, WITH NOTIFICATION TO THE PHYSICIAN IF SATURATION IS 90% IN THE ABSENCE OF MORE SPECIFIC PARAMETERS FROM THE PHYSICIAN. AGENCY MAY PERFORM A RESUMPTION OF CARE VISIT FOLLOWING ANY HOSPITAL ADMISSION. RN/TROUBLE LINEMAN/LICENSED RETAIL SUPERVISOR TO MONITOR CO-MORBID CONDITIONS LISTED ON THE PLAN OF CARE AND ANY NEW CONDITIONS THAT PRESENT THEMSELVES DURING THIS EPISODE TO IDENTIFY CHANGES AND INTERVENE TO MINIMIZE COMPLICATIONS.] Future Scheduled Test MEDICATION MANAGEMENT; RN/TROUBLE LINEMAN/LICENSED RETAIL SUPERVISOR TO REVIEW MEDICATIONS FOR INTERACTIONS, EFFECTIVENESS OF DRUG THERAPY, AND SIGNS/SYMPTOMS OF ADVERSE REACTIONS. MAY INSTRUCT AND REINFORCE MEDICATION TEACHING RELATED TO THE USE OF MEDICATIONS, DOSAGE, FREQUENCY, PURPOSE, SIDE EFFECTS, AND TO REPORT COMPLICATIONS. [code = MEDICATION MANAGEMENT; RN/TROUBLE LINEMAN/LICENSED RETAIL SUPERVISOR TO REVIEW MEDICATIONS FOR INTERACTIONS, EFFECTIVENESS OF DRUG THERAPY, AND SIGNS/SYMPTOMS OF ADVERSE REACTIONS. MAY INSTRUCT AND REINFORCE MEDICATION TEACHING RELATED TO THE USE OF MEDICATIONS, DOSAGE, FREQUENCY, PURPOSE, SIDE EFFECTS, AND TO REPORT COMPLICATIONS.] Future Scheduled Test RISK FOR H OSPITALIZATION; RN TO ASSESS/TEACH, LICENSED RETAIL SUPERVISOR/TROUBLE LINEMAN TO OBSERVE/TEACH PATIENT/CAREGIVER ON RISK FOR HOSPITALIZATION/EMERGENCY ROOM VISITS, TEACH SIGNS AND SYMPTOMS THAT PUT PATIENT AT RISK, WHEN TO NOTIFY NURSE/PHYSICIAN OF COMPLICATIONS/DECLINE, AND WHEN TO CALL 911. [code = RISK FOR HOSPITALIZATION; RN TO ASSESS/TEACH, LICENSED RETAIL SUPERVISOR/TROUBLE LINEMAN TO OBSERVE/TEACH PATIENT/CAREGIVER ON RISK FOR HOSPITALIZATION/EMERGENCY ROOM VISITS, TEACH SIGNS AND SYMPTOMS THAT PUT PATIENT AT RISK, WHEN TO NOTIFY NURSE/PHYSICIAN OF COMPLICATIONS/DECLINE, AND WHEN TO CALL 911.] Future Scheduled Test CARDIOVASC ULAR SYSTEM; RN TO ASSESS/TEACH, TROUBLE LINEMAN/LICENSED RETAIL SUPERVISOR TO OBSERVE/TEACH RELATED TO ALTERED CARDIOVASCULAR STATUS TO MINIMIZE COMPLICATIONS AND REDUCE HOSPITALIZATION. [code = CARDIOVASCULAR SYSTEM; RN TO ASSESS/TEACH, TROUBLE LINEMAN/LICENSED RETAIL SUPERVISOR TO OBSERVE/TEACH RELATED TO ALTERED CARDIOVASCULAR STATUS TO MINIMIZE COMPLICATIONS AND REDUCE HOSPITALIZATION.] Future Scheduled Test HYPERTENSI ON MANAGEMENT; RN TO ASSESS AND TEACH, TROUBLE LINEMAN/LICENSED RETAIL SUPERVISOR TO OBSERVE AND TEACH WARNING SIGNS AND SYMPTOMS TO AVOID HOSPITALIZATION. [code = HYPERTENSION MANAGEMENT; RN TO ASSESS AND TEACH, TROUBLE LINEMAN/LICENSED RETAIL SUPERVISOR TO OBSERVE AND TEACH WARNING SIGNS AND SYMPTOMS TO AVOID HOSPITALIZATION.] Future Scheduled Test SKIN INTEG RITY RN TO ASSESS AND TEACH, TROUBLE LINEMAN/LICENSED RETAIL SUPERVISOR TO OBSERVE AND TEACH INTEGUMENTARY STATUS TO IDENTIFY CHANGES AND INTERVENE TO MINIMIZE COMPLICATIONS. PROVIDE SKILLED TEACHING OF GENERAL WOUND AND SKIN CARE AND PREVENTION RELATED TO ACTUAL ALTERED SKIN INTEGRITY [code = SKIN INTEGRITY RN TO ASSESS AND TEACH, TROUBLE LINEMAN/LICENSED RETAIL SUPERVISOR TO OBSERVE AND TEACH INTEGUMENTARY STATUS TO IDENTIFY CHANGES AND INTERVENE TO MINIMIZE COMPLICATIONS. PROVIDE SKILLED TEACHING OF GENERAL WOUND AND SKIN CARE AND PREVENTION RELATED TO ACTUAL ALTERED SKIN INTEGRITY] Future Scheduled Test NEUROLOGIC AL SYSTEM MANAGEMENT; RN TO ASSESS AND TEACH, LICENSED RETAIL SUPERVISOR/TROUBLE LINEMAN TO OBSERVE AND TEACH RELATED TO ALTERED NEUROLOGICAL STATUS TO MINIMIZE COMPLICATIONS AND REDUCE HOSPITALIZATION. [code = NEUROLOGICAL SYSTEM MANAGEMENT; RN TO ASSESS AND TEACH, LICENSED RETAIL SUPERVISOR/TROUBLE LINEMAN TO OBSERVE AND TEACH RELATED TO ALTERED NEUROLOGICAL STATUS TO MINIMIZE COMPLICATIONS AND REDUCE HOSPITALIZATION.] Future Scheduled Test SEIZURE DI SORDER MANAGEMENT; RN/LICENSED RETAIL SUPERVISOR/TROUBLE LINEMAN TO PROVIDE INSTRUCTION REGARDING MANAGEMENT OF SEIZURE DISORDER AND SEIZURE PRECAUTIONS. [code = SEIZURE DISORDER MANAGEMENT; RN/LICENSED RETAIL SUPERVISOR/TROUBLE LINEMAN TO PROVIDE INSTRUCTION REGARDING MANAGEMENT OF SEIZURE DISORDER AND SEIZURE PRECAUTIONS.] Future Scheduled Test PAIN MANAG EMENT; RN TO ASSESS AND TEACH, LICENSED RETAIL SUPERVISOR/TROUBLE LINEMAN TO OBSERVE AND TEACH AND PROVIDE EDUCATION ON PAIN MANAGEMENT TECHNIQUES. [code = PAIN MANAGEMENT; RN TO ASSESS AND TEACH, LICENSED RETAIL SUPERVISOR/TROUBLE LINEMAN TO OBSERVE AND TEACH AND PROVIDE EDUCATION ON PAIN MANAGEMENT TECHNIQUES.] Future Scheduled Test FALL REDUC TION MANAGEMENT; RN TO ASSESS AND OBSERVE, TROUBLE LINEMAN/LICENSED RETAIL SUPERVISOR TO OBSERVE FALL RISK FACTORS AND EDUCATE PATIENT/CAREGIVER ON STRATEGIES TO MINIMIZE THE RISK OF FALLING. [code = FALL REDUCTION MANAGEMENT; RN TO ASSESS AND OBSERVE, TROUBLE LINEMAN/LICENSED RETAIL SUPERVISOR TO OBSERVE FALL RISK FACTORS AND EDUCATE PATIENT/CAREGIVER ON STRATEGIES TO MINIMIZE THE RISK OF FALLING.] Future Scheduled Test AGENCY MAY PERFORM A RESUMPTION OF CARE VISIT FOLLOWING ANY HOSPITAL ADMISSION. OT TO EVALUATE, OBSERVE / ASSESS, AND MONITOR, BRIDGE CONTRACTOR TO OBSERVE AND MONITOR, PROVIDE SKILLED THERAPEUTIC INTERVENTION, ACTIVITY, EDUCATION, AND TRAINING TO ADDRESS; BATHING/SHOWERING (OT/BRIDGE CONTRACTOR) DRESSING (OT/SUDEEP) ACTIVITIES OF DAILY LIVING (OT/BRIDGE CONTRACTOR) BED TRANSFERS (OT/SUDEEP) CHAIR TRANSFERS (OT/BRIDGE CONTRACTOR) TOILET TRANSFER (OT/BRIDGE CONTRACTOR) BATH/SHOWER TRANSFER (OT/SUDEEP) ADAPTIVE EQUIPMENT/DURABLE MEDICAL EQUIPMENT MANAGEMENT(OT/SUDEEP) POSTURAL CONTROL/BALANCE (OT/BRIDGE CONTRACTOR) THERAPEUTIC EXERCISE (OT/BRIDGE CONTRACTOR) OT/SUDEEP TO MONITOR AND EDUCATE ON OXYGEN SATURATION DURING ADLS/IADLS, NOTIFY PHYSICIAN AND/OR THE RN CLINICAL BODY BUILDER APPRENTICE FOR PHYSICIAN NOTIFICATION AND IF O2 SATS BELOW 90% AFTER 10 MIN OF REST. OT/SUDEEP MAY EDUCATE ON PAIN MANAGEMENT CLINICALLY INDICATED. OT/BRIDGE CONTRACTOR TO MONITOR FOR SIGNS AND SYMPTOMS OF UTI AND EDUCATE PATIENT/CAREGIVER TO MINIMIZE RISK OF DEVELOPING A UTI. OT / BRIDGE CONTRACTOR TO IDENTIFY FALL RISK FACTORS; EDUCATE THE PATIENT/CAREGIVER ON WAYS TO REDUCE FALL RISK FACTORS AND ESTABLISH HOME EXERCISE PROGRAM TO MINIMIZE FALL RISK. MAY TEACH THE PATIENT FLOOR RECOVERY WHEN CLINICALLY APPROPRIATE. [code = AGENCY MAY PERFORM A RESUMPTION OF CARE VISIT FOLLOWING ANY HOSPITAL ADMISSION. OT TO EVALUATE, OBSERVE / ASSESS, AND MONITOR, SUDEEP TO OBSERVE AND MONITOR, PROVIDE SKILLED THERAPEUTIC INTERVENTION, ACTIVITY, EDUCATION, AND TRAINING TO ADDRESS; BATHING/SHOWERING (OT/BRIDGE CONTRACTOR) DRESSING (OT/BRIDGE CONTRACTOR) ACTIVITIES OF DAILY LIVING (OT/SUDEEP) BED TRANSFERS (OT/SUDEEP) CHAIR TRANSFERS (OT/BRIDGE CONTRACTOR) TOILET TRANSFER (OT/SUDEEP) BATH/SHOWER TRANSFER (OT/SUDEEP) ADAPTIVE EQUIPMENT/DURABLE MEDICAL EQUIPMENT MANAGEMENT(OT/BRIDGE CONTRACTOR) POSTURAL CONTROL/BALANCE (OT/SUDEEP) THERAPEUTIC EXERCISE (OT/BRIDGE CONTRACTOR) OT/SUDEEP TO MONITOR AND EDUCATE ON OXYGEN SATURATION DURING ADLS/IADLS, NOTIFY PHYSICIAN AND/OR THE RN CLINICAL BODY BUILDER APPRENTICE FOR PHYSICIAN NOTIFICATION AND IF O2 SATS BELOW 90% AFTER 10 MIN OF REST. OT/SUDEEP MAY EDUCATE ON PAIN MANAGEMENT CLINICALLY INDICATED. OT/BRIDGE CONTRACTOR TO MONITOR FOR SIGNS AND SYMPTOMS OF UTI AND EDUCATE PATIENT/CAREGIVER TO MINIMIZE RISK OF DEVELOPING A UTI. OT / BRIDGE CONTRACTOR TO IDENTIFY FALL RISK FACTORS; EDUCATE THE PATIENT/CAREGIVER ON WAYS TO REDUCE FALL RISK FACTORS AND ESTABLISH HOME EXERCISE PROGRAM TO MINIMIZE FALL RISK. MAY TEACH THE PATIENT FLOOR RECOVERY WHEN CLINICALLY APPROPRIATE.] Goal Patient Goal - G ET STRONGER, GETMEDICATIONS UNDER CONTROL Goal Provider Goal - A PLAN OF CARE WILL BE ESTABLISHED THAT MEETS THE PATIENT S NEEDS. PATIENT WILL DEMONSTRATE OXYGEN SATURATION WITHIN NORMAL LIMITS OR PATIENT S OPTIMAL LEVEL ESTABLISHED BY THE PHYSICIAN THROUGHOUT CARE. CHANGES TO CO-MORBID CONDITIONS AND ANY NEW CONDITIONS WILL BE IDENTIFIED AND REPORTED TO THE PHYSICIAN. Goal Provider Goal - PATIENT/CAREGIVER TO VERBALIZE, AND CONSISTENTLY DEMONSTRATE EFFECTIVE, SAFE MANAGEMENT OF MEDICATION INCLUDING KNOWLEDGE OF EFFECTIVENESS, POTENTIAL SIDE EFFECTS AND DRUG REACTIONS AND WHEN TO CONTACT THE APPROPRIATE CARE PROVIDER. PATIENT/CAREGIVER WILL BE ABLE TO VERBALIZE UNDERSTANDING OF MEDICATION REGIMEN AND ACCURATELY TAKE MEDICATIONS PRESCRIBED WITHOUT ADVERSE EFFECTS BY EOE Goal Provider Goal - PATIENT/CAREGIVER WILL VERBALIZE UNDERSTANDING OF SIGNS AND SYMPTOMS THAT PUT THE PATIENT AT RISK FOR HOSPITALIZATION /EMERGENCY ROOM VISITS, WHEN TO NOTIFY NURSE/PHYSICIAN OF COMPLICATIONS/DECLINE AND WHEN TO CALL 911 BY EOE Goal Provider Goal - PATIENT / CAREGIVER WILL VERBALIZE/DEMONSTRATE UNDERSTANDING OF MEASURES TO MANAGE ALTERED CARDIOVASCULAR STATUS BY EOE. Goal Provider Goal - PATIENT / CAREGIVER WILL VERBALIZE/DEMONSTRATE AN ABILITY TO ADHERE TO SELF-MANAGEMENT OF HTN TO MINIMIZE COMPLICATIONS AND AVOID HOSPITALIZATION BY END OF EPISODE Goal Provider Goal - CHANGES IN SKIN INTEGRITY STATUS WILL BE IDENTIFIED AND REPORTED TO THE PHYSICIAN FOR PROMPT INTERVENTION. PATIENT / CAREGIVER WILL VERBALIZE/DEMONSTRATE ADEQUATE KNOWLEDGE OF INTEGUMENTARY STATUS AND APPROPRIATE MEASURES TO PROMOTE SKIN INTEGRITY AND PREVENT INJURY BY EOE Goal Provider Goal - PATIENT / CAREGIVER WILL VERBALIZE/DEMONSTRATE UNDERSTANDING OF MEASURES TO MANAGE ALTERED NEUROLOGICAL STATUS BY EOE. Goal Provider Goal - PATIENT/CAREGIVER WILL VERBALIZE UNDERSTANDING OF CARE AND MANAGEMENT OF SEIZURE DISORDER BY EOE Goal Provider Goal - PATIENT / CAREGIVER WILL VERBALIZE / DEMONSTRATE UNDERSTANDING OF PAIN CONTROL MEASURES BY EOE Goal Provider Goal - PATIENT/CAREGIVER WILL VERBALIZE/DEMONSTRATE UNDERSTANDING OF FALL RISK FACTORS AND IMPLEMENT STRATEGIES TO MINIMIZE FALL RISK. PATIENT/CAREGIVER WILL VERBALIZE/DEMONSTRATE AN ABILITY TO ADHERE TO FALL REDUCTION SELF-MANAGEMENT AND LIFE-STYLE CHANGES BY EOE Goal Provider Goal - OT LTG: PATIENT WILL DEMONSTRATE IMPROVED ABILITY TO PERFORM BATHING/SHOWERING AND REDUCE CAREGIVER BURDEN FROM MAX A TO MIN A WITHIN 8 WEEKS OT LTG: PATIENT WILL DEMONSTRATE IMPROVED ABILITY TO PERFORM UPPER BODY DRESSING TO REDUCE CAREGIVER BURDEN FROM MIN A TO SET UP WITHIN 8 WEEKS OT LTG: PATIENT WILL DEMONSTRATE IMPROVED ABILITY TO PERFORM LOWER BODY DRESSING TO REDUCE CAREGIVER BURDEN FROM MOD A TO CGA WITHIN 8 WEEKS OT LTG: PATIENT WILL DEMONSTRATE IMPROVEMENT IN MODIFIED MEET INDEX SCORE FROM 66/100 TO 75/100 INDICATING DECREASED DEPENDENCY ON CAREGIVER ASSISTANCE WITH ACTIVITIES OF DAILY LIVING WITHIN 8 WEEKS OT LTG: PATIENT WILL DEMONSTRATE IMPROVED ABILITY TO PERFORM BED TRANSFERS IN ORDER TO REDUCE RISK OF SKIN BREAKDOWN AND TO IMPROVE PARTICIPATION IN ADLS FROM MIN A TO SUP WITHIN 8 WEEKS OT LTG: PATIENT WILL DEMONSTRATE IMPROVED ABILITY TO PERFORM CHAIR TRANSFERS TO REDUCE THE RISK OF SKIN BREAKDOWN AND IMPROVE PARTICIPATION IN ADLS FROM MOD A TO SUP WITHIN 8 WEEKS OT LTG: PATIENT WILL DEMONSTRATE IMPROVED ABILITY TO PERFORM TOILET TRANSFERS TO REDUCE FALL RISK AND RISK OF INCONTINENCE AND UTI DEVELOPMENT FROM MIN A TO SUP WITHIN 8 WEEKS. OT LTG: PATIENT WILL DEMONSTRATE IMPROVED ABILITY AND SAFETY TO PERFORM BATH/SHOWER TRANSFER FROM MOD A TO CGA WITHIN 8 WEEKS OT LTG: PATIENT WILL DEMONSTRATE IMPROVED ABILITY TO MANAGE TUB TRANSFER BENCH DURING SELF-CARE FROM UNABLE TO SBA WITHIN 8 WEEKS IN ORDER TO INCREASE SAFETY WITH SHOWERING TRANSFER OT LTG: PATIENT WILL DEMONSTRATE IMPROVED POSTURAL CONTROL AND DECREASED FALL RISK EVIDENCED BY AN IMPROVEMENT IN FUNCTIONAL REACH SCORE FROM 0 TO 4 WITHIN 8 WEEKS IN ORDER TO DECREASE RISK OF FALLING OT LTG: PATIENT WILL DEMONSTRATE IMPROVED BUE MUSCLE STRENGTH EVIDENCED BY AN IMPROVEMENT IN MMT/FUNCTIONAL STRENGTH FROM 3+/5 TO 4/5 WITHIN 8 WEEKS IN ORDER TO INCREASE INDEPENDENCE WITH FUNCTIONAL TRANSFERS OT LTG: PATIENT WILL MAINTAIN OXYGEN SATURATION WITHIN PHYSICIAN ORDERED PARAMETERS THROUGHOUT THE EPISODE OF CARE. OT LTG: PATIENT WILL DEMONSTRATE UNDERSTANDING OF PAIN MANAGEMENT TECHNIQUES NEEDED DURING EPISODE OF CARE. OT GOAL: PATIENT WILL NOT EXHIBIT SIGNS AND SYMPTOMS OF UTI THROUGHOUT THE EPISODE OF CARE. OT LTG: PATIENT/CAREGIVER WILL BE ABLE TO IMPLEMENT RECOMMENDATIONS SPECIFIC TO FALL REDUCTION FOR IMPROVED ADL/IADL COMPLETION AND HOME SAFETY BY END OF EPISODE. Progress Notes Progress Notes <paragraph>[Visit Date: 2024 by ETHAN MCCAULEY RN]:</paragraph><paragraph>SNV FOR MEDICATION AND PAIN MANAGEMENT </paragraph><paragraph></paragraph><paragraph>PATIENT CONFUSED THIS VISIT, STATING SHE THOUGHT IT WAS THE EVENING, REPORTING AROUND 7:30 SHE TOOK HER PM PILLS. PATIENT'S PILL PACKS ALSO HAVE NO DILANTIN, CALL PLACED TO [facility]ANK TO CLARIFY. TIGHT COOPER STATED HER INSURANCE WILL NOT FILL IT UNTIL 04/14/25, EXPLAINED TO PATIENT SHE HAS TO TAKE TWO PILLS FROM [facility] AND PILL PACK UNTIL NEW PILL PACKS CAN BE ORDERED. CALL PLACED TO PCP, REQUESTING STATUS OF MORE HOURS, REPORTING TAKING PM MEDICATIONS NOW, AND CONCERNS FOR MEDICATION MANAGEMENT DUE TO COGNITION, AWAITING CALL BACK. PATIENT CONTINUES WITH PAIN TO RIGHT WRIST AND HIP, PATIENT CONTINUES WITH WEAKNESS, USING RIGHT HAND TO STAND UP. EDUCATED PATIENT, BUT SHE STATED SHE NEEDS TO DO IT TO GET UP, AND SHE IS MOSTLY ALONE. PATIENT HAS ONLY 10 HOURS [employer] HELP, BUT IS SUPPOSED TO BE NONWEIGHTBEARING TO RIGHT WRIST FOR UNTIL APRIL FOR HEALING. REVIEWED FALL PRECAUTIONS, SEIZURE PRECAUTIONS, WHEN TO CALL [facility], AND WHEN TO CALL 911. PATIENT CONTINUES TO BE HOMEBOUND DUE TO WEAKNESS, SHORTNESS OF BREATH AND PAIN WITH AMBULATION, NONWEIGHTBEARING TO RIGHT HIP AND WRIST, AND NEEDING ASSISTANCE TO LEAVE HOME.</paragraph> Encounters Start Date/Time End Date/Time Encounter Type Admission Type Attending [facility] Care Department Encounter ID Discharge Date Discharge Status Discharge Condition Discharge Reason Percent Goals Met 2025-03-05 00:00:00 2025-05-03 00:00:00 Outpatient NEW ADMISSION ETHAN MCCAULEY [facility] [id number] 12.90
== END 2025-03-26 11:31 | disposition home or self-care (01) ==
LOC: HO.HMCHD 10:40
PROVIDERS: PCP Physician Assistant Medical; Visit Provider Physician Assistant Medical
DX: I10 Essential (primary) hypertension (principal); G40.909 Epilepsy, unspecified, not intractable, without status epilepticus; M54.50 Low back pain, unspecified; K52.9 Noninfective gastroenteritis and colitis, unspecified